=== PATIENT | male | born 1985 | race Hispanic/Latino ===

== ENCOUNTER 2025-01-14 18:54 | Inpatient (IN) | payer SELFPAY ==
[~2025-01-14] VITALS: Ht 182.9 cm; Wt 213.6 kg
[2025-01-14] MEDS: 0.9%NACL 1000ML 1,000 ML IV ONE ×2 (19:33→20:33)
[2025-01-14] MEDS: acetaMINOPHEN 500 MG TABLET PO ONE (19:34)
[2025-01-14 20:04] LABS: BASOPHILS # (AUTO) 0.12 K/uL (0.00-0.20); BASOPHILS % (AUTO) 0.7 % (0.0-5.0); EOSINOPHILS # (AUTO) 0.12 K/uL (0.00-0.70); EOSINOPHILS % (AUTO) 0.7 % (0.0-8.0); HEMATOCRIT 46.7 % (42-54); IMMATURE GRANULOCYTE ABSOLUTE 0.26 K/uL (0-1); LYMPHOCYTES # (AUTO) 1.7 K/uL (1.0-4.8); LYMPHOCYTES % (AUTO) 9.7 % (21.0-51.0); MEAN CORPUSCULAR HEMOGLOBIN 28.1 pg (27.0-33.0); MEAN CORPUSCULAR VOLUME 78.2 fL (79-99); MONOCYTES # (AUTO) 0.8 K/uL (0.1-1.0); MONOCYTES % (AUTO) 4.8 % (3.0-13.0); NEUTROPHILS # (AUTO) 14.3 K/uL (1.8-7.7); NEUTROPHILS % (AUTO) 82.6 % (40.0-77.0); PLATELET COUNT (AUTO) 344 K/uL (130-400); RED BLOOD CELL COUNT(AUTO) 5.97 MIL/uL (4.50-6.20); RED CELL DISTRIBUTION WIDTH 13.9 % (11.0-15.5); WHITE BLOOD COUNT (AUTO) 17.3 K/uL (4.8-10.8)
--- NOTE | 2025-01-14 20:05 | NUR ---
lactic acid 3.2 reported to tita griffin , pending new orders
[2025-01-14 20:16] LABS: CREATININE 1.1 mg/dL (0.5-1.3)
[2025-01-14 20:19] LABS: POTASSIUM 2.6 mmol/L (3.5-5.1)
[2025-01-14] MEDS: 0.9% NACL 500ML IV.SOLN 500 ML IV ONE (20:33)
[2025-01-14] MEDS: ceFEPime HCL 1 GM VIAL IVPB ONE (20:33)
[2025-01-14] MEDS: PoTASSium BIcarbonate/CIT AC 25 MEQ TABLET.EFF PO ONE (20:34)
[2025-01-14] MEDS: VANCOMYCIN 1G/250ML KIT 250 ML IV ONE (20:35)
[2025-01-14 20:36] LABS: B-TYPE NATRIURETIC PEPTIDE 12 pg/mL (0-100)
--- NOTE | 2025-01-14 21:07 | HMCIMG ---
CHEST 1VW HISTORY: Sepsis COMPARISON: 05/10/2011 FINDINGS: A frontal projection of the chest was obtained. No acute pulmonary infiltrates is seen. The heart is borderline enlarged. Degenerative changes are seen. Prominent interstitial markings are seen. No evidence of aortic calcification is seen. IMPRESSION: 1. No acute pulmonary infiltrate is seen.
--- NOTE | 2025-01-14 21:08 | HMCIMG ---
FOOT COMP 3+VWS LT HISTORY: Pain COMPARISON: None TECHNIQUE: 3 images of the left foot were obtained. FINDINGS: There is no acute displaced fracture or dislocation. There is soft tissue swelling. Evaluation for osteomyelitis is limited radiographs. The study is limited due to poor positioning. Degenerative changes are seen. IMPRESSION: 1. Findings as described above.
[2025-01-14 21:09] LABS: ERYTHROCYTE SEDIMENTATION RATE 73 MM/HR (0-15)
--- NOTE | 2025-01-14 21:09 | HMCIMG ---
KNEE 3VWS LT HISTORY: Pain COMPARISON: None TECHNIQUE: 3 images of the left knee were obtained. FINDINGS: There is no acute displaced fracture or dislocation. IMPRESSION: 1. Findings as described above.
--- NOTE | 2025-01-14 21:12 | HMCIMG ---
US VENOUS DOPPLER UNILATERAL HISTORY: Swelling COMPARISON: None TECHNIQUE: Left lower extremity venous Doppler ultrasound study was performed. FINDINGS: The left common femoral, femoral, popliteal, and posterior tibial veins are visualized. Normal flow with augmentation and compressibilities are demonstrated. Left greater saphenous vein is patent. IMPRESSION: 1. No evidence of deep venous thrombosis is seen.
--- NOTE | 2025-01-14 22:15 | ERN ---
ED Note History of Present Illness Stated Complaint: LEFT LEG PAIN Chief Complaint: Lower Extremity Pain/Injury Time Seen by MD: 19:01 Time Seen by Midlevel: 19:01 Dictation: The patient is a 39-year-old male with a history of diabetes on metformin who presents to the emergency department with complaints of left lower extremity swelling and redness. Patient reports that two weeks ago he tripped and fell on his left knee but on Saturday he started with a swelling. Patient reports he has been ambulating, denies any wounds from the fall. Denies any other injuries. Denies any fever. Allergies: Coded Allergies: No Known Drug Allergies (Unverified Allergy, Unknown, 01/14/25) Past Medical History Past Medical History: Diabetes-Type II Surgical History: Cholecystectomy RN Note Reviewed/Agreed w/PFSH: Yes Review of System Dictation Constitutional: Negative for fever,chills, and weight loss Eyes: Negative for injury, pain,redness, and discharge ENT: Negative for injury,pain or swelling Cardiovascular: Negative for chest pain, palpitations, and edema Respiratory: Negative for shortness of breath, cough, and wheezing, Abdomen/GI: Negative for abdominal pain, nausea, vomiting, diarrhea, and constipation Back: Negative for injury and pain : Negative for injury, bleeding and discharge MS/Extremity: Positive for left knee injury Skin: Negative for rash, and discoloration positive for erythema of left lower extremity and left foot Neuro: Negative for headache, weakness, numbness, tingling, and seizure Psych: Negative for suicide ideation, homicidal ideation, and hallucinations Initial Vital Sign VS Vital Signs Date Time Temp Pulse Resp B/P (MAP) Pulse Ox O2 Delivery O2 Flow Rate FiO2 01/14/25 18:57 98.4 101 20 159/93 97 0 01/14/25 19:54 Room Air* 21 Physical Exam Dictation Vital Signs reviewed General Appearance: Alert, oriented x 3, no acute distress, well developed, nourished. Obese Head and Face: non-traumatic. Eyes: PERRL, pink conjunctivas, eyelid no trauma, anterior chamber with arcus senilis. Ears: Pinnas intact and no signs of trauma or erythema ear canals clear and no discharge TM no erythema Nose: No discharge, no bleeding. Oropharynx: Mouth normal, tongue pink. pharynx clear,no erythema, tonsils no exudates, no abscesses noted, mucous membrane moist Neck: Supple, non-tender, no thyromegaly, no masses, no JVD, no bruits Breast:Deferred Chest:No tenderness, no crepitus, no paradoxical movement, no retractions Lungs:Clear, well-ventilated, symmetric, no rales, no wheezing, no rhonchi, no stridor, good breath sounds bilaterally Heart: Regular rate, regular rhythm, no murmur, no gallops Vascular: no peripheral edema, if lower extremity edema 3+ Abdomen: Soft, positive bowel sounds, nondistended, no guarding, nontender, no rebound, no masses no hepatomegaly, no splenomegaly, no Hess's sign, no hernias. Rectal: Deferred Genital: Deferred Neurological: Normal speech, motor function intact, sensory function intact Musculoskeletal: Neck nontender, full range of motion, back nontender, full range of motion, Extremities: nontender, full range of motion Skin: Color pink, dry, no turgor, no rash, no lacerations, no abrasions, no contusions.3cm diabetic ulcer noted to left 1st toe erythemic to left lower leg, left foot Lymphatic: Deferred Results (Laboratory/Radiology) Laboratory/Radiology Laboratory Tests Test 01/14/25 19:39 01/14/25 19:49 Magnesium Level 2.30 mg/dL (1.80-2.40) White Blood Count 17.3 K/uL (4.8-10.8) H Red Blood Count 5.97 MIL/uL (4.50-6.20) Hemoglobin 16.8 g/dL (14.0-18.0) Hematocrit 46.7 % (42-54) Mean Corpuscular Volume 78.2 fL (79-99) L Mean Corpuscular Hemoglobin 28.1 pg (27.0-33.0) Mean Corpuscular Hemoglobin Concent 36.0 g/dL (32.0-36.0) Red Cell Distribution Width 13.9 % (11.0-15.5) Platelet Count 344 K/uL (130-400) Mean Platelet Volume 11.5 fL (7.5-10.5) H Immature Granulocyte % (Auto) 1.5 % (0-1) H Neutrophils (%) (Auto) 82.6 % (40.0-77.0) H Lymphocytes (%) (Auto) 9.7 % (21.0-51.0) L Monocytes (%) (Auto) 4.8 % (3.0-13.0) Eosinophils (%) (Auto) 0.7 % (0.0-8.0) Basophils (%) (Auto) 0.7 % (0.0-5.0) Neutrophils # (Auto) 14.3 K/uL (1.8-7.7) H Lymphocytes # (Auto) 1.7 K/uL (1.0-4.8) Monocytes # (Auto) 0.8 K/uL (0.1-1.0) Eosinophils # (Auto) 0.12 K/uL (0.00-0.70) Basophils # (Auto) 0.12 K/uL (0.00-0.20) Absolute Immature Granulocyte (auto 0.26 K/uL (0-1) Nucleated Red Blood Cells 0.0 % (0.0-0.19) White Cell Morphology Comment See comments Erythrocyte Sedimentation Rate 73 MM/HR (0-15) H Sodium Level 130 mmol/L (136-145) L Potassium Level 2.6 mmol/L (3.5-5.1) *L Chloride Level 91 mmol/L (101-111) L Carbon Dioxide Level 24 mmol/L (21-32) Blood Urea Nitrogen 23 mg/dL (7-18) H Creatinine 1.1 mg/dL (0.5-1.3) Glomerular Filtration Rate Calc 88 mL/min (>90) Random Glucose 329 mg/dL (70-105) H Lactic Acid Level 3.2 mmol/L (0.8-2.5) H Total Calcium 9.2 mg/dL (8.5-10.1) C-Reactive Protein, Quantitative 191.80 mg/L (0.5-3.0) H B-Type Natriuretic Peptide 12 pg/mL (0-100) REASON: pain ORDERING PHYSICIAN: CASSIDY CHATMAN PROCEDURE: FT 3VW LT - FOOT COMP 3+VWS LT FOOT COMP 3+VWS LT HISTORY: Pain COMPARISON: None TECHNIQUE: 3 images of the left foot were obtained. FINDINGS: There is no acute displaced fracture or dislocation. There is soft tissue swelling. Evaluation for osteomyelitis is limited radiographs. The study is limited due to poor positioning. Degenerative changes are seen. IMPRESSION: 1. Findings as described above. REASON: sepsis ORDERING PHYSICIAN: CASSIDY CHATMAN [employer] PROCEDURE: CXR1VW - CHEST 1VW CHEST 1VW HISTORY: Sepsis COMPARISON: 05/10/2011 FINDINGS: A frontal projection of the chest was obtained. No acute pulmonary infiltrates is seen. The heart is borderline enlarged. Degenerative changes are seen. Prominent interstitial markings are seen. No evidence of aortic calcification is seen. IMPRESSION: 1. No acute pulmonary infiltrate is seen. REASON: pain ORDERING PHYSICIAN: CASSIDY CHATMAN [employer] MANAGER PROCEDURE: KNEE 3V LT - KNEE 3VWS LT KNEE 3VWS LT HISTORY: Pain COMPARISON: None TECHNIQUE: 3 images of the left knee were obtained. FINDINGS: There is no acute displaced fracture or dislocation. IMPRESSION: 1. Findings as described above. REASON: swelling redness ORDERING PHYSICIAN: CASSIDY CHATMAN [employer] MANAGER PROCEDURE: VENOUS UNI - US VENOUS DOPPLER UNILATERAL US VENOUS DOPPLER UNILATERAL HISTORY: Swelling COMPARISON: None TECHNIQUE: Left lower extremity venous Doppler ultrasound study was performed. FINDINGS: The left common femoral, femoral, popliteal, and posterior tibial veins are visualized. Normal flow with augmentation and compressibilities are demonstrated. Left greater saphenous vein is patent. IMPRESSION: 1. No evidence of deep venous thrombosis is seen. Labs Reviewed?: Yes ED Course ED Course Orders Procedure Category Date Status Time Cbc With Differential LAB 01/14/25 Complete 19:11 Basic Metabolic Panel LAB 01/14/25 Complete 19:11 Us Venous Doppler US 01/14/25 Resulted Unilateral 19:11 Knee 3vws Lt RAD 01/14/25 Resulted 19:11 Erythrocyte LAB 01/14/25 Complete Sedimentation Rate 19:11 Crp Quantitative LAB 01/14/25 Complete 19:11 Lactic Acid LAB 01/14/25 Complete 19:11 Blood Cult REYMUNDO 01/14/25 In Process 19:11 Foot Comp 3+Vws Lt RAD 01/14/25 Resulted 19:11 Aerobic Culture REYMUNDO 01/14/25 In Process 19:11 Anaerobic Culture REYMUNDO 01/14/25 In Process 19:11 Acetaminophen 500mg PHA 01/14/25 Complete Tab (Tylenol 500mg T 19:30 0.9%Nacl 1000ml (Ns PHA 01/14/25 Complete 1000ml) 19:30 B-Type Natriuretic LAB 01/14/25 Complete Peptide 19:11 Cefepime Hcl 1 Gm PHA 01/14/25 Complete Vial (Maxipime 1 Gm Vi 20:30 Vancomycin 1g/250ml PHA 01/14/25 Complete Kit (Vancomycin 1g/2 20:30 0.9%Nacl 1000ml (Ns PHA 01/14/25 Complete 1000ml) 20:30 0.9% Nacl 500ml PHA 01/14/25 Complete Iv.Soln (Ns 500ml 20:30 Chest 1vw RAD 01/14/25 Resulted 20:08 Potassium Bicarb/Cit PHA 01/14/25 Complete Ac 25meq (K-Lyte Ta 20:30 Magnesium LAB 01/14/25 Complete 20:26 Admit Orders ADM 01/14/25 Transmitted 21:45 Edm Admit Bridge Order ADM 01/14/25 Transmitted 21:45 Vital Signs(Adult CPOE 01/14/25 Transmitted Hospitalist) 22:22 Daily Weights CPOE 01/14/25 Transmitted 22:22 I&O Q Shift CPOE 01/14/25 Transmitted 22:22 Fever: Blood Cx X 2 CPOE 01/14/25 Transmitted 22:22 Acetaminophen 325 Tab PHA 01/14/25 In Process (Tylenol 325mg Tab 22:30 Acetaminophen 325 Tab PHA 01/14/25 In Process (Tylenol 325mg Tab 22:30 Ondansetron 4mg Inj PHA 01/14/25 In Process (Zofran 4mg Inj) 22:30 Nurse To Enter Home CPOE 01/14/25 Transmitted Medication 22:22 Admit Orders ADM 01/14/25 Transmitted 22:22 Condition: CPOE 01/14/25 Transmitted 22:22 Telemetry Monitoring CPOE 01/14/25 Transmitted 22:22 Activity: Bed Rest CPOE 01/14/25 Transmitted 22:22 Heart Healthy Diet DIET 01/15/25 Transmitted Breakfast Famotidine 20mg Tab PHA 01/15/25 In Process (Pepcid 20mg Tab) 09:00 Vancomycin 1g/250ml PHA 01/14/25 Complete Kit (Vancomycin 1g/2 22:30 Morphine 2mg Syg PHA 01/14/25 In Process (Morphine 2mg Syg) 22:30 0.9%Nacl 1000ml (Ns PHA 01/14/25 In Process 1000ml) 22:30 Hydralazine 20mg Inj PHA 01/14/25 In Process (Apresoline 20mg In 22:30 Initiate FITZ 01/14/25 In Process Hyperglycemia Protoco 22:22 Insulin Regular, PHA 01/15/25 In Process Human 3ml (Humulin R 07:30 Initiate Hypoglycemia FITZ 01/14/25 In Process Protocol 22:22 Dextrose 50%-Water PHA 01/14/25 In Process (D50w) 22:30 Glucagon 1mg Kit PHA 01/14/25 In Process (Glucagon 1mg Kit) 22:30 Magnesium 2gm Premix PHA 01/14/25 In Process 50ml (Magnesium 2gm 22:30 Initiate Po FITZ 01/14/25 In Process Hypokalemia Protoc 22:22 Potassium Chloride PHA 01/14/25 In Process 20meq/100ml ([place] 22:30 Potassium Chl 10% PHA 01/14/25 In Process Elixir 20meq (Kcl 10% 22:30 Potassium Chloride PHA 01/14/25 In Process 20meq Er (K-Dur/Klor- 22:30 Notify Physician If CPOE 01/14/25 Transmitted There Is 22:22 Notify Md On The Next CPOE 01/14/25 Transmitted 22:22 Notify Md On The CPOE 01/14/25 Transmitted Next(Cont.) 22:22 Cbc With Differential LAB 01/15/25 In Process 04:00 Erythrocyte LAB 01/15/25 In Process Sedimentation Rate 04:00 Comprehensive LAB 01/15/25 In Process Metabolic Panel 04:00 Magnesium LAB 01/15/25 In Process 04:00 Hemoglobin A1c LAB 01/15/25 In Process 04:00 Lipid Panel LAB 01/15/25 In Process 04:00 Thyroid Stimulating LAB 01/15/25 In Process Hormone 04:00 Procalcitonin LAB 01/15/25 In Process 04:00 Lactic Acid LAB 01/15/25 In Process 04:00 Podiatry Consult CONPHYSVC 01/14/25 Transmitted 22:22 Infectious Disease CONPHYSVC 01/14/25 Transmitted Consult 22:22 Case Management CM 01/14/25 Transmitted Evaluation 22:22 Cefepime Hcl 1 Gm PHA 01/15/25 In Process Vial (Maxipime 1 Gm Vi 06:00 Vancomycin Trough LAB 01/16/25 Verified 11:00 Vancomycin 1.75 PHA 01/15/25 In Process Gm/250 Ml Bag 00:00 Vancomycin Protocol PHA 01/14/25 In Process (Vancomycin Protocol 23:00 Lactic Acid (Removed) LAB 01/14/25 Logged 23:03 Vital Signs Date Time Temp Pulse Resp B/P (MAP) Pulse Ox O2 Delivery O2 Flow Rate FiO2 01/15/25 00:10 97.9 83 22 161/99 98 Room Air 01/14/25 23:15 98.1 84 20 145/94 97 Room Air* 0 01/14/25 22:15 98.1 87 20 144/84 99 Room Air* 0 01/14/25 21:15 98.2 94 20 147/85 99 Room Air* 0 01/14/25 20:45 98.2 99 20 152/87 97 Room Air* 0 01/14/25 19:54 98.4 104 20 154/92 97 Room Air* 0 01/14/25 18:57 98.4 101 20 159/93 97 0 Medical Decision Making MDM MDM: The patient is a 39-year-old male with a history of diabetes on metformin who presents to the emergency department with complaints of left lower extremity swelling and redness. Patient reports that two weeks ago he tripped and fell on his left knee but on Saturday he started with a swelling. Patient reports he has been ambulating, denies any wounds from the fall. Denies any other injuries. Denies any fever. CBC showed leukocytosis, no anemia, chemistry showed hyponatremia, hypokalemia, glucose of 329, elevated C-reactive, elevated lactic acid. Chest x-ray showed no acute pulmonary infiltrates, ultrasound left lower extremity showed no evidence of thrombosis, no fracture seen on x-rays. Patient will be admitted for further evaluation and management. only 2.5L of fluids given to patient due to increase BMI. Differential diagnosis: Cellulitis, DVT, sepsis Comorbidities: Diabetes Tests considered and not ordered secondary to shared decision making include: none Previous outside records reviewed: none Risk of complication and/or morbidity or mortality of patient management: The patient meets criteria for admission. Need for emergency major/minor surgery: No There are no social concerns with this patient. I independently interpreted the tests I ordered (labs, urinalysis, etc.). I discussed the case with the hospitalist for admission. [facility] who accepts admission I discussed the case with the following specialists: none. Historian: pateint. I independently interpreted imaging studies and EKGs that I ordered (US, CT, XR, EKG, etc.). External chart review: none. Medical management and examination interpretation discussions were had by me with other qualified healthcare professionals as indicated for the patient's care. Critical Care Note Critical Time: other (36) Comment(s) Total critical care time was 36 minutes. Excluding time for procedures. Management of critically ill patient with concern for acute decompensation. Management included interpretation of laboratory values and imaging, hemodynamics, time for consultation with consultants and admitting physician. DX & DISP Disposition: Inpatient Decision to Admit Date: January 14, 2025 Decision to Admit Time: 21:45 Departure Impression: Primary Impression: Sepsis Additional Impressions: Left leg cellulitis, Diabetic ulcer of toe, Leukocytosis, Uncontrolled diabetes mellitus with hyperglycemia, Hypokalemia, Hyponatremia, Hypochloremia Critical Time: 30 minutes (Critical Care Procedure NoteAuthorized and Performed by: meTotal critical care time: Approximately 36 minutesDue to a high probability of clinically significant, life threatening deterioration, the patient required my highest level of preparedness to intervene emergently and I personally spent this critical care time directly and personally managing the patient. This critical care time included obtaining a history; examining the patient; pulse oximetry; ordering and review of studies; arranging urgent treatment with development of a management plan; evaluation of patient's response to treatment; frequent reassessment; and, discussions with other providers.This critical care time was performed to assess and manage the high probability of imminent, life-threatening deterioration that could result in multi-organ failure. It was exclusive of separately billable procedures and treating other patients and teaching time.Please see MDM section and the rest of the note for further information on patient assessment and treatment.) Condition: Stable Referrals: SELF,REFERRAL (PCP) I have examined patient, & reviewed all documents, & agreed W/ the Diagnosis, and Plan I performed a substantive portion of the visit. I have reviewed and personally made and approve the management plan that is documented in the notes by myself with SHITAL/resident. I acknowledged full responsibility for the patient's management plan. CASSIDY CHATMAN January 14, 2025 22:15 TIFFANI PINEDO DO January 15, 2025 02:17
--- NOTE | 2025-01-14 22:24 | HP ---
[facility]ORY [facility] PH[facility] Date of Service: January 14, 2025 Time of Service: 22:06 PCP: Arlette HISTORY OF PRESENT ILLNESS: This is a 39 year old male,morbidly obese wwith past medical history of diabetes and hypertension who was brought by EMS to the ED for complaints of left leg painwhich started 2 weeks ago.Patient reports he fell at his driveway 2 weeks ago , landed on his left knee and did not seek medical attention and last Saturday he noticed his left leg has been swollen and has been wearing his shoes for too long he said and that his left big toe has been rubbing on his shoes and he also noticed he has been having difficulty walking because of pain on his left leg and left foot so he decided to come to the Ed for evaluation.Reportedly upon arrival to ER,staff took out his left foot from his shoes and it has a very offensive odor his left foot is red and big toe is necrotic and left leg has an ascending redness and swelling. Seen and examined patient int he ED awake,alert and coherent,appears comfortable.Patient denies fever,chills,nausea,vomiting,chest pain,palpitation and shortness of breath. Latest vital signs temperature 98.2, heart rate 99, blood pressure 152/87 saturation 97% on room air. Labs: WBC 17 with negative left shift of neutrophils 82, hemoglobin 16, hematocrit 46, platelet count 344. Sodium 130, potassium 2.6, chloride 91, BUN 23 creatinine 1.1, GFR 88 random glu cose 329 lactic acid 3.2 magnesium 2.3 CRP 191 BNP 12. Chest x-ray result is unremarkable. Venous Doppler on lower extremity result revealed no evidence of DVT. Left knee x-ray result revealed no acute displaced fracture or dislocation. Left foot x-ray result revealed no acute displaced fracture or dislocation. There is soft tissue swelling. Evaluation of osteomyelitis is hair ited radiographs. The study is limited due to poor positioning. Degenerative changes are seen. While in the ER patient received Tylenol 1000 mg p.o., 2.5 L NS bolus, cefepime 1 g IV, vancomycin IV, and potassium 50 mEq p.o.. We will admit patient for further medical management. REVIEW OF SYSTEMS CONSTITUTIONAL: Denies fevers, chills, or night sweats. No unintentional weight loss reported. NEUROLOGICAL: Denies headache, amaurosis fugax, motor weakness, sensory deficit, vertigo/spinning sensation, gait abnormalities, or tremors. ENT: No hearing loss, otalgia, otorrhea, rhinitis, rhinorrhea, hoarseness, or sore throat. CARDIOVASCULAR: Denies any exertional angina, dyspnea on exertion, orthopnea, paroxysmal nocturnal dyspnea, palpitations, life-threatening arrhythmias, claudication. PULMONARY: Denies any shortness of breath, cough, phlegm/sputum, hemoptysis, pleuritic chest pain. SLEEP: Denies morning headaches, daytime somnolence or napping. Denies difficulty falling asleep, staying asleep, waking from sleep. Denies knowledge of snoring. GASTROINTESTINAL: Denies any type of dysphagia to either liquids or solids. Denies nausea, vomiting, pyrosis, early satiety, abdominal pain, diarrhea, constipation, or changes in stool consistency or caliber. Denies coffee-ground emesis, hematemesis, hematochezia, or melanotic stools. GENITOURINARY: Denies frequency, urgency, nocturia, hematuria or incontinence (Storage/Irritative symptoms.) Low urinary stream, straining to void, urinary intermittency or hesitancy, splitting of the voiding stream, terminal dribbling. ENDOCRINOLOGIC: Denies polyuria, polydipsia, polyphagia or heat/cold intoleranc es. HEMATOLOGIC: Denies thrombophilia/previous clots, or coagulopathy/bleeding disorders. ONCOLOGIC: Denies personal history of malignancy. DERMATOLOGIC: Denies rashes or pruritus. PSYCHIATRIC: Denies any suicidal or homicidal ideation. Denies hallucinations. PAST MEDICAL HISTORY: [ Diabetes obesity, diabetes and hypertension] PAST SURGICAL HISTORY: [Cholecystectomy in 2010 ] PAST SOCIAL HISTORY: [ Patient lives alone. Patient denies alcohol tobacco and recreational drug use ] FAMILY HISTORY: [ Noncontributory ] Coded Allergies: No Known Drug Allergies (Unverified Allergy, Unknown, 01/14/25) PHYSICAL EXAM GENERAL APPEARANCE: The patient is awake, alert, and oriented, in no acute cardiopulmonary distress. NEUROLOGICAL: Cranial nerves II-XII grossly intact. Motor is 5/5 in bilateral upper and lower extremities proximal to distal. No sensory deficits. HEENT: Face is symmetric. Pupils are equal and reactive. Extraocular movements are intact. NECK: Supple. No JVD. No thyromegaly. No submental, submandibular, pre- /postauricular, occipital or supraclavicular lymphadenopathy. CHEST: Normal chest expansion. No Telemetry. LUNGS: Absence of any rales, rhonchi or any wheezing. CARDIOVASCULAR: Regular. S1 and S2 normal. No appreciable rubs, murmurs or gallops. ABDOMEN: Soft, nontender, and nondistended. There is no rebound, voluntary guarding, or rigidity. : Deferred. No Muller. EXTREMITIES: Non-edematous and not cyanotic. No clubbing. Good capillary refill. SKIN: No skin breakdown. Vital Sign (Last 24 Hours) 01/14/25 20:45 Temp 98.2 Pulse 99 Resp 20 B/P (MAP) 152/87 Pulse Ox 97 O2 Delivery Room Air* O2 Flow Rate 0 FiO2 21 LABS: Laboratory: Test 01/14/25 19:49 01/14/25 19:39 Range/Units White Blood Count 17.3 H 4.8-10.8 K/uL Red Blood Count 5.97 4.50-6.20 MIL/uL Hemoglobin 16.8 14.0-18.0 g/dL Hematocrit 46.7 42-54 % Mean Corpuscular Volume 78.2 L 79-99 fL Mean Corpuscular Hemoglobin 28.1 27.0-33.0 pg Mean Corpuscular Hemoglobin Concent 36.0 32.0-36.0 g/dL Red Cell Distribution Width 13.9 11.0-15.5 % Platelet Count 344 130-400 K/uL Mean Platelet Volume 11.5 H 7.5-10.5 fL Immature Granulocyte % (Auto) 1.5 H 0-1 % Neutrophils (%) (Auto) 82.6 H 40.0-77.0 % Lymphocytes (%) (Auto) 9.7 L 21.0-51.0 % Monocytes (%) (Auto) 4.8 3.0-13.0 % Eosinophils (%) (Auto) 0.7 0.0-8.0 % Basophils (%) (Auto) 0.7 0.0-5.0 % Neutrophils # (Auto) 14.3 H 1.8-7.7 K/uL Lymphocytes # (Auto) 1.7 1.0-4.8 K/uL Monocytes # (Auto) 0.8 0.1-1.0 K/uL Eosinophils # (Auto) 0.12 0.00-0.70 K/uL Basophils # (Auto) 0.12 0.00-0.20 K/uL Absolute Immature Granulocyte (auto 0.26 0-1 K/uL Nucleated Red Blood Cells 0.0 0.0-0.19 % White Cell Morphology Comment See comments Erythrocyte Sedimentation Rate 73 H 0-15 MM/HR Sodium Level 130 L 136-145 mmol/L Potassium Level 2.6 *L 3.5-5.1 mmol/L Chloride Level 91 L 101-111 mmol/L Carbon Dioxide Level 24 21-32 mmol/L Blood Urea Nitrogen 23 H 7-18 mg/dL Creatinine 1.1 0.5-1.3 mg/dL Glomerular Filtration Rate Calc 88 >90 mL/min Random Glucose 329 H 70-105 mg/dL Lactic Acid Level 3.2 H 0.8-2.5 mmol/L Total Calcium 9.2 8.5-10.1 mg/dL C-Reactive Protein, Quantitative 191.80 H 0.5-3.0 mg/L B-Type Natriuretic Peptide 12 0-100 pg/mL Magnesium Level 2.30 1.80-2.40 mg/dL DIAGNOSTICS / RADIOLOGY: [ ] ASSESSMENT: Sepsis POA Left leg pain POA Left toe necrotic ulcer POA Left leg cellulitis POA Hypokalemia POA Pseudohyponatremia secondary to hyperglycemia POA Hyperglycemia secondary to Uncontrolled diabetes POA Status post fall injury at home two weeks ago POA Hypertension POA Morbid obesity POA PLAN: We will admit patient in medical telemetry We will start on heart healthy diet We will start NS @ 100 ml / hr and re evaluate We will continue on cefepime and vancomycin IV for broad-spectrum coverage We will start on Famotidine 20 mg p.o. bid for GI prophylaxis We will replace electrolytes as needed per protocol We will start on insulin sliding scale AC & HS with hypoglycemia protocol We will add prn medication for fever,pain,cough, nausea and vomiting We will reconcile home meds once medlist available We will request case management service We will seek podiatry consultation POA We will seek Infectious Disease consultation Follow-up blood culture and wound culture result We will request labs in am Further orders to follow depending on above results Case discussed with attending physician and came up with above treatment and plan of care. ADVANCED CARE PLANNING 1. Which of the following were discussed? Hospice Care - No Therapeutic options - Yes Advance Directives - No Other discussions - 2. Discussed with who? Patient 3. Voluntary nature of this service was explained to the patient? Yes 4. Amount of time spent - ___24____ 5. Reviewed by Physician? (if this service was performed by NPP) Yes Patient seen and examined by me. Agree with note by LEVEL VIAL INSPECTOR AND TESTER SEE ADDITIONAL ORDERS PER CHART DISCUSSED WITH NURSING STAFF GERRI ALMANZAR COMPRESS ENGINEER January 14, 2025 22:24
[2025-01-14] MEDS ORDERED: VANCOMYCIN 1G/250ML KIT 250 ML IV SCH (22:30)
[2025-01-14] MEDS ORDERED: ondanSETRON 4MG INJ IV PRN (22:30)
[2025-01-14] MEDS ORDERED: DEXTROSE 50%-WATER 50 ML DISP.SYRIN IV PRN (22:30)
[2025-01-14] MEDS ORDERED: morPHINE 2 MG SYG IV PRN (22:30)
[2025-01-14] MEDS ORDERED: GLUCAGON 1MG KIT 1 MG ML IM PRN (22:30)
[2025-01-14] MEDS ORDERED: VANCOMYCIN PROTOCOL PER PHARMACY IV SCH (23:00)
[2025-01-14] MEDS: 0.9%NACL 1000ML 1,000 ML IV SCH (23:15)
[2025-01-15] VITALS (7 sets, daily range): BP systolic 117–161; BP diastolic 54–99; PULSE 83–98; RESP 18–22; TEMP 97.3–98.3; O2SAT 96–97
[2025-01-15] MEDS: VANCOMYCIN 1.75 GM/250 ML BAG 250 ML IV SCH (02:04)
[2025-01-15] MEDS: ceFEPime HCL 1 GM VIAL IVPB SCH (05:34)
[2025-01-15 06:01] LABS: BASOPHILS # (AUTO) 0.07 K/uL (0.00-0.20); BASOPHILS % (AUTO) 0.5 % (0.0-5.0); EOSINOPHILS # (AUTO) 0.21 K/uL (0.00-0.70); EOSINOPHILS % (AUTO) 1.5 % (0.0-8.0); HEMATOCRIT 42.2 % (42-54); IMMATURE GRANULOCYTE ABSOLUTE 0.23 K/uL (0-1); LYMPHOCYTES # (AUTO) 1.6 K/uL (1.0-4.8); LYMPHOCYTES % (AUTO) 11.5 % (21.0-51.0); MEAN CORPUSCULAR HEMOGLOBIN 27.9 pg (27.0-33.0); MEAN CORPUSCULAR HGB CONC 35.1 g/dL (32.0-36.0); MEAN CORPUSCULAR VOLUME 79.5 fL (79-99); MONOCYTES # (AUTO) 0.7 K/uL (0.1-1.0); MONOCYTES % (AUTO) 5.1 % (3.0-13.0); NEUTROPHILS # (AUTO) 11.2 K/uL (1.8-7.7); NEUTROPHILS % (AUTO) 79.8 % (40.0-77.0); PLATELET COUNT (AUTO) 279 K/uL (130-400); RED BLOOD CELL COUNT(AUTO) 5.31 MIL/uL (4.50-6.20); RED CELL DISTRIBUTION WIDTH 14.2 % (11.0-15.5)
[2025-01-15 06:35] LABS: HEMOGLOBIN A1C 10.8 % (4.0-6.0)
[2025-01-15 06:38] LABS: ALBUMIN 2.1 g/dL (3.5-5.0); BILIRUBIN,TOTAL 0.6 mg/dL (0.2-1.0); MAGNESIUM 2.1 mg/dL (1.80-2.40); THYROID STIMULATING HORMONE 3.62 uIU/mL (0.36-3.74); TOTAL PROTEIN, SERUM 7.6 g/dL (6.0-8.3)
[2025-01-15 06:43] LABS: POTASSIUM 2.6 mmol/L (3.5-5.1)
[2025-01-15] MEDS: PoTASSium chloRIDE 20MEQ ER 20 MEQ ERTAB PO PRN (07:28)
[2025-01-15] MEDS: PoTASSium chloRIDE 20MEQ/100ML 100 ML IV PRN (07:28)
[2025-01-15] MEDS: INSULIN humuLIN R 100 UNIT/ML 3ML SQ SCH (07:29)
[2025-01-15 07:31] LABS: ERYTHROCYTE SEDIMENTATION RATE 118 MM/HR (0-15)
[2025-01-15] MEDS: FAMOTIDINE 20MG TAB PO SCH (09:05)
--- NOTE | 2025-01-15 10:34 | NUR ---
[facility] Consult: Patient assessed by wound healing team. See wound assessment. Assessment and recommendations provided to primary nurse. Education provided. Addendum: 01/15/25 at 1307 by CHRISTINA MCCLURE RN RN/ Amended: Links added.
--- NOTE | 2025-01-15 11:12 | PN ---
[facility] PROGRESS NOTE Date of Service: January 15, 2025 Time of Service: 11:11 SUBJECTIVE: HPI This is a 39 year old male,morbidly obese with past medical history of diabetes and hypertension who was brought by EMS to the ED for complaints of left leg pain which started 2 weeks ago.Patient reports he fell at his driveway 2 weeks ago , landed on his left knee and did not seek medical attention and last Saturday he noticed his left leg has been swollen and has been wearing his shoes for too long he said and that his left big toe has been rubbing on his shoes and he also noticed he has been having difficulty walking because of pain on his left leg and left foot so he decided to come to the Ed for evaluation.Reportedly upon arrival to ER,staff took out his left foot from his shoes and it has a very offensive odor his left foot is red and big toe is gangrenous and left lower extremity has an ascending redness and swelling. Patient states that he is not very complaint with his medications and has not been on his medications. 01/15/25: Lying in bed with dad at bedside at the time of evaluation. Alert and oriented and in no obvious distress. Denies any chest pain, shortness of breath, palpitations, fever or chills. Vital signs T98.2, P 98, 22, BP 160/97, oxygen saturation 97 on room air. Labs WBC 14down from 17.3 yesterday, HB 14.8 HCT 42.2,Neutrophil 79.8, ESR 118, CRP 191.8, potassium 2.6 replace as per protocol, magnesium 2.1, lactic acid 1.7, hemoglobin A1c 10.8, glucose 250. X- ray of the left foot showed no acute displaced fracture or dislocation. There is soft tissue swelling. Evaluation of osteomyelitis is limited due to poor positioning. Degenerative changes seen. Venous Doppler was negative for DVT, blood cultures were ordered, still pending the results. Patient is currently on vancomycin 1 g and cefepime 1 g. Infectious disease consult has been placed, pending recommendations. Consult for podiatry has also been placed. Patient with gangrenous left great, ordered an arterial Doppler of the left lower extremities to assess circulation. Pending blood culture results. REVIEW OF SYSTEMS CONSTITUTIONAL: Denies fevers, chills, or night sweats. No unintentional weight loss reported. NEUROLOGICAL: Denies headache, amaurosis fugax, motor weakness, sensory deficit, vertigo/spinning sensation, gait abnormalities, or tremors. ENT: No hearing loss, otalgia, otorrhea, rhinitis, rhinorrhea, hoarseness, or sore throat. CARDIOVASCULAR: Denies any exertional angina, dyspnea on exertion, orthopnea, paroxysmal nocturnal dyspnea, palpitations, life-threatening arrhythmias, claudication. PULMONARY: Denies any shortness of breath, cough, phlegm/sputum, hemoptysis, pleuritic chest pain. SLEEP: Denies morning headaches, daytime somnolence or napping. Denies difficulty falling asleep, staying asleep, waking from sleep. Denies knowledge of snoring. GASTROINTESTINAL: Denies any type of dysphagia to either liquids or solids. Denies nausea, vomiting, pyrosis, early satiety, abdominal pain, diarrhea, constipation, or changes in stool consistency or caliber. Denies coffee-ground emesis, hematemesis, hematochezia, or melanotic stools. GENITOURINARY: Denies frequency, urgency, nocturia, hematuria or incontinence (Storage/Irritative symptoms.) Low urinary stream, straining to void, urinary intermittency or hesitancy, splitting of the voiding stream, terminal dribbling. ENDOCRINOLOGIC: Denies polyuria, polydipsia, polyphagia or heat/cold intolerances. HEMATOLOGIC: Denies thrombophilia/previous clots, or coagulopathy/bleeding disorders. ONCOLOGIC: Denies personal history of malignancy. DERMATOLOGIC: Denies rashes or pruritus. PSYCHIATRIC: Denies any suicidal or homicidal ideation. Denies hallucinations. PHYSICAL EXAM GENERAL APPEARANCE: The patient is awake, alert, and oriented, in no acute cardiopulmonary distress. NEUROLOGICAL: Cranial nerves II-XII grossly intact. Motor is 5/5 in bilateral upper and lower extremities proximal to distal. No sensory deficits. HEENT: Face is symmetric. Pupils are equal and reactive. Extraocular movements are intact. NECK: Supple. No JVD. No thyromegaly. No submental, submandibular, pre- /postauricular, occipital or supraclavicular lymphadenopathy. CHEST: Normal chest expansion. No Telemetry. LUNGS: Absence of any rales, rhonchi or any wheezing. CARDIOVASCULAR: Regular. S1 and S2 normal. No appreciable rubs, murmurs or gallops. ABDOMEN: Soft, nontender, and nondistended. There is no rebound, voluntary guarding, or rigidity. : Deferred. No Muller. EXTREMITIES: Non-edematous and not cyanotic. No clubbing. Good capillary refill. SKIN: No skin breakdown. Vital Signs (last 8hr) Date Time Temp Pulse Resp B/P (MAP) Pulse Ox O2 Delivery O2 Flow Rate FiO2 01/15/25 08:00 98.2 98 22 160/97 97 Room Air 01/15/25 03:45 97.9 86 20 158/80 100 Room Air LABS: Laboratory: Test 01/15/25 05:30 01/14/25 19:49 Range/Units White Blood Count 14.0 H 4.8-10.8 K/uL Red Blood Count 5.31 4.50-6.20 MIL/uL Hemoglobin 14.8 14.0-18.0 g/dL Hematocrit 42.2 42-54 % Mean Corpuscular Volume 79.5 79-99 fL Mean Corpuscular Hemoglobin 27.9 27.0-33.0 pg Mean Corpuscular Hemoglobin Concent 35.1 32.0-36.0 g/dL Red Cell Distribution Width 14.2 11.0-15.5 % Platelet Count 279 130-400 K/uL Mean Platelet Volume 10.7 H 7.5-10.5 fL Immature Granulocyte % (Auto) 1.6 H 0-1 % Neutrophils (%) (Auto) 79.8 H 40.0-77.0 % Lymphocytes (%) (Auto) 11.5 L 21.0-51.0 % Monocytes (%) (Auto) 5.1 3.0-13.0 % Eosinophils (%) (Auto) 1.5 0.0-8.0 % Basophils (%) (Auto) 0.5 0.0-5.0 % Neutrophils # (Auto) 11.2 H 1.8-7.7 K/uL Lymphocytes # (Auto) 1.6 1.0-4.8 K/uL Monocytes # (Auto) 0.7 0.1-1.0 K/uL Eosinophils # (Auto) 0.21 0.00-0.70 K/uL Basophils # (Auto) 0.07 0.00-0.20 K/uL Absolute Immature Granulocyte (auto 0.23 0-1 K/uL Nucleated Red Blood Cells 0.0 0.0-0.19 % Erythrocyte Sedimentation Rate 118 H 0-15 MM/HR Sodium Level 133 L 136-145 mmol/L Potassium Level 2.6 *L 3.5-5.1 mmol/L Chloride Level 96 L 101-111 mmol/L Carbon Dioxide Level 26 21-32 mmol/L Blood Urea Nitrogen 17 7-18 mg/dL Creatinine 1.0 0.5-1.3 mg/dL Glomerular Filtration Rate Calc 99 >90 mL/min Random Glucose 250 H 70-105 mg/dL Hemoglobin A1c 10.8 H 4.0-6.0 % Estimated Average Glucose (eAG) 263 H 70-126 mg/dL Lactic Acid Level 1.7 0.8-2.5 mmol/L Total Calcium 8.2 L 8.5-10.1 mg/dL Magnesium Level 2.10 1.80-2.40 mg/dL Total Bilirubin 0.6 0.2-1.0 mg/dL Aspartate Amino Transf (AST/SGOT) 20 10-37 U/L Alanine Aminotransferase (ALT/SGPT) 17 12-78 U/L Alkaline Phosphatase 110 50-136 U/L Total Protein 7.6 6.0-8.3 g/dL Albumin 2.1 L 3.5-5.0 g/dL Triglycerides Level 98 30-200 mg/dL Cholesterol Level 141 <200 mg/dL LDL Cholesterol 95 0-99 mg/dL HDL Cholesterol 29 29-71 mg/dL Procalcitonin 0.43 0.05-0.5 ng/mL Thyroid Stimulating Hormone (TSH) 3.62 0.36-3.74 uIU/mL White Cell Morphology Comment See comments C-Reactive Protein, Quantitative 191.80 H 0.5-3.0 mg/L B-Type Natriuretic Peptide 12 0-100 pg/mL Current Medications Medications (Trade) Dose Ordered Sig/Silverio Route PRN Reason Start Time Stop Time Status Last Admin Dose Admin Acetaminophen (TYLenol 325MG TAB) 650 mg Q4H PRN PO MILD PAIN (1-3) 01/14/25 22:30 02/13/25 22:29 Acetaminophen (TYLenol 325MG TAB) 650 mg Q6H PRN PO TEMPERATURE GREATER THAN 101.5 01/14/25 22:30 02/13/25 22:29 Cefepime HCl (MAXipime 1 GM vial) 1 gm Q8H IVPB 01/15/25 06:00 01/25/25 05:59 01/15/25 05:34 1 GM Dextrose (D50w) 50 ml AD PRN IV HYPOGLYCEMIA PROTOCOL 01/14/25 22:30 02/13/25 22:29 Famotidine (Pepcid 20mg Tab) 20 mg BID PO 01/15/25 09:00 02/14/25 08:59 01/15/25 09:05 20 MG Glucagon (Glucagon 1mg Kit) 1 mg AD PRN IM HYPOGLYCEMIA PROTOCOL 01/14/25 22:30 02/13/25 22:29 Hydralazine HCl (APRESOLine 20MG INJ) 10 mg Q6H PRN IV For:SBP above 160;DBP above 90 01/14/25 22:30 02/13/25 22:29 Insulin Human Regular (humuLIN R 100 UNIT/ML 3ML) INSULIN SLIDING SCAL... ACHS SQ 01/15/25 07:30 02/14/25 07:29 01/15/25 07:29 8 UNIT Magnesium Sulfate 50 ml @ 0 mls/hr PROTOCOL PRN IV OTHER [SEE ORDER COMMENTS] 01/14/25 22:30 02/13/25 22:29 Morphine Sulfate (morPHINE 2MG SYG) 2 mg Q4H PRN IV MODERATE PAIN (4-6) 01/14/25 22:30 01/21/25 22:29 Ondansetron HCl (zoFRAN 4MG INJ) 4 mg Q6H PRN IV NAUSEA/VOMITING 01/14/25 22:30 02/13/25 22:29 Potassium Chloride 100 ml @ 100 mls/hr AD PRN IV POTASSIUM PROTOCOL 01/14/25 22:30 02/13/25 22:29 01/15/25 07:28 100 MLS/HR Potassium Chloride (K-Dur/Klor-Con 20meq) 20 meq AD PRN PO POTASSIUM PROTOCOL 01/14/25 22:30 02/13/25 22:29 01/15/25 07:28 20 MEQ Potassium Chloride (KCl 10% Elixir 20meq/15ml) 20 meq AD PRN PO POTASSIUM PROTOCOL 01/14/25 22:30 02/13/25 22:29 Sodium Chloride 1,000 ml @ 100 mls/hr Q10H IV 01/14/25 22:30 02/13/25 22:29 01/15/25 09:06 100 MLS/HR Vancomycin HCl 250 ml @ 125 mls/hr ONCE IV 01/14/25 22:30 01/14/25 22:52 DC Vancomycin HCl 250 ml @ 125 mls/hr Q12H IV 01/15/25 00:00 01/25/25 00:00 01/15/25 02:04 125 MLS/HR Vancomycin HCl (Vancomycin Protocol) 1 each AD IV 01/14/25 23:00 01/28/25 22:59 DIAGNOSTICS / RADIOLOGY: PATIENT: MANUEL MADRIGAL MR#: [id number] : 1985 SEX: M AGE: 39 LOCATION: [facility] ORDER 15 STATUS: REG [facility] REPORT#: [id number] SERVICE 10 REASON: swelling redness ORDERING PHYSICIAN: CASSIDY CHATMAN PROCEDURE: VENOUS UNI - US VENOUS DOPPLER UNILATERAL US VENOUS DOPPLER UNILATERAL HISTORY: Swelling COMPARISON: None TECHNIQUE: Left lower extremity venous Doppler ultrasound study was performed. FINDINGS: The left common femoral, femoral, popliteal, and posterior tibial veins are visualized. Normal flow with augmentation and compressibilities are demonstrated. Left greater saphenous vein is patent. IMPRESSION: 1. No evidence of deep venous thrombosis is seen. DICTATED BY: DEEPALI KRISHNA MD DATE: 01/14/252108 ELECTRONICALLY SIGNED BY: DEEPALI KRISHNA MD DATE: 01/14/252111 PATIENT: MANUEL MADRIGAL MR#: [id number] : 1985 SEX: M AGE: 39 LOCATION: [facility] ORDER 15 STATUS: REG ER REPORT#: [id number] SERVICE 10 REASON: pain ORDERING PHYSICIAN: CASSIDY CHATMAN PROCEDURE: FT 3VW LT - FOOT COMP 3+VWS LT FOOT COMP 3+VWS LT HISTORY: Pain COMPARISON: None TECHNIQUE: 3 images of the left foot were obtained. FINDINGS: There is no acute displaced fracture or dislocation. There is soft tissue swelling. Evaluation for osteomyelitis is limited radiographs. The study is limited due to poor positioning. Degenerative changes are seen. IMPRESSION: 1. Findings as described above. DICTATED BY: DEEPALI KRISHNA MD DATE: 01/14/252104 ELECTRONICALLY SIGNED BY: DEEPALI KRISHNA MD DATE: 01/14/252107 ASSESSMENT: Sepsis POA Left leg pain POA Left toe necrotic ulcer POA Left leg cellulitis POA Hypokalemia POA Pseudohyponatremia secondary to hyperglycemia POA Hyperglycemia secondary to Uncontrolled diabetes POA Status post fall injury at home two weeks ago POA Hypertension POA Morbid obesity POA PLAN: *Venous Doppler was negative for DVT, *Blood cultures were ordered, still pending the results. *Patient is currently on vancomycin 1 g and cefepime 1 g. *Infectious disease consult has been placed, pending recommendations. *Consult for podiatry has also been placed. *Patient with gangrenous left great toe, ordered an arterial Doppler of the left lower extremities to assess circulation. We will start on heart healthy diet We will start NS @ 100 ml / hr and re evaluate We will start on Famotidine 20 mg p.o. bid for GI prophylaxis We will replace electrolytes as needed per protocol We will start on insulin sliding scale AC & HS with hypoglycemia protocol We will add prn medication for fever,pain,cough, nausea and vomiting We will reconcile home meds once medlist available We will request case management service We will request labs in am Further orders to follow depending on above results Case discussed with attending physician and came up with above treatment and plan of care. ATTESTATION BY PHYSICIAN I have seen and examined the patient. I reviewed the documentation, medical decision making, and treatment plan as noted by the resident provider above. I agree with the findings and plan of care. César Maynard MD OBI,FERN Rucker MD January 15, 2025 11:12
[2025-01-15] MEDS: acetaMINOPHEN 325 MG TAB PO PRN (12:15)
--- NOTE | 2025-01-15 14:17 | NUR ---
DCP: HOME Pt met with pt and father Bart Kuo Sr [phone] at bedside. Pt currently lives alone. Pt did not report insecurities with food, chcf, and/or utilities. Pt does not have DME, home health, or provider services. Pt states that he is able to complete ADLs independently. Pt states that he usually sees Dr. Thapa at [facility] and uses [facility] for any RX needs. At DC pt will go home and family will assist with transportation. Addendum: 01/15/25 at 1420 by RAOUL CALI SS Amended: Links added.
[2025-01-15] MEDS: IODOSORB GEL 40GM TP ONE (14:56)
[2025-01-15] MEDS: acetaMINOPHEN WITH coDEINE 1 TAB TAB PO PRN (17:03)
--- NOTE | 2025-01-15 17:26 | HMCIMG ---
MR FOOT LEFT WO HISTORY: Wound to great toe COMPARISON: None TECHNIQUE: MRI of the left foot was performed utilizing multiple pulse sequences in axial, coronal and sagittal planes. Patient was not given contrast through intravenous route. FINDINGS: Abnormal increased signal intensity is seen involving the first distal phalanx consistent with osteomyelitis. Adjacent cellulitis changes are seen. No signs of fracture or dislocation is seen. IMPRESSION: 1. Findings suggestive of osteomyelitis involving the first distal phalanx with adjacent cellulitis.
--- NOTE | 2025-01-15 17:52 | HMCIMG ---
US ARTERIAL UNILA LOW EXT DUPL HISTORY: Gangrene to left great toe COMPARISON: None TECHNIQUE: Left lower extremity arterial Doppler ultrasound study was performed. FINDINGS: Normal triphasic arterial waveforms are noted in the left common femoral, deep femoral, superficial femoral, popliteal, posterior tibial and dorsalis pedal arteries. On the left, the peak systolic velocity of the common femoral artery is 146 cm/s, the proximal femoral artery is 146 cm/s, the mid femoral artery is 128 cm/s, the distal femoral artery is 150 cm/s, the proximal popliteal artery is 99 cm/s, the distal popliteal artery is 38 cm/s, the anterior tibial artery is 105 cm/s, the posterior tibial artery artery is 73 cm/s,and the dorsalis pedal artery is 142 cm/s. IMPRESSION: 1. Atherosclerotic disease. 2. Otherwise normal triphasic arterial waveforms noted of the left lower extremity artery system. Low velocity with hyperemic flow is seen in the left posterior tibial artery.
[2025-01-16] VITALS: BP 137/76; PULSE 87; RESP 18; TEMP 97.7
[2025-01-16 04:00] VITALS: BP 153/80; PULSE 89; RESP 20; TEMP 97.8
[2025-01-16 08:00] VITALS: BP 147/81; PULSE 84; RESP 16; TEMP 97.8
[2025-01-16 09:10] LABS: BASOPHILS # (AUTO) 0.08 K/uL (0.00-0.20); BASOPHILS % (AUTO) 0.7 % (0.0-5.0); EOSINOPHILS # (AUTO) 0.27 K/uL (0.00-0.70); EOSINOPHILS % (AUTO) 2.4 % (0.0-8.0); HEMATOCRIT 40.3 % (42-54); IMMATURE GRANULOCYTE ABSOLUTE 0.42 K/uL (0-1); LYMPHOCYTES # (AUTO) 1.7 K/uL (1.0-4.8); MEAN CORPUSCULAR HEMOGLOBIN 27.9 pg (27.0-33.0); MEAN CORPUSCULAR VOLUME 79.6 fL (79-99); MONOCYTES # (AUTO) 0.6 K/uL (0.1-1.0); MONOCYTES % (AUTO) 5.2 % (3.0-13.0); NEUTROPHILS # (AUTO) 8.2 K/uL (1.8-7.7); PLATELET COUNT (AUTO) 322 K/uL (130-400); RED BLOOD CELL COUNT(AUTO) 5.06 MIL/uL (4.50-6.20); RED CELL DISTRIBUTION WIDTH 14.4 % (11.0-15.5); WHITE BLOOD COUNT (AUTO) 11.3 K/uL (4.8-10.8)
[2025-01-16 09:24] LABS: CREATININE 0.9 mg/dL (0.5-1.3)
[2025-01-16 09:29] LABS: BILIRUBIN,TOTAL 0.4 mg/dL (0.2-1.0); TOTAL PROTEIN, SERUM 7.2 g/dL (6.0-8.3)
[2025-01-16 09:33] LABS: POTASSIUM 2.3 mmol/L (3.5-5.1)
[2025-01-16 10:02] LABS: EOSINOPHILS % (MANUAL) 2 % (1-6); LYMPHOCYTES % (MANUAL) 20 % (22-44); MONOCYTES % (MANUAL) 1 % (2-9); REACTIVE LYMPHOCYTES 2 % (0-0); SEGMENTED NEUTROPHILS % 75 % (40-70); TOTAL CELLS COUNTED 100
[2025-01-16 10:03] LABS: MAN.DIFF COMMENT-IMPRESSION MANUAL DIFFERENTIAL
[2025-01-16 10:06] LABS: PLATELET MORPHOLOGY COMMENT ADEQUATE
[2025-01-16 10:07] LABS: WBC MORPHOLOGY REACTIVE LYMPHS 1+
[2025-01-16 12:00] VITALS: BP 115/76; PULSE 82; RESP 16; TEMP 97.4
--- NOTE | 2025-01-16 12:07 | CONS ---
CONSULTATION NOTE Date of Service: January 16, 2025 Reason for Consultation: The years old was seen for consult for consultation of infection and ulcer to his left big toe the patient was admitted through the emergency after a fall approximately two weeks and went home. The and has a history of it is morbid obese. He presented to be ER the foul smell to his foot. Requesting Physician: Dr. Macedo HISTORY OF PRESENT ILLNESS: 39 years old morbid obese diabetic live his own father at bedside apparently fail on his approximately his ago low dye he sustained this to the toe on his left foot and the hallux foot. Has an ulcer on under aspect of the hallux known chronicity. At this time x-ray and MRI were suspicious of osteomyelitis of the distal phalanx of the great toe left foot positive cellulitis on the left lower extremity and hematoma formation secondary to injury on his leg and knee secondary to the fall. REVIEW OF SYSTEMS CONSTITUTIONAL: Denies fever, chills, or fatigue. Morbid obesity HEAD/FACE: No signs of trauma. EENT: Denies eye pain, blurred vision, double vision, or light sensitivity. RESPIRATORY: Denies shortness of breath, cough, wheezing CARDIOVASCULAR: Denies chest pain, palpitation, syncope GASTROINTESTINAL/ABDOMINAL: Denies abdominal pain, constipation, diarrhea, nausea or vomiting GENITOURINARY: Denies dysuria or hematuria. MUSCULOSKELETAL: Denies joint pain, tenderness secondary to trauma to the left lower extremity but no fractures or dislocations or x-ray examination. INTEGUMENTARY: Great toe ulcer on the left hallux at the level of subcutaneous tissue MRI consistent with possible changes of osteomyelitis. NEUROLOGICAL/PSYCH: Denies anxiety, depression, heat or cold intolerance. PAST MEDICAL HISTORY: Diabetes hypertension morbid obesity hypercholesterolemia PAST SURGICAL HISTORY: None PAST SOCIAL HISTORY: Denies smoking drinking or illicit drug FAMILY HISTORY: Noncontributory good support from his father. Coded Allergies: No Known Drug Allergies (Unverified Allergy, Unknown, 01/14/25) PHYSICAL EXAM EYES: Anicteric. Pupils equal and reactive. HENT: No oral thrush seen, moist Oral mucosa NECK: Supple, no JVD or thyromegaly. LUNGS: Good air entry. No rales, no rhonchi. CARDIOVASCULAR: S1, S2 regular. No murmur heard. ABDOMEN: Soft, non tender, bowel sounds present, no organomegaly CENTRAL NERVOUS SYSTEM: Awake, alert, oriented x 3. No focal deficits. SKIN: Diabetic foot ulcer on the plantar aspect of the great toe left foot down to subcutaneous tissue level measuring approximately 2 cm x 1.5 cm x 0.1 in depth. Edema and erythema on the toe secondary to this infection MRI consistent with changes possible osteomyelitis. LYMPHATICS: No peripheral lymphadenopathy MUSCULOSKELETAL: No joint swelling, erythema or tenderness. EXTREMITIES: Left lower extremity hematomas secondary to the fall and edema on bilateral lower extremity lipedema BACK: No deformity, no pressure ulcer. GENITOURINARY: No dysuria or hematuria Vital Sign (Last 24 Hours) 01/15/25 01/16/25 20:30 08:00 Temp 97.9 Pulse 84 Resp 16 B/P (MAP) 147/81 Pulse Ox 95 O2 Delivery Room Air O2 Flow Rate 0 FiO2 21 Intake & Output (last 24hrs) 01/15/25 01/15/25 01/16/25 15:00 23:00 07:00 Intake Total 700 ml 300 ml Output Total 800 ml Balance 700 ml 300 ml -800 ml LABS: Laboratory: Test 01/16/25 11:19 01/16/25 10:38 01/16/25 08:55 01/15/25 05:30 Range/Units Whole Blood Glucose 290 H 70-110 MG/DL Vancomycin Level Trough 17.0 10.0-20.0 UG/ML White Blood Count 11.3 H 4.8-10.8 K/uL Red Blood Count 5.06 4.50-6.20 MIL/uL Hemoglobin 14.1 14.0-18.0 g/dL Hematocrit 40.3 L 42-54 % Mean Corpuscular Volume 79.6 79-99 fL Mean Corpuscular Hemoglobin 27.9 27.0-33.0 pg Mean Corpuscular Hemoglobin Concent 35.0 32.0-36.0 g/dL Red Cell Distribution Width 14.4 11.0-15.5 % Platelet Count 322 130-400 K/uL Mean Platelet Volume 10.5 7.5-10.5 fL Immature Granulocyte % (Auto) 3.7 H 0-1 % Neutrophils (%) (Auto) 73.0 40.0-77.0 % Lymphocytes (%) (Auto) 15.0 L 21.0-51.0 % Monocytes (%) (Auto) 5.2 3.0-13.0 % Eosinophils (%) (Auto) 2.4 0.0-8.0 % Basophils (%) (Auto) 0.7 0.0-5.0 % Neutrophils # (Auto) 8.2 H 1.8-7.7 K/uL Lymphocytes # (Auto) 1.7 1.0-4.8 K/uL Monocytes # (Auto) 0.6 0.1-1.0 K/uL Eosinophils # (Auto) 0.27 0.00-0.70 K/uL Basophils # (Auto) 0.08 0.00-0.20 K/uL Absolute Immature Granulocyte (auto 0.42 0-1 K/uL Segmented Neutrophils % 75 H 40-70 % Lymphocytes % (Manual) 20 L 22-44 % Monocytes % (Manual) 1 L 2-9 % Eosinophils % (Manual) 2 1-6 % Nucleated Red Blood Cells 0.0 0.0-0.19 % Differential Comment MANUAL DIFFERENTIAL Reactive Lymphocytes 2 H 0-0 % White Cell Morphology Comment REACTIVE LYMPHS 1+ Platelet Morphology Comment ADEQUATE Red Blood Cell Morphology NORMAL Erythrocyte Sedimentation Rate 93 H 0-15 MM/HR Sodium Level 134 L 136-145 mmol/L Potassium Level 2.3 *L 3.5-5.1 mmol/L Chloride Level 99 L 101-111 mmol/L Carbon Dioxide Level 28 21-32 mmol/L Blood Urea Nitrogen 11 7-18 mg/dL Creatinine 0.9 0.5-1.3 mg/dL Glomerular Filtration Rate Calc 112 >90 mL/min Random Glucose 294 H 70-105 mg/dL Total Calcium 8.1 L 8.5-10.1 mg/dL Total Bilirubin 0.4 0.2-1.0 mg/dL Aspartate Amino Transf (AST/SGOT) 11 10-37 U/L Alanine Aminotransferase (ALT/SGPT) 17 12-78 U/L Alkaline Phosphatase 90 50-136 U/L C-Reactive Protein, Quantitative 85.00 H 0.5-3.0 mg/L Total Protein 7.2 6.0-8.3 g/dL Albumin 2.0 L 3.5-5.0 g/dL Hemoglobin A1c 10.8 H 4.0-6.0 % Estimated Average Glucose (eAG) 263 H 70-126 mg/dL Lactic Acid Level 1.7 0.8-2.5 mmol/L Magnesium Level 2.10 1.80-2.40 mg/dL Triglycerides Level 98 30-200 mg/dL Cholesterol Level 141 <200 mg/dL LDL Cholesterol 95 0-99 mg/dL HDL Cholesterol 29 29-71 mg/dL Procalcitonin 0.43 0.05-0.5 ng/mL Thyroid Stimulating Hormone (TSH) 3.62 0.36-3.74 uIU/mL Test 01/14/25 19:49 Range/Units B-Type Natriuretic Peptide 12 0-100 pg/mL DIAGNOSTICS / RADIOLOGY: MRI positive for osteomyelitis of the distal phalanx of the great toe left foot ASSESSMENT: Diabetic foot ulcer with infection of the great toe left foot. Trauma secondary to fall two weeks ago left lower extremity. Diabetes Morbid obesity. Osteomyelitis great toe left foot PLAN: Continue IV antibiotics local wound care. Iodosorb to the ulcer daily. We will monitor his progress patient may need amputation of the great toe on the left foot we will follow his progress with local and medical care if this fails to heal then amputation will be done. In the meanwhile continue medical management. Local wound care. JUDE MCGRAW DPM January 16, 2025 12:07
--- NOTE | 2025-01-16 13:14 | PN ---
INFECTIOUS DISEASE PROGRESS NOTE Date of Service: January 16, 2025 SUBJECTIVE: This is a 39-year-old male patient with past medical history of diabetes mellitus and hypertension who was admitted with chief complaint of left leg swelling and pain. A venous Doppler done on admission was negative for DVT. In the the ER patient was found with a diabetic ulcer on the left great toe which was cultured and the preliminary wound culture results is growing gram negative rods. The WBC was 17.3 but no fever. An MRI of the left foot showed findings of osteomyelitis involving the 1st distal phalanx. Patient has been started on vancomycin and cefepime. Patient reported that his diabetes and hypertension is not being managed due to lack of insurance. On examination today in room 426 the left great toe is having small amount of purulent discharge. [facility] has been consulted and following patient. The left lower extremity is swollen with some erythema. Patient reported a mechanical fall at home approximately two weeks ago and fell on his knee. A left knee x-ray showed no fracture nor dislocation. We will continue current antibiotics and follow up on the final culture results. Antibiotics to be adjusted when culture is updated or finalized. REVIEW OF SYSTEMS CONSTITUTIONAL: Denies fever, chills, or fatigue. HEAD/FACE: No signs of trauma. EENT: Denies eye pain, blurred vision, double vision, or light sensitivity. RESPIRATORY: Denies shortness of breath, cough, wheezing. CARDIOVASCULAR: Denies chest pain, palpitation, syncope. GASTROINTESTINAL/ABDOMINAL: Denies abdominal pain, constipation, diarrhea, nausea or vomiting. GENITOURINARY: Denies dysuria or hematuria. MUSCULOSKELETAL: Denies joint pain, tenderness, or trauma. Left leg swelling and pain INTEGUMENTARY: Denies rash or itchiness. Left leg redness. NEUROLOGICAL/PSYCH: Denies anxiety, depression, heat or cold intolerance. PHYSICAL EXAM EYES: Anicteric. Pupils equal and reactive. HENT: No oral thrush seen, moist Oral mucosa. NECK: Supple, no JVD or thyromegaly. LUNGS: Good air entry. No rales, no rhonchi. CARDIOVASCULAR: S1, S2 regular. No murmur heard. ABDOMEN: Soft, non tender, bowel sounds present, no organomegaly. CENTRAL NERVOUS SYSTEM: Awake, alert, oriented x 3. SKIN: No rashes, no swelling. Left great toe diabetic ulcer. LYMPHATICS: No peripheral lymphadenopathy. MUSCULOSKELETAL: No joint swelling, erythema or tenderness. EXTREMITIES: No cyanosis or clubbing. Left lower extremity swelling and erythema. BACK: No deformity, no pressure ulcer. GENITOURINARY: No dysuria or hematuria. Vital Sign (Last 12 Hours) 01/16/25 01/16/25 01/16/25 04:00 08:00 12:00 Temp 97.9 97.9 97.3 Pulse 89 84 82 Resp 20 16 16 B/P (MAP) 153/80 147/81 115/76 Pulse Ox 99 95 97 O2 Delivery Room Air Room Air Room Air FiO2 21 21 Intake & Output (last 24hrs) 01/15/25 01/15/25 01/16/25 15:00 23:00 07:00 Intake Total 700 ml 300 ml Output Total 800 ml Balance 700 ml 300 ml -800 ml LABS: Laboratory: Test 01/16/25 11:19 01/16/25 10:38 01/16/25 08:55 01/15/25 05:30 Range/Units Whole Blood Glucose 290 H 70-110 MG/DL Vancomycin Level Trough 17.0 10.0-20.0 UG/ML White Blood Count 11.3 H 4.8-10.8 K/uL Red Blood Count 5.06 4.50-6.20 MIL/uL Hemoglobin 14.1 14.0-18.0 g/dL Hematocrit 40.3 L 42-54 % Mean Corpuscular Volume 79.6 79-99 fL Mean Corpuscular Hemoglobin 27.9 27.0-33.0 pg Mean Corpuscular Hemoglobin Concent 35.0 32.0-36.0 g/dL Red Cell Distribution Width 14.4 11.0-15.5 % Platelet Count 322 130-400 K/uL Mean Platelet Volume 10.5 7.5-10.5 fL Immature Granulocyte % (Auto) 3.7 H 0-1 % Neutrophils (%) (Auto) 73.0 40.0-77.0 % Lymphocytes (%) (Auto) 15.0 L 21.0-51.0 % Monocytes (%) (Auto) 5.2 3.0-13.0 % Eosinophils (%) (Auto) 2.4 0.0-8.0 % Basophils (%) (Auto) 0.7 0.0-5.0 % Neutrophils # (Auto) 8.2 H 1.8-7.7 K/uL Lymphocytes # (Auto) 1.7 1.0-4.8 K/uL Monocytes # (Auto) 0.6 0.1-1.0 K/uL Eosinophils # (Auto) 0.27 0.00-0.70 K/uL Basophils # (Auto) 0.08 0.00-0.20 K/uL Absolute Immature Granulocyte (auto 0.42 0-1 K/uL Segmented Neutrophils % 75 H 40-70 % Lymphocytes % (Manual) 20 L 22-44 % Monocytes % (Manual) 1 L 2-9 % Eosinophils % (Manual) 2 1-6 % Nucleated Red Blood Cells 0.0 0.0-0.19 % Differential Comment MANUAL DIFFERENTIAL Reactive Lymphocytes 2 H 0-0 % White Cell Morphology Comment REACTIVE LYMPHS 1+ Platelet Morphology Comment ADEQUATE Red Blood Cell Morphology NORMAL Erythrocyte Sedimentation Rate 93 H 0-15 MM/HR Sodium Level 134 L 136-145 mmol/L Potassium Level 2.3 *L 3.5-5.1 mmol/L Chloride Level 99 L 101-111 mmol/L Carbon Dioxide Level 28 21-32 mmol/L Blood Urea Nitrogen 11 7-18 mg/dL Creatinine 0.9 0.5-1.3 mg/dL Glomerular Filtration Rate Calc 112 >90 mL/min Random Glucose 294 H 70-105 mg/dL Total Calcium 8.1 L 8.5-10.1 mg/dL Total Bilirubin 0.4 0.2-1.0 mg/dL Aspartate Amino Transf (AST/SGOT) 11 10-37 U/L Alanine Aminotransferase (ALT/SGPT) 17 12-78 U/L Alkaline Phosphatase 90 50-136 U/L C-Reactive Protein, Quantitative 85.00 H 0.5-3.0 mg/L Total Protein 7.2 6.0-8.3 g/dL Albumin 2.0 L 3.5-5.0 g/dL Hemoglobin A1c 10.8 H 4.0-6.0 % Estimated Average Glucose (eAG) 263 H 70-126 mg/dL Lactic Acid Level 1.7 0.8-2.5 mmol/L Magnesium Level 2.10 1.80-2.40 mg/dL Triglycerides Level 98 30-200 mg/dL Cholesterol Level 141 <200 mg/dL LDL Cholesterol 95 0-99 mg/dL HDL Cholesterol 29 29-71 mg/dL Procalcitonin 0.43 0.05-0.5 ng/mL Thyroid Stimulating Hormone (TSH) 3.62 0.36-3.74 uIU/mL Test 01/14/25 19:49 Range/Units B-Type Natriuretic Peptide 12 0-100 pg/mL DIAGNOSTICS / RADIOLOGY: PATIENT: MANUEL MADRIGAL ACCT: [id number] LOC: [facility] U: [id number] AGE/SX: 39/M ROOM: 426 RE01/14/[address]: LYUBOV SALAS MD : 1985 BED: 1 DIS: STATUS: ADM IN TLOC: SPEC: [id number] REZA: 01/14/25 STATUS: RES REQ: [id number] RECD: 01/14/[address]: CASSIDY CHATMANP SOURCE: FOOT ENTR: 01/14/25-[address]: NICK SPDESC: FOOT LEFT SELF,REFERRAL ORDERED: NIKO CULTURE, AEROBIC CULTURE Procedure Result Darcy Date-Time -------- ---- ANAEROBIC CULTURE Preliminary 01/16/25 [facility] DESCRIPTION: REPORT 1: NO ANAEROBES AT 24-35 HOURS; STUDIES TO CONTINUE Test(s) performed by: [facility] [address] [place] [address] AEROBIC CULTURE Preliminary 01/16/25 [facility] DESCRIPTION: REPORT 1: 3+ GRAM NEGATIVE RODS IDENTIFICATION AND SENSITIVITY TO FOLLOW PATIENT: MANUEL MADRIGAL MR#: [id number] : 1985 SEX: M AGE: 39 LOCATION: [facility] ORDER 1349 STATUS: ADM IN REPORT#: [id number] SERVICE 1345 REASON: LEFT FOOT WOUND ORDERING PHYSICIAN: FERN LEONARDO MD PROCEDURE: FT LT WO - MR FOOT LEFT WO MR FOOT LEFT WO HISTORY: Wound to great toe COMPARISON: None TECHNIQUE: MRI of the left foot was performed utilizing multiple pulse sequences in axial, coronal and sagittal planes. Patient was not given contrast through intravenous route. FINDINGS: Abnormal increased signal intensity is seen involving the first distal phalanx consistent with osteomyelitis. Adjacent cellulitis changes are seen. No signs of fracture or dislocation is seen. IMPRESSION: 1. Findings suggestive of osteomyelitis involving the first distal phalanx with adjacent cellulitis. DICTATED BY: DEEPALI KRISHNA MD DATE: 01/15/25 [id number] ASSESSMENT: Infected left great toe diabetic ulcer. Left great toe osteomyelitis. Leukocytosis. Hypokalemia. Recent mechanical fall. Uncontrolled Diabetes mellitus, hemoglobin A1c 10.8. Morbid obesity. PLAN: Continue cefepime. Continue vancomycin per pharmacy protocol. We will follow up on the final culture results. Hypokalemia protocol being followed. Continue antidiabetics. Continue pain management. Antibiotics to be adjusted when culture is updated or finalized. Thank you for allowing ID to participate in the care of this patient. This case was reviewed and discussed with my supervising physician and the above assessment and plan was formulated and agreed upon. ATTESTATION BY PHYSICIAN I have seen and examined the patient. I reviewed the documentation, medical decision making, and treatment plan as noted by the mid-level provider above. I agree with the findings and plan of care. MAY ESCOBEDO MD, MIRTA L [facility] January 16, 2025 13:14
--- NOTE | 2025-01-16 13:16 | PN ---
[facility] PROGRESS NOTE Date of Service: January 16, 2025 Time of Service: 13:11 SUBJECTIVE: HPI This is a 39 year old male,morbidly obese with past medical history of diabetes and hypertension who was brought by EMS to the ED for complaints of left leg pain which started 2 weeks ago.Patient reports he fell at his driveway 2 weeks ago , landed on his left knee and did not seek medical attention and last Saturday he noticed his left leg has been swollen and has been wearing his shoes for too long he said and that his left big toe has been rubbing on his shoes and he also noticed he has been having difficulty walking because of pain on his left leg and left foot so he decided to come to the Ed for evaluation.Reportedly upon arrival to ER,staff took out his left foot from his shoes and it has a very offensive odor his left foot is red and big toe is gangrenous and left lower extremity has an ascending redness and swelling. Patient states that he is not very complaint with his medications and has not been on his medications. 01/15/25: Lying in bed with dad at bedside at the time of evaluation. Alert and oriented and in no obvious distress. Denies any chest pain, shortness of breath, palpitations, fever or chills. Vital signs T98.2, P 98, 22, BP 160/97, oxygen saturation 97 on room air. Labs WBC 14down from 17.3 yesterday, HB 14.8 HCT 42.2,Neutrophil 79.8, ESR 118, CRP 191.8, potassium 2.6 replace as per protocol, magnesium 2.1, lactic acid 1.7, hemoglobin A1c 10.8, glucose 250. X- ray of the left foot showed no acute displaced fracture or dislocation. There is soft tissue swelling. Evaluation of osteomyelitis is limited due to poor positioning. Degenerative changes seen. Venous Doppler was negative for DVT, blood cultures were ordered, still pending the results. Patient is currently on vancomycin 1 g and cefepime 1 g. Infectious disease consult has been placed, pending recommendations. Consult for podiatry has also been placed. Patient with gangrenous left great, ordered an arterial Doppler of the left lower extremities to assess circulation. Pending blood culture results. 01/16/25: Lying in bed at bedside at the time of evaluation. Alert and oriented and in no obvious distress. Denies any chest pain, shortness of breath, palpitations, fever or chills. Vital signs T97.9, P 89 R 20, BP 153/80, oxygen 99. Labs sodium 134,. potassium 2.3 Replace as per protocol, chloride 99, BUN 11, creatinine 0.9, glucose 290. Patient is currently on low-dose insulin sliding scale. Ordered insulin glargine 20 units HS. Blood cultures done yesterday showed no growth, wound cultures positive for Gram-negative rods. Patient is currently on Vancomycin and Cefepime. MRI of the foot showed finding s suggestive of osteomyelitis involving the 1st distal phalanx with adjacent cellulitis. Infectious Disease consult has been placed, pending the recommendations. Podiatry consult has also been placed, pending their recommendations as well. Arterial Doppler showed atherosclerotic disease otherwise normal triphasic arterial waveforms. REVIEW OF SYSTEMS CONSTITUTIONAL: Denies fevers, chills, or night sweats. No unintentional weight loss reported. NEUROLOGICAL: Denies headache, amaurosis fugax, motor weakness, sensory deficit, vertigo/spinning sensation, gait abnormalities, or tremors. ENT: No hearing loss, otalgia, otorrhea, rhinitis, rhinorrhea, hoarseness, or sore throat. CARDIOVASCULAR: Denies any exertional angina, dyspnea on exertion, orthopnea, paroxysmal nocturnal dyspnea, palpitations, life-threatening arrhythmias, claudication. PULMONARY: Denies any shortness of breath, cough, phlegm/sputum, hemoptysis, pleuritic chest pain. SLEEP: Denies morning headaches, daytime somnolence or napping. Denies difficulty falling asleep, staying asleep, waking from sleep. Denies knowledge of snoring. GASTROINTESTINAL: Denies any type of dysphagia to either liquids or solids. Denies nausea, vomiting, pyrosis, early satiety, abdominal pain, diarrhea, constipation, or changes in stool consistency or caliber. Denies coffee-ground emesis, hematemesis, hematochezia, or melanotic stools. GENITOURINARY: Denies frequency, urgency, nocturia, hematuria or incontinence (Storage/Irritative symptoms.) Low urinary stream, straining to void, urinary intermittency or hesitancy, splitting of the voiding stream, terminal dribbling. ENDOCRINOLOGIC: Denies polyuria, polydipsia, polyphagia or heat/cold intolerances. HEMATOLOGIC: Denies thrombophilia/previous clots, or coagulopathy/bleeding disorders. ONCOLOGIC: Denies personal history of malignancy. DERMATOLOGIC: Denies rashes or pruritus. Extremities: Left knee pain, redness and swelling of LLE, left great toe wound PSYCHIATRIC: Denies any suicidal or homicidal ideation. Denies hallucinations. PHYSICAL EXAM GENERAL APPEARANCE: The patient is awake, alert, and oriented, in no acute cardiopulmonary distress. NEUROLOGICAL: Cranial nerves II-XII grossly intact. Motor is 5/5 in bilateral upper and lower extremities proximal to distal. No sensory deficits. HEENT: Face is symmetric. Pupils are equal and reactive. Extraocular movements are intact. NECK: Supple. No JVD. No thyromegaly. No submental, submandibular, pre- /postauricular, occipital or supraclavicular lymphadenopathy. CHEST: Normal chest expansion. No Telemetry. LUNGS: Absence of any rales, rhonchi or any wheezing. CARDIOVASCULAR: Regular. S1 and S2 normal. No appreciable rubs, murmurs or gallops. ABDOMEN: Soft, nontender, and nondistended. There is no rebound, voluntary guarding, or rigidity. : Deferred. No Muller. EXTREMITIES: Left lower extremity erythema and swelling. Discolored Left great toe with wound on the plantar surface SKIN: No skin breakdown. Vital Signs (last 8hr) Date Time Temp Pulse Resp B/P (MAP) Pulse Ox O2 Delivery O2 Flow Rate FiO2 01/16/25 12:00 97.3 82 16 115/76 97 Room Air 21 01/16/25 08:00 97.9 84 16 147/81 95 Room Air 21 LABS: Laboratory: Test 01/16/25 11:19 01/16/25 10:38 01/16/25 08:55 01/15/25 05:30 Range/Units Whole Blood Glucose 290 H 70-110 MG/DL Vancomycin Level Trough 17.0 10.0-20.0 UG/ML White Blood Count 11.3 H 4.8-10.8 K/uL Red Blood Count 5.06 4.50-6.20 MIL/uL Hemoglobin 14.1 14.0-18.0 g/dL Hematocrit 40.3 L 42-54 % Mean Corpuscular Volume 79.6 79-99 fL Mean Corpuscular Hemoglobin 27.9 27.0-33.0 pg Mean Corpuscular Hemoglobin Concent 35.0 32.0-36.0 g/dL Red Cell Distribution Width 14.4 11.0-15.5 % Platelet Count 322 130-400 K/uL Mean Platelet Volume 10.5 7.5-10.5 fL Immature Granulocyte % (Auto) 3.7 H 0-1 % Neutrophils (%) (Auto) 73.0 40.0-77.0 % Lymphocytes (%) (Auto) 15.0 L 21.0-51.0 % Monocytes (%) (Auto) 5.2 3.0-13.0 % Eosinophils (%) (Auto) 2.4 0.0-8.0 % Basophils (%) (Auto) 0.7 0.0-5.0 % Neutrophils # (Auto) 8.2 H 1.8-7.7 K/uL Lymphocytes # (Auto) 1.7 1.0-4.8 K/uL Monocytes # (Auto) 0.6 0.1-1.0 K/uL Eosinophils # (Auto) 0.27 0.00-0.70 K/uL Basophils # (Auto) 0.08 0.00-0.20 K/uL Absolute Immature Granulocyte (auto 0.42 0-1 K/uL Segmented Neutrophils % 75 H 40-70 % Lymphocytes % (Manual) 20 L 22-44 % Monocytes % (Manual) 1 L 2-9 % Eosinophils % (Manual) 2 1-6 % Nucleated Red Blood Cells 0.0 0.0-0.19 % Differential Comment MANUAL DIFFERENTIAL Reactive Lymphocytes 2 H 0-0 % White Cell Morphology Comment REACTIVE LYMPHS 1+ Platelet Morphology Comment ADEQUATE Red Blood Cell Morphology NORMAL Erythrocyte Sedimentation Rate 93 H 0-15 MM/HR Sodium Level 134 L 136-145 mmol/L Potassium Level 2.3 *L 3.5-5.1 mmol/L Chloride Level 99 L 101-111 mmol/L Carbon Dioxide Level 28 21-32 mmol/L Blood Urea Nitrogen 11 7-18 mg/dL Creatinine 0.9 0.5-1.3 mg/dL Glomerular Filtration Rate Calc 112 >90 mL/min Random Glucose 294 H 70-105 mg/dL Total Calcium 8.1 L 8.5-10.1 mg/dL Total Bilirubin 0.4 0.2-1.0 mg/dL Aspartate Amino Transf (AST/SGOT) 11 10-37 U/L Alanine Aminotransferase (ALT/SGPT) 17 12-78 U/L Alkaline Phosphatase 90 50-136 U/L C-Reactive Protein, Quantitative 85.00 H 0.5-3.0 mg/L Total Protein 7.2 6.0-8.3 g/dL Albumin 2.0 L 3.5-5.0 g/dL Hemoglobin A1c 10.8 H 4.0-6.0 % Estimated Average Glucose (eAG) 263 H 70-126 mg/dL Lactic Acid Level 1.7 0.8-2.5 mmol/L Magnesium Level 2.10 1.80-2.40 mg/dL Triglycerides Level 98 30-200 mg/dL Cholesterol Level 141 <200 mg/dL LDL Cholesterol 95 0-99 mg/dL HDL Cholesterol 29 29-71 mg/dL Procalcitonin 0.43 0.05-0.5 ng/mL Thyroid Stimulating Hormone (TSH) 3.62 0.36-3.74 uIU/mL Test 01/14/25 19:49 Range/Units B-Type Natriuretic Peptide 12 0-100 pg/mL Current Medications Medications (Trade) Dose Ordered Sig/Silverio Route PRN Reason Start Time Stop Time Status Last Admin Dose Admin Acetaminophen (TYLenol 325MG TAB) 650 mg Q4H PRN PO MILD PAIN (1-3) 01/14/25 22:30 02/13/25 22:29 01/15/25 12:15 650 MG Acetaminophen (TYLenol 325MG TAB) 650 mg Q6H PRN PO TEMPERATURE GREATER THAN 101.5 01/14/25 22:30 02/13/25 22:29 Acetaminophen/ Codeine Phosphate (TYLenol-coDEINE TAB) 2 tab Q4H PRN PO MODERATE PAIN (4-6) 01/15/25 14:00 02/14/25 13:59 01/16/25 10:13 2 TAB Cefepime HCl (MAXipime 1 GM vial) 1 gm Q8H IVPB 01/15/25 06:00 01/25/25 05:59 01/16/25 05:34 1 GM Dextrose (D50w) 50 ml AD PRN IV HYPOGLYCEMIA PROTOCOL 01/14/25 22:30 02/13/25 22:29 Famotidine (Pepcid 20mg Tab) 20 mg BID PO 01/15/25 09:00 02/14/25 08:59 01/16/25 09:50 20 MG Glucagon (Glucagon 1mg Kit) 1 mg AD PRN IM HYPOGLYCEMIA PROTOCOL 01/14/25 22:30 02/13/25 22:29 Hydralazine HCl (APRESOLine 20MG INJ) 10 mg Q6H PRN IV For:SBP above 160;DBP above 90 01/14/25 22:30 02/13/25 22:29 Insulin Human Regular (humuLIN R 100 UNIT/ML 3ML) INSULIN SLIDING SCAL... ACHS SQ 01/15/25 07:30 02/14/25 07:29 01/16/25 12:19 12 UNIT Magnesium Sulfate 50 ml @ 0 mls/hr PROTOCOL PRN IV OTHER [SEE ORDER COMMENTS] 01/14/25 22:30 02/13/25 22:29 Morphine Sulfate (morPHINE 2MG SYG) 2 mg Q4H PRN IV SEVERE PAIN (7-10) 01/14/25 22:30 01/21/25 22:29 Ondansetron HCl (zoFRAN 4MG INJ) 4 mg Q6H PRN IV NAUSEA/VOMITING 01/14/25 22:30 02/13/25 22:29 Potassium Chloride 100 ml @ 100 mls/hr AD PRN IV POTASSIUM PROTOCOL 01/14/25 22:30 02/13/25 22:29 01/16/25 09:51 100 MLS/HR Potassium Chloride (K-Dur/Klor-Con 20meq) 20 meq AD PRN PO POTASSIUM PROTOCOL 01/14/25 22:30 02/13/25 22:29 01/16/25 12:24 20 MEQ Potassium Chloride (KCl 10% Elixir 20meq/15ml) 20 meq AD PRN PO POTASSIUM PROTOCOL 01/14/25 22:30 02/13/25 22:29 Sodium Chloride 1,000 ml @ 100 mls/hr Q10H IV 01/14/25 22:30 02/13/25 22:29 01/16/25 05:34 100 MLS/HR Vancomycin HCl 250 ml @ 125 mls/hr ONCE IV 01/14/25 22:30 01/14/25 22:52 DC Vancomycin HCl 250 ml @ 125 mls/hr Q12H IV 01/15/25 00:00 01/25/25 00:00 01/16/25 12:20 125 MLS/HR Vancomycin HCl (Vancomycin Protocol) 1 each AD IV 01/14/25 23:00 01/28/25 22:59 DIAGNOSTICS / RADIOLOGY: PATIENT: MANUEL MADRIGAL MR#: [id number] : 1985 SEX: M AGE: 39 LOCATION: 4DH ORDER [id number] STATUS: ADM IN REPORT#: [id number] SERVICE 1344 REASON: LEFT FOOT WOUND ORDERING PHYSICIAN: FERN LEONARDO MD PROCEDURE: FT LT WO - MR FOOT LEFT WO MR FOOT LEFT WO HISTORY: Wound to great toe COMPARISON: None TECHNIQUE: MRI of the left foot was performed utilizing multiple pulse sequences in axial, coronal and sagittal planes. Patient was not given contrast through intravenous route. FINDINGS: Abnormal increased signal intensity is seen involving the first distal phalanx consistent with osteomyelitis. Adjacent cellulitis changes are seen. No signs of fracture or dislocation is seen. IMPRESSION: 1. Findings suggestive of osteomyelitis involving the first distal phalanx with adjacent cellulitis. DICTATED BY: DEEPALI KRISHNA MD DATE: 01/15/251716 ELECTRONICALLY SIGNED BY: DEEPALI KRISHNA MD DATE: 01/15/251725 ASSESSMENT: Osteomyelitis involving the 1st distal phalanx as per MRI on 01/15/25 Left leg cellulitis POA Left toe necrotic ulcer POA Hypokalemia POA Pseudohyponatremia secondary to hyperglycemia POA Hyperglycemia secondary to Uncontrolled diabetes POA Status post fall injury at home two weeks ago POA Hypertension POA Morbid obesity POA PLAN: Osteomyelitis involving the 1st distal phalanx Left leg cellulitis POA * MRI of the left foot showed findings suggestive of osteomyelitis involving the 1st distal phalanx and adjacent cellulitis. *Continue on Vancomycin 1 g and Cefepime 1 g as ordered. *WBC is trending down 11.8 -14 yesterday. *Infectious disease consult has been placed, pending recommendations. Left Toe Necrotic ulcer *Wound care team is on the case *Podiatry consult has been placed. *Continue with Iodosorb to ulcer daily *As per Podiatry, will monitor the progress. May need amputation of the left great toe. Hypokalemia POA Pseudohyponatremia secondary to hyperglycemia POA *Replace electrolytes as needed per protocol Hyperglycemia secondary to Uncontrolled diabetes POA *Blood glucose 290. Currently on low-dose sliding scale AC &HS. Ordered Insulin Glargine 20 units subQ HS *Carb consistent diet ordered. Hypertension *Continue with Amlodipine 5mg PO daily as ordered. *Hydralazine 10mg IV for sys BP greater 160, vega BP greater 110 Morbid Obesity *Educated patient about the need to lose weight *Physical therapy ordered. Continue on Famotidine 20 mg p.o. bid for GI prophylaxis PRN medications for fever,pain,cough, nausea and vomiting We will request case management service Further orders to follow depending on above results Case discussed with attending physician and came up with above treatment and plan of care. ATTESTATION BY PHYSICIAN I have seen and examined the patient. I reviewed the documentation, medical decision making, and treatment plan as noted by the resident provider above. I agree with the findings and plan of care. César Maynard MD OBI,FERN Rucker MD January 16, 2025 13:16
[2025-01-16 16:00] VITALS: BP 157/81; PULSE 87; RESP 16; TEMP 97.1
[2025-01-16 20:00] VITALS: BP 131/75; PULSE 88; RESP 20; TEMP 97.9
[2025-01-16] MEDS: INSULIN GLARgine 100 UNITS/ML 10 ML VIAL SQ SCH (21:20)
[2025-01-17] VITALS (7 sets, daily range): BP systolic 112–150; BP diastolic 69–83; PULSE 80–91; RESP 16–20; TEMP 97.5–98; O2SAT 99
[2025-01-17] MEDS: PoTASSium chl 10% ELIXIR 20MEQ 20 MEQ/15 ML UDCUP PO PRN (00:24)
[2025-01-17 05:41] LABS: BASOPHILS # (AUTO) 0.13 K/uL (0.00-0.20); BASOPHILS % (AUTO) 1.2 % (0.0-5.0); EOSINOPHILS # (AUTO) 0.26 K/uL (0.00-0.70); EOSINOPHILS % (AUTO) 2.4 % (0.0-8.0); HEMATOCRIT 42.2 % (42-54); IMMATURE GRANULOCYTE ABSOLUTE 0.52 K/uL (0-1); LYMPHOCYTES # (AUTO) 1.9 K/uL (1.0-4.8); MEAN CORPUSCULAR HEMOGLOBIN 27.5 pg (27.0-33.0); MEAN CORPUSCULAR HGB CONC 34.8 g/dL (32.0-36.0); MONOCYTES # (AUTO) 0.7 K/uL (0.1-1.0); MONOCYTES % (AUTO) 6.4 % (3.0-13.0); NEUTROPHILS # (AUTO) 7.3 K/uL (1.8-7.7); NEUTROPHILS % (AUTO) 67.2 % (40.0-77.0); PLATELET COUNT (AUTO) 345 K/uL (130-400); RED BLOOD CELL COUNT(AUTO) 5.34 MIL/uL (4.50-6.20); RED CELL DISTRIBUTION WIDTH 14.6 % (11.0-15.5); WHITE BLOOD COUNT (AUTO) 10.8 K/uL (4.8-10.8)
[2025-01-17 05:58] LABS: ALBUMIN 2.1 g/dL (3.5-5.0); BILIRUBIN,TOTAL 0.4 mg/dL (0.2-1.0); TOTAL PROTEIN, SERUM 7.8 g/dL (6.0-8.3)
[2025-01-17 06:16] LABS: POTASSIUM 2.9 mmol/L (3.5-5.1)
[2025-01-17] MEDS: amLODIPine 5 MG TAB PO SCH (09:20)
[2025-01-17] MEDS: acetaMINOPHEN 325 MG TAB PO PRN (09:41)
--- NOTE | 2025-01-17 12:47 | PN ---
INFECTIOUS DISEASE PROGRESS NOTE Date of Service: Jan 17, 2025 SUBJECTIVE: This is a 39-year-old male patient was seen and examined at bedside in room 426. The left great toe final wound culture results came back positive for polymicrobial infection, Citrobacter freundii, Enterobacter cloacae, Entero coccus aureus and Streptococcus group G. No fever, temperature is 97.5 and the WBC has trended down to 10.8. Patient was updated with these findings. We will continue on vancomycin and cefepime. Slight improvement on the swelling and erythema to the left lower extremity. We will continue to follow patient's care. PHYSICAL EXAM EYES: Anicteric. Pupils equal and reactive. HENT: No oral thrush seen, moist Oral mucosa NECK: Supple, no JVD or thyromegaly. LUNGS: Good air entry. No rales, no rhonchi. CARDIOVASCULAR: S1, S2 regular. No murmur heard. ABDOMEN: Soft, non tender, bowel sounds present, no organomegaly CENTRAL NERVOUS SYSTEM: Awake, alert, oriented x 3. No focal deficits. SKIN: No rashes, no swelling. LYMPHATICS: No peripheral lymphadenopathy MUSCULOSKELETAL: No joint swelling, erythema or tenderness. EXTREMITIES: No cyanosis or clubbing BACK: No deformity, no pressure ulcer. GENITOURINARY: No dysuria or hematuria Vital Sign (Last 12 Hours) 01/17/25 01/17/25 04:00 08:00 Temp 97.5 97.5 Pulse 85 88 Resp 18 16 B/P (MAP) 150/77 132/78 Pulse Ox 100 99 O2 Delivery Room Air Room Air FiO2 21 Intake & Output (last 24hrs) 01/16/25 01/16/25 01/17/25 15:00 23:00 07:00 Intake Total 2250.0 ml Output Total 350 ml 265 ml Balance 1900.0 ml -265 ml LABS: Laboratory: Test 01/17/25 11:20 01/17/25 05:00 01/16/25 10:38 01/16/25 08:55 Range/Units Whole Blood Glucose 251 H 70-110 MG/DL White Blood Count 10.8 4.8-10.8 K/uL Red Blood Count 5.34 4.50-6.20 MIL/uL Hemoglobin 14.7 14.0-18.0 g/dL Hematocrit 42.2 42-54 % Mean Corpuscular Volume 79.0 79-99 fL Mean Corpuscular Hemoglobin 27.5 27.0-33.0 pg Mean Corpuscular Hemoglobin Concent 34.8 32.0-36.0 g/dL Red Cell Distribution Width 14.6 11.0-15.5 % Platelet Count 345 130-400 K/uL Mean Platelet Volume 11.2 H 7.5-10.5 fL Immature Granulocyte % (Auto) 4.8 H 0-1 % Neutrophils (%) (Auto) 67.2 40.0-77.0 % Lymphocytes (%) (Auto) 18.0 L 21.0-51.0 % Monocytes (%) (Auto) 6.4 3.0-13.0 % Eosinophils (%) (Auto) 2.4 0.0-8.0 % Basophils (%) (Auto) 1.2 0.0-5.0 % Neutrophils # (Auto) 7.3 1.8-7.7 K/uL Lymphocytes # (Auto) 1.9 1.0-4.8 K/uL Monocytes # (Auto) 0.7 0.1-1.0 K/uL Eosinophils # (Auto) 0.26 0.00-0.70 K/uL Basophils # (Auto) 0.13 0.00-0.20 K/uL Absolute Immature Granulocyte (auto 0.52 0-1 K/uL Nucleated Red Blood Cells 0.0 0.0-0.19 % Sodium Level 133 L 136-145 mmol/L Potassium Level 2.9 *L 3.5-5.1 mmol/L Chloride Level 100 L 101-111 mmol/L Carbon Dioxide Level 24 21-32 mmol/L Blood Urea Nitrogen 10 7-18 mg/dL Creatinine 1.0 0.5-1.3 mg/dL Glomerular Filtration Rate Calc 99 >90 mL/min Random Glucose 247 H 70-105 mg/dL Total Calcium 8.4 L 8.5-10.1 mg/dL Total Bilirubin 0.4 0.2-1.0 mg/dL Aspartate Amino Transf (AST/SGOT) 12 10-37 U/L Alanine Aminotransferase (ALT/SGPT) 18 12-78 U/L Alkaline Phosphatase 92 50-136 U/L Total Protein 7.8 6.0-8.3 g/dL Albumin 2.1 L 3.5-5.0 g/dL Vancomycin Level Trough 17.0 10.0-20.0 UG/ML Segmented Neutrophils % 75 H 40-70 % Lymphocytes % (Manual) 20 L 22-44 % Monocytes % (Manual) 1 L 2-9 % Eosinophils % (Manual) 2 1-6 % Differential Comment MANUAL DIFFERENTIAL Reactive Lymphocytes 2 H 0-0 % White Cell Morphology Comment REACTIVE LYMPHS 1+ Platelet Morphology Comment ADEQUATE Red Blood Cell Morphology NORMAL Erythrocyte Sedimentation Rate 93 H 0-15 MM/HR C-Reactive Protein, Quantitative 85.00 H 0.5-3.0 mg/L DIAGNOSTICS / RADIOLOGY: PATIENT: MANUEL MADRIGAL ACCT: [id number] LOC: [facility] U: [id number] AGE/SX: 39/M ROOM: 426 RE01/14/[address]: LYUBOV SALAS MD : 1985 BED: 1 DIS: STATUS: ADM IN TLOC: SPEC: [id number] REZA: 01/14/25 STATUS: RES REQ: [id number] RECD: 01/14/[address]: CASSIDY CHATMANP SOURCE: FOOT ENTR: 01/14/25-1915 OT : NONE SPDESC: FOOT LEFT SELF,REFERRAL ORDERED: NIKO CULTURE, AEROBIC CULTURE Procedure Result Darcy Date-Time ANAEROBIC CULTURE Preliminary 01/17/25-1006 MRL COLONY DESCRIPTION: REPORT 1: NO ANAEROBES AT 24-35 HOURS; STUDIES TO CONTINUE REPORT 2: NO ANAEROBES AT 48-59 HOURS; STUDIES TO CONTINUE Test(s) performed by: [facility] [address] [place] [address] AEROBIC CULTURE Preliminary 01/17/25 MRL COLONY DESCRIPTION: REPORT 1: 3+ GRAM NEGATIVE RODS IDENTIFICATION AND SENSITIVITY TO FOLLOW REPORT 2: 2+ GRAM POSITIVE COCCI IN CLUSTERS STAPHYLOCOCCUS AUREUS SENSITIVITY TO FOLLOW 2+ GRAM POSITIVE COCCI IN CHAINS IDENTIFICATION TO FOLLOW BETA HEMOLYTIC STREPTOCOCCUS GROUP G CITROBACTER FREUNDII ENTEROBACTER CLOACAE STAPHYLOCOCCUS AUREUS STREPTOCOCCUS GROUP G CONTINUED ON NEXT PAGE RUN DATE: 01/17/25 [facility] PAGE 2 RUN TIME: [id number] [address] Department of Laboratories [facility] # [id number] Completion Engineer: Tristan Dykes DO Specimen Report SPEC: [id number] PATIENT: MANUEL MADRIGAL [id number] (Continued) Procedure Result Darcy Date-Time AEROBIC CULTURE Preliminary (continued) 01/17/25-1007 C. FREUNDI ENT CLOAC M.I.C. RX M.I.C. RX --------- ---- --------- ---- AZTREONAM <=4 S <=4 S CEFTAZIDIME <=1 S <=1 S CEFTAZIDIME/AVIBACTAM <=8 S <=8 S CEFTRIAXONE <=1 S CIPROFLOXACIN <=0.25 S ERYTHROMYCIN GENTAMICIN <=2 S <=2 S LEVOFLOXACIN <=0.5 S <=0.5 S VANCOMYCIN OXACILLIN REYMUNDO RIFAMPIN MEROPENEM <=1 S <=1 S PENICILLIN PIPERACILLIN/TAZOBACTAM <=8 S <=8 S TRIMETHOPRIM/SUFLAMETHOXAZOLE <=2/38 S <=2/38 S S. AUREUS M.I.C. RX --------- ---- AZTREONAM CEFTAZIDIME CEFTAZIDIME/AVIBACTAM CEFTRIAXONE CIPROFLOXACIN ERYTHROMYCIN <=0.5 S GENTAMICIN <=4 S LEVOFLOXACIN <=1 S VANCOMYCIN 1 S OXACILLIN REYMUNDO <=0.25 S RIFAMPIN <=1 S MEROPENEM PENICILLIN <=0.03 S PIPERACILLIN/TAZOBACTAM TRIMETHOPRIM/SUFLAMETHOXAZOLE <=0.5/9.5 S ASSESSMENT: Left great toe diabetic ulcer with polymicrobial infection. Infection with Methicillin-susceptible Staphylococcus aureus. Left great toe osteomyelitis. Leukocytosis. Hypokalemia. Recent mechanical fall. Uncontrolled Diabetes mellitus, hemoglobin A1c 10.8. Morbid obesity. PLAN: Continue cefepime. Continue vancomycin per pharmacy protocol. Continue Hypokalemia protocol. Continue antidiabetics. Continue pain management. Continue wound care. This case was reviewed and discussed with my supervising physician and the above assessment and plan was formulated and agreed upon. ATTESTATION BY PHYSICIAN I have seen and examined the patient. I reviewed the documentation, medical decision making, and treatment plan as noted by the mid-level provider above. I agree with the findings and plan of care. MAY ESCOBEDO MD, MIRTA L [facility] Jan 17, 2025 12:47
[2025-01-17] MEDS: HEParin 5,000 UNIT VIAL SQ SCH (13:07)
--- NOTE | 2025-01-17 13:12 | PN ---
[facility] PROGRESS NOTE Date of Service: Jan 17, 2025 Time of Service: 13:11 SUBJECTIVE: HPI This is a 39 year old male,morbidly obese with past medical history of diabetes and hypertension who was brought by EMS to the ED for complaints of left leg pain which started 2 weeks ago.Patient reports he fell at his driveway 2 weeks ago , landed on his left knee and did not seek medical attention and last Saturday he noticed his left leg has been swollen and has been wearing his shoes for too long he said and that his left big toe has been rubbing on his shoes and he also noticed he has been having difficulty walking because of pain on his left leg and left foot so he decided to come to the Ed for evaluation.Reportedly upon arrival to ER,staff took out his left foot from his shoes and it has a very offensive odor his left foot is red and big toe is gangrenous and left lower extremity has an ascending redness and swelling. Patient states that he is not very complaint with his medications and has not been on his medications. 01/15/25: Lying in bed with dad at bedside at the time of evaluation. Alert and oriented and in no obvious distress. Denies any chest pain, shortness of breath, palpitations, fever or chills. Vital signs T98.2, P 98, 22, BP 160/97, oxygen saturation 97 on room air. Labs WBC 14down from 17.3 yesterday, HB 14.8 HCT 42.2,Neutrophil 79.8, ESR 118, CRP 191.8, potassium 2.6 replace as per protocol, magnesium 2.1, lactic acid 1.7, hemoglobin A1c 10.8, glucose 250. X- ray of the left foot showed no acute displaced fracture or dislocation. There is soft tissue swelling. Evaluation of osteomyelitis is limited due to poor positioning. Degenerative changes seen. Venous Doppler was negative for DVT, blood cultures were ordered, still pending the results. Patient is currently on vancomycin 1 g and cefepime 1 g. Infectious disease consult has been placed, pending recommendations. Consult for podiatry has also been placed. Patient with gangrenous left great, ordered an arterial Doppler of the left lower extremities to assess circulation. Pending blood culture results. 01/16/25: Lying in bed at bedside at the time of evaluation. Alert and oriented and in no obvious distress. Denies any chest pain, shortness of breath, palpitations, fever or chills. Vital signs T97.9, P 89 R 20, BP 153/80, oxygen 99. Labs sodium 134,. potassium 2.3 Replace as per protocol, chloride 99, BUN 11, creatinine 0.9, glucose 290. Patient is currently on low-dose insulin sliding scale. Ordered insulin glargine 20 units HS. Blood cultures done yesterday showed no growth, wound cultures positive for Gram-negative rods. Patient is currently on Vancomycin and Cefepime. MRI of the foot showed findings suggestive of osteomyelitis involving the 1st distal phalanx with adjacent cellulitis. Infectious Disease consult has been placed, pending the recommendations. Podiatry consult has also been placed, pending their recommendations as well. Arterial Doppler showed atherosclerotic disease otherwise normal triphasic arterial waveforms. 01/17/25 patient was seen and examined. Case discussed with the RN. He denies fever or chills. He has been treated for osteomyelitis of the 1st distal phalanx. Appreciate Infectious Disease recommendations. Podiatry help us well REVIEW OF SYSTEMS CONSTITUTIONAL: Denies fevers, chills, or night sweats. No unintentional weight loss reported. NEUROLOGICAL: Denies headache, amaurosis fugax, motor weakness, sensory deficit, vertigo/spinning sensation, gait abnormalities, or tremors. ENT: No hearing loss, otalgia, otorrhea, rhinitis, rhinorrhea, hoarseness, or sore throat. CARDIOVASCULAR: Denies any exertional angina, dyspnea on exertion, orthopnea, paroxysmal nocturnal dyspnea, palpitations, life-threatening arrhythmias, claudication. PULMONARY: Denies any shortness of breath, cough, phlegm/sputum, hemoptysis, pleuritic chest pain. SLEEP: Denies morning headaches, daytime somnolence or napping. Denies difficulty falling asleep, staying asleep, waking from sleep. Denies knowledge of snoring. GASTROINTESTINAL: Denies any type of dysphagia to either liquids or solids. Denies nausea, vomiting, pyrosis, early satiety, abdominal pain, diarrhea, constipation, or changes in stool consistency or caliber. Denies coffee-ground emesis, hematemesis, hematochezia, or melanotic stools. GENITOURINARY: Denies frequency, urgency, nocturia, hematuria or incontinence (Storage/Irritative symptoms.) Low urinary stream, straining to void, urinary intermittency or hesitancy, splitting of the voiding stream, terminal dribbling. ENDOCRINOLOGIC: Denies polyuria, polydipsia, polyphagia or heat/cold intolerances. HEMATOLOGIC: Denies thrombophilia/previous clots, or coagulopathy/bleeding disorders. ONCOLOGIC: Denies personal history of malignancy. DERMATOLOGIC: Denies rashes or pruritus. Extremities: Left knee pain, redness and swelling of LLE, left great toe wound PSYCHIATRIC: Denies any suicidal or homicidal ideation. Denies hallucinations. PHYSICAL EXAM GENERAL APPEARANCE: The patient is awake, alert, and oriented, in no acute cardiopulmonary distress. NEUROLOGICAL: Cranial nerves II-XII grossly intact. Motor is 5/5 in bilateral upper and lower extremities proximal to distal. No sensory deficits. HEENT: Face is symmetric. Pupils are equal and reactive. Extraocular movements are intact. NECK: Supple. No JVD. No thyromegaly. No submental, submandibular, pre- /postauricular, occipital or supraclavicular lymphadenopathy. CHEST: Normal chest expansion. No Telemetry. LUNGS: Absence of any rales, rhonchi or any wheezing. CARDIOVASCULAR: Regular. S1 and S2 normal. No appreciable rubs, murmurs or gallops. ABDOMEN: Soft, nontender, and nondistended. There is no rebound, voluntary guarding, or rigidity. : Deferred. No Muller. EXTREMITIES: Left lower extremity erythema and swelling. Discolored Left great toe with wound on the plantar surface SKIN: No skin breakdown. Vital Signs (last 8hr) Date Time Temp Pulse Resp B/P (MAP) Pulse Ox O2 Delivery O2 Flow Rate FiO2 01/17/25 08:00 97.5 88 16 132/78 99 Room Air 21 LABS: Laboratory: Test 01/17/25 11:20 01/17/25 05:00 01/16/25 10:38 01/16/25 08:55 Range/Units Whole Blood Glucose 251 H 70-110 MG/DL White Blood Count 10.8 4.8-10.8 K/uL Red Blood Count 5.34 4.50-6.20 MIL/uL Hemoglobin 14.7 14.0-18.0 g/dL Hematocrit 42.2 42-54 % Mean Corpuscular Volume 79.0 79-99 fL Mean Corpuscular Hemoglobin 27.5 27.0-33.0 pg Mean Corpuscular Hemoglobin Concent 34.8 32.0-36.0 g/dL Red Cell Distribution Width 14.6 11.0-15.5 % Platelet Count 345 130-400 K/uL Mean Platelet Volume 11.2 H 7.5-10.5 fL Immature Granulocyte % (Auto) 4.8 H 0-1 % Neutrophils (%) (Auto) 67.2 40.0-77.0 % Lymphocytes (%) (Auto) 18.0 L 21.0-51.0 % Monocytes (%) (Auto) 6.4 3.0-13.0 % Eosinophils (%) (Auto) 2.4 0.0-8.0 % Basophils (%) (Auto) 1.2 0.0-5.0 % Neutrophils # (Auto) 7.3 1.8-7.7 K/uL Lymphocytes # (Auto) 1.9 1.0-4.8 K/uL Monocytes # (Auto) 0.7 0.1-1.0 K/uL Eosinophils # (Auto) 0.26 0.00-0.70 K/uL Basophils # (Auto) 0.13 0.00-0.20 K/uL Absolute Immature Granulocyte (auto 0.52 0-1 K/uL Nucleated Red Blood Cells 0.0 0.0-0.19 % Sodium Level 133 L 136-145 mmol/L Potassium Level 2.9 *L 3.5-5.1 mmol/L Chloride Level 100 L 101-111 mmol/L Carbon Dioxide Level 24 21-32 mmol/L Blood Urea Nitrogen 10 7-18 mg/dL Creatinine 1.0 0.5-1.3 mg/dL Glomerular Filtration Rate Calc 99 >90 mL/min Random Glucose 247 H 70-105 mg/dL Total Calcium 8.4 L 8.5-10.1 mg/dL Total Bilirubin 0.4 0.2-1.0 mg/dL Aspartate Amino Transf (AST/SGOT) 12 10-37 U/L Alanine Aminotransferase (ALT/SGPT) 18 12-78 U/L Alkaline Phosphatase 92 50-136 U/L Total Protein 7.8 6.0-8.3 g/dL Albumin 2.1 L 3.5-5.0 g/dL Vancomycin Level Trough 17.0 10.0-20.0 UG/ML Segmented Neutrophils % 75 H 40-70 % Lymphocytes % (Manual) 20 L 22-44 % Monocytes % (Manual) 1 L 2-9 % Eosinophils % (Manual) 2 1-6 % Differential Comment MANUAL DIFFERENTIAL Reactive Lymphocytes 2 H 0-0 % White Cell Morphology Comment REACTIVE LYMPHS 1+ Platelet Morphology Comment ADEQUATE Red Blood Cell Morphology NORMAL Erythrocyte Sedimentation Rate 93 H 0-15 MM/HR C-Reactive Protein, Quantitative 85.00 H 0.5-3.0 mg/L Current Medications Medications (Trade) Dose Ordered Sig/Silverio Route PRN Reason Start Time Stop Time Status Last Admin Dose Admin Acetaminophen (TYLenol 325MG TAB) 650 mg Q4H PRN PO MILD PAIN (1-3) 01/14/25 22:30 02/13/25 22:01/15/25 12:15 650 MG Acetaminophen (TYLenol 325MG TAB) 650 mg Q6H PRN PO TEMPERATURE GREATER THAN 101.5 01/14/25 22:30 02/13/25 22:29 01/17/25 09:41 650 MG Acetaminophen/ Codeine Phosphate (TYLenol-coDEINE TAB) 2 tab Q4H PRN PO MODERATE PAIN (4-6) 01/15/25 14:00 02/14/25 13:59 01/17/25 02:19 2 TAB Amlodipine Besylate (NorvASC 5MG TAB) 5 mg DAILY PO 01/17/25 09:00 02/16/25 08:59 01/17/25 09:20 5 MG Cefepime HCl (MAXipime 1 GM vial) 1 gm Q8H IVPB 01/15/25 06:00 01/25/25 05:59 01/17/25 06:10 1 GM Dextrose (D50w) 50 ml AD PRN IV HYPOGLYCEMIA PROTOCOL 01/14/25 22:30 02/13/25 22:29 Famotidine (Pepcid 20mg Tab) 20 mg BID PO 01/15/25 09:00 02/14/25 08:59 01/17/25 09:20 20 MG Glucagon (Glucagon 1mg Kit) 1 mg AD PRN IM HYPOGLYCEMIA PROTOCOL 01/14/25 22:30 02/13/25 22:29 Heparin Sodium (Porcine) (HEParin 5,000 UNIT VIAL) 5,000 unit Q8H SQ 01/17/25 12:00 02/16/25 11:59 Hydralazine HCl (APRESOLine 20MG INJ) 10 mg Q6H PRN IV For:SBP above 160;DBP above 90 01/14/25 22:30 02/13/25 22:29 Insulin Glargine (LANtus 100 UNITS/ML 10 ML VIAL) 20 units HS SQ 01/16/25 21:00 02/15/25 20:59 01/16/25 21:20 20 UNITS Insulin Human Regular (humuLIN R 100 UNIT/ML 3ML) INSULIN SLIDING SCAL... ACHS SQ 01/15/25 07:30 02/14/25 07:29 01/16/25 21:24 12 UNIT Magnesium Sulfate 50 ml @ 0 mls/hr PROTOCOL PRN IV OTHER [SEE ORDER COMMENTS] 01/14/25 22:30 02/13/25 22:29 Morphine Sulfate (morPHINE 2MG SYG) 2 mg Q4H PRN IV SEVERE PAIN (7-10) 01/14/25 22:30 01/21/25 22:29 Ondansetron HCl (zoFRAN 4MG INJ) 4 mg Q6H PRN IV NAUSEA/VOMITING 01/14/25 22:30 02/13/25 22:29 Potassium Chloride 100 ml @ 100 mls/hr AD PRN IV POTASSIUM PROTOCOL 01/14/25 22:30 02/13/25 22:29 01/16/25 09:51 100 MLS/HR Potassium Chloride (K-Dur/Klor-Con 20meq) 20 meq AD PRN PO POTASSIUM PROTOCOL 01/14/25 22:30 02/13/25 22:29 01/17/25 09:25 20 MEQ Potassium Chloride (KCl 10% Elixir 20meq/15ml) 20 meq AD PRN PO POTASSIUM PROTOCOL 01/14/25 22:30 02/13/25 22:29 01/17/25 00:24 20 MEQ Sodium Chloride 1,000 ml @ 100 mls/hr Q10H IV 01/14/25 22:30 02/13/25 22:29 01/16/25 05:34 100 MLS/HR Vancomycin HCl 250 ml @ 125 mls/hr ONCE IV 01/14/25 22:30 01/14/25 22:52 DC Vancomycin HCl 250 ml @ 125 mls/hr Q12H IV 01/15/25 00:00 01/25/25 00:00 01/17/25 00:24 125 MLS/HR Vancomycin HCl (Vancomycin Protocol) 1 each AD IV 01/14/25 23:00 01/28/25 22:59 DIAGNOSTICS / RADIOLOGY: [ ] ASSESSMENT: Osteomyelitis involving the 1st distal phalanx as per MRI on 01/15/25 Left leg cellulitis POA Left toe necrotic ulcer POA Hypokalemia POA Pseudohyponatremia secondary to hyperglycemia POA Hyperglycemia secondary to Uncontrolled diabetes POA Status post fall injury at home two weeks ago POA Hypertension POA Morbid obesity POA PLAN: Osteomyelitis involving the 1st distal phalanx Left leg cellulitis POA * MRI of the left foot showed findings suggestive of osteomyelitis involving the 1st distal phalanx and adjacent cellulitis. *Continue on Vancomycin 1 g and Cefepime 1 g as ordered. *WBC is trending down 11.8 -14 yesterday. *Infectious disease consult has been placed, pending recommendations. Left Toe Necrotic ulcer *Wound care team is on the case *Podiatry consult has been placed. *Continue with Iodosorb to ulcer daily *As per Podiatry, will monitor the progress. May need amputation of the left great toe. Hypokalemia POA Pseudohyponatremia secondary to hyperglycemia POA *Replace electrolytes as needed per protocol Hyperglycemia secondary to Uncontrolled diabetes POA *Blood glucose 290. Currently on low-dose sliding scale AC &HS. Ordered Insulin Glargine 20 units subQ HS *Carb consistent diet ordered. Hypertension *Continue with Amlodipine 5mg PO daily as ordered. *Hydralazine 10mg IV for sys BP greater 160, vega BP greater 110 Morbid Obesity *Educated patient about the need to lose weight *Physical therapy ordered. Continue on Famotidine 20 mg p.o. bid for GI prophylaxis PRN medications for fever,pain,cough, nausea and vomiting We will request case management service Further orders to follow depending on above results Case discussed with attending physician and came up with above treatment and plan of care. LYUBOV SALAS MD Jan 17, 2025 13:12
[2025-01-17] MEDS: PoTASSium chloRIDE 20MEQ ER 20 MEQ ERTAB PO ONE (15:00)
[2025-01-18] VITALS (8 sets, daily range): BP systolic 126–143; BP diastolic 70–89; PULSE 74–85; RESP 16–24; TEMP 97.6–98.7; O2SAT 93–97
[2025-01-18 09:11] LABS: BILIRUBIN,TOTAL 0.4 mg/dL (0.2-1.0); CREATININE 0.9 mg/dL (0.5-1.3); TOTAL PROTEIN, SERUM 7.6 g/dL (6.0-8.3)
[2025-01-18 09:19] LABS: POTASSIUM 2.8 mmol/L (3.5-5.1)
--- NOTE | 2025-01-18 11:03 | PN ---
[facility] PROGRESS NOTE Date of Service: Jan 18, 2025 Time of Service: 10:52 SUBJECTIVE: HPI This is a 39 year old male,morbidly obese with past medical history of diabetes and hypertension who was brought by EMS to the ED for complaints of left leg pain which started 2 weeks ago.Patient reports he fell at his driveway 2 weeks ago , landed on his left knee and did not seek medical attention and last Saturday he noticed his left leg has been swollen and has been wearing his shoes for too long he said and that his left big toe has been rubbing on his shoes and he also noticed he has been having difficulty walking because of pain on his left leg and left foot so he decided to come to the Ed for evaluation.Reportedly upon arrival to ER,staff took out his left foot from his shoes and it has a very offensive odor his left foot is red and big toe is gangrenous and left lower extremity has an ascending redness and swelling. Patient states that he is not very complaint with his medications and has not been on his medications. 01/15/25: Lying in bed with dad at bedside at the time of evaluation. Alert and oriented and in no obvious distress. Denies any chest pain, shortness of breath, palpitations, fever or chills. Vital signs T98.2, P 98, 22, BP 160/97, oxygen saturation 97 on room air. Labs WBC 14down from 17.3 yesterday, HB 14.8 HCT 42.2,Neutrophil 79.8, ESR 118, CRP 191.8, potassium 2.6 replace as per protocol, magnesium 2.1, lactic acid 1.7, hemoglobin A1c 10.8, glucose 250. X- ray of the left foot showed no acute displaced fracture or dislocation. There is soft tissue swelling. Evaluation of osteomyelitis is limited due to poor positioning. Degenerative changes seen. Venous Doppler was negative for DVT, blood cultures were ordered, still pending the results. Patient is currently on vancomycin 1 g and cefepime 1 g. Infectious disease consult has been placed, pending recommendations. Consult for podiatry has also been placed. Patient with gangrenous left great, ordered an arterial Doppler of the left lower extremities to assess circulation. Pending blood culture results. 01/16/25: Lying in bed at bedside at the time of evaluation. Alert and oriented and in no obvious distress. Denies any chest pain, shortness of breath, palpitations, fever or chills. Vital signs T97.9, P 89 R 20, BP 153/80, oxygen 99. Labs sodium 134,. potassium 2.3 Replace as per protocol, chloride 99, BUN 11, creatinine 0.9, glucose 290. Patient is currently on low-dose insulin sliding scale. Ordered insulin glargine 20 units HS. Blood cultures done yesterday showed no growth, wound cultures positive for Gram-negative rods. Patient is currently on Vancomycin and Cefepime. MRI of the foot showed findings suggestive of osteomyelitis involving the 1st distal phalanx with adjacent cellulitis. Infectious Disease consult has been placed, pending the recommendations. Podiatry consult has also been placed, pending their recommendations as well. Arterial Doppler showed atherosclerotic disease otherwise normal triphasic arterial waveforms. 01/17/25 patient was seen and examined. Case discussed with the RN. He denies fever or chills. He has been treated for osteomyelitis of the 1st distal phalanx. Appreciate Infectious Disease recommendations. Podiatry help us well 01/18/2025: Lying in bed at bedside at the time of evaluation. Alert and oriented and in no obvious distress. Denies any chest pain, shortness of breath, palpitations, fever or chills. Vital signs T97.7, P 82 R 22, BP 138/70, oxygen 97. Labs sodium 137,. potassium 2.8 Replace as per protocol, chloride 99, BUN 8, creatinine 0.9, glucose 211. Wound cultures of the left great toe was positive for microbial infection: Citrobacter freundii, Enterobacter cloacae, Enterococcus fecalis, Staph aureus, Streptococcus Gp G. Continue with Vancomycin and Cefepime as ordered. Infectious disease is on the case. Physical therapy ordered for evaluation and management. Continue with wound care as ordered. REVIEW OF SYSTEMS CONSTITUTIONAL: Denies fevers, chills, or night sweats. No unintentional weight loss reported. NEUROLOGICAL: Denies headache, amaurosis fugax, motor weakness, sensory deficit, vertigo/spinning sensation, gait abnormalities, or tremors. ENT: No hearing loss, otalgia, otorrhea, rhinitis, rhinorrhea, hoarseness, or sore throat. CARDIOVASCULAR: Denies any exertional angina, dyspnea on exertion, orthopnea, paroxysmal nocturnal dyspnea, palpitations, life-threatening arrhythmias, claudication. PULMONARY: Denies any shortness of breath, cough, phlegm/sputum, hemoptysis, pleuritic chest pain. SLEEP: Denies morning headaches, daytime somnolence or napping. Denies difficulty falling asleep, staying asleep, waking from sleep. Denies knowledge of snoring. GASTROINTESTINAL: Denies any type of dysphagia to either liquids or solids. Denies nausea, vomiting, pyrosis, early satiety, abdominal pain, diarrhea, c onstipation, or changes in stool consistency or caliber. Denies coffee-ground emesis, hematemesis, hematochezia, or melanotic stools. GENITOURINARY: Denies frequency, urgency, nocturia, hematuria or incontinence (Storage/Irritative symptoms.) Low urinary stream, straining to void, urinary intermittency or hesitancy, splitting of the voiding stream, terminal dribbling. ENDOCRINOLOGIC: Denies polyuria, polydipsia, polyphagia or heat/cold intolerances. HEMATOLOGIC: Denies thrombophilia/previous clots, or coagulopathy/bleeding disorders. ONCOLOGIC: Denies personal history of malignancy. DERMATOLOGIC: Denies rashes or pruritus. Extremities: Left knee pain, redness and swelling of LLE, left great toe wound PSYCHIATRIC: Denies any suicidal or homicidal ideation. Denies hallucinations. PHYSICAL EXAM GENERAL APPEARANCE: The patient is awake, alert, and oriented, in no acute cardiopulmonary distress. NEUROLOGICAL: Cranial nerves II-XII grossly intact. Motor is 5/5 in bilateral upper and lower extremities proximal to distal. No sensory deficits. HEENT: Face is symmetric. Pupils are equal and reactive. Extraocular movements are intact. NECK: Supple. No JVD. No thyromegaly. No submental, submandibular, pre- /postauricular, occipital or supraclavicular lymphadenopathy. CHEST: Normal chest expansion. No Telemetry. LUNGS: Absence of any rales, rhonchi or any wheezing. CARDIOVASCULAR: Regular. S1 and S2 normal. No appreciable rubs, murmurs or gallops. ABDOMEN: Soft, nontender, and nondistended. There is no rebound, voluntary guarding, or rigidity. : Deferred. No Muller. EXTREMITIES: Left lower extremity erythema and swelling. Discolored Left great toe with wound on the plantar surface SKIN: No skin breakdown. Vital Signs (last 8hr) Date Time Temp Pulse Resp B/P (MAP) Pulse Ox O2 Delivery O2 Flow Rate FiO2 01/18/25 08:04 97.7 82 22 138/70 97 01/18/25 04:00 98.1 84 20 143/73 100 Room Air LABS: Laboratory: Test 01/18/25 08:43 01/18/25 05:18 01/17/25 05:00 Range/Units Sodium Level 137 136-145 mmol/L Potassium Level 2.8 *L 3.5-5.1 mmol/L Chloride Level 104 101-111 mmol/L Carbon Dioxide Level 26 21-32 mmol/L Blood Urea Nitrogen 8 7-18 mg/dL Creatinine 0.9 0.5-1.3 mg/dL Glomerular Filtration Rate Calc 112 >90 mL/min Random Glucose 211 H 70-105 mg/dL Total Calcium 8.5 8.5-10.1 mg/dL Total Bilirubin 0.4 0.2-1.0 mg/dL Aspartate Amino Transf (AST/SGOT) 13 10-37 U/L Alanine Aminotransferase (ALT/SGPT) 17 12-78 U/L Alkaline Phosphatase 83 50-136 U/L Total Protein 7.6 6.0-8.3 g/dL Albumin 2.0 L 3.5-5.0 g/dL Whole Blood Glucose 194 H 70-110 MG/DL White Blood Count 10.8 4.8-10.8 K/uL Red Blood Count 5.34 4.50-6.20 MIL/uL Hemoglobin 14.7 14.0-18.0 g/dL Hematocrit 42.2 42-54 % Mean Corpuscular Volume 79.0 79-99 fL Mean Corpuscular Hemoglobin 27.5 27.0-33.0 pg Mean Corpuscular Hemoglobin Concent 34.8 32.0-36.0 g/dL Red Cell Distribution Width 14.6 11.0-15.5 % Platelet Count 345 130-400 K/uL Mean Platelet Volume 11.2 H 7.5-10.5 fL Immature Granulocyte % (Auto) 4.8 H 0-1 % Neutrophils (%) (Auto) 67.2 40.0-77.0 % Lymphocytes (%) (Auto) 18.0 L 21.0-51.0 % Monocytes (%) (Auto) 6.4 3.0-13.0 % Eosinophils (%) (Auto) 2.4 0.0-8.0 % Basophils (%) (Auto) 1.2 0.0-5.0 % Neutrophils # (Auto) 7.3 1.8-7.7 K/uL Lymphocytes # (Auto) 1.9 1.0-4.8 K/uL Monocytes # (Auto) 0.7 0.1-1.0 K/uL Eosinophils # (Auto) 0.26 0.00-0.70 K/uL Basophils # (Auto) 0.13 0.00-0.20 K/uL Absolute Immature Granulocyte (auto 0.52 0-1 K/uL Nucleated Red Blood Cells 0.0 0.0-0.19 % Current Medications Medications (Trade) Dose Ordered Sig/Silverio Route PRN Reason Start Time Stop Time Status Last Admin Dose Admin Acetaminophen (TYLenol 325MG TAB) 650 mg Q4H PRN PO MILD PAIN (1-3) 01/14/25 22:30 02/13/25 22:29 01/15/25 12:15 650 MG Acetaminophen (TYLenol 325MG TAB) 650 mg Q6H PRN PO TEMPERATURE GREATER THAN 101.5 01/14/25 22:30 02/13/25 22:29 01/17/25 09:41 650 MG Acetaminophen/ Codeine Phosphate (TYLenol-coDEINE TAB) 2 tab Q4H PRN PO MODERATE PAIN (4-6) 01/15/25 14:00 02/14/25 13:59 01/18/25 01:16 2 TAB Amlodipine Besylate (NorvASC 5MG TAB) 5 mg DAILY PO 01/17/25 09:00 02/16/25 08:59 01/18/25 08:07 5 MG Cefepime HCl (MAXipime 1 GM vial) 1 gm Q8H IVPB 01/15/25 06:00 01/25/25 05:59 01/18/25 04:45 1 GM Dextrose (D50w) 50 ml AD PRN IV HYPOGLYCEMIA PROTOCOL 01/14/25 22:30 02/13/25 22:29 Famotidine (Pepcid 20mg Tab) 20 mg BID PO 01/15/25 09:00 02/14/25 08:59 01/18/25 08:07 20 MG Glucagon (Glucagon 1mg Kit) 1 mg AD PRN IM HYPOGLYCEMIA PROTOCOL 01/14/25 22:30 02/13/25 22:29 Heparin Sodium (Porcine) (HEParin 5,000 UNIT VIAL) 5,000 unit Q8H SQ 01/17/25 12:00 02/16/25 11:59 01/18/25 04:43 5,000 UNIT Hydralazine HCl (APRESOLine 20MG INJ) 10 mg Q6H PRN IV For:SBP above 160;DBP above 90 01/14/25 22:30 02/13/25 22:29 Insulin Glargine (LANtus 100 UNITS/ML 10 ML VIAL) 20 units HS SQ 01/16/25 21:00 02/15/25 20:59 01/17/25 20:48 20 UNITS Insulin Human Regular (humuLIN R 100 UNIT/ML 3ML) INSULIN SLIDING SCAL... ACHS SQ 01/15/25 07:30 02/14/25 07:29 01/18/25 06:20 4 UNIT Magnesium Sulfate 50 ml @ 0 mls/hr PROTOCOL PRN IV OTHER [SEE ORDER COMMENTS] 01/14/25 22:30 02/13/25 22:29 Morphine Sulfate (morPHINE 2MG SYG) 2 mg Q4H PRN IV SEVERE PAIN (7-10) 01/14/25 22:30 01/21/25 22:29 Ondansetron HCl (zoFRAN 4MG INJ) 4 mg Q6H PRN IV NAUSEA/VOMITING 01/14/25 22:30 02/13/25 22:29 Potassium Chloride 100 ml @ 100 mls/hr AD PRN IV POTASSIUM PROTOCOL 01/14/25 22:30 02/13/25 22:29 01/18/25 09:28 100 MLS/HR Potassium Chloride (K-Dur/Klor-Con 20meq) 20 meq AD PRN PO POTASSIUM PROTOCOL 01/14/25 22:30 02/13/25 22:29 01/17/25 19:42 20 MEQ Potassium Chloride (KCl 10% Elixir 20meq/15ml) 20 meq AD PRN PO POTASSIUM PROTOCOL 01/14/25 22:30 02/13/25 22:29 01/17/25 00:24 20 MEQ Sodium Chloride 1,000 ml @ 100 mls/hr Q10H IV 01/14/25 22:30 02/13/25 22:29 01/17/25 17:13 100 MLS/HR Vancomycin HCl 250 ml @ 125 mls/hr ONCE IV 01/14/25 22:30 01/14/25 22:52 DC Vancomycin HCl 250 ml @ 125 mls/hr Q12H IV 01/15/25 00:00 01/25/25 00:00 01/18/25 01:15 125 MLS/HR Vancomycin HCl (Vancomycin Protocol) 1 each AD IV 01/14/25 23:00 01/28/25 22:59 DIAGNOSTICS / RADIOLOGY: [ ] ASSESSMENT: Osteomyelitis involving the 1st distal phalanx as per MRI on 01/15/25 Left leg cellulitis POA Left toe necrotic ulcer POA Hypokalemia POA Pseudohyponatremia secondary to hyperglycemia POA Hyperglycemia secondary to Uncontrolled diabetes POA Status post fall injury at home two weeks ago POA Hypertension POA Morbid obesity POA PLAN: Osteomyelitis involving the 1st distal phalanx Left leg cellulitis POA * MRI of the left foot showed findings suggestive of osteomyelitis involving the 1st distal phalanx and adjacent cellulitis. *Continue on Vancomycin 1 g and Cefepime 1 g as ordered. *WBC is trending down 11.8 -14 yesterday. *Infectious disease consult has been placed, pending recommendations. Left Toe Necrotic ulcer *Wound care team is on the case *Podiatry consult has been placed. *Continue with Iodosorb to ulcer daily *As per Podiatry, will monitor the progress. May need amputation of the left great toe. Hypokalemia POA Pseudohyponatremia secondary to hyperglycemia POA *Replace electrolytes as needed per protocol Hyperglycemia secondary to Uncontrolled diabetes POA *Blood glucose 290. Currently on low-dose sliding scale AC &HS. Ordered Ins ulin Glargine 20 units subQ HS *Carb consistent diet ordered. Hypertension *Continue with Amlodipine 5mg PO daily as ordered. *Hydralazine 10mg IV for sys BP greater 160, vega BP greater 110 Morbid Obesity *Educated patient about the need to lose weight *Physical therapy ordered. Continue on Famotidine 20 mg p.o. bid for GI prophylaxis PRN medications for fever,pain,cough, nausea and vomiting We will request case management service Further orders to follow depending on above results Case discussed with attending physician and came up with above treatment and plan of care. ATTESTATION BY PHYSICIAN I have seen and examined the patient. I reviewed the documentation, medical de cision making, and treatment plan as noted by the resident provider above. I agree with the findings and plan of care. César Maynard MD OBI,FERN Rucker MD Jan 18, 2025 11:03
--- NOTE | 2025-01-18 12:26 | PN ---
PROGRESS NOTE Date of Service: Jan 18, 2025 Time of Service: 12:23 SUBJECTIVE: This 39 years old male was seen for follow up evaluation on oste omyelitis and diabetic foot infection ulcer to his left great toe. The patient is on IV antibiotics has been improving with local wound care and IV antibiotics patient was explained about the need for possible amputation of the great toe he at this moment does not want amputation of the great toe he wants to continue with local wound care and IV antibiotics he was explained about the risk and benefits of this decision he still does not want amputation at this moment. REVIEW OF SYSTEMS CONSTITUTIONAL: Denies fever, chills, or fatigue. Morbid obesity HEAD/FACE: No signs of trauma. EENT: Denies eye pain, blurred vision, double vision, or light sensitivity. RESPIRATORY: Denies shortness of breath, cough, wheezing CARDIOVASCULAR: Denies chest pain, palpitation, syncope GASTROINTESTINAL/ABDOMINAL: Denies abdominal pain, constipation, diarrhea, nausea or vomiting GENITOURINARY: Denies dysuria or hematuria. MUSCULOSKELETAL: Denies joint pain, tenderness secondary to trauma to the left lower extremity but no fractures or dislocations or x-ray examination. INTEGUMENTARY: Great toe ulcer on the left hallux at the level of subcutaneous tissue MRI consistent with possible changes of osteomyelitis. NEUROLOGICAL/PSYCH: Denies anxiety, depression, heat or cold intolerance. PHYSICAL EXAM EYES: Anicteric. Pupils equal and reactive. HENT: No oral thrush seen, moist Oral mucosa NECK: Supple, no JVD or thyromegaly. LUNGS: Good air entry. No rales, no rhonchi. CARDIOVASCULAR: S1, S2 regular. No murmur heard. ABDOMEN: Soft, non tender, bowel sounds present, no organomegaly CENTRAL NERVOUS SYSTEM: Awake, alert, oriented x 3. No focal deficits. SKIN: Diabetic foot ulcer on the plantar aspect of the great toe left foot down to subcutaneous tissue level measuring approximately 2 cm x 1.5 cm x 0.1 in depth. Edema and erythema on the toe secondary to this infection MRI consistent with changes possible osteomyelitis. LYMPHATICS: No peripheral lymphadenopathy MUSCULOSKELETAL: No joint swelling, erythema or tenderness. EXTREMITIES: Left lower extremity hematomas secondary to the fall and edema on bilateral lower extremity lipedema BACK: No deformity, no pressure ulcer. GENITOURINARY: No dysuria or hematuria Vital Signs (last 8hr) Date Time Temp Pulse Resp B/P (MAP) Pulse Ox O2 Delivery O2 Flow Rate FiO2 01/18/25 11:59 98.8 85 16 128/70 100 01/18/25 08:04 97.7 82 22 138/70 97 LABS: Laboratory: Test 01/18/25 11:42 01/18/25 11:19 01/18/25 08:43 01/17/25 05:00 Range/Units Whole Blood Glucose 188 H 70-110 MG/DL Vancomycin Level Trough 18.7 10.0-20.0 UG/ML Sodium Level 137 136-145 mmol/L Potassium Level 2.8 *L 3.5-5.1 mmol/L Chloride Level 104 101-111 mmol/L Carbon Dioxide Level 26 21-32 mmol/L Blood Urea Nitrogen 8 7-18 mg/dL Creatinine 0.9 0.5-1.3 mg/dL Glomerular Filtration Rate Calc 112 >90 mL/min Random Glucose 211 H 70-105 mg/dL Total Calcium 8.5 8.5-10.1 mg/dL Total Bilirubin 0.4 0.2-1.0 mg/dL Aspartate Amino Transf (AST/SGOT) 13 10-37 U/L Alanine Aminotransferase (ALT/SGPT) 17 12-78 U/L Alkaline Phosphatase 83 50-136 U/L Total Protein 7.6 6.0-8.3 g/dL Albumin 2.0 L 3.5-5.0 g/dL White Blood Count 10.8 4.8-10.8 K/uL Red Blood Count 5.34 4.50-6.20 MIL/uL Hemoglobin 14.7 14.0-18.0 g/dL Hematocrit 42.2 42-54 % Mean Corpuscular Volume 79.0 79-99 fL Mean Corpuscular Hemoglobin 27.5 27.0-33.0 pg Mean Corpuscular Hemoglobin Concent 34.8 32.0-36.0 g/dL Red Cell Distribution Width 14.6 11.0-15.5 % Platelet Count 345 130-400 K/uL Mean Platelet Volume 11.2 H 7.5-10.5 fL Immature Granulocyte % (Auto) 4.8 H 0-1 % Neutrophils (%) (Auto) 67.2 40.0-77.0 % Lymphocytes (%) (Auto) 18.0 L 21.0-51.0 % Monocytes (%) (Auto) 6.4 3.0-13.0 % Eosinophils (%) (Auto) 2.4 0.0-8.0 % Basophils (%) (Auto) 1.2 0.0-5.0 % Neutrophils # (Auto) 7.3 1.8-7.7 K/uL Lymphocytes # (Auto) 1.9 1.0-4.8 K/uL Monocytes # (Auto) 0.7 0.1-1.0 K/uL Eosinophils # (Auto) 0.26 0.00-0.70 K/uL Basophils # (Auto) 0.13 0.00-0.20 K/uL Absolute Immature Granulocyte (auto 0.52 0-1 K/uL Nucleated Red Blood Cells 0.0 0.0-0.19 % DIAGNOSTICS / RADIOLOGY: MRI positive for osteomyelitis of the distal phalanx of the great toe left foot ASSESSMENT: Diabetic foot ulcer with infection of the great toe left foot. Trauma secondary to fall two weeks ago left lower extremity. Diabetes Morbid obesity. Osteomyelitis great toe left foot PLAN: Continue IV antibiotics local wound care. Iodosorb to the ulcer daily. Patient does not want amputation at this moment. We will follow up as an outpatient once the patient discharge recommendation to follow up at the [facility] [place] JUDE MCGRAW DPM Jan 18, 2025 12:25
[2025-01-18] MEDS: ceFEPime HCL 1 GM VIAL IVPB SCH (17:08)
--- NOTE | 2025-01-18 19:22 | PN ---
INFECTIOUS DISEASE PROGRESS NOTE Date of Service: Jan 18, 2025 SUBJECTIVE: This is a 39-year-old male patient was seen and examined at bedside in room 426. Patient is awake, alert and oriented x3. Patient was updated with multiple organism growing in the left great toe diabetic ulcer. Patient remains afebrile, temperature is 97.7. We will continue on vancomycin and cefepime. We will continue to follow patient's care. PHYSICAL EXAM EYES: Anicteric. Pupils equal and reactive. HENT: No oral thrush seen, moist Oral mucosa. NECK: Supple, no JVD or thyromegaly. LUNGS: Good air entry. No rales, no rhonchi. CARDIOVASCULAR: S1, S2 regular. No murmur heard. ABDOMEN: Soft, non tender, bowel sounds present, no organomegaly. CENTRAL NERVOUS SYSTEM: Awake, alert, oriented x 3. SKIN: No rashes, no swelling. Left great toe diabetic ulcer. LYMPHATICS: No peripheral lymphadenopathy. MUSCULOSKELETAL: No joint swelling, erythema or tenderness. EXTREMITIES: No cyanosis or clubbing. Left lower extremity swelling and erythema. BACK: No deformity, no pressure ulcer. GENITOURINARY: No dysuria or hematuria. Vital Sign (Last 12 Hours) 01/18/25 01/18/25 01/18/25 08:00 08:04 11:59 Temp 97.7 98.8 Pulse 82 85 Resp 22 16 B/P (MAP) 138/70 128/70 Pulse Ox 97 97 100 O2 Delivery Room Air* O2 Flow Rate 0 FiO2 21 Intake & Output (last 24hrs) 01/17/25 01/17/25 01/18/25 15:00 23:00 07:00 Intake Total 1000 ml Output Total 700 ml Balance 1000 ml -700 ml LABS: Laboratory: Test 01/18/25 17:28 01/18/25 16:59 01/18/25 11:19 01/18/25 08:43 Range/Units Potassium Level 2.6 *L 3.5-5.1 mmol/L Whole Blood Glucose 301 #H 70-110 MG/DL Vancomycin Level Trough 18.7 10.0-20.0 UG/ML Sodium Level 137 136-145 mmol/L Chloride Level 104 101-111 mmol/L Carbon Dioxide Level 26 21-32 mmol/L Blood Urea Nitrogen 8 7-18 mg/dL Creatinine 0.9 0.5-1.3 mg/dL Glomerular Filtration Rate Calc 112 >90 mL/min Random Glucose 211 H 70-105 mg/dL Total Calcium 8.5 8.5-10.1 mg/dL Total Bilirubin 0.4 0.2-1.0 mg/dL Aspartate Amino Transf (AST/SGOT) 13 10-37 U/L Alanine Aminotransferase (ALT/SGPT) 17 12-78 U/L Alkaline Phosphatase 83 50-136 U/L Total Protein 7.6 6.0-8.3 g/dL Albumin 2.0 L 3.5-5.0 g/dL Test 01/17/25 05:00 Range/Units White Blood Count 10.8 4.8-10.8 K/uL Red Blood Count 5.34 4.50-6.20 MIL/uL Hemoglobin 14.7 14.0-18.0 g/dL Hematocrit 42.2 42-54 % Mean Corpuscular Volume 79.0 79-99 fL Mean Corpuscular Hemoglobin 27.5 27.0-33.0 pg Mean Corpuscular Hemoglobin Concent 34.8 32.0-36.0 g/dL Red Cell Distribution Width 14.6 11.0-15.5 % Platelet Count 345 130-400 K/uL Mean Platelet Volume 11.2 H 7.5-10.5 fL Immature Granulocyte % (Auto) 4.8 H 0-1 % Neutrophils (%) (Auto) 67.2 40.0-77.0 % Lymphocytes (%) (Auto) 18.0 L 21.0-51.0 % Monocytes (%) (Auto) 6.4 3.0-13.0 % Eosinophils (%) (Auto) 2.4 0.0-8.0 % Basophils (%) (Auto) 1.2 0.0-5.0 % Neutrophils # (Auto) 7.3 1.8-7.7 K/uL Lymphocytes # (Auto) 1.9 1.0-4.8 K/uL Monocytes # (Auto) 0.7 0.1-1.0 K/uL Eosinophils # (Auto) 0.26 0.00-0.70 K/uL Basophils # (Auto) 0.13 0.00-0.20 K/uL Absolute Immature Granulocyte (auto 0.52 0-1 K/uL Nucleated Red Blood Cells 0.0 0.0-0.19 % DIAGNOSTIC/ RADIOLOGY: PATIENT: MANUEL MADRIGAL ACCT: [id number] LOC: [facility] U: [id number] AGE/SX: 39/M ROOM: 426 RE01/14/[address]: LYUBOV SALAS MD : [id number] BED: 1 DIS: STATUS: ADM IN TLOC: SPEC: [id number] REZA: 01/14/25 STATUS: COMP REQ: [id number] RECD: 01/14/[address]: CASSIDY CHATMAN [facility] SOURCE: FOOT ENTR: 01/14/25-[address]: NICK SPDESC: FOOT LEFT SELF,REFERRAL ORDERED: NIKO CULTURE, AEROBIC CULTURE Procedure Result Darcy Date-Time ANAEROBIC CULTURE Final 01/18/25-07 MRL COLONY DESCRIPTION: REPORT 1: NO ANAEROBES AT 24-35 HOURS; STUDIES TO CONTINUE REPORT 2: NO ANAEROBES AT 48-59 HOURS; STUDIES TO CONTINUE REPORT 3: NO ANAEROBES AT 72-96 HOURS Test(s) performed by: [facility] [address] [place] [address] AEROBIC CULTURE Final 01/18/25-0747 MRL COLONY DESCRIPTION: REPORT 1: 3+ GRAM NEGATIVE RODS IDENTIFICATION AND SENSITIVITY TO FOLLOW REPORT 2: 2+ GRAM POSITIVE COCCI IN CLUSTERS STAPHYLOCOCCUS AUREUS SENSITIVITY TO FOLLOW 2+ GRAM POSITIVE COCCI IN CHAINS IDENTIFICATION TO FOLLOW BETA HEMOLYTIC STREPTOCOCCUS GROUP G REPORT 3: 1+ GRAM POSITIVE COCCI IN CHAINS POSSIBLE ENTEROCOCCUS SPECIES IDENTIFICATION AND SENSITIVITY TO FOLLOW . NO FURTHER WORK-UP DONE CITROBACTER FREUNDII ENTEROBACTER CLOACAE ENTEROCOCCUS FAECALIS STAPHYLOCOCCUS AUREUS STREPTOCOCCUS GROUP G CONTINUED ON NEXT PAGE RUN DATE: 01/18/25 [facility] PAGE 2 RUN TIME: [id number] [address], [place] [address] [employer] [place] # [id number] Chemistry Lecturer: Tristan Dykes DO Specimen Report SPEC: [id number] PATIENT: MANUEL MADRIGAL [id number] (Continued) Procedure Result Darcy Date-Time AEROBIC CULTURE Final (continued) 01/18/25-746 C. FREUNDI ENT CLOAC M.I.C. RX M.I.C. RX --------- ---- --------- ---- AMPICILLIN AZTREONAM <=4 S <=4 S CEFTAZIDIME <=1 S <=1 S CEFTAZIDIME/AVIBACTAM <=8 S <=8 S CEFTRIAXONE <=1 S CIPROFLOXACIN <=0.25 S ERYTHROMYCIN GENTAMICIN <=2 S <=2 S LEVOFLOXACIN <=0.5 S <=0.5 S VANCOMYCIN OXACILLIN REYMUNDO RIFAMPIN GENTAMICIN Synergy Screen MEROPENEM <=1 S <=1 S PENICILLIN PIPERACILLIN/TAZOBACTAM <=8 S <=8 S TRIMETHOPRIM/SUFLAMETHOXAZOLE <=2/38 S <=2/38 S E FAECALIS S. AUREUS M.I.C. RX M.I.C. RX --------- ---- --------- ---- AMPICILLIN <=2 S AZTREONAM CEFTAZIDIME CEFTAZIDIME/AVIBACTAM CEFTRIAXONE CIPROFLOXACIN ERYTHROMYCIN <=0.5 S GENTAMICIN <=4 S LEVOFLOXACIN <=1 S VANCOMYCIN 2 S 1 S OXACILLIN REYMUNDO <=0.25 S RIFAMPIN <=1 S GENTAMICIN Synergy Screen <=500 S MEROPENEM PENICILLIN 2 S <=0.03 S PIPERACILLIN/TAZOBACTAM TRIMETHOPRIM/SUFLAMETHOXAZOLE <=0.5/9.5 S ASSESSMENT: Left great toe diabetic ulcer with polymicrobial infection. Infection with Methicillin-susceptible Staphylococcus aureus. Left great toe osteomyelitis. Leukocytosis, improving. Hypokalemia. Recent mechanical fall. Uncontrolled Diabetes mellitus, hemoglobin A1c 10.8. Morbid obesity. PLAN: Continue cefepime. Continue vancomycin per pharmacy protocol. Continue Hypokalemia protocol. Continue antidiabetics. Continue pain management. Continue wound care. This case was reviewed and discussed with my supervising physician and the above assessment and plan was formulated and agreed upon. ATTESTATION BY PHYSICIAN I have seen and examined the patient. I reviewed the documentation, medical decision making, and treatment plan as noted by the mid-level provider above. I agree with the findings and plan of care. MAY ESCOBEDO MD, [facility] Jan 18, 2025 19:22
[2025-01-18] MEDS: SIMETHICONE 80 MG TAB.CHEW PO SCH (21:51)
[2025-01-19] VITALS (7 sets, daily range): BP systolic 117–162; BP diastolic 64–89; PULSE 78–90; RESP 16–24; TEMP 97.8–98.7; O2SAT 98
[2025-01-19 06:17] LABS: BASOPHILS # (AUTO) 0.06 K/uL (0.00-0.20); BASOPHILS % (AUTO) 0.5 % (0.0-5.0); EOSINOPHILS # (AUTO) 0.22 K/uL (0.00-0.70); HEMATOCRIT 39.8 % (42-54); IMMATURE GRANULOCYTE ABSOLUTE 0.33 K/uL (0-1); LYMPHOCYTES # (AUTO) 1.7 K/uL (1.0-4.8); LYMPHOCYTES % (AUTO) 14.9 % (21.0-51.0); MEAN CORPUSCULAR HEMOGLOBIN 27.7 pg (27.0-33.0); MEAN CORPUSCULAR HGB CONC 34.4 g/dL (32.0-36.0); MEAN CORPUSCULAR VOLUME 80.6 fL (79-99); MONOCYTES # (AUTO) 0.6 K/uL (0.1-1.0); MONOCYTES % (AUTO) 5.7 % (3.0-13.0); NEUTROPHILS # (AUTO) 8.2 K/uL (1.8-7.7); NEUTROPHILS % (AUTO) 73.9 % (40.0-77.0); PLATELET COUNT (AUTO) 316 K/uL (130-400); RED BLOOD CELL COUNT(AUTO) 4.94 MIL/uL (4.50-6.20); RED CELL DISTRIBUTION WIDTH 14.7 % (11.0-15.5); WHITE BLOOD COUNT (AUTO) 11.1 K/uL (4.8-10.8)
[2025-01-19 06:36] LABS: ALBUMIN 1.9 g/dL (3.5-5.0); BILIRUBIN,TOTAL 0.5 mg/dL (0.2-1.0); CREATININE 0.8 mg/dL (0.5-1.3); TOTAL PROTEIN, SERUM 7.2 g/dL (6.0-8.3)
[2025-01-19 06:37] LABS: POTASSIUM 2.8 mmol/L (3.5-5.1)
--- NOTE | 2025-01-19 10:34 | NUR ---
TOE AMPUTATION DECISION PATIENT REPORTS CHANGE IN DECISION ON LEFT GRT TOE AMPUTATION. REPORTED CHANGE OF STATUS TO DR. MCGRAW AND HE SAID HE WILL VISIT PATIENT TOMORROW. 01/20
--- NOTE | 2025-01-19 10:53 | PN ---
[facility] PROGRESS NOTE Date of Service: Jan 19, 2025 Time of Service: 10:52 SUBJECTIVE: HPI This is a 39 year old male,morbidly obese with past medical history of diabetes and hypertension who was brought by EMS to the ED for complaints of left leg pain which started 2 weeks ago.Patient reports he fell at his driveway 2 weeks ago , landed on his left knee and did not seek medical attention and last Saturday he noticed his left leg has been swollen and has been wearing his shoes for too long he said and that his left big toe has been rubbing on his shoes and he also noticed he has been having difficulty walking because of pain on his left leg and left foot so he decided to come to the Ed for evaluation.Reportedly upon arrival to ER,staff took out his left foot from his shoes and it has a very offensive odor his left foot is red and big toe is gangrenous and left lower extremity has an ascending redness and swelling. Patient states that he is not very complaint with his medications and has not been on his medications. 01/15/25: Lying in bed with dad at bedside at the time of evaluation. Alert and oriented and in no obvious distress. Denies any chest pain, shortness of breath, palpitations, fever or chills. Vital signs T98.2, P 98, 22, BP 160/97, oxygen saturation 97 on room air. Labs WBC 14down from 17.3 yesterday, HB 14.8 HCT 42.2,Neutrophil 79.8, ESR 118, CRP 191.8, potassium 2.6 replace as per protocol, magnesium 2.1, lactic acid 1.7, hemoglobin A1c 10.8, glucose 250. X- ray of the left foot showed no acute displaced fracture or dislocation. There is soft tissue swelling. Evaluation of osteomyelitis is limited due to poor positioning. Degenerative changes seen. Venous Doppler was negative for DVT, blood cultures were ordered, still pending the results. Patient is currently on vancomycin 1 g and cefepime 1 g. Infectious disease consult has been placed, pending recommendations. Consult for podiatry has also been placed. Patient with gangrenous left great, ordered an arterial Doppler of the left lower extremities to assess circulation. Pending blood culture results. 01/16/25: Lying in bed at bedside at the time of evaluation. Alert and oriented and in no obvious distress. Denies any chest pain, shortness of breath, palpitations, fever or chills. Vital signs T97.9, P 89 R 20, BP 153/80, oxygen 99. Labs sodium 134,. potassium 2.3 Replace as per protocol, chloride 99, BUN 11, creatinine 0.9, glucose 290. Patient is currently on low-dose insulin sliding scale. Ordered insulin glargine 20 units HS. Blood cultures done yesterday showed no growth, wound cultures positive for Gram-negative rods. Patient is currently on Vancomycin and Cefepime. MRI of the foot showed findings suggestive of osteomyelitis involving the 1st distal phalanx with adjacent cellulitis. Infectious Disease consult has been placed, pending the recommendations. Podiatry consult has also been placed, pending their recommendations as well. Arterial Doppler showed atherosclerotic disease otherwise normal triphasic arterial waveforms. 01/17/25 patient was seen and examined. Case discussed with the RN. He denies fever or chills. He has been treated for osteomyelitis of the 1st distal phalanx. Appreciate Infectious Disease recommendations. Podiatry help us well 01/18/2025: Lying in bed at bedside at the time of evaluation. Alert and oriented and in no obvious distress. Denies any chest pain, shortness of breath, palpitations, fever or chills. Vital signs T97.7, P 82 R 22, BP 138/70, oxygen 97. Labs sodium 137,. potassium 2.8 Replace as per protocol, chloride 99, BUN 8, creatinine 0.9, glucose 211. Wound cultures of the left great toe was positive for microbial infection: Citrobacter freundii, Enterobacter cloacae, Enterococcus fecalis, Staph aureus, Streptococcus Gp G. Continue with Vancomycin and Cefepime as ordered. Infectious disease is on the case. Physical therapy ordered for evaluation and management. Continue with wound care as ordered. 01/19/2025:Lying in bed at bedside at the time of evaluation. Alert and orien ruchi and in no obvious distress. Denies any chest pain, shortness of breath, palpitations, fever or chills. Vital signs T98.8, P 79 R 18, BP 126/64, oxygen 94. Labs were unremarkable except for potassium at 2.8. Patient has been hypokalemic but has refused IV potassium. Explained to him the reasons why IV is preferred when potassium is very low. Verbalized understanding. Patient was seen by the endoscope technician yesterday who recommended amputation of the left great toe. The risks and benefits were explained but patient refused to have the procedure done at this time. REVIEW OF SYSTEMS CONSTITUTIONAL: Denies fevers, chills, or night sweats. No unintentional weight loss reported. NEUROLOGICAL: Denies headache, amaurosis fugax, motor weakness, sensory deficit, vertigo/spinning sensation, gait abnormalities, or tremors. ENT: No hearing loss, otalgia, otorrhea, rhinitis, rhinorrhea, hoarseness, or sore throat. CARDIOVASCULAR: Denies any exertional angina, dyspnea on exertion, orthopnea, paroxysmal nocturnal dyspnea, palpitations, life-threatening arrhythmias, claudication. PULMONARY: Denies any shortness of breath, cough, phlegm/sputum, hemoptysis, pleuritic chest pain. SLEEP: Denies morning headaches, daytime somnolence or napping. Denies difficulty falling asleep, staying asleep, waking from sleep. Denies knowledge of snoring. GASTROINTESTINAL: Denies any type of dysphagia to either liquids or solids. Denies nausea, vomiting, pyrosis, early satiety, abdominal pain, diarrhea, constipation, or changes in stool consistency or caliber. Denies coffee-ground emesis, hematemesis, hematochezia, or melanotic stools. GENITOURINARY: Denies frequency, urgency, nocturia, hematuria or incontinence (Storage/Irritative symptoms.) Low urinary stream, straining to void, urinary intermittency or hesitancy, splitting of the voiding stream, terminal dribbling. ENDOCRINOLOGIC: Denies polyuria, polydipsia, polyphagia or heat/cold intolerances. HEMATOLOGIC: Denies thrombophilia/previous clots, or coagulopathy/bleeding disorders. ONCOLOGIC: Denies personal history of malignancy. DERMATOLOGIC: Denies rashes or pruritus. Extremities: Left knee pain, redness and swelling of LLE, left great toe wound PSYCHIATRIC: Denies any suicidal or homicidal ideation. Denies hallucinations. PHYSICAL EXAM GENERAL APPEARANCE: The patient is awake, alert, and oriented, in no acute cardiopulmonary distress. NEUROLOGICAL: Cranial nerves II-XII grossly intact. Motor is 5/5 in bilateral upper and lower extremities proximal to distal. No sensory deficits. HEENT: Face is symmetric. Pupils are equal and reactive. Extraocular movements are intact. NECK: Supple. No JVD. No thyromegaly. No submental, submandibular, pre- /postauricular, occipital or supraclavicular lymphadenopathy. CHEST: Normal chest expansion. No Telemetry. LUNGS: Absence of any rales, rhonchi or any wheezing. CARDIOVASCULAR: Regular. S1 and S2 normal. No appreciable rubs, murmurs or gallops. ABDOMEN: Soft, nontender, and nondistended. There is no rebound, voluntary guarding, or rigidity. : Deferred. No Muller. EXTREMITIES: Left lower extremity erythema and swelling. Discolored Left great toe with wound on the plantar surface SKIN: No skin breakdown. Vital Signs (last 8hr) Date Time Temp Pulse Resp B/P (MAP) Pulse Ox O2 Delivery O2 Flow Rate FiO2 01/19/25 08:37 98.8 79 18 126/64 94 01/19/25 08:00 Room Air* 0 21 01/19/25 03:45 98.1 81 22 144/75 97 Room Air LABS: Laboratory: Test 01/19/25 05:41 01/19/25 05:07 01/18/25 11:19 Range/Units White Blood Count 11.1 H 4.8-10.8 K/uL Red Blood Count 4.94 4.50-6.20 MIL/uL Hemoglobin 13.7 L 14.0-18.0 g/dL Hematocrit 39.8 L 42-54 % Mean Corpuscular Volume 80.6 79-99 fL Mean Corpuscular Hemoglobin 27.7 27.0-33.0 pg Mean Corpuscular Hemoglobin Concent 34.4 32.0-36.0 g/dL Red Cell Distribution Width 14.7 11.0-15.5 % Platelet Count 316 130-400 K/uL Mean Platelet Volume 11.3 H 7.5-10.5 fL Immature Granulocyte % (Auto) 3.0 H 0-1 % Neutrophils (%) (Auto) 73.9 40.0-77.0 % Lymphocytes (%) (Auto) 14.9 L 21.0-51.0 % Monocytes (%) (Auto) 5.7 3.0-13.0 % Eosinophils (%) (Auto) 2.0 0.0-8.0 % Basophils (%) (Auto) 0.5 0.0-5.0 % Neutrophils # (Auto) 8.2 H 1.8-7.7 K/uL Lymphocytes # (Auto) 1.7 1.0-4.8 K/uL Monocytes # (Auto) 0.6 0.1-1.0 K/uL Eosinophils # (Auto) 0.22 0.00-0.70 K/uL Basophils # (Auto) 0.06 0.00-0.20 K/uL Absolute Immature Granulocyte (auto 0.33 0-1 K/uL Nucleated Red Blood Cells 0.0 0.0-0.19 % Sodium Level 140 136-145 mmol/L Potassium Level 2.8 *L 3.5-5.1 mmol/L Chloride Level 107 101-111 mmol/L Carbon Dioxide Level 25 21-32 mmol/L Blood Urea Nitrogen 7 7-18 mg/dL Creatinine 0.8 0.5-1.3 mg/dL Glomerular Filtration Rate Calc 116 >90 mL/min Random Glucose 152 H 70-105 mg/dL Total Calcium 8.1 L 8.5-10.1 mg/dL Total Bilirubin 0.5 # 0.2-1.0 mg/dL Aspartate Amino Transf (AST/SGOT) 18 10-37 U/L Alanine Aminotransferase (ALT/SGPT) 15 12-78 U/L Alkaline Phosphatase 74 50-136 U/L Total Protein 7.2 6.0-8.3 g/dL Albumin 1.9 L 3.5-5.0 g/dL Whole Blood Glucose 149 H 70-110 MG/DL Vancomycin Level Trough 18.7 10.0-20.0 UG/ML Current Medications Medications (Trade) Dose Ordered Sig/Silverio Route PRN Reason Start Time Stop Time Status Last Admin Dose Admin Acetaminophen (TYLenol 325MG TAB) 650 mg Q4H PRN PO MILD PAIN (1-3) 01/14/25 22:30 02/13/25 22:29 01/15/25 12:15 650 MG Acetaminophen (TYLenol 325MG TAB) 650 mg Q6H PRN PO TEMPERATURE GREATER THAN 101.5 01/14/25 22:30 02/13/25 22:29 01/17/25 09:41 650 MG Acetaminophen/ Codeine Phosphate (TYLenol-coDEINE TAB) 2 tab Q4H PRN PO MODERATE PAIN (4-6) 01/15/25 14:00 02/14/25 13:59 01/18/25 01:16 2 TAB Amlodipine Besylate (NorvASC 5MG TAB) 5 mg DAILY PO 01/17/25 09:00 02/16/25 08:59 01/19/25 08:46 5 MG Cefepime HCl (MAXipime 1 GM vial) 1 gm Q8H IVPB 01/15/25 06:00 01/18/25 13:31 DC 01/18/25 13:00 1 GM Cefepime HCl (MAXipime 1 GM vial) 1 gm Q8H IVPB 01/18/25 16:00 01/25/25 15:59 01/19/25 08:46 1 GM Dextrose (D50w) 50 ml AD PRN IV HYPOGLYCEMIA PROTOCOL 01/14/25 22:30 02/13/25 22:29 Famotidine (Pepcid 20mg Tab) 20 mg BID PO 01/15/25 09:00 02/14/25 08:59 01/19/25 08:46 20 MG Glucagon (Glucagon 1mg Kit) 1 mg AD PRN IM HYPOGLYCEMIA PROTOCOL 01/14/25 22:30 02/13/25 22:29 Heparin Sodium (Porcine) (HEParin 5,000 UNIT VIAL) 5,000 unit Q8H SQ 01/17/25 12:00 02/16/25 11:59 01/19/25 04:55 5,000 UNIT Hydralazine HCl (APRESOLine 20MG INJ) 10 mg Q6H PRN IV For:SBP above 160;DBP above 90 01/14/25 22:30 02/13/25 22:29 Insulin Glargine (LANtus 100 UNITS/ML 10 ML VIAL) 20 units HS SQ 01/16/25 21:00 02/15/25 20:59 01/18/25 22:09 20 UNITS Insulin Human Regular (humuLIN R 100 UNIT/ML 3ML) INSULIN SLIDING SCAL... ACHS SQ 01/15/25 07:30 02/14/25 07:29 01/18/25 22:08 12 UNIT Magnesium Sulfate 50 ml @ 0 mls/hr PROTOCOL PRN IV OTHER [SEE ORDER COMMENTS] 01/14/25 22:30 02/13/25 22:29 Morphine Sulfate (morPHINE 2MG SYG) 2 mg Q4H PRN IV SEVERE PAIN (7-10) 01/14/25 22:30 01/21/25 22:29 Ondansetron HCl (zoFRAN 4MG INJ) 4 mg Q6H PRN IV NAUSEA/VOMITING 01/14/25 22:30 02/13/25 22:29 Potassium Chloride 100 ml @ 100 mls/hr AD PRN IV POTASSIUM PROTOCOL 01/14/25 22:30 02/13/25 22:29 01/18/25 18:09 100 MLS/HR Potassium Chloride (K-Dur/Klor-Con 20meq) 20 meq AD PRN PO POTASSIUM PROTOCOL 01/14/25 22:30 02/13/25 22:29 01/19/25 08:46 20 MEQ Potassium Chloride (KCl 10% Elixir 20meq/15ml) 20 meq AD PRN PO POTASSIUM PROTOCOL 01/14/25 22:30 02/13/25 22:29 01/17/25 00:24 20 MEQ Simethicone (Mylicon) 80 mg PCHS PO 01/18/25 21:00 02/17/25 20:59 01/19/25 08:46 80 MG Sodium Chloride 1,000 ml @ 100 mls/hr Q10H IV 01/14/25 22:30 02/13/25 22:29 01/18/25 17:08 100 MLS/HR Vancomycin HCl 250 ml @ 125 mls/hr ONCE IV 01/14/25 22:30 01/14/25 22:52 DC Vancomycin HCl 250 ml @ 125 mls/hr Q12H IV 01/15/25 00:00 01/25/25 00:00 01/18/25 23:11 125 MLS/HR Vancomycin HCl (Vancomycin Protocol) 1 each AD IV 01/14/25 23:00 01/28/25 22:59 DIAGNOSTICS / RADIOLOGY: [ ] ASSESSMENT: Osteomyelitis involving the 1st distal phalanx as per MRI on 01/15/25 Left leg cellulitis POA Left toe necrotic ulcer POA Hypokalemia POA Pseudohyponatremia secondary to hyperglycemia POA Hyperglycemia secondary to Uncontrolled diabetes POA Status post fall injury at home two weeks ago POA Hypertension POA Morbid obesity POA PLAN: Osteomyelitis involving the 1st distal phalanx Left leg cellulitis POA * MRI of the left foot showed findings suggestive of osteomyelitis involving the 1st distal phalanx and adjacent cellulitis. *Continue on Vancomycin 1 g and Cefepime 1 g as ordered. *WBC is trending down 11.8 -14 yesterday. *Infectious disease consult has been placed, pending recommendations. Left Toe Necrotic ulcer *Patient was seen by the endoscope technician yesterday who recommended amputation of the left great toe. The risks were explained but patient refused to have the p rocedure done at this time. *Wound care team is on the case *Continue with Iodosorb to ulcer daily Hypokalemia POA Pseudohyponatremia secondary to hyperglycemia POA *Potassium at 2.8. Patient has refused IV potassium. Explained to him the reasons why IV is preferred when potassium is very low. *Replace electrolytes as needed per protocol Hyperglycemia secondary to Uncontrolled diabetes POA *Blood glucose 290. Currently on low-dose sliding scale AC &HS. Ordered Insulin Glargine 20 units subQ HS *Carb consistent diet ordered. Hypertension *Continue with Amlodipine 5mg PO daily as ordered. *Hydralazine 10mg IV for sys BP greater 160, vega BP greater 110 Morbid Obesity *Educated patient about the need to lose weight *Physical therapy ordered. Continue on Famotidine 20 mg p.o. bid for GI prophylaxis PRN medications for fever,pain,cough, nausea and vomiting We will request case management service Further orders to follow depending on above results Case discussed with attending physician and came up with above treatment and pl an of care. FERN LEONARDO MD Jan 19, 2025 10:53
--- NOTE | 2025-01-19 13:40 | PN ---
INFECTIOUS DISEASE PROGRESS NOTE Date of Service: Jan 19, 2025 SUBJECTIVE: This is a 39-year-old male patient was seen and examined at bedside in room 426. Patient is awake, alert and oriented x3. Per report patient has agreed to a left great toe amputation and pending a finance manager re-evaluation. Patient is afebrile, temperature is 98.8 and the WBC has trended down to 11.1. Potassium level continues low at 2.8 and being replaced. We will continue on vancomycin and cefepime. PHYSICAL EXAM EYES: Anicteric. Pupils equal and reactive. HENT: No oral thrush seen, moist Oral mucosa. NECK: Supple, no JVD or thyromegaly. LUNGS: Good air entry. No rales, no rhonchi. CARDIOVASCULAR: S1, S2 regular. No murmur heard. ABDOMEN: Soft, non tender, bowel sounds present, no organomegaly. CENTRAL NERVOUS SYSTEM: Awake, alert, oriented x 3. SKIN: No rashes, no swelling. Left great toe diabetic ulcer. LYMPHATICS: No peripheral lymphadenopathy. MUSCULOSKELETAL: No joint swelling, erythema or tenderness. EXTREMITIES: No cyanosis or clubbing. Left lower extremity swelling and erythema. BACK: No deformity, no pressure ulcer. GENITOURINARY: No dysuria or hematuria. Vital Sign (Last 12 Hours) 01/19/25 01/19/25 01/19/25 01/19/25 03:45 08:00 08:37 11:50 Temp 98.1 98.8 98.8 Pulse 81 79 81 Resp 22 18 20 B/P (MAP) 144/75 126/64 117/70 Pulse Ox 97 94 96 O2 Delivery Room Air Room Air* O2 Flow Rate 0 FiO2 21 LABS: Laboratory: Test 01/19/25 11:29 01/19/25 05:41 01/18/25 11:19 Range/Units Whole Blood Glucose 210 H 70-110 MG/DL White Blood Count 11.1 H 4.8-10.8 K/uL Red Blood Count 4.94 4.50-6.20 MIL/uL Hemoglobin 13.7 L 14.0-18.0 g/dL Hematocrit 39.8 L 42-54 % Mean Corpuscular Volume 80.6 79-99 fL Mean Corpuscular Hemoglobin 27.7 27.0-33.0 pg Mean Corpuscular Hemoglobin Concent 34.4 32.0-36.0 g/dL Red Cell Distribution Width 14.7 11.0-15.5 % Platelet Count 316 130-400 K/uL Mean Platelet Volume 11.3 H 7.5-10.5 fL Immature Granulocyte % (Auto) 3.0 H 0-1 % Neutrophils (%) (Auto) 73.9 40.0-77.0 % Lymphocytes (%) (Auto) 14.9 L 21.0-51.0 % Monocytes (%) (Auto) 5.7 3.0-13.0 % Eosinophils (%) (Auto) 2.0 0.0-8.0 % Basophils (%) (Auto) 0.5 0.0-5.0 % Neutrophils # (Auto) 8.2 H 1.8-7.7 K/uL Lymphocytes # (Auto) 1.7 1.0-4.8 K/uL Monocytes # (Auto) 0.6 0.1-1.0 K/uL Eosinophils # (Auto) 0.22 0.00-0.70 K/uL Basophils # (Auto) 0.06 0.00-0.20 K/uL Absolute Immature Granulocyte (auto 0.33 0-1 K/uL Nucleated Red Blood Cells 0.0 0.0-0.19 % Sodium Level 140 136-145 mmol/L Potassium Level 2.8 *L 3.5-5.1 mmol/L Chloride Level 107 101-111 mmol/L Carbon Dioxide Level 25 21-32 mmol/L Blood Urea Nitrogen 7 7-18 mg/dL Creatinine 0.8 0.5-1.3 mg/dL Glomerular Filtration Rate Calc 116 >90 mL/min Random Glucose 152 H 70-105 mg/dL Total Calcium 8.1 L 8.5-10.1 mg/dL Total Bilirubin 0.5 # 0.2-1.0 mg/dL Aspartate Amino Transf (AST/SGOT) 18 10-37 U/L Alanine Aminotransferase (ALT/SGPT) 15 12-78 U/L Alkaline Phosphatase 74 50-136 U/L Total Protein 7.2 6.0-8.3 g/dL Albumin 1.9 L 3.5-5.0 g/dL Vancomycin Level Trough 18.7 10.0-20.0 UG/ML DIAGNOSTIC/ RADIOLOGY: PATIENT: MANUEL MADRIGAL ACCT: [id number] LOC: 4D U: [id number] AGE/SX: 39/M ROOM: 426 RE01/14/[address]: LYUBOV SALAS MD : [id number] BED: 1 DIS: STATUS: ADM IN TLOC: SPEC: [id number] REZA: 01/14/25 STATUS: COMP REQ: [id number] RECD: 01/14/25-[address]: CASSIDY CHATMAN [facility] SOURCE: FOOT ENTR: 01/14/25-1915 OTHR ROB: NONE SPDESC: FOOT LEFT SELF,REFERRAL ORDERED: NIKO CULTURE, AEROBIC CULTURE Procedure Result Darcy Date-Time ANAEROBIC CULTURE Final 01/18/25-07 MRL COLONY DESCRIPTION: REPORT 1: NO ANAEROBES AT 24-35 HOURS; STUDIES TO CONTINUE REPORT 2: NO ANAEROBES AT 48-59 HOURS; STUDIES TO CONTINUE REPORT 3: NO ANAEROBES AT 72-96 HOURS Test(s) performed by: [facility] [address] [place] [address] AEROBIC CULTURE Final 01/18/25-0747 MRL COLONY DESCRIPTION: REPORT 1: 3+ GRAM NEGATIVE RODS IDENTIFICATION AND SENSITIVITY TO FOLLOW REPORT 2: 2+ GRAM POSITIVE COCCI IN CLUSTERS STAPHYLOCOCCUS AUREUS SENSITIVITY TO FOLLOW 2+ GRAM POSITIVE COCCI IN CHAINS IDENTIFICATION TO FOLLOW BETA HEMOLYTIC STREPTOCOCCUS GROUP G REPORT 3: 1+ GRAM POSITIVE COCCI IN CHAINS POSSIBLE ENTEROCOCCUS SPECIES IDENTIFICATION AND SENSITIVITY TO FOLLOW . NO FURTHER WORK-UP DONE CITRO[employer]ER FREUNDII ENTEROBACTER CLOACAE ENTEROCOCCUS FAECALIS STAPHYLOCOCCUS AUREUS STREPTOCOCCUS GROUP G CONTINUED ON NEXT PAGE RUN DATE: 01/18/25 [facility] PAGE 2 RUN TIME: [id number] [address], [place] [address] [employer] [place] # [id number] Manager Non Profit: Tristan Dykes DO Specimen Report - SPEC: [id number] PATIENT: MANUEL MADRIGAL [id number] (Continued) Procedure Result Darcy Date-Time AEROBIC CULTURE Final (continued) 01/18/25-746 C. FREUNDI ENT CLOAC M.I.C. RX M.I.C. RX --------- ---- --------- ---- AMPICILLIN AZTREONAM <=4 S <=4 S CEFTAZIDIME <=1 S <=1 S CEFTAZIDIME/AVIBACTAM <=8 S <=8 S CEFTRIAXONE <=1 S CIPROFLOXACIN <=0.25 S ERYTHROMYCIN GENTAMICIN <=2 S <=2 S LEVOFLOXACIN <=0.5 S <=0.5 S VANCOMYCIN OXACILLIN REYMUNDO RIFAMPIN GENTAMICIN Synergy Screen MEROPENEM <=1 S <=1 S PENICILLIN PIPERACILLIN/TAZOBACTAM <=8 S <=8 S TRIMETHOPRIM/SUFLAMETHOXAZOLE <=2/38 S <=2/38 S E FAECALIS S. AUREUS M.I.C. RX M.I.C. RX --------- ---- --------- ---- AMPICILLIN <=2 S AZTREONAM CEFTAZIDIME CEFTAZIDIME/AVIBACTAM CEFTRIAXONE CIPROFLOXACIN ERYTHROMYCIN <=0.5 S GENTAMICIN <=4 S LEVOFLOXACIN <=1 S VANCOMYCIN 2 S 1 S OXACILLIN REYMUNDO <=0.25 S RIFAMPIN <=1 S GENTAMICIN Synergy Screen <=500 S MEROPENEM PENICILLIN 2 S <=0.03 S PIPERACILLIN/TAZOBACTAM TRIMETHOPRIM/SUFLAMETHOXAZOLE <=0.5/9.5 S ASSESSMENT: Left great toe diabetic ulcer with polymicrobial infection. Infection with Methicillin-susceptible Staphylococcus aureus. Left great toe osteomyelitis. Leukocytosis, improving. Hypokalemia. Recent mechanical fall. Uncontrolled Diabetes mellitus, hemoglobin A1c 10.8. Morbid obesity. PLAN: Continue cefepime. Continue vancomycin per pharmacy protocol. Continue Hypokalemia protocol. Continue antidiabetics. Continue pain management. Continue wound care. Patient agreeing to left great toe amputation and pending finance manager re- evaluation. This case was reviewed and discussed with my supervising physician and the above assessment and plan was formulated and agreed upon. ATTESTATION BY PHYSICIAN I have seen and examined the patient. I reviewed the documentation, medical decision making, and treatment plan as noted by the mid-level provider above. I agree with the findings and plan of care. MAY ESCOBEDO MD, [facility] Jan 19, 2025 13:40
[2025-01-19] MEDS: hydrALAZine 20MG/ML VIAL IV PRN (22:59)
[2025-01-20] VITALS (7 sets, daily range): BP systolic 129–160; BP diastolic 64–93; PULSE 80–95; RESP 19–22; TEMP 97.5–99.4; O2SAT 98–99
--- NOTE | 2025-01-20 08:35 | PN ---
PROGRESS NOTE Date of Service: Jan 20, 2025 Time of Service: 08:33 SUBJECTIVE: This 39 years old male was seen for follow up evaluation on oste omyelitis and diabetic foot infection ulcer to his left great toe. The patient is on IV antibiotics has been improving with local wound care and IV antibiotics patient was explained about the need for possible amputation of the great toe he at this moment he was explained about the risk and benefits of this decision he wants amputation at this moment. REVIEW OF SYSTEMS CONSTITUTIONAL: Denies fever, chills, or fatigue. Morbid obesity HEAD/FACE: No signs of trauma. EENT: Denies eye pain, blurred vision, double vision, or light sensitivity. RESPIRATORY: Denies shortness of breath, cough, wheezing CARDIOVASCULAR: Denies chest pain, palpitation, syncope GASTROINTESTINAL/ABDOMINAL: Denies abdominal pain, constipation, diarrhea, nausea or vomiting GENITOURINARY: Denies dysuria or hematuria. MUSCULOSKELETAL: Denies joint pain, tenderness secondary to trauma to the left lower extremity but no fractures or dislocations or x-ray examination. INTEGUMENTARY: Great toe ulcer on the left hallux at the level of subcutaneous tissue MRI consistent with possible changes of osteomyelitis. NEUROLOGICAL/PSYCH: Denies anxiety, depression, heat or cold intolerance. PHYSICAL EXAM EYES: Anicteric. Pupils equal and reactive. HENT: No oral thrush seen, moist Oral mucosa NECK: Supple, no JVD or thyromegaly. LUNGS: Good air entry. No rales, no rhonchi. CARDIOVASCULAR: S1, S2 regular. No murmur heard. ABDOMEN: Soft, non tender, bowel sounds present, no organomegaly CENTRAL NERVOUS SYSTEM: Awake, alert, oriented x 3. No focal deficits. SKIN: Diabetic foot ulcer on the plantar aspect of the great toe left foot down to subcutaneous tissue level measuring approximately 2 cm x 1.5 cm x 0.1 in depth. Edema and erythema on the toe secondary to this infection MRI consistent with changes possible osteomyelitis. LYMPHATICS: No peripheral lymphadenopathy MUSCULOSKELETAL: No joint swelling, erythema or tenderness. EXTREMITIES: Left lower extremity hematomas secondary to the fall and edema on bilateral lower extremity lipedema BACK: No deformity, no pressure ulcer. GENITOURINARY: No dysuria or hematuria Vital Signs (last 8hr) Date Time Temp Pulse Resp B/P (MAP) Pulse Ox O2 Delivery O2 Flow Rate FiO2 01/20/25 07:57 99.0 82 19 160/93 99 Room Air 01/20/25 03:53 97.5 80 22 129/64 99 Room Air 01/20/25 01:04 83 133/66 Room Air LABS: Laboratory: Test 01/20/25 04:51 01/19/25 05:41 01/18/25 11:19 Range/Units Whole Blood Glucose 146 H 70-110 MG/DL White Blood Count 11.1 H 4.8-10.8 K/uL Red Blood Count 4.94 4.50-6.20 MIL/uL Hemoglobin 13.7 L 14.0-18.0 g/dL Hematocrit 39.8 L 42-54 % Mean Corpuscular Volume 80.6 79-99 fL Mean Corpuscular Hemoglobin 27.7 27.0-33.0 pg Mean Corpuscular Hemoglobin Concent 34.4 32.0-36.0 g/dL Red Cell Distribution Width 14.7 11.0-15.5 % Platelet Count 316 130-400 K/uL Mean Platelet Volume 11.3 H 7.5-10.5 fL Immature Granulocyte % (Auto) 3.0 H 0-1 % Neutrophils (%) (Auto) 73.9 40.0-77.0 % Lymphocytes (%) (Auto) 14.9 L 21.0-51.0 % Monocytes (%) (Auto) 5.7 3.0-13.0 % Eosinophils (%) (Auto) 2.0 0.0-8.0 % Basophils (%) (Auto) 0.5 0.0-5.0 % Neutrophils # (Auto) 8.2 H 1.8-7.7 K/uL Lymphocytes # (Auto) 1.7 1.0-4.8 K/uL Monocytes # (Auto) 0.6 0.1-1.0 K/uL Eosinophils # (Auto) 0.22 0.00-0.70 K/uL Basophils # (Auto) 0.06 0.00-0.20 K/uL Absolute Immature Granulocyte (auto 0.33 0-1 K/uL Nucleated Red Blood Cells 0.0 0.0-0.19 % Sodium Level 140 136-145 mmol/L Potassium Level 2.8 *L 3.5-5.1 mmol/L Chloride Level 107 101-111 mmol/L Carbon Dioxide Level 25 21-32 mmol/L Blood Urea Nitrogen 7 7-18 mg/dL Creatinine 0.8 0.5-1.3 mg/dL Glomerular Filtration Rate Calc 116 >90 mL/min Random Glucose 152 H 70-105 mg/dL Total Calcium 8.1 L 8.5-10.1 mg/dL Total Bilirubin 0.5 # 0.2-1.0 mg/dL Aspartate Amino Transf (AST/SGOT) 18 10-37 U/L Alanine Aminotransferase (ALT/SGPT) 15 12-78 U/L Alkaline Phosphatase 74 50-136 U/L Total Protein 7.2 6.0-8.3 g/dL Albumin 1.9 L 3.5-5.0 g/dL Vancomycin Level Trough 18.7 10.0-20.0 UG/ML DIAGNOSTICS / RADIOLOGY: MRI positive for osteomyelitis of the distal phalanx of the great toe left foot ASSESSMENT: Diabetic foot ulcer with infection of the great toe left foot. Trauma secondary to fall two weeks ago left lower extremity. Diabetes Morbid obesity. Osteomyelitis great toe left foot PLAN: Continue IV antibiotics local wound care. Iodosorb to the ulcer daily. Patient agree at this moment to have his toe amputated. We will schedule the case for tomorrow NPO post midnight. New labs ordered at this time. JUDE MCGRAW DPM Jan 20, 2025 08:35
[2025-01-20 08:45] LABS: HEMATOCRIT 40.3 % (42-54); MEAN CORPUSCULAR HEMOGLOBIN 27.6 pg (27.0-33.0); MEAN CORPUSCULAR VOLUME 81.3 fL (79-99); RED BLOOD CELL COUNT(AUTO) 4.96 MIL/uL (4.50-6.20); RED CELL DISTRIBUTION WIDTH 14.8 % (11.0-15.5); WHITE BLOOD COUNT (AUTO) 10.9 K/uL (4.8-10.8)
[2025-01-20 08:54] LABS: CREATININE 0.8 mg/dL (0.5-1.3)
[2025-01-20 08:59] LABS: BILIRUBIN,TOTAL 0.5 mg/dL (0.2-1.0); TOTAL PROTEIN, SERUM 7.4 g/dL (6.0-8.3)
[2025-01-20 09:00] LABS: POTASSIUM 2.7 mmol/L (3.5-5.1)
--- NOTE | 2025-01-20 09:49 | PN ---
[facility] PROGRESS NOTE Date of Service: Jan 20, 2025 Time of Service: 09:47 SUBJECTIVE: HPI This is a 39 year old male,morbidly obese with past medical history of diabetes and hypertension who was brought by EMS to the ED for complaints of left leg pain which started 2 weeks ago.Patient reports he fell at his driveway 2 weeks ago , landed on his left knee and did not seek medical attention and last Saturday he noticed his left leg has been swollen and has been wearing his shoes for too long he said and that his left big toe has been rubbing on his shoes and he also noticed he has been having difficulty walking because of pain on his left leg and left foot so he decided to come to the Ed for evaluation.Reportedly upon arrival to ER,staff took out his left foot from his shoes and it has a very offensive odor his left foot is red and big toe is gangrenous and left lower extremity has an ascending redness and swelling. Patient states that he is not very complaint with his medications and has not been on his medications. 01/15/25: Lying in bed with dad at bedside at the time of evaluation. Alert and oriented and in no obvious distress. Denies any chest pain, shortness of breath, palpitations, fever or chills. Vital signs T98.2, P 98, 22, BP 160/97, oxygen saturation 97 on room air. Labs WBC 14down from 17.3 yesterday, HB 14.8 HCT 42.2,Neutrophil 79.8, ESR 118, CRP 191.8, potassium 2.6 replace as per protocol, magnesium 2.1, lactic acid 1.7, hemoglobin A1c 10.8, glucose 250. X- ray of the left foot showed no acute displaced fracture or dislocation. There is soft tissue swelling. Evaluation of osteomyelitis is limited due to poor positioning. Degenerative changes seen. Venous Doppler was negative for DVT, blood cultures were ordered, still pending the results. Patient is currently on vancomycin 1 g and cefepime 1 g. Infectious disease consult has been placed, pending recommendations. Consult for podiatry has also been placed. Patient with gangrenous left great, ordered an arterial Doppler of the left lower extremities to assess circulation. Pending blood culture results. 01/16/25: Lying in bed at bedside at the time of evaluation. Alert and oriented and in no obvious distress. Denies any chest pain, shortness of breath, palpitations, fever or chills. Vital signs T97.9, P 89 R 20, BP 153/80, oxygen 99. Labs sodium 134,. potassium 2.3 Replace as per protocol, chloride 99, BUN 11, creatinine 0.9, glucose 290. Patient is currently on low-dose insulin sliding scale. Ordered insulin glargine 20 units HS. Blood cultures done yesterday showed no growth, wound cultures positive for Gram-negative rods. Patient is currently on Vancomycin and Cefepime. MRI of the foot showed findings suggestive of osteomyelitis involving the 1st distal phalanx with adjacent cellulitis. Infectious Disease consult has been placed, pending the recommendations. Podiatry consult has also been placed, pending their recommendations as well. Arterial Doppler showed atherosclerotic disease otherwise normal triphasic arterial waveforms. 01/17/25 patient was seen and examined. Case discussed with the RN. He denies fever or chills. He has been treated for osteomyelitis of the 1st distal phalanx. Appreciate Infectious Disease recommendations. Podiatry help us well 01/18/2025: Lying in bed at bedside at the time of evaluation. Alert and oriented and in no obvious distress. Denies any chest pain, shortness of breath, palpitations, fever or chills. Vital signs T97.7, P 82 R 22, BP 138/70, oxygen 97. Labs sodium 137,. potassium 2.8 Replace as per protocol, chloride 99, BUN 8, creatinine 0.9, glucose 211. Wound cultures of the left great toe was positive for microbial infection: Citrobacter freundii, Enterobacter cloacae, Enterococcus fecalis, Staph aureus, Streptococcus Gp G. Continue with Vancomycin and Cefepime as ordered. Infectious disease is on the case. Physical therapy ordered for evaluation and management. Continue with wound care as ordered. 01/19/2025:Lying in bed at bedside at the time of evaluation. Alert and orien ruchi and in no obvious distress. Denies any chest pain, shortness of breath, palpitations, fever or chills. Vital signs T98.8, P 79 R 18, BP 126/64, oxygen 94. Labs were unremarkable except for potassium at 2.8. Patient has been hypokalemic but has refused IV potassium. Explained to him the reasons why IV is preferred when potassium is very low. Verbalized understanding. Patient was seen by the contact worker yesterday who recommended amputation of the left great toe. The risks and benefits were explained but patient refused to have the procedure done at this time. 01/20/25: Lying in bed at bedside at the time of evaluation. Alert and oriented and in no obvious distress. Denies any chest pain, shortness of breath, palpitations, fever or chills. Vital signs T98.8, P 79 R 18, BP 126/64, oxygen 94. Vital signs T 99, P 82, R 19, BP 160/93, O2 sat 99%. Patient's BP continues to be elevated as well as potassium which remains low 2.7 despite adequate replacement. Plan is to work up other causes of hypokalemia . Ordered an Aldosterone-Renin ratio. If Aldosterone is elevated and renin is low, this would be suggestive of an Adrenal issue. Will then order a CT of the Adrenal gland to rule out either an adenoma or a hyperplasia and manage ac cordingly. Patient had a change of mind about amputation of the left great toe after explaining the risks involved. Patient is now scheduled for amputation of the left great toe tomorrow 01/21/[address] Banerjee. REVIEW OF SYSTEMS CONSTITUTIONAL: Denies fevers, chills, or night sweats. No unintentional weight loss reported. NEUROLOGICAL: Denies headache, amaurosis fugax, motor weakness, sensory deficit, vertigo/spinning sensation, gait abnormalities, or tremors. ENT: No hearing loss, otalgia, otorrhea, rhinitis, rhinorrhea, hoarseness, or s ore throat. CARDIOVASCULAR: Denies any exertional angina, dyspnea on exertion, orthopnea, paroxysmal nocturnal dyspnea, palpitations, life-threatening arrhythmias, claudication. PULMONARY: Denies any shortness of breath, cough, phlegm/sputum, hemoptysis, pleuritic chest pain. SLEEP: Denies morning headaches, daytime somnolence or napping. Denies difficulty falling asleep, staying asleep, waking from sleep. Denies knowledge of snoring. GASTROINTESTINAL: Denies any type of dysphagia to either liquids or solids. Denies nausea, vomiting, pyrosis, early satiety, abdominal pain, diarrhea, constipation, or changes in stool consistency or caliber. Denies coffee-ground emesis, hematemesis, hematochezia, or melanotic stools. GENITOURINARY: Denies frequency, urgency, nocturia, hematuria or incontinence (Storage/Irritative symptoms.) Low urinary stream, straining to void, urinary intermittency or hesitancy, splitting of the voiding stream, terminal dribbling. ENDOCRINOLOGIC: Denies polyuria, polydipsia, polyphagia or heat/cold intolerances. HEMATOLOGIC: Denies thrombophilia/previous clots, or coagulopathy/bleeding disorders. ONCOLOGIC: Denies personal history of malignancy. DERMATOLOGIC: Denies rashes or pruritus. Extremities: Left knee pain, redness and swelling of LLE, left great toe wound PSYCHIATRIC: Denies any suicidal or homicidal ideation. Denies hallucinations. PHYSICAL EXAM GENERAL APPEARANCE: The patient is awake, alert, and oriented, in no acute cardiopulmonary distress. NEUROLOGICAL: Cranial nerves II-XII grossly intact. Motor is 5/5 in bilateral upper and lower extremities proximal to distal. No sensory deficits. HEENT: Face is symmetric. Pupils are equal and reactive. Extraocular movements are intact. NECK: Supple. No JVD. No thyromegaly. No submental, submandibular, pre- /postauricular, occipital or supraclavicular lymphadenopathy. CHEST: Normal chest expansion. No Telemetry. LUNGS: Absence of any rales, rhonchi or any wheezing. CARDIOVASCULAR: Regular. S1 and S2 normal. No appreciable rubs, murmurs or gallops. ABDOMEN: Soft, nontender, and nondistended. There is no rebound, voluntary guarding, or rigidity. : Deferred. No Muller. EXTREMITIES: Left lower extremity erythema and swelling. Discolored Left great toe with wound on the plantar surface SKIN: No skin breakdown. Vital Signs (last 8hr) Date Time Temp Pulse Resp B/P (MAP) Pulse Ox O2 Delivery O2 Flow Rate FiO2 01/20/25 07:57 99.0 82 19 160/93 99 Room Air 01/20/25 03:53 97.5 80 22 129/64 99 Room Air LABS: Laboratory: Test 01/20/25 08:38 01/20/25 04:51 01/19/25 05:41 01/18/25 11:19 Range/Units White Blood Count 10.9 H 4.8-10.8 K/uL Red Blood Count 4.96 4.50-6.20 MIL/uL Hemoglobin 13.7 L 14.0-18.0 g/dL Hematocrit 40.3 L 42-54 % Mean Corpuscular Volume 81.3 79-99 fL Mean Corpuscular Hemoglobin 27.6 27.0-33.0 pg Mean Corpuscular Hemoglobin Concent 34.0 32.0-36.0 g/dL Red Cell Distribution Width 14.8 11.0-15.5 % Platelet Count 373 130-400 K/uL Mean Platelet Volume 9.5 7.5-10.5 fL Nucleated Red Blood Cells 0.0 0.0-0.19 % Sodium Level 141 136-145 mmol/L Potassium Level 2.7 *L 3.5-5.1 mmol/L Chloride Level 107 101-111 mmol/L Carbon Dioxide Level 28 21-32 mmol/L Blood Urea Nitrogen 5 L 7-18 mg/dL Creatinine 0.8 0.5-1.3 mg/dL Glomerular Filtration Rate Calc 115 >90 mL/min Random Glucose 131 H 70-105 mg/dL Total Calcium 8.2 L 8.5-10.1 mg/dL Total Bilirubin 0.5 0.2-1.0 mg/dL Aspartate Amino Transf (AST/SGOT) 17 10-37 U/L Alanine Aminotransferase (ALT/SGPT) 15 12-78 U/L Alkaline Phosphatase 71 50-136 U/L Total Protein 7.4 6.0-8.3 g/dL Albumin 2.0 L 3.5-5.0 g/dL Whole Blood Glucose 146 H 70-110 MG/DL Immature Granulocyte % (Auto) 3.0 H 0-1 % Neutrophils (%) (Auto) 73.9 40.0-77.0 % Lymphocytes (%) (Auto) 14.9 L 21.0-51.0 % Monocytes (%) (Auto) 5.7 3.0-13.0 % Eosinophils (%) (Auto) 2.0 0.0-8.0 % Basophils (%) (Auto) 0.5 0.0-5.0 % Neutrophils # (Auto) 8.2 H 1.8-7.7 K/uL Lymphocytes # (Auto) 1.7 1.0-4.8 K/uL Monocytes # (Auto) 0.6 0.1-1.0 K/uL Eosinophils # (Auto) 0.22 0.00-0.70 K/uL Basophils # (Auto) 0.06 0.00-0.20 K/uL Absolute Immature Granulocyte (auto 0.33 0-1 K/uL Vancomycin Level Trough 18.7 10.0-20.0 UG/ML Current Medications Medications (Trade) Dose Ordered Sig/Silverio Route PRN Reason Start Time Stop Time Status Last Admin Dose Admin Acetaminophen (TYLenol 325MG TAB) 650 mg Q4H PRN PO MILD PAIN (1-3) 01/14/25 22:30 02/13/25 22:01/15/25 12:15 650 MG Acetaminophen (TYLenol 325MG TAB) 650 mg Q6H PRN PO TEMPERATURE GREATER THAN 101.5 01/14/25 22:02/13/25 22:01/17/25 09:41 650 MG Acetaminophen/ Codeine Phosphate (TYLenol-coDEINE TAB) 2 tab Q4H PRN PO MODERATE PAIN (4-6) 01/15/25 14:00 02/14/25 13:59 01/18/25 01:16 2 TAB Amlodipine Besylate (NorvASC 5MG TAB) 5 mg DAILY PO 01/17/25 09:00 02/16/25 08:59 01/19/25 08:46 5 MG Cefepime HCl (MAXipime 1 GM vial) 1 gm Q8H IVPB 01/15/25 06:00 01/18/25 13:31 DC 01/18/25 13:00 1 GM Cefepime HCl (MAXipime 1 GM vial) 1 gm Q8H IVPB 01/18/25 16:00 01/25/25 15:59 01/19/25 22:59 1 GM Dextrose (D50w) 50 ml AD PRN IV HYPOGLYCEMIA PROTOCOL 01/14/25 22:30 02/13/25 22:29 Famotidine (Pepcid 20mg Tab) 20 mg BID PO 01/15/25 09:00 02/14/25 08:59 01/19/25 21:22 20 MG Glucagon (Glucagon 1mg Kit) 1 mg AD PRN IM HYPOGLYCEMIA PROTOCOL 01/14/25 22:30 02/13/25 22:29 Heparin Sodium (Porcine) (HEParin 5,000 UNIT VIAL) 5,000 unit Q8H SQ 01/17/25 12:00 02/16/25 11:59 01/20/25 05:06 5,000 UNIT Hydralazine HCl (APRESOLine 20MG INJ) 10 mg Q6H PRN IV For:SBP above 160;DBP above 90 01/14/25 22:30 02/13/25 22:29 01/19/25 22:59 10 MG Insulin Glargine (LANtus 100 UNITS/ML 10 ML VIAL) 20 units HS SQ 01/16/25 21:00 02/15/25 20:59 01/19/25 21:27 20 UNITS Insulin Human Regular (humuLIN R 100 UNIT/ML 3ML) INSULIN SLIDING SCAL... ACHS SQ 01/15/25 07:30 02/14/25 07:29 01/19/25 21:27 10 UNIT Magnesium Sulfate 50 ml @ 0 mls/hr PROTOCOL PRN IV OTHER [SEE ORDER COMMENTS] 01/14/25 22:30 02/13/25 22:29 Morphine Sulfate (morPHINE 2MG SYG) 2 mg Q4H PRN IV SEVERE PAIN (7-10) 01/14/25 22:30 01/20/25 01:29 DC Ondansetron HCl (zoFRAN 4MG INJ) 4 mg Q6H PRN IV NAUSEA/VOMITING 01/14/25 22:30 02/13/25 22:29 Potassium Chloride 100 ml @ 100 mls/hr AD PRN IV POTASSIUM PROTOCOL 01/14/25 22:30 02/13/25 22:29 01/19/25 11:53 100 MLS/HR Potassium Chloride (K-Dur/Klor-Con 20meq) 20 meq AD PRN PO POTASSIUM PROTOCOL 01/14/25 22:30 02/13/25 22:29 01/19/25 08:46 20 MEQ Potassium Chloride (KCl 10% Elixir 20meq/15ml) 20 meq AD PRN PO POTASSIUM PROTOCOL 01/14/25 22:30 02/13/25 22:29 01/17/25 00:24 20 MEQ Simethicone (Mylicon) 80 mg PCHS PO 01/18/25 21:00 02/17/25 20:59 01/19/25 21:22 80 MG Sodium Chloride 1,000 ml @ 100 mls/hr Q10H IV 01/14/25 22:30 02/13/25 22:29 01/19/25 11:53 100 MLS/HR Vancomycin HCl 250 ml @ 125 mls/hr ONCE IV 01/14/25 22:30 01/14/25 22:52 DC Vancomycin HCl 250 ml @ 125 mls/hr Q12H IV 01/15/25 00:00 01/25/25 00:00 01/19/25 22:59 125 MLS/HR Vancomycin HCl (Vancomycin Protocol) 1 each AD IV 01/14/25 23:00 01/28/25 22:59 DIAGNOSTICS / RADIOLOGY: [ ] ASSESSMENT: Osteomyelitis involving the 1st distal phalanx as per MRI on 01/15/25 Left leg cellulitis POA Left toe necrotic ulcer POA Hypokalemia POA Pseudohyponatremia secondary to hyperglycemia POA Hyperglycemia secondary to Uncontrolled diabetes POA Status post fall injury at home two weeks ago POA Hypertension POA Morbid obesity POA PLAN: Osteomyelitis involving the 1st distal phalanx Left leg cellulitis POA * MRI of the left foot showed findings suggestive of osteomyelitis involving the 1st distal phalanx and adjacent cellulitis. *Continue on Vancomycin 1 g and Cefepime 1 g as ordered. *WBC is trending down 11.8 -14 yesterday. *Infectious disease consult has been placed, pending recommendations. Left Toe Necrotic ulcer *Patient had a change of mind about amputation of the left great toe after expla ining the risks involved. Patient is now scheduled for the procedure tomorrow 01/21/[address] Banerjee. *Wound care team is on the case *Continue with Iodosorb to ulcer daily Hypokalemia POA Pseudohyponatremia secondary to hyperglycemia POA *Potassium level remains low 2.7 despite adequate replacement. Plan is to work up other causes of hypokalemia . *Ordered an Aldosterone-Renin ratio. If Aldosterone is elevated and renin is low, this would be suggestive of an Adrenal issue. Will then order a CT of the Adrenal gland to rule out either an adenoma or a hyperplasia and manage accordingly. *Replace electrolytes as needed per protocol Hyperglycemia secondary to Uncontrolled diabetes POA *Blood glucose 290. Currently on low-dose sliding scale AC &HS. Ordered Insulin Glargine 20 units subQ HS *Carb consistent diet ordered. Hypertension *Continue with Amlodipine 5mg PO daily as ordered. *Hydralazine 10mg IV for sys BP greater 160, vega BP greater 110 Morbid Obesity *Educated patient about the need to lose weight *Physical therapy ordered. Continue on Famotidine 20 mg p.o. bid for GI prophylaxis PRN medications for fever,pain,cough, nausea and vomiting We will request case management service Further orders to follow depending on above results Case discussed with attending physician and came up with above treatment and plan of care. ATTESTATION BY PHYSICIAN I have seen and examined the patient. I reviewed the documentation, medical decision making, and treatment plan as noted by the resident provider above. I agree with the findings and plan of care. César Maynard MD OBI,FERN Rucker MD Jan 20, 2025 09:49
--- NOTE | 2025-01-20 13:12 | NUR ---
[facility] Follow-up: Patient re-assessed by wound healing team. See wound assessment. Assessment and recommendations provided to primary nurse. Education provided. Wound care done. Addendum: 01/22/25 at 1008 by CHRISTINA MCCLURE RN RN/ Amended: Links added.
--- NOTE | 2025-01-20 18:25 | PN ---
INFECTIOUS DISEASE PROGRESS NOTE Date of Service: Jan 20, 2025 SUBJECTIVE: This is a 39-year-old male patient was seen and examined at bedside in room 426. Patient is awake, alert and oriented x3. Patient with a low-grade fever of 99.3, the WBC however has trended down to 10.9. Patient will be undergoing a left great toe amputation tomorrow. We will continue on vancomycin and cefepime. PHYSICAL EXAM EYES: Anicteric. Pupils equal and reactive. HENT: No oral thrush seen, moist Oral mucosa. NECK: Supple, no JVD or thyromegaly. LUNGS: Good air entry. No rales, no rhonchi. CARDIOVASCULAR: S1, S2 regular. No murmur heard. ABDOMEN: Soft, non tender, bowel sounds present, no organomegaly. CENTRAL NERVOUS SYSTEM: Awake, alert, oriented x 3. SKIN: No rashes, no swelling. Left great toe diabetic ulcer. LYMPHATICS: No peripheral lymphadenopathy. MUSCULOSKELETAL: No joint swelling, erythema or tenderness. EXTREMITIES: No cyanosis or clubbing. Left lower extremity swelling and erythema. BACK: No deformity, no pressure ulcer. GENITOURINARY: No dysuria or hematuria. Vital Sign (Last 12 Hours) 01/20/25 01/20/25 01/20/25 07:57 12:16 16:06 Temp 99.0 99.3 98.4 Pulse 82 95 80 Resp 19 19 19 B/P (MAP) 160/93 155/90 133/73 Pulse Ox 99 98 98 O2 Delivery Room Air Room Air Room Air Intake & Output (last 24hrs) 01/19/25 01/19/25 01/20/25 15:00 23:00 07:00 Output Total 400 ml 600 ml Balance -400 ml -600 ml LABS: Laboratory: Test 01/20/25 16:13 01/20/25 12:13 01/20/25 08:38 01/19/25 05:41 Range/Units Whole Blood Glucose 198 #H 70-110 MG/DL Vancomycin Level Trough 16.3 10.0-20.0 UG/ML White Blood Count 10.9 H 4.8-10.8 K/uL Red Blood Count 4.96 4.50-6.20 MIL/uL Hemoglobin 13.7 L 14.0-18.0 g/dL Hematocrit 40.3 L 42-54 % Mean Corpuscular Volume 81.3 79-99 fL Mean Corpuscular Hemoglobin 27.6 27.0-33.0 pg Mean Corpuscular Hemoglobin Concent 34.0 32.0-36.0 g/dL Red Cell Distribution Width 14.8 11.0-15.5 % Platelet Count 373 130-400 K/uL Mean Platelet Volume 9.5 7.5-10.5 fL Nucleated Red Blood Cells 0.0 0.0-0.19 % Sodium Level 141 136-145 mmol/L Potassium Level 2.7 *L 3.5-5.1 mmol/L Chloride Level 107 101-111 mmol/L Carbon Dioxide Level 28 21-32 mmol/L Blood Urea Nitrogen 5 L 7-18 mg/dL Creatinine 0.8 0.5-1.3 mg/dL Glomerular Filtration Rate Calc 115 >90 mL/min Random Glucose 131 H 70-105 mg/dL Total Calcium 8.2 L 8.5-10.1 mg/dL Total Bilirubin 0.5 0.2-1.0 mg/dL Aspartate Amino Transf (AST/SGOT) 17 10-37 U/L Alanine Aminotransferase (ALT/SGPT) 15 12-78 U/L Alkaline Phosphatase 71 50-136 U/L Total Protein 7.4 6.0-8.3 g/dL Albumin 2.0 L 3.5-5.0 g/dL Immature Granulocyte % (Auto) 3.0 H 0-1 % Neutrophils (%) (Auto) 73.9 40.0-77.0 % Lymphocytes (%) (Auto) 14.9 L 21.0-51.0 % Monocytes (%) (Auto) 5.7 3.0-13.0 % Eosinophils (%) (Auto) 2.0 0.0-8.0 % Basophils (%) (Auto) 0.5 0.0-5.0 % Neutrophils # (Auto) 8.2 H 1.8-7.7 K/uL Lymphocytes # (Auto) 1.7 1.0-4.8 K/uL Monocytes # (Auto) 0.6 0.1-1.0 K/uL Eosinophils # (Auto) 0.22 0.00-0.70 K/uL Basophils # (Auto) 0.06 0.00-0.20 K/uL Absolute Immature Granulocyte (auto 0.33 0-1 K/uL ASSESSMENT: Left great toe diabetic ulcer with osteomyelitis. Polymicrobial infection. Infection with Methicillin-susceptible Staphylococcus aureus. Leukocytosis, improving. Hypokalemia. Recent mechanical fall. Uncontrolled Diabetes mellitus, hemoglobin A1c 10.8. Morbid obesity. PLAN: Continue cefepime. Continue vancomycin per pharmacy protocol. Continue Hypokalemia protocol. Continue antidiabetics. Continue pain management. Continue wound care. Patient is scheduled for a left great toe amputation for tomorrow This case was reviewed and discussed with my supervising physician and the above assessment and plan was formulated and agreed upon. ATTESTATION BY PHYSICIAN I have seen and examined the patient. I reviewed the documentation, medical de cision making, and treatment plan as noted by the mid-level provider above. I agree with the findings and plan of care. MAY ESCOBEDO MD, [facility] Jan 20, 2025 18:25
[2025-01-21] VITALS (8 sets, daily range): BP systolic 124–155; BP diastolic 46–90; PULSE 78–85; RESP 18–22; TEMP 97.3–98.6; O2SAT 97–100
[2025-01-21 05:26] LABS: BASOPHILS # (AUTO) 0.04 K/uL (0.00-0.20); BASOPHILS % (AUTO) 0.4 % (0.0-5.0); EOSINOPHILS # (AUTO) 0.23 K/uL (0.00-0.70); EOSINOPHILS % (AUTO) 2.3 % (0.0-8.0); IMMATURE GRANULOCYTE ABSOLUTE 0.12 K/uL (0-1); LYMPHOCYTES # (AUTO) 1.7 K/uL (1.0-4.8); LYMPHOCYTES % (AUTO) 17.2 % (21.0-51.0); MEAN CORPUSCULAR HEMOGLOBIN 27.6 pg (27.0-33.0); MEAN CORPUSCULAR HGB CONC 34.5 g/dL (32.0-36.0); MONOCYTES # (AUTO) 0.6 K/uL (0.1-1.0); MONOCYTES % (AUTO) 5.9 % (3.0-13.0); NEUTROPHILS # (AUTO) 7.4 K/uL (1.8-7.7); PLATELET COUNT (AUTO) 371 K/uL (130-400); RED BLOOD CELL COUNT(AUTO) 4.75 MIL/uL (4.50-6.20); RED CELL DISTRIBUTION WIDTH 14.6 % (11.0-15.5); WHITE BLOOD COUNT (AUTO) 10.1 K/uL (4.8-10.8)
[2025-01-21 05:44] LABS: ALBUMIN 1.9 g/dL (3.5-5.0); BILIRUBIN,TOTAL 0.5 mg/dL (0.2-1.0); CREATININE 0.8 mg/dL (0.5-1.3); TOTAL PROTEIN, SERUM 7.1 g/dL (6.0-8.3)
[2025-01-21 05:47] LABS: POTASSIUM 2.9 mmol/L (3.5-5.1)
[2025-01-21] MEDS ORDERED: PoTASSium chloRIDE 20MEQ/100ML 100 ML IV PRN (07:30)
[2025-01-21 07:55] LABS: INR 1.05 (0.85-1.15); PROTHROMBIN TIME 11.1 SEC (9.6-11.6)
[2025-01-21 07:56] LABS: PARTIAL THROMBOPLASTIN TIME 29.3 SEC (26.3-35.5)
--- NOTE | 2025-01-21 10:09 | HMCIMG ---
Exam Type: CHEST 1VW Clinical Information: PICC LINE PLACEMENT Comparison: None Findings: Right PICC line is noted with tip within the mid superior vena cava and there are no other interval changes. IMPRESSION: Right PICC line as noted.
--- NOTE | 2025-01-21 12:44 | PN ---
INFECTIOUS DISEASE PROGRESS NOTE Date of Service: Jan 21, 2025 SUBJECTIVE: This is a 39-year-old male patient was seen and examined at bedside in room 426. Patient is awake, alert and oriented x3. No fever this morning, temperature is 97.9. The left great toe amputation was rescheduled for tomorrow. We will continue on vancomycin and cefepime. Continues with low potassium level of 2.9 and being replaced. PHYSICAL EXAM EYES: Anicteric. Pupils equal and reactive. HENT: No oral thrush seen, moist Oral mucosa. NECK: Supple, no JVD or thyromegaly. LUNGS: Good air entry. No rales, no rhonchi. CARDIOVASCULAR: S1, S2 regular. No murmur heard. ABDOMEN: Soft, non tender, bowel sounds present, no organomegaly. CENTRAL NERVOUS SYSTEM: Awake, alert, oriented x 3. SKIN: No rashes, no swelling. Left great toe diabetic ulcer. LYMPHATICS: No peripheral lymphadenopathy. MUSCULOSKELETAL: No joint swelling, erythema or tenderness. EXTREMITIES: No cyanosis or clubbing. Left lower extremity swelling and erythema. BACK: No deformity, no pressure ulcer. GENITOURINARY: No dysuria or hematuria. Vital Sign (Last 12 Hours) 01/21/25 01/21/25 01/21/25 01/21/25 04:00 06:16 08:10 12:08 Temp 98.6 97.3 97.3 97.9 Pulse 82 85 78 81 Resp 20 20 18 18 B/P (MAP) 151/83 137/77 130/71 136/46 Pulse Ox 99 99 100 96 O2 Delivery Room Air Room Air Room Air Room Air l Intake & Output (last 24hrs) 01/20/25 01/20/25 01/21/25 15:00 23:00 07:00 Intake Total 350.0 ml Balance 350.0 ml LABS: Laboratory: Test 01/21/25 10:29 01/21/25 07:15 01/21/25 05:13 01/20/25 12:13 Range/Units Whole Blood Glucose 158 H 70-110 MG/DL Prothrombin Time 11.1 9.6-11.6 SEC Prothromb Time International Ratio 1.05 0.85-1.15 Activated Partial Thromboplast Time 29.3 26.3-35.5 SEC White Blood Count 10.1 4.8-10.8 K/uL Red Blood Count 4.75 4.50-6.20 MIL/uL Hemoglobin 13.1 L 14.0-18.0 g/dL Hematocrit 38.0 L 42-54 % Mean Corpuscular Volume 80.0 79-99 fL Mean Corpuscular Hemoglobin 27.6 27.0-33.0 pg Mean Corpuscular Hemoglobin Concent 34.5 32.0-36.0 g/dL Red Cell Distribution Width 14.6 11.0-15.5 % Platelet Count 371 130-400 K/uL Mean Platelet Volume 9.5 7.5-10.5 fL Immature Granulocyte % (Auto) 1.2 H 0-1 % Neutrophils (%) (Auto) 73.0 40.0-77.0 % Lymphocytes (%) (Auto) 17.2 L 21.0-51.0 % Monocytes (%) (Auto) 5.9 3.0-13.0 % Eosinophils (%) (Auto) 2.3 0.0-8.0 % Basophils (%) (Auto) 0.4 0.0-5.0 % Neutrophils # (Auto) 7.4 1.8-7.7 K/uL Lymphocytes # (Auto) 1.7 1.0-4.8 K/uL Monocytes # (Auto) 0.6 0.1-1.0 K/uL Eosinophils # (Auto) 0.23 0.00-0.70 K/uL Basophils # (Auto) 0.04 0.00-0.20 K/uL Absolute Immature Granulocyte (auto 0.12 0-1 K/uL Nucleated Red Blood Cells 0.0 0.0-0.19 % Sodium Level 143 136-145 mmol/L Potassium Level 2.9 *L 3.5-5.1 mmol/L Chloride Level 107 101-111 mmol/L Carbon Dioxide Level 30 21-32 mmol/L Blood Urea Nitrogen 5 L 7-18 mg/dL Creatinine 0.8 0.5-1.3 mg/dL Glomerular Filtration Rate Calc 115 >90 mL/min Random Glucose 135 H 70-105 mg/dL Total Calcium 8.3 L 8.5-10.1 mg/dL Total Bilirubin 0.5 0.2-1.0 mg/dL Aspartate Amino Transf (AST/SGOT) 20 10-37 U/L Alanine Aminotransferase (ALT/SGPT) 18 12-78 U/L Alkaline Phosphatase 63 50-136 U/L Total Protein 7.1 6.0-8.3 g/dL Albumin 1.9 L 3.5-5.0 g/dL Vancomycin Level Trough 16.3 10.0-20.0 UG/ML ASSESSMENT: Left great toe diabetic ulcer with osteomyelitis. Polymicrobial infection. Infection with Methicillin-susceptible Staphylococcus aureus. Leukocytosis, improving. Hypokalemia. Recent mechanical fall. Uncontrolled Diabetes mellitus, hemoglobin A1c 10.8. Morbid obesity. PLAN: Continue cefepime. Continue vancomycin per pharmacy protocol. Continue Hypokalemia protocol. Continue antidiabetics. Continue pain management. Continue wound care. The left great toe amputation was rescheduled for tomorrow This case was reviewed and discussed with my supervising physician and the above assessment and plan was formulated and agreed upon. ATTESTATION BY PHYSICIAN I have seen and examined the patient. I reviewed the documentation, medical decision making, and treatment plan as noted by the mid-level provider above. I agree with the findings and plan of care. MAY ESCOBEDO MD, [facility] Jan 21, 2025 12:44
--- NOTE | 2025-01-21 13:40 | PN ---
[facility] PROGRESS NOTE Date of Service: Jan 21, 2025 Time of Service: 13:37 SUBJECTIVE: HPI This is a 39 year old male,morbidly obese with past medical history of diabetes and hypertension who was brought by EMS to the ED for complaints of left leg pain which started 2 weeks ago.Patient reports he fell at his driveway 2 weeks ago , landed on his left knee and did not seek medical attention and last Saturday he noticed his left leg has been swollen and has been wearing his shoes for too long he said and that his left big toe has been rubbing on his shoes and he also noticed he has been having difficulty walking because of pain on his left leg and left foot so he decided to come to the Ed for evaluation.Reportedly upon arrival to ER,staff took out his left foot from his shoes and it has a very offensive odor his left foot is red and big toe is gangrenous and left lower extremity has an ascending redness and swelling. Patient states that he is not very complaint with his medications and has not been on his medications. 01/15/25: Lying in bed with dad at bedside at the time of evaluation. Alert and oriented and in no obvious distress. Denies any chest pain, shortness of breath, palpitations, fever or chills. Vital signs T98.2, P 98, 22, BP 160/97, oxygen saturation 97 on room air. Labs WBC 14down from 17.3 yesterday, HB 14.8 HCT 42.2,Neutrophil 79.8, ESR 118, CRP 191.8, potassium 2.6 replace as per protocol, magnesium 2.1, lactic acid 1.7, hemoglobin A1c 10.8, glucose 250. X- ray of the left foot showed no acute displaced fracture or dislocation. There is soft tissue swelling. Evaluation of osteomyelitis is limited due to poor positioning. Degenerative changes seen. Venous Doppler was negative for DVT, blood cultures were ordered, still pending the results. Patient is currently on vancomycin 1 g and cefepime 1 g. Infectious disease consult has been placed, pending recommendations. Consult for podiatry has also been placed. Patient with gangrenous left great, ordered an arterial Doppler of the left lower extremities to assess circulation. Pending blood culture results. 01/16/25: Lying in bed at bedside at the time of evaluation. Alert and oriented and in no obvious distress. Denies any chest pain, shortness of breath, palpitations, fever or chills. Vital signs T97.9, P 89 R 20, BP 153/80, oxygen 99. Labs sodium 134,. potassium 2.3 Replace as per protocol, chloride 99, BUN 11, creatinine 0.9, glucose 290. Patient is currently on low-dose insulin sliding scale. Ordered insulin glargine 20 units HS. Blood cultures done yesterday showed no growth, wound cultures positive for Gram-negative rods. Patient is currently on Vancomycin and Cefepime. MRI of the foot showed findings suggestive of osteomyelitis involving the 1st distal phalanx with adjacent cellulitis. Infectious Disease consult has been placed, pending the recommendations. Podiatry consult has also been placed, pending their recommendations as well. Arterial Doppler showed atherosclerotic disease otherwise normal triphasic arterial waveforms. 01/17/25 patient was seen and examined. Case discussed with the RN. He denies fever or chills. He has been treated for osteomyelitis of the 1st distal phalanx. Appreciate Infectious Disease recommendations. Podiatry help us well 01/18/2025: Lying in bed at bedside at the time of evaluation. Alert and oriented and in no obvious distress. Denies any chest pain, shortness of breath, palpitations, fever or chills. Vital signs T97.7, P 82 R 22, BP 138/70, oxygen 97. Labs sodium 137,. potassium 2.8 Replace as per protocol, chloride 99, BUN 8, creatinine 0.9, glucose 211. Wound cultures of the left great toe was positive for microbial infection: Citrobacter freundii, Enterobacter cloacae, Enterococcus fecalis, Staph aureus, Streptococcus Gp G. Continue with Vancomycin and Cefepime as ordered. Infectious disease is on the case. Physical therapy ordered for evaluation and management. Continue with wound care as ordered. 01/19/2025:Lying in bed at bedside at the time of evaluation. Alert and orien ruchi and in no obvious distress. Denies any chest pain, shortness of breath, palpitations, fever or chills. Vital signs T98.8, P 79 R 18, BP 126/64, oxygen 94. Labs were unremarkable except for potassium at 2.8. Patient has been hypokalemic but has refused IV potassium. Explained to him the reasons why IV is preferred when potassium is very low. Verbalized understanding. Patient was seen by the export freight specialist yesterday who recommended amputation of the left great toe. The risks and benefits were explained but patient refused to have the procedure done at this time. 01/20/25: Lying in bed at bedside at the time of evaluation. Alert and oriented and in no obvious distress. Denies any chest pain, shortness of breath, palpitations, fever or chills. Vital signs T98.8, P 79 R 18, BP 126/64, oxygen 94. Vital signs T 99, P 82, R 19, BP 160/93, O2 sat 99%. Patient's BP continues to be elevated as well as potassium which remains low 2.7 despite adequate replacement. Plan is to work up other causes of hypokalemia . Ordered an Aldosterone-Renin ratio. If Aldosterone is elevated and renin is low, this would be suggestive of an Adrenal issue. Will then order a CT of the Adrenal gland to rule out either an adenoma or a hyperplasia and manage ac cordingly. Patient had a change of mind about amputation of the left great toe after explaining the risks involved. Patient is now scheduled for amputation of the left great toe tomorrow 01/21/[address] Banerjee. 01/21/25: Lying in bed at bedside at the time of evaluation. Alert and oriented and in no obvious distress. Denies any chest pain, shortness of breath, palpitations, fever or chills. Vital signs T97.3, P 78 R 18, BP 130/71, oxygen 100. Patients potassium remains at 2.9 today despite adequate replacement as per protocol. Had ordered Aldosterone and renin ration , pending the results. Nephrology consult also placed. Pending their recommendations. Patient was scheduled for an amputation of the left great toe, by Dr Banerjee today however the procedure was cancelled because patient had received a dose of Heparin at 4am this morning. Procedure rescheduled for tomorrow 01/22/25. REVIEW OF SYSTEMS CONSTITUTIONAL: Denies fevers, chills, or night sweats. No unintentional weight loss reported. NEUROLOGICAL: Denies headache, amaurosis fugax, motor weakness, sensory deficit, vertigo/spinning sensation, gait abnormalities, or tremors. ENT: No hearing loss, otalgia, otorrhea, rhinitis, rhinorrhea, hoarseness, or sore throat. CARDIOVASCULAR: Denies any exertional angina, dyspnea on exertion, orthopnea, paroxysmal nocturnal dyspnea, palpitations, life-threatening arrhythmias, claudication. PULMONARY: Denies any shortness of breath, cough, phlegm/sputum, hemoptysis, pleuritic chest pain. SLEEP: Denies morning headaches, daytime somnolence or napping. Denies difficulty falling asleep, staying asleep, waking from sleep. Denies knowledge of snoring. GASTROINTESTINAL: Denies any type of dysphagia to either liquids or solids. Denies nausea, vomiting, pyrosis, early satiety, abdominal pain, diarrhea, constipation, or changes in stool consistency or caliber. Denies coffee-ground emesis, hematemesis, hematochezia, or melanotic stools. GENITOURINARY: Denies frequency, urgency, nocturia, hematuria or incontinence (Storage/Irritative symptoms.) Low urinary stream, straining to void, urinary intermittency or hesitancy, splitting of the voiding stream, terminal dribbling. ENDOCRINOLOGIC: Denies polyuria, polydipsia, polyphagia or heat/cold intolerances. HEMATOLOGIC: Denies thrombophilia/previous clots, or coagulopathy/bleeding disorders. ONCOLOGIC: Denies personal history of malignancy. DERMATOLOGIC: Denies rashes or pruritus. Extremities: Left knee pain, redness and swelling of LLE, left great toe wound PSYCHIATRIC: Denies any suicidal or homicidal ideation. Denies hallucinations. PHYSICAL EXAM GENERAL APPEARANCE: The patient is awake, alert, and oriented, in no acute cardiopulmonary distress. NEUROLOGICAL: Cranial nerves II-XII grossly intact. Motor is 5/5 in bilateral upper and lower extremities proximal to distal. No sensory deficits. HEENT: Face is symmetric. Pupils are equal and reactive. Extraocular movements are intact. NECK: Supple. No JVD. No thyromegaly. No submental, submandibular, pre- /postauricular, occipital or supraclavicular lymphadenopathy. CHEST: Normal chest expansion. No Telemetry. LUNGS: Absence of any rales, rhonchi or any wheezing. CARDIOVASCULAR: Regular. S1 and S2 normal. No appreciable rubs, murmurs or gallops. ABDOMEN: Soft, nontender, and nondistended. There is no rebound, voluntary guarding, or rigidity. : Deferred. No Muller. EXTREMITIES: Left lower extremity erythema and swelling. Discolored Left great toe with wound on the plantar surface SKIN: No skin breakdown. Vital Signs (last 8hr) Date Time Temp Pulse Resp B/P (MAP) Pulse Ox O2 Delivery O2 Flow Rate FiO2 01/21/25 12:08 97.9 81 18 136/46 96 Room Air 01/21/25 08:10 97.3 78 18 130/71 100 Room Air 01/21/25 06:16 97.3 85 20 137/77 99 Room Air LABS: Laboratory: Test 01/21/25 10:29 01/21/25 07:15 01/21/25 05:13 01/20/25 12:13 Range/Units Whole Blood Glucose 158 H 70-110 MG/DL Prothrombin Time 11.1 9.6-11.6 SEC Prothromb Time International Ratio 1.05 0.85-1.15 Activated Partial Thromboplast Time 29.3 26.3-35.5 SEC White Blood Count 10.1 4.8-10.8 K/uL Red Blood Count 4.75 4.50-6.20 MIL/uL Hemoglobin 13.1 L 14.0-18.0 g/dL Hematocrit 38.0 L 42-54 % Mean Corpuscular Volume 80.0 79-99 fL Mean Corpuscular Hemoglobin 27.6 27.0-33.0 pg Mean Corpuscular Hemoglobin Concent 34.5 32.0-36.0 g/dL Red Cell Distribution Width 14.6 11.0-15.5 % Platelet Count 371 130-400 K/uL Mean Platelet Volume 9.5 7.5-10.5 fL Immature Granulocyte % (Auto) 1.2 H 0-1 % Neutrophils (%) (Auto) 73.0 40.0-77.0 % Lymphocytes (%) (Auto) 17.2 L 21.0-51.0 % Monocytes (%) (Auto) 5.9 3.0-13.0 % Eosinophils (%) (Auto) 2.3 0.0-8.0 % Basophils (%) (Auto) 0.4 0.0-5.0 % Neutrophils # (Auto) 7.4 1.8-7.7 K/uL Lymphocytes # (Auto) 1.7 1.0-4.8 K/uL Monocytes # (Auto) 0.6 0.1-1.0 K/uL Eosinophils # (Auto) 0.23 0.00-0.70 K/uL Basophils # (Auto) 0.04 0.00-0.20 K/uL Absolute Immature Granulocyte (auto 0.12 0-1 K/uL Nucleated Red Blood Cells 0.0 0.0-0.19 % Sodium Level 143 136-145 mmol/L Potassium Level 2.9 *L 3.5-5.1 mmol/L Chloride Level 107 101-111 mmol/L Carbon Dioxide Level 30 21-32 mmol/L Blood Urea Nitrogen 5 L 7-18 mg/dL Creatinine 0.8 0.5-1.3 mg/dL Glomerular Filtration Rate Calc 115 >90 mL/min Random Glucose 135 H 70-105 mg/dL Total Calcium 8.3 L 8.5-10.1 mg/dL Total Bilirubin 0.5 0.2-1.0 mg/dL Aspartate Amino Transf (AST/SGOT) 20 10-37 U/L Alanine Aminotransferase (ALT/SGPT) 18 12-78 U/L Alkaline Phosphatase 63 50-136 U/L Total Protein 7.1 6.0-8.3 g/dL Albumin 1.9 L 3.5-5.0 g/dL Vancomycin Level Trough 16.3 10.0-20.0 UG/ML Current Medications Medications (Trade) Dose Ordered Sig/Silverio Route PRN Reason Start Time Stop Time Status Last Admin Dose Admin Acetaminophen (TYLenol 325MG TAB) 650 mg Q4H PRN PO MILD PAIN (1-3) 01/14/25 22:30 02/13/25 22:29 01/15/25 12:15 650 MG Acetaminophen (TYLenol 325MG TAB) 650 mg Q6H PRN PO TEMPERATURE GREATER THAN 101.5 01/14/25 22:30 02/13/25 22:29 01/17/25 09:41 650 MG Acetaminophen/ Codeine Phosphate (TYLenol-coDEINE TAB) 2 tab Q4H PRN PO MODERATE PAIN (4-6) 01/15/25 14:00 02/14/25 13:59 01/18/25 01:16 2 TAB Amlodipine Besylate (NorvASC 5MG TAB) 5 mg DAILY PO 01/17/25 09:00 02/16/25 08:59 01/21/25 10:06 5 MG Cefepime HCl (MAXipime 1 GM vial) 1 gm Q8H IVPB 01/15/25 06:00 01/18/25 13:31 DC 01/18/25 13:00 1 GM Cefepime HCl (MAXipime 1 GM vial) 1 gm Q8H IVPB 01/18/25 16:00 01/25/25 15:59 01/21/25 10:06 1 GM Dextrose (D50w) 50 ml AD PRN IV HYPOGLYCEMIA PROTOCOL 01/14/25 22:30 02/13/25 22:29 Famotidine (Pepcid 20mg Tab) 20 mg BID PO 01/15/25 09:00 02/14/25 08:59 01/21/25 10:06 20 MG Glucagon (Glucagon 1mg Kit) 1 mg AD PRN IM HYPOGLYCEMIA PROTOCOL 01/14/25 22:30 02/13/25 22:29 Heparin Sodium (Porcine) (HEParin 5,000 UNIT VIAL) 5,000 unit Q8H SQ 01/17/25 12:00 02/16/25 11:59 01/21/25 04:09 5,000 UNIT Hydralazine HCl (APRESOLine 20MG INJ) 10 mg Q6H PRN IV For:SBP above 160;DBP above 90 01/14/25 22:30 02/13/25 22:29 01/19/25 22:59 10 MG Insulin Glargine (LANtus 100 UNITS/ML 10 ML VIAL) 20 units HS SQ 01/16/25 21:00 02/15/25 20:59 01/20/25 20:29 20 UNITS Insulin Human Regular (humuLIN R 100 UNIT/ML 3ML) INSULIN SLIDING SCAL... ACHS SQ 01/15/25 07:30 02/14/25 07:29 01/20/25 20:28 8 UNIT Magnesium Sulfate 50 ml @ 0 mls/hr PROTOCOL PRN IV OTHER [SEE ORDER COMMENTS] 01/14/25 22:30 02/13/25 22:29 Morphine Sulfate (morPHINE 2MG SYG) 2 mg Q4H PRN IV SEVERE PAIN (7-10) 01/14/25 22:30 01/20/25 01:29 DC Ondansetron HCl (zoFRAN 4MG INJ) 4 mg Q6H PRN IV NAUSEA/VOMITING 01/14/25 22:30 02/13/25 22:29 Potassium Chloride 100 ml @ 50 mls/hr AD PRN IV POTASSIUM PROTOCOL 01/21/25 07:30 01/21/25 07:07 DC Potassium Chloride 100 ml @ 100 mls/hr AD PRN IV POTASSIUM PROTOCOL 01/14/25 22:30 02/13/25 22:29 01/21/25 06:03 100 MLS/HR Potassium Chloride (K-Dur/Klor-Con 20meq) 20 meq AD PRN PO POTASSIUM PROTOCOL 01/14/25 22:30 02/13/25 22:29 01/21/25 13:04 20 MEQ Potassium Chloride (KCl 10% Elixir 20meq/15ml) 20 meq AD PRN PO POTASSIUM PROTOCOL 01/14/25 22:30 02/13/25 22:29 01/17/25 00:24 20 MEQ Simethicone (Mylicon) 80 mg PCHS PO 01/18/25 21:00 02/17/25 20:59 01/21/25 13:04 80 MG Sodium Chloride 1,000 ml @ 100 mls/hr Q10H IV 01/14/25 22:30 02/13/25 22:29 01/20/25 08:30 100 MLS/HR Vancomycin HCl 250 ml @ 125 mls/hr ONCE IV 01/14/25 22:30 01/14/25 22:52 DC Vancomycin HCl 250 ml @ 125 mls/hr Q12H IV 01/15/25 00:00 01/25/25 00:00 01/21/25 13:04 125 MLS/HR Vancomycin HCl (Vancomycin Protocol) 1 each AD IV 01/14/25 23:00 01/28/25 22:59 DIAGNOSTICS / RADIOLOGY: [ ] ASSESSMENT: Osteomyelitis involving the 1st distal phalanx as per MRI on 01/15/25 Left leg cellulitis POA Left toe necrotic ulcer POA Hypokalemia POA Pseudohyponatremia secondary to hyperglycemia POA Hyperglycemia secondary to Uncontrolled diabetes POA Status post fall injury at home two weeks ago POA Hypertension POA Morbid obesity POA PLAN: Osteomyelitis involving the 1st distal phalanx Left leg cellulitis POA * MRI of the left foot showed findings suggestive of osteomyelitis involving the 1st distal phalanx and adjacent cellulitis. *Continue on Vancomycin 1 g and Cefepime 1 g as ordered. *WBC is trending down 11.8 -14 yesterday. *Infectious disease consult has been placed, pending recommendations. Left Toe Necrotic ulcer *Patient was scheduled for an amputation of the left great toe, by Dr Banerjee today however the procedure was cancelled because patient had received a dose of Heparin at 4am this morning. *Procedure rescheduled for tomorrow 01/22/25. *Wound care team is on the case *Continue with Iodosorb to ulcer daily Hypokalemia POA Pseudohyponatremia secondary to hyperglycemia POA *Potassium level remains low 2.9 despite adequate replacement. *Nephrology consult placed. Pending their recommendations. *Ordered an Aldosterone-Renin ratio. If Aldosterone is elevated and renin is low, this would be suggestive of an Adrenal issue. Will then order a CT of the Adrenal gland to rule out either an adenoma or a hyperplasia and manage accordingly. *Pending results of Aldosterone-renin ratio *Replace electrolytes as needed per protocol Hyperglycemia secondary to Uncontrolled diabetes POA *Blood glucose 290. Currently on low-dose sliding scale AC &HS. Ordered Insulin Glargine 20 units subQ HS *Carb consistent diet ordered. Hypertension *Continue with Amlodipine 5mg PO daily as ordered. *Hydralazine 10mg IV for sys BP greater 160, vega BP greater 110 Morbid Obesity *Educated patient about the need to lose weight *Physical therapy ordered. Continue on Famotidine 20 mg p.o. bid for GI prophylaxis PRN medications for fever,pain,cough, nausea and vomiting We will request case management service Further orders to follow depending on above results Case discussed with attending physician and came up with above treatment and plan of care. ATTESTATION BY PHYSICIAN I have seen and examined the patient. I reviewed the documentation, medical decision making, and treatment plan as noted by the resident provider above. I agree with the findings and plan of care. César Maynard MD OBI,FERN Rucker MD Jan 21, 2025 13:40
--- NOTE | 2025-01-21 14:39 | CONS ---
NEPHROLOGY CONSULTATION NOTE Date/Time Patient Seen: Jan 21, 2025 1410 Reason for Consultation: Hypokalemia, osteomyelitis of 1st digit phalanx HISTORY OF PRESENT ILLNESS: This is a 39 year old male,morbidly obese with past medical history of diabetes and hypertension who was brought by EMS to the ED for complaints of left leg pain He has been in the hospital for several days Pending left great toe amputation, rescheduled due to hypokalemia. We have been consulted for hypokalemia Renal function is stable He continues on antibiotics He was seen in the medical floor, in no acute distress REVIEW OF SYSTEMS: GENERAL: Negative for any nausea, vomiting, fevers, chills, or weight loss. NEUROLOGIC: Negative for any blurry vision, blind spots, double vision, facial asymmetry, dysphagia, dysarthria, hemiparesis, hemisensory deficits, vertigo, ataxia. HEENT: Negative for any head trauma, neck trauma, neck stiffness, photophobia, phonophobia, sinusitis, rhinitis. CARDIAC: Negative for any chest pain, dyspnea on exertion, paroxysmal nocturnal dyspnea, peripheral edema. PULMONARY: Negative for any shortness of breath, wheezing, COPD, or TB exposure. GASTROINTESTINAL: Negative for any abdominal pain, nausea, vomiting, bright red blood per rectum, melena. GENITOURINARY: Negative for any dysuria, hematuria, incontinence. INTEGUMENTARY: Negative for any rashes, cuts, insect bites. RHEUMATOLOGIC: Negative for any joint pains, photosensitive rashes, history of vasculitis or kidney problems. HEMATOLOGIC: Negative for any abnormal bruising, frequent infections or bleeding. PAST MEDICAL HISTORY: Diabetes Hypertension Obesity PAST SURGICAL HISTORY: Cholecystectomy PAST SOCIAL HISTORY: Denies the use of alcohol, tobacco or illicit drugs FAMILY HISTORY: Noncontributory PHYSICAL EXAM: GENERAL: Alert and oriented x 3. No acute distress. Well-nourished. EYES: EOMI. Anicteric. HENT: Moist mucous membranes. No scleral icterus. No cervical lymphadenopathy. LUNGS: Clear to auscultation bilaterally. No accessory muscle use. CARDIOVASCULAR: Regular rate and rhythm. No murmur. No JVD. ABDOMEN: Soft, non-tender and non-distended. No palpable masses. EXTREMITIES: No edema. Non-tender. SKIN: No rashes or lesions. Warm. NEUROLOGIC: No focal neurological deficits. CN II-XII grossly intact, but not individually tested. PSYCHIATRIC: Cooperative. Appropriate mood and affect. MEDICATIONS: [ ] Current Medications Medications (Trade) Dose Ordered Sig/Silverio Route PRN Reason Start Time Stop Time Status Last Admin Dose Admin Acetaminophen (TYLenol 325MG TAB) 650 mg Q4H PRN PO MILD PAIN (1-3) 01/14/25 22:30 02/13/25 22:01/15/25 12:15 650 MG Acetaminophen (TYLenol 325MG TAB) 650 mg Q6H PRN PO TEMPERATURE GREATER THAN 101.5 01/14/25 22:30 02/13/25 22:01/17/25 09:41 650 MG Acetaminophen/ Codeine Phosphate (TYLenol-coDEINE TAB) 2 tab Q4H PRN PO MODERATE PAIN (4-6) 01/15/25 14:00 02/14/25 13:59 01/18/25 01:16 2 TAB Amlodipine Besylate (NorvASC 5MG TAB) 5 mg DAILY PO 01/17/25 09:00 02/16/25 08:59 01/21/25 10:06 5 MG Cefepime HCl (MAXipime 1 GM vial) 1 gm Q8H IVPB 01/15/25 06:00 01/18/25 13:31 DC 01/18/25 13:00 1 GM Cefepime HCl (MAXipime 1 GM vial) 1 gm Q8H IVPB 01/18/25 16:00 01/25/25 15:59 01/21/25 10:06 1 GM Dextrose (D50w) 50 ml AD PRN IV HYPOGLYCEMIA PROTOCOL 01/14/25 22:30 02/13/25 22:29 Famotidine (Pepcid 20mg Tab) 20 mg BID PO 01/15/25 09:00 02/14/25 08:59 01/21/25 10:06 20 MG Glucagon (Glucagon 1mg Kit) 1 mg AD PRN IM HYPOGLYCEMIA PROTOCOL 01/14/25 22:30 02/13/25 22:29 Heparin Sodium (Porcine) (HEParin 5,000 UNIT VIAL) 5,000 unit Q8H SQ 01/17/25 12:00 02/16/25 11:59 01/21/25 04:09 5,000 UNIT Hydralazine HCl (APRESOLine 20MG INJ) 10 mg Q6H PRN IV For:SBP above 160;DBP above 90 01/14/25 22:30 02/13/25 22:29 01/19/25 22:59 10 MG Insulin Glargine (LANtus 100 UNITS/ML 10 ML VIAL) 20 units HS SQ 01/16/25 21:00 02/15/25 20:59 01/20/25 20:29 20 UNITS Insulin Human Regular (humuLIN R 100 UNIT/ML 3ML) INSULIN SLIDING SCAL... ACHS SQ 01/15/25 07:30 02/14/25 07:29 01/20/25 20:28 8 UNIT Magnesium Sulfate 50 ml @ 0 mls/hr PROTOCOL PRN IV OTHER [SEE ORDER COMMENTS] 01/14/25 22:30 02/13/25 22:29 Morphine Sulfate (morPHINE 2MG SYG) 2 mg Q4H PRN IV SEVERE PAIN (7-10) 01/14/25 22:30 01/20/25 01:29 DC Ondansetron HCl (zoFRAN 4MG INJ) 4 mg Q6H PRN IV NAUSEA/VOMITING 01/14/25 22:30 02/13/25 22:29 Potassium Chloride 100 ml @ 50 mls/hr AD PRN IV POTASSIUM PROTOCOL 01/21/25 07:30 01/21/25 07:07 DC Potassium Chloride 100 ml @ 100 mls/hr AD PRN IV POTASSIUM PROTOCOL 01/14/25 22:30 02/13/25 22:29 01/21/25 06:03 100 MLS/HR Potassium Chloride (K-Dur/Klor-Con 20meq) 20 meq AD PRN PO POTASSIUM PROTOCOL 01/14/25 22:30 02/13/25 22:29 01/21/25 13:04 20 MEQ Potassium Chloride (K-Dur/Klor-Con 20meq) 20 meq BID PO 01/21/25 21:00 02/20/25 20:59 Potassium Chloride (KCl 10% Elixir 20meq/15ml) 20 meq AD PRN PO POTASSIUM PROTOCOL 01/14/25 22:30 02/13/25 22:29 01/17/25 00:24 20 MEQ Simethicone (Mylicon) 80 mg PCHS PO 01/18/25 21:00 02/17/25 20:59 01/21/25 13:04 80 MG Sodium Chloride 1,000 ml @ 100 mls/hr Q10H IV 01/14/25 22:30 02/13/25 22:29 01/20/25 08:30 100 MLS/HR Vancomycin HCl 250 ml @ 125 mls/hr ONCE IV 01/14/25 22:30 01/14/25 22:52 DC Vancomycin HCl 250 ml @ 125 mls/hr Q12H IV 01/15/25 00:00 01/25/25 00:00 01/21/25 13:04 125 MLS/HR Vancomycin HCl (Vancomycin Protocol) 1 each AD IV 01/14/25 23:00 01/28/25 22:59 Vital Signs (last 8hr) Date Time Temp Pulse Resp B/P (MAP) Pulse Ox O2 Delivery O2 Flow Rate FiO2 01/21/25 12:08 97.9 81 18 136/46 96 Room Air 01/21/25 08:10 97.3 78 18 130/71 100 Room Air DIAGNOSTICS / RADIOLOGY: REASON: PICC LINE PLACEMENT ORDERING PHYSICIAN: FERN LEONARDO MD PROCEDURE: CXR1VW - CHEST 1VW Exam Type: CHEST 1VW Clinical Information: PICC LINE PLACEMENT Comparison: None Findings: Right PICC line is noted with tip within the mid superior vena cava and there are no other interval changes. IMPRESSION: Right PICC line as noted. DICTATED BY: VIKTORIYA GONZALEZ MD DATE: 01/21/25 1007 REASON: LEFT FOOT WOUND ORDERING PHYSICIAN: FERN LEONARDO MD PROCEDURE: FT LT WO - MR FOOT LEFT WO MR FOOT LEFT WO HISTORY: Wound to great toe COMPARISON: None TECHNIQUE: MRI of the left foot was performed utilizing multiple pulse sequences in axial, coronal and sagittal planes. Patient was not given contrast through intravenous route. FINDINGS: Abnormal increased signal intensity is seen involving the first distal phalanx consistent with osteomyelitis. Adjacent cellulitis changes are seen. No signs of fracture or dislocation is seen. IMPRESSION: 1. Findings suggestive of osteomyelitis involving the first distal phalanx with adjacent cellulitis. DICTATED BY: DEEPALI KRISHNA MD DATE: 01/15/25 1717 REASON: gangrenous left great toe ORDERING PHYSICIAN: FERN LEONARDO MD PROCEDURE: ART U LE - US ARTERIAL UNILA LOW EXT DUPL US ARTERIAL UNILA LOW EXT DUPL HISTORY: Gangrene to left great toe COMPARISON: None TECHNIQUE: Left lower extremity arterial Doppler ultrasound study was performed. FINDINGS: Normal triphasic arterial waveforms are noted in the left common femoral, deep femoral, superficial femoral, popliteal, posterior tibial and dorsalis pedal arteries. On the left, the peak systolic velocity of the common femoral artery is 146 cm/s, the proximal femoral artery is 146 cm/s, the mid femoral artery is 128 cm/s, the distal femoral artery is 150 cm/s, the proximal popliteal artery is 99 cm/s, the distal popliteal artery is 38 cm/s, the anterior tibial artery is 105 cm/s, the posterior tibial artery artery is 73 cm/s,and the dorsalis pedal artery is 142 cm/s. IMPRESSION: 1. Atherosclerotic disease. 2. Otherwise normal triphasic arterial waveforms noted of the left lower extremity artery system. Low velocity with hyperemic flow is seen in the left posterior tibial artery. DICTATED BY: DEEPALI KRISHNA MD DATE: 01/15/25 174 REASON: sepsis ORDERING PHYSICIAN: CASSIDY CHATMAN [facility] PROCEDURE: CXR1VW - CHEST 1VW CHEST 1VW HISTORY: Sepsis COMPARISON: 05/10/2011 FINDINGS: A frontal projection of the chest was obtained. No acute pulmonary infiltrates is seen. The heart is borderline enlarged. Degenerative changes are seen. Prominent interstitial markings are seen. No evidence of aortic calcification is seen. IMPRESSION: 1. No acute pulmonary infiltrate is seen. DICTATED BY: DEEPALI KRISHNA MD DATE: 01/14/252102 REASON: swelling redness ORDERING PHYSICIAN: CASSIDY CHATMAN TENTERER PROCEDURE: VENOUS UNI - US VENOUS DOPPLER UNILATERAL US VENOUS DOPPLER UNILATERAL HISTORY: Swelling COMPARISON: None TECHNIQUE: Left lower extremity venous Doppler ultrasound study was performed. FINDINGS: The left common femoral, femoral, popliteal, and posterior tibial veins are visualized. Normal flow with augmentation and compressibilities are demonstrated. Left greater saphenous vein is patent. IMPRESSION: 1. No evidence of deep venous thrombosis is seen. DICTATED BY: DEEPALI KRISHNA MD DATE: 01/14/252108 REASON: pain ORDERING PHYSICIAN: CASSIDY CHATMAN [facility] PROCEDURE: KNEE 3V LT - KNEE 3VWS LT KNEE 3VWS LT HISTORY: Pain COMPARISON: None TECHNIQUE: 3 images of the left knee were obtained. FINDINGS: There is no acute displaced fracture or dislocation. IMPRESSION: 1. Findings as described above. DICTATED BY: DEEPALI KRISHNA MD DATE: 01/14/252105 REASON: pain ORDERING PHYSICIAN: CASSIDY CHATMAN TENTERER PROCEDURE: FT 3VW LT - FOOT COMP 3+VWS LT FOOT COMP 3+VWS LT HISTORY: Pain COMPARISON: None TECHNIQUE: 3 images of the left foot were obtained. FINDINGS: There is no acute displaced fracture or dislocation. There is soft tissue swelling. Evaluation for osteomyelitis is limited radiographs. The study is limited due to poor positioning. Degenerative changes are seen. IMPRESSION: 1. Findings as described above. DICTATED BY: DEEPALI KRISHNA MD DATE: 01/14/252104 LABORATORY: [ ] Hematology Labs: Test 01/21/25 05:13 Range/Units White Blood Count 10.1 4.8-10.8 K/uL Red Blood Count 4.75 4.50-6.20 MIL/uL Hemoglobin 13.1 L 14.0-18.0 g/dL Hematocrit 38.0 L 42-54 % Mean Corpuscular Volume 80.0 79-99 fL Mean Corpuscular Hemoglobin 27.6 27.0-33.0 pg Mean Corpuscular Hemoglobin Concent 34.5 32.0-36.0 g/dL Red Cell Distribution Width 14.6 11.0-15.5 % Platelet Count 371 130-400 K/uL Mean Platelet Volume 9.5 7.5-10.5 fL Immature Granulocyte % (Auto) 1.2 H 0-1 % Neutrophils (%) (Auto) 73.0 40.0-77.0 % Lymphocytes (%) (Auto) 17.2 L 21.0-51.0 % Monocytes (%) (Auto) 5.9 3.0-13.0 % Eosinophils (%) (Auto) 2.3 0.0-8.0 % Basophils (%) (Auto) 0.4 0.0-5.0 % Neutrophils # (Auto) 7.4 1.8-7.7 K/uL Lymphocytes # (Auto) 1.7 1.0-4.8 K/uL Monocytes # (Auto) 0.6 0.1-1.0 K/uL Eosinophils # (Auto) 0.23 0.00-0.70 K/uL Basophils # (Auto) 0.04 0.00-0.20 K/uL Absolute Immature Granulocyte (auto 0.12 0-1 K/uL Nucleated Red Blood Cells 0.0 0.0-0.19 % Chemistry Labs: Test 01/21/25 10:29 01/21/25 05:13 Range/Units Whole Blood Glucose 158 H 70-110 MG/DL Sodium Level 143 136-145 mmol/L Potassium Level 2.9 *L 3.5-5.1 mmol/L Chloride Level 107 101-111 mmol/L Carbon Dioxide Level 30 21-32 mmol/L Blood Urea Nitrogen 5 L 7-18 mg/dL Creatinine 0.8 0.5-1.3 mg/dL Glomerular Filtration Rate Calc 115 >90 mL/min Random Glucose 135 H 70-105 mg/dL Total Calcium 8.3 L 8.5-10.1 mg/dL Total Bilirubin 0.5 0.2-1.0 mg/dL Aspartate Amino Transf (AST/SGOT) 20 10-37 U/L Alanine Aminotransferase (ALT/SGPT) 18 12-78 U/L Alkaline Phosphatase 63 50-136 U/L Total Protein 7.1 6.0-8.3 g/dL Albumin 1.9 L 3.5-5.0 g/dL Coagulation Labs: Test 01/21/25 07:15 Range/Units Prothrombin Time 11.1 9.6-11.6 SEC Prothromb Time International Ratio 1.05 0.85-1.15 Activated Partial Thromboplast Time 29.3 26.3-35.5 SEC ASSESSMENT: Hypokalemia Osteomyelitis involving the 1st distal phalanx Left leg cellulitis Left toe necrotic ulcer Pseudo hyponatremia Diabetes mellitus type 2 Hypertension Obesity PLAN: Labs, diagnostic, radiologic exams reviewed and interpreted by myself and supervising physician. We have reviewed external records in detail Start potassium chloride 20 mEq p.o. b.i.d. Continue with the potassium protocol Order stat magnesium, magnesium replacement has been ordered Obtain UA, urine electrolytes, urine creatinine, urine osmolality and complete renal ultrasound Require close monitoring of renal function and electrolytes Order CBC, CMP, uric acid, TSH, plasma renin activity, aldosterone and electrolytes in am Continue with antibiotics BiPAP as necessary, for respiratory distress Monitor blood pressure adjust medication doses as needed Avoid hypotensive episodes May use Dilaudid 0.5 mg IV every 6 hours as needed for severe pain Monitor blood sugars Strict intake, output, and daily weight should be monitored Please renally adjust medications Avoid nephrotoxic and nonsteroidal drugs Avoid contrast if possible Will continue to monitor renal function, anemia, electrolytes Treatment plan discussed with patient Questions were answered We have discussed with the other team physicians in detail about the care plan We will continue to monitor the patient closely Thank you for allowing us to participate in the care of this patient ATTESTATION BY PHYSICIAN I have seen and examined the patient. I reviewed the documentation, medical decision making, and treatment plan as noted by the mid-level provider above. I agree with the findings and plan of care. ROSEMARY CASAS MD, ELIZABETH FNP Jan 21, 2025 14:39 ROSEMARY CASAS MD Jan 21, 2025 22:32
--- NOTE | 2025-01-21 15:20 | HMCIMG ---
Exam Type: US RENAL SONOGRAM Clinical Information: NEPHRO CALCINOSIS Comparison: None Findings: Examination shows normal renal size and echogenicity bilaterally. Preserved cortical thickness and corticomedullary junction region is seen. No hydronephrosis or calculi are seen. No renal masses are seen. There is no evidence of perinephric fluid on either side. No evidence of significant ureteral dilatation is seen. The urinary bladder is normal. No bladder masses, stones, or wall thickening is seen. IMPRESSION: Normal renal anatomy bilaterally.
[2025-01-21 17:18] LABS: APPEARANCE,URINE CLEAR (CLEAR); BILIRUBIN,URINE NEGATIVE (NEGATIVE); COLOR,URINE LIGHT-YELLOW (YELLOW); GLUCOSE, URINE (UA) 500 mg/dL (NEGATIVE); KETONES,URINE NEGATIVE (NEGATIVE); LEUKOCYTE ESTERASE ,URINE NEGATIVE Leu/uL (NEGATIVE); NITRATE,URINE NEGATIVE (NEGATIVE); OCCULT BLOOD,URINE NEGATIVE (NEGATIVE); PROTEIN,URINE NEGATIVE (NEGATIVE); UROBILINOGEN,URINE 0.2 mg/dL (0.2-1.0)
[2025-01-21 17:20] LABS: ADD UA MICROSCOPIC YES
[2025-01-21 17:21] LABS: CHLORIDE,URINE RANDOM 77 mmol/L (110-250); CREATININE,URINE RANDOM 44.58 mg/dL (30-135); POTASSIUM,URINE RANDOM 9 mmol/L (25-125); SODIUM,URINE RANDOM 36 mmol/l (40-220)
[2025-01-21 17:22] LABS: BACTERIA,URINE RARE /HPF (None Seen); RBC,URINE 0-1 /HPF (0-1)
[2025-01-21] MEDS: PoTASSium chloRIDE 20MEQ ER 20 MEQ ERTAB PO SCH (19:55)
[2025-01-22] VITALS (26 sets, daily range): BP systolic 99–150; BP diastolic 27–85; PULSE 70–90; RESP 15–22; TEMP 97.3–98.3; O2SAT 97
[2025-01-22 03:45] LABS: HEMATOCRIT 37.4 % (42-54); MEAN CORPUSCULAR HEMOGLOBIN 27.5 pg (27.0-33.0); MEAN CORPUSCULAR HGB CONC 34.2 g/dL (32.0-36.0); MEAN CORPUSCULAR VOLUME 80.4 fL (79-99); RED BLOOD CELL COUNT(AUTO) 4.65 MIL/uL (4.50-6.20); RED CELL DISTRIBUTION WIDTH 14.7 % (11.0-15.5); WHITE BLOOD COUNT (AUTO) 9.3 K/uL (4.8-10.8)
[2025-01-22 03:59] LABS: INR 1.04 (0.85-1.15)
[2025-01-22 04:00] LABS: PARTIAL THROMBOPLASTIN TIME 29.3 SEC (26.3-35.5)
[2025-01-22 04:17] LABS: ALBUMIN 1.9 g/dL (3.5-5.0); BILIRUBIN,TOTAL 0.5 mg/dL (0.2-1.0); CREATININE 0.6 mg/dL (0.5-1.3); MAGNESIUM 1.8 mg/dL (1.80-2.40); PHOSPHORUS 2.8 mg/dL (2.5-4.9); POTASSIUM 3.1 mmol/L (3.5-5.1); THYROID STIMULATING HORMONE 7.05 uIU/mL (0.36-3.74); TOTAL PROTEIN, SERUM 6.9 g/dL (6.0-8.3); URIC ACID 4.2 mg/dL (2.6-7.2)
[2025-01-22] MEDS ORDERED: LIDOCAINE PF 100MG/5ML (2%) SYRINGE 5ML ONE (06:43)
[2025-01-22] MEDS ORDERED: MIDAZOLAM HCL 1 MG/ML 2ML VIAL ONE (06:43)
[2025-01-22] MEDS ORDERED: FENTanyl CITRate PF 50 MCG/1 ML 2ML VIAL ONE (06:44)
[2025-01-22] MEDS ORDERED: ondanSETRON 4MG INJ ONE (06:44)
[2025-01-22] MEDS ORDERED: phenylEPHRINE HCL 10 MG/ML 1ML VIAL IV ONE (06:44)
[2025-01-22] MEDS ORDERED: proPOFol 10 MG/ML 20ML VIAL IV ONE (06:44)
[2025-01-22] MEDS ORDERED: ketaMINE 50MG/ML SYRINGE 50 MG/ML DISP.SYRIN ONE (06:48)
[2025-01-22] MEDS ORDERED: LIDOCAINE HCL 1% 20 ML VIAL ONE (07:00)
[2025-01-22] MEDS ORDERED: BUPIvacaine/PF 0.25% 30ML VIAL IJ ONE (07:01)
[2025-01-22] MEDS: BUPIvacaine/PF 0.25% 30ML VIAL IJ ONE (07:19)
--- NOTE | 2025-01-22 08:00 | OP ---
Operative Note: DATE OF PROCEDURE: 01/22/25 SURGEON: JUDE MCGRAW DPM ARTISTIC ASSOCIATE: Or tech ANESTHESIA: 1% xylocaine 0.25% bupivacaine plain a total of 20 cc via local infiltration to the foot plain. Under IV sedation ANESTHESIOLOGIST/FINAL ASSEMBLY WORKER: SwetaSamson KAYLAN PREOPERATIVE DIAGNOSIS: Osteomyelitis hallux left POSTOPERATIVE DIAGNOSIS: Osteomyelitis hallux left SYNOPSIS: This 40 years old male admitted to the hospital with diabetic foot infection left foot secondary to undergoing osteomyelitis of the left hallux this time decision was made for amputation of the hallux continued IV antibiotics and attempt to salvage the foot and the lower extremity. No guarantees were offered at this time. PROCEDURE: Amputation of the hallux left metatarsophalangeal joint level. ESTIMATED BLOOD LOSS: 5 cc INDICATIONS: Osteomyelitis DESCRIPTION OF PROCEDURE: Patient was brought into the operating room table placed in the supine position on the IV sedation local anesthesia was achieved via local infiltration of 1% xylocaine 0.25% bupivacaine plain total of 20 cc on a 50 50 mixture foot was prepped and draped in the usual sterile fashion. Attention was directed to the dorsal aspect of the metatarsophalangeal joint to the left foot 1st toe the incision was carried down through subcutaneous tissue a linear and two semielliptical incisions were performed along the 1st metatarsophalangeal joint the incision was carried down through subcutaneous tissue down to capsular level lateral medial dorsal and plantar capsular ligaments were performed tendons were resected at this time dorsal and plantarly on the metatarsophalangeal joint was exposed by this mean disarticulation of the toe at the metatarsophalangeal joint was done metatarsal head was noted to be in good viable conditions wound was flushed utilizing copious amounts of saline solution cultures and sensitivity were taken from the wound and the wound was reapproximated utilizing 3-0 nylon in the simple and horizontal mattress fashion a quarter-inch Markham drain was applied to allow for drainage if needed. Dressing was applied using Adaptic 4x4s and Kerlix patient tolerated procedure and anesthesia well sent to recovery room then to the floor for continued medical management we will follow up during the in the patient's stay. JUDE MCGRAW DPM Jan 22, 2025 08:00
[2025-01-22] MEDS: acetaMINOPHEN 100 ML ONE (08:03)
[2025-01-22] MEDS: MAGNESIUM 2GM PREMIX 50ML 50 ML IV PRN (10:01)
--- NOTE | 2025-01-22 11:06 | PN ---
[facility] PROGRESS NOTE Date of Service: Jan 22, 2025 Time of Service: 11:06 SUBJECTIVE: HPI This is a 39 year old male,morbidly obese with past medical history of diabetes and hypertension who was brought by EMS to the ED for complaints of left leg pain which started 2 weeks ago.Patient reports he fell at his driveway 2 weeks ago , landed on his left knee and did not seek medical attention and last Saturday he noticed his left leg has been swollen and has been wearing his shoes for too long he said and that his left big toe has been rubbing on his shoes and he also noticed he has been having difficulty walking because of pain on his left leg and left foot so he decided to come to the Ed for evaluation.Reportedly upon arrival to ER,staff took out his left foot from his shoes and it has a very offensive odor his left foot is red and big toe is gangrenous and left lower extremity has an ascending redness and swelling. Patient states that he is not very complaint with his medications and has not been on his medications. 01/15/25: Lying in bed with dad at bedside at the time of evaluation. Alert and oriented and in no obvious distress. Denies any chest pain, shortness of breath, palpitations, fever or chills. Vital signs T98.2, P 98, 22, BP 160/97, oxygen saturation 97 on room air. Labs WBC 14down from 17.3 yesterday, HB 14.8 HCT 42.2,Neutrophil 79.8, ESR 118, CRP 191.8, potassium 2.6 replace as per protocol, magnesium 2.1, lactic acid 1.7, hemoglobin A1c 10.8, glucose 250. X- ray of the left foot showed no acute displaced fracture or dislocation. There is soft tissue swelling. Evaluation of osteomyelitis is limited due to poor positioning. Degenerative changes seen. Venous Doppler was negative for DVT, blood cultures were ordered, still pending the results. Patient is currently on vancomycin 1 g and cefepime 1 g. Infectious disease consult has been placed, pending recommendations. Consult for podiatry has also been placed. Patient with gangrenous left great, ordered an arterial Doppler of the left lower extremities to assess circulation. Pending blood culture results. 01/16/25: Lying in bed at bedside at the time of evaluation. Alert and oriented and in no obvious distress. Denies any chest pain, shortness of breath, palpitations, fever or chills. Vital signs T97.9, P 89 R 20, BP 153/80, oxygen 99. Labs sodium 134,. potassium 2.3 Replace as per protocol, chloride 99, BUN 11, creatinine 0.9, glucose 290. Patient is currently on low-dose insulin sliding scale. Ordered insulin glargine 20 units HS. Blood cultures done yesterday showed no growth, wound cultures positive for Gram-negative rods. Patient is currently on Vancomycin and Cefepime. MRI of the foot showed findings suggestive of osteomyelitis involving the 1st distal phalanx with adjacent cellulitis. Infectious Disease consult has been placed, pending the recommendations. Podiatry consult has also been placed, pending their recommendations as well. Arterial Doppler showed atherosclerotic disease otherwise normal triphasic arterial waveforms. 01/17/25 patient was seen and examined. Case discussed with the RN. He denies fever or chills. He has been treated for osteomyelitis of the 1st distal phalanx. Appreciate Infectious Disease recommendations. Podiatry help us well 01/18/2025: Lying in bed at bedside at the time of evaluation. Alert and oriented and in no obvious distress. Denies any chest pain, shortness of breath, palpitations, fever or chills. Vital signs T97.7, P 82 R 22, BP 138/70, oxygen 97. Labs sodium 137,. potassium 2.8 Replace as per protocol, chloride 99, BUN 8, creatinine 0.9, glucose 211. Wound cultures of the left great toe was positive for microbial infection: Citrobacter freundii, Enterobacter cloacae, Enterococcus fecalis, Staph aureus, Streptococcus Gp G. Continue with Vancomycin and Cefepime as ordered. Infectious disease is on the case. Physical therapy ordered for evaluation and management. Continue with wound care as ordered. 01/19/2025:Lying in bed at bedside at the time of evaluation. Alert and orien ruchi and in no obvious distress. Denies any chest pain, shortness of breath, palpitations, fever or chills. Vital signs T98.8, P 79 R 18, BP 126/64, oxygen 94. Labs were unremarkable except for potassium at 2.8. Patient has been hypokalemic but has refused IV potassium. Explained to him the reasons why IV is preferred when potassium is very low. Verbalized understanding. Patient was seen by the system designer yesterday who recommended amputation of the left great toe. The risks and benefits were explained but patient refused to have the procedure done at this time. 01/20/25: Lying in bed at bedside at the time of evaluation. Alert and oriented and in no obvious distress. Denies any chest pain, shortness of breath, palpitations, fever or chills. Vital signs T98.8, P 79 R 18, BP 126/64, oxygen 94. Vital signs T 99, P 82, R 19, BP 160/93, O2 sat 99%. Patient's BP continues to be elevated as well as potassium which remains low 2.7 despite adequate replacement. Plan is to work up other causes of hypokalemia . Ordered an Aldosterone-Renin ratio. If Aldosterone is elevated and renin is low, this would be suggestive of an Adrenal issue. Will then order a CT of the Adrenal gland to rule out either an adenoma or a hyperplasia and manage ac cordingly. Patient had a change of mind about amputation of the left great toe after explaining the risks involved. Patient is now scheduled for amputation of the left great toe tomorrow 01/21/[address] Banerjee. 01/21/25: Lying in bed at bedside at the time of evaluation. Alert and oriented and in no obvious distress. Denies any chest pain, shortness of breath, palpitations, fever or chills. Vital signs T97.3, P 78 R 18, BP 130/71, oxygen 100. Patients potassium remains at 2.9 today despite adequate replacement as per protocol. Had ordered Aldosterone and renin ration , pending the results. Nephrology consult also placed. Pending their recommendations. Patient was scheduled for an amputation of the left great toe, by Dr Banerjee today however the procedure was cancelled because patient had received a dose of Heparin at 4am this morning. Procedure rescheduled for tomorrow 01/22/25. 01/22/2025 Patient is seen and examined at the bedside. No acute events last night. He underwent amputation of the hallux left metatarsophalangeal joint level today. He mentions that the pain at the surgical site is mild and tolerable. He denies fever, chills, chest pain, shortness of breath, nausea, vomiting, palpitations. Vitals temperature 97.3, respiratory rate 16, pulse rate 78, blood pressure 133/71. Labs WBC 9.3, hemoglobin decreased from 13.1- 12.8, sodium 140, potassium decreased from 3.3-3.1, TSH high at 7.05. Urine random chloride 77, urine random sodium 36, urine random potassium 9, PT INR normal. Renal ultrasound revealed normal findings. REVIEW OF SYSTEMS CONSTITUTIONAL: Denies fevers, chills, or night sweats. No unintentional weight loss reported. NEUROLOGICAL: Denies headache, amaurosis fugax, motor weakness, sensory deficit, vertigo/spinning sensation, gait abnormalities, or tremors. ENT: No hearing loss, otalgia, otorrhea, rhinitis, rhinorrhea, hoarseness, or sore throat. CARDIOVASCULAR: Denies any exertional angina, dyspnea on exertion, orthopnea, paroxysmal nocturnal dyspnea, palpitations, life-threatening arrhythmias, claudication. PULMONARY: Denies any shortness of breath, cough, phlegm/sputum, hemoptysis, pleuritic chest pain. SLEEP: Denies morning headaches, daytime somnolence or napping. Denies difficulty falling asleep, staying asleep, waking from sleep. Denies knowledge of snoring. GASTROINTESTINAL: Denies any type of dysphagia to either liquids or solids. Denies nausea, vomiting, pyrosis, early satiety, abdominal pain, diarrhea, constipation, or changes in stool consistency or caliber. Denies coffee-ground emesis, hematemesis, hematochezia, or melanotic stools. GENITOURINARY: Denies frequency, urgency, nocturia, hematuria or incontinence (Storage/Irritative symptoms.) Low urinary stream, straining to void, urinary intermittency or hesitancy, splitting of the voiding stream, terminal dribbling. ENDOCRINOLOGIC: Denies polyuria, polydipsia, polyphagia or heat/cold intolerances. HEMATOLOGIC: Denies thrombophilia/previous clots, or coagulopathy/bleeding disorders. ONCOLOGIC: Denies personal history of malignancy. DERMATOLOGIC: Denies rashes or pruritus. Extremities: Left knee pain, redness and swelling of LLE, left great toe wound PSYCHIATRIC: Denies any suicidal or homicidal ideation. Denies hallucinations. PHYSICAL EXAM GENERAL APPEARANCE: The patient is awake, alert, and oriented, in no acute cardiopulmonary distress. NEUROLOGICAL: Cranial nerves II-XII grossly intact. Motor is 5/5 in bilateral upper and lower extremities proximal to distal. No sensory deficits. HEENT: Face is symmetric. Pupils are equal and reactive. Extraocular movements are intact. NECK: Supple. No JVD. No thyromegaly. No submental, submandibular, pre- /postauricular, occipital or supraclavicular lymphadenopathy. CHEST: Normal chest expansion. No Telemetry. LUNGS: Absence of any rales, rhonchi or any wheezing. CARDIOVASCULAR: Regular. S1 and S2 normal. No appreciable rubs, murmurs or gallops. ABDOMEN: Soft, nontender, and nondistended. There is no rebound, voluntary guarding, or rigidity. : Deferred. No Muller. EXTREMITIES: Improving Left lower extremity erythema and swelling. Wrapped left foot post amputation of the hallux left metatarsophalangeal joint level SKIN: No skin breakdown. Vital Signs (last 8hr) Date Time Temp Pulse Resp B/P (MAP) Pulse Ox O2 Delivery O2 Flow Rate FiO2 01/22/25 08:20 97.3 78 16 133/71 98 Room Air 01/22/25 08:15 97.3 74 15 136/69 98 Room Air 01/22/25 08:10 97.3 75 15 139/74 98 Room Air 01/22/25 08:05 97.3 75 15 136/70 98 Room Air 01/22/25 08:00 97.3 76 15 134/78 98 Room Air 01/22/25 07:55 97.3 74 15 131/69 98 Room Air 01/22/25 07:50 97.3 86 15 126/75 98 Nasal Cannula 1.0 01/22/25 07:45 97.3 83 15 122/71 98 Nasal Cannula 1.0 01/22/25 07:40 97.3 82 15 138/82 98 Nasal Cannula 3.0 28 01/22/25 04:00 98.1 78 20 150/75 99 Room Air LABS: Laboratory: Test 01/22/25 10:54 01/22/25 03:22 01/21/25 10:50 01/21/25 05:13 Range/Units Whole Blood Glucose 168 H 70-110 MG/DL White Blood Count 9.3 4.8-10.8 K/uL Red Blood Count 4.65 4.50-6.20 MIL/uL Hemoglobin 12.8 L 14.0-18.0 g/dL Hematocrit 37.4 L 42-54 % Mean Corpuscular Volume 80.4 79-99 fL Mean Corpuscular Hemoglobin 27.5 27.0-33.0 pg Mean Corpuscular Hemoglobin Concent 34.2 32.0-36.0 g/dL Red Cell Distribution Width 14.7 11.0-15.5 % Platelet Count 307 130-400 K/uL Mean Platelet Volume 9.5 7.5-10.5 fL Nucleated Red Blood Cells 0.0 0.0-0.19 % Prothrombin Time 11.0 9.6-11.6 SEC Prothromb Time International Ratio 1.04 0.85-1.15 Activated Partial Thromboplast Time 29.3 26.3-35.5 SEC Sodium Level 140 136-145 mmol/L Potassium Level 3.1 L 3.5-5.1 mmol/L Chloride Level 108 101-111 mmol/L Carbon Dioxide Level 29 21-32 mmol/L Blood Urea Nitrogen 5 L 7-18 mg/dL Creatinine 0.6 0.5-1.3 mg/dL Glomerular Filtration Rate Calc 126 >90 mL/min Random Glucose 163 H 70-105 mg/dL Uric Acid 4.2 2.6-7.2 mg/dL Total Calcium 8.0 L 8.5-10.1 mg/dL Phosphorus Level 2.8 2.5-4.9 mg/dL Magnesium Level 1.80 1.80-2.40 mg/dL Total Bilirubin 0.5 0.2-1.0 mg/dL Aspartate Amino Transf (AST/SGOT) 17 10-37 U/L Alanine Aminotransferase (ALT/SGPT) 16 12-78 U/L Alkaline Phosphatase 61 50-136 U/L Total Protein 6.9 6.0-8.3 g/dL Albumin 1.9 L 3.5-5.0 g/dL Thyroid Stimulating Hormone (TSH) 7.05 #H 0.36-3.74 uIU/mL Urine Color LIGHT-YELLOW YELLOW Urine Appearance CLEAR CLEAR Urine pH 6.0 5.0-8.0 Urine Specific [place] 1.007 1.001-1.031 Urine Protein NEGATIVE NEGATIVE mg/dL Urine Glucose (UA) 500 H NEGATIVE mg/dL Urine Ketones NEGATIVE NEGATIVE mg/dL Urine Occult Blood NEGATIVE NEGATIVE Urine Nitrate NEGATIVE NEGATIVE Urine Bilirubin NEGATIVE NEGATIVE mg/dL Urine Urobilinogen 0.2 0.2-1.0 mg/dL Urine Leukocyte Esterase NEGATIVE NEGATIVE Lulu/uL Urine RBC 0-1 0-1 /HPF Urine WBC 2-5 H 0-1 /HPF Urine Bacteria RARE None Seen /HPF Urine Random Creatinine 44.58 30-135 mg/dL Urine Random Sodium 36 L 40-220 mmol/l Urine Random Potassium 9 L 25-125 mmol/L Urine Random Chloride 77 L 110-250 mmol/L Immature Granulocyte % (Auto) 1.2 H 0-1 % Neutrophils (%) (Auto) 73.0 40.0-77.0 % Lymphocytes (%) (Auto) 17.2 L 21.0-51.0 % Monocytes (%) (Auto) 5.9 3.0-13.0 % Eosinophils (%) (Auto) 2.3 0.0-8.0 % Basophils (%) (Auto) 0.4 0.0-5.0 % Neutrophils # (Auto) 7.4 1.8-7.7 K/uL Lymphocytes # (Auto) 1.7 1.0-4.8 K/uL Monocytes # (Auto) 0.6 0.1-1.0 K/uL Eosinophils # (Auto) 0.23 0.00-0.70 K/uL Basophils # (Auto) 0.04 0.00-0.20 K/uL Absolute Immature Granulocyte (auto 0.12 0-1 K/uL Test 01/20/25 12:13 Range/Units Vancomycin Level Trough 16.3 10.0-20.0 UG/ML Current Medications Medications (Trade) Dose Ordered Sig/Silverio Route PRN Reason Start Time Stop Time Status Last Admin Dose Admin Acetaminophen (TYLenol 325MG TAB) 650 mg Q4H PRN PO MILD PAIN (1-3) 01/14/25 22:30 02/13/25 22:29 01/15/25 12:15 650 MG Acetaminophen (TYLenol 325MG TAB) 650 mg Q6H PRN PO TEMPERATURE GREATER THAN 101.5 01/14/25 22:30 02/13/25 22:01/17/25 09:41 650 MG Acetaminophen/ Codeine Phosphate (TYLenol-coDEINE TAB) 2 tab Q4H PRN PO MODERATE PAIN (4-6) 01/15/25 14:00 02/14/25 13:59 01/18/25 01:16 2 TAB Amlodipine Besylate (NorvASC 5MG TAB) 5 mg DAILY PO 01/17/25 09:00 02/16/25 08:59 01/22/25 09:22 5 MG Cefepime HCl (MAXipime 1 GM vial) 1 gm Q8H IVPB 01/15/25 06:00 01/18/25 13:31 DC 01/18/25 13:00 1 GM Cefepime HCl (MAXipime 1 GM vial) 1 gm Q8H IVPB 01/18/25 16:00 01/25/25 15:59 01/22/25 09:22 1 GM Dextrose (D50w) 50 ml AD PRN IV HYPOGLYCEMIA PROTOCOL 01/14/25 22:30 02/13/25 22:29 Famotidine (Pepcid 20mg Tab) 20 mg BID PO 01/15/25 09:00 02/14/25 08:59 01/22/25 09:22 20 MG Glucagon (Glucagon 1mg Kit) 1 mg AD PRN IM HYPOGLYCEMIA PROTOCOL 01/14/25 22:30 02/13/25 22:29 Heparin Sodium (Porcine) (HEParin 5,000 UNIT VIAL) 5,000 unit Q8H SQ 01/17/25 12:00 02/16/25 11:59 01/21/25 04:09 5,000 UNIT Hydralazine HCl (APRESOLine 20MG INJ) 10 mg Q6H PRN IV For:SBP above 160;DBP above 90 01/14/25 22:30 02/13/25 22:29 01/19/25 22:59 10 MG Insulin Glargine (LANtus 100 UNITS/ML 10 ML VIAL) 20 units HS SQ 01/16/25 21:00 02/15/25 20:59 01/21/25 20:13 20 UNITS Insulin Human Regular (humuLIN R 100 UNIT/ML 3ML) INSULIN SLIDING SCAL... ACHS SQ 01/15/25 07:30 02/14/25 07:29 01/21/25 20:14 10 UNIT Magnesium Sulfate 50 ml @ 0 mls/hr PROTOCOL PRN IV OTHER [SEE ORDER COMMENTS] 01/14/25 22:30 02/13/25 22:01/22/25 10:01 20 MLS/HR Morphine Sulfate (morPHINE 2MG SYG) 2 mg Q4H PRN IV SEVERE PAIN (7-10) 01/14/25 22:30 01/20/25 01:29 DC Ondansetron HCl (zoFRAN 4MG INJ) 4 mg Q6H PRN IV NAUSEA/VOMITING 01/14/25 22:30 02/13/25 22:29 Potassium Chloride 100 ml @ 50 mls/hr AD PRN IV POTASSIUM PROTOCOL 01/21/25 07:30 01/21/25 07:07 DC Potassium Chloride 100 ml @ 100 mls/hr AD PRN IV POTASSIUM PROTOCOL 01/14/25 22:30 02/13/25 22:29 01/22/25 05:47 100 MLS/HR Potassium Chloride (K-Dur/Klor-Con 20meq) 20 meq AD PRN PO POTASSIUM PROTOCOL 01/14/25 22:30 02/13/25 22:29 01/21/25 16:33 20 MEQ Potassium Chloride (K-Dur/Klor-Con 20meq) 20 meq BID PO 01/21/25 21:00 02/20/25 20:59 01/22/25 09:22 20 MEQ Potassium Chloride (KCl 10% Elixir 20meq/15ml) 20 meq AD PRN PO POTASSIUM PROTOCOL 01/14/25 22:30 02/13/25 22:29 01/17/25 00:24 20 MEQ Simethicone (Mylicon) 80 mg PCHS PO 01/18/25 21:00 02/17/25 20:59 01/22/25 09:22 80 MG Sodium Chloride 1,000 ml @ 100 mls/hr Q10H IV 01/14/25 22:30 02/13/25 22:29 01/22/25 09:23 100 MLS/HR Vancomycin HCl 250 ml @ 125 mls/hr ONCE IV 01/14/25 22:30 01/14/25 22:52 DC Vancomycin HCl 250 ml @ 125 mls/hr Q12H IV 01/15/25 00:00 01/25/25 00:00 01/21/25 23:57 125 MLS/HR Vancomycin HCl (Vancomycin Protocol) 1 each AD IV 01/14/25 23:00 01/28/25 22:59 DIAGNOSTICS / RADIOLOGY: SERVICE [id number] REASON: NEPHRO CALCINOSIS ORDERING PHYSICIAN: ROSEMARY CASAS MD PROCEDURE: RENAL - US RENAL SONOGRAM Exam Type: US RENAL SONOGRAM Clinical Information: NEPHRO CALCINOSIS Comparison: None Findings: Examination shows normal renal size and echogenicity bilaterally. Preserved cortical thickness and corticomedullary junction region is seen. No hydronephrosis or calculi are seen. No renal masses are seen. There is no evidence of perinephric fluid on either side. No evidence of significant ureteral dilatation is seen. The urinary bladder is normal. No bladder masses, stones, or wall thickening is seen. IMPRESSION: Normal renal anatomy bilaterally. ASSESSMENT: Osteomyelitis involving the left hallux, s/p amputation of the hallux left metatarsophalangeal joint level on 01/22/2025 Left leg cellulitis POA Left toe necrotic ulcer POA Hypokalemia POA Pseudohyponatremia secondary to hyperglycemia POA Hyperglycemia secondary to Uncontrolled diabetes POA Status post fall injury at home two weeks ago POA Hypertension POA Morbid obesity POA PLAN: Osteomyelitis involving the left hallux Left leg cellulitis POA * MRI of the left foot showed findings suggestive of osteomyelitis involving the 1st distal phalanx and adjacent cellulitis. *Continue on Vancomycin 1 g and Cefepime 1 g as ordered. *WBC trended down, currently 9.3 *Infectious disease consult is appreciated and we will follow their recommendations *Underwent amputation of the hallux left metatarsophalangeal joint level on 01/22/2025 Left Toe Necrotic ulcer *Underwent amputation of the hallux left metatarsophalangeal joint level on 01/22/2025 *Wound care team is on the case Hypokalemia POA *Potassium level 3.1 today * urine random sodium 36, random chloride 77, urine random potassium 9, HC03 29, likely renal potassium loss in setting of metabolic alkalosis * no signs of volume depletion * pending Aldosterone-Renin ratio results. If Aldosterone is elevated and renin is low, this would be suggestive of an Adrenal issue. Will then order a CT of the Adrenal gland to rule out either an adenoma or a hyperplasia and manage accordingly. * Replace electrolytes as needed per protocol * continue potassium 20 mEq p.o. b.i.d. as per nephrology consult recommendation Hyperglycemia secondary to Uncontrolled diabetes POA *Blood glucose 130. Currently on low-dose sliding scale AC &HS. *Continue Insulin Glargine 20 units subQ HS Hypertension *Continue with Amlodipine 5mg PO daily Morbid Obesity *Educated patient about the need to lose weight *Physical therapy ordered. Continue on Famotidine 20 mg p.o. bid for GI prophylaxis continue heparin SQ 5000 q.8h DVT prophylaxis Continue PRN medications for fever,pain,cough, nausea and vomiting Repeat labs in a.m. ATTESTATION BY PHYSICIAN I have seen and examined the patient. I reviewed the documentation, medical decision making, and treatment plan as noted by the resident above. I agree with the findings and plan of care. César Maynard MD, PRIYANKA MD Jan 22, 2025 11:06
--- NOTE | 2025-01-22 15:31 | PN ---
INFECTIOUS DISEASE PROGRESS NOTE Date of Service: Jan 22, 2025 SUBJECTIVE: This is a 39-year-old male patient was seen and examined at bedside in room 426. Patient is status post left great toe amputation today. Reported that his pain is controlled. No reports of nausea or vomiting. No fever, temperature is 97.9. Continues on vancomycin and cefepime. No other issues reported by nursing. PHYSICAL EXAM EYES: Anicteric. Pupils equal and reactive. HENT: No oral thrush seen, moist Oral mucosa. NECK: Supple, no JVD or thyromegaly. LUNGS: Good air entry. No rales, no rhonchi. CARDIOVASCULAR: S1, S2 regular. No murmur heard. ABDOMEN: Soft, non tender, bowel sounds present, no organomegaly. CENTRAL NERVOUS SYSTEM: Awake, alert, oriented x 3. SKIN: No rashes, no swelling. Left great toe diabetic ulcer. LYMPHATICS: No peripheral lymphadenopathy. MUSCULOSKELETAL: No joint swelling, erythema or tenderness. EXTREMITIES: No cyanosis or clubbing. Left lower extremity swelling and erythema. BACK: No deformity, no pressure ulcer. GENITOURINARY: No dysuria or hematuria. Vital Sign (Last 12 Hours) 01/22/25 01/22/25 01/22/25 01/22/25 04:00 07:40 07:45 07:50 Temp 98.1 97.3 97.3 97.3 Pulse 78 82 83 86 Resp 20 15 15 B/P (MAP) 150/75 138/82 122/71 126/75 Pulse Ox 99 98 98 98 O2 Delivery Room Air Nasal Cannula Nasal Cannula Nasal Cannula O2 Flow Rate 3.0 1.0 1.0 FiO2 28 22 22 01/22/25 01/22/25 01/22/25 01/22/25 07:55 08:00 08:05 08:10 Temp 97.3 97.3 97.3 97.3 Pulse 74 76 75 75 Resp 15 15 15 15 B/P (MAP) 131/69 134/78 136/70 139/74 Pulse Ox 98 98 98 98 O2 Delivery Room Air Room Air Room Air Room Air FiO2 21 21 21 21 01/22/25 01/22/25 01/22/25 01/22/25 08:15 08:17 08:20 08:32 Temp 97.3 98.1 97.3 Pulse 74 71 78 76 Resp 15 17 16 18 B/P (MAP) 136/69 119/69 133/71 126/68 Pulse Ox 98 98 98 96 O2 Delivery Room Air Room Air Room Air Room Air FiO2 21 21 01/22/25 01/22/25 01/22/25 01/22/25 08:47 09:00 09:02 09:17 Pulse 73 70 77 Resp 18 17 17 B/P (MAP) 134/80 128/63 131/56 Pulse Ox 97 97 97 99 O2 Delivery Room Air Room Air* Room Air Room Air O2 Flow Rate 0 FiO2 21 01/22/25 01/22/25 01/22/25 01/22/25 09:47 10:17 11:17 12:01 Temp 97.9 Pulse 84 90 78 80 Resp 17 18 17 19 B/P (MAP) 133/61 118/79 130/70 130/67 Pulse Ox 96 97 91 97 O2 Delivery Room Air Room Air Room Air Room Air 01/22/25 12:17 Pulse 87 Resp 18 B/P (MAP) 99/27 Pulse Ox 95 O2 Delivery Room Air Intake & Output (last 24hrs) 01/21/25 01/21/25 01/22/25 15:00 23:00 07:00 Intake Total 1450.0 ml Balance 1450.0 ml LABS: Laboratory: Test 01/22/25 15:14 01/22/25 03:22 01/21/25 10:50 01/21/25 05:13 Range/Units Whole Blood Glucose 208 H 70-110 MG/DL White Blood Count 9.3 4.8-10.8 K/uL Red Blood Count 4.65 4.50-6.20 MIL/uL Hemoglobin 12.8 L 14.0-18.0 g/dL Hematocrit 37.4 L 42-54 % Mean Corpuscular Volume 80.4 79-99 fL Mean Corpuscular Hemoglobin 27.5 27.0-33.0 pg Mean Corpuscular Hemoglobin Concent 34.2 32.0-36.0 g/dL Red Cell Distribution Width 14.7 11.0-15.5 % Platelet Count 307 130-400 K/uL Mean Platelet Volume 9.5 7.5-10.5 fL Nucleated Red Blood Cells 0.0 0.0-0.19 % Prothrombin Time 11.0 9.6-11.6 SEC Prothromb Time International Ratio 1.04 0.85-1.15 Activated Partial Thromboplast Time 29.3 26.3-35.5 SEC Sodium Level 140 136-145 mmol/L Potassium Level 3.1 L 3.5-5.1 mmol/L Chloride Level 108 101-111 mmol/L Carbon Dioxide Level 29 21-32 mmol/L Blood Urea Nitrogen 5 L 7-18 mg/dL Creatinine 0.6 0.5-1.3 mg/dL Glomerular Filtration Rate Calc 126 >90 mL/min Random Glucose 163 H 70-105 mg/dL Uric Acid 4.2 2.6-7.2 mg/dL Total Calcium 8.0 L 8.5-10.1 mg/dL Phosphorus Level 2.8 2.5-4.9 mg/dL Magnesium Level 1.80 1.80-2.40 mg/dL Total Bilirubin 0.5 0.2-1.0 mg/dL Aspartate Amino Transf (AST/SGOT) 17 10-37 U/L Alanine Aminotransferase (ALT/SGPT) 16 12-78 U/L Alkaline Phosphatase 61 50-136 U/L Total Protein 6.9 6.0-8.3 g/dL Albumin 1.9 L 3.5-5.0 g/dL Thyroid Stimulating Hormone (TSH) 7.05 #H 0.36-3.74 uIU/mL Urine Color LIGHT-YELLOW YELLOW Urine Appearance CLEAR CLEAR Urine pH 6.0 5.0-8.0 Urine Specific [place] 1.007 1.001-1.031 Urine Protein NEGATIVE NEGATIVE mg/dL Urine Glucose (UA) 500 H NEGATIVE mg/dL Urine Ketones NEGATIVE NEGATIVE mg/dL Urine Occult Blood NEGATIVE NEGATIVE Urine Nitrate NEGATIVE NEGATIVE Urine Bilirubin NEGATIVE NEGATIVE mg/dL Urine Urobilinogen 0.2 0.2-1.0 mg/dL Urine Leukocyte Esterase NEGATIVE NEGATIVE [place]/uL Urine RBC 0-1 0-1 /HPF Urine WBC 2-5 H 0-1 /HPF Urine Bacteria RARE None Seen /HPF Urine Osmolality 265 50-1200 mOsm/kg Urine Random Creatinine 44.58 30-135 mg/dL Urine Random Sodium 36 L 40-220 mmol/l Urine Random Potassium 9 L 25-125 mmol/L Urine Random Chloride 77 L 110-250 mmol/L Immature Granulocyte % (Auto) 1.2 H 0-1 % Neutrophils (%) (Auto) 73.0 40.0-77.0 % Lymphocytes (%) (Auto) 17.2 L 21.0-51.0 % Monocytes (%) (Auto) 5.9 3.0-13.0 % Eosinophils (%) (Auto) 2.3 0.0-8.0 % Basophils (%) (Auto) 0.4 0.0-5.0 % Neutrophils # (Auto) 7.4 1.8-7.7 K/uL Lymphocytes # (Auto) 1.7 1.0-4.8 K/uL Monocytes # (Auto) 0.6 0.1-1.0 K/uL Eosinophils # (Auto) 0.23 0.00-0.70 K/uL Basophils # (Auto) 0.04 0.00-0.20 K/uL Absolute Immature Granulocyte (auto 0.12 0-1 K/uL ASSESSMENT: 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 Polymicrobial infection. Infection with Methicillin-susceptible Staphylococcus aureus. Leukocytosis, improving. Hypokalemia. Recent mechanical fall. Uncontrolled Diabetes mellitus, hemoglobin A1c 10.8. Morbid obesity. PLAN: Continue cefepime. Continue vancomycin per pharmacy protocol. Continue Hypokalemia protocol. Continue antidiabetics. Continue pain management. Continue wound care. This case was reviewed and discussed with my supervising physician and the above assessment and plan was formulated and agreed upon. ATTESTATION BY PHYSICIAN I have seen and examined the patient. I reviewed the documentation, medical decision making, and treatment plan as noted by the mid-level provider above. I agree with the findings and plan of care. MAY ESCOBEDO MD, [facility] Jan 22, 2025 15:31
--- NOTE | 2025-01-22 22:00 | PN ---
SUBJECTIVE: Multiple problems. The patient has other comorbidities. No other associated findings. No other aggravating or relieving factors. The patient has lower extremity cellulitis, necrotic ulcer in the foot, obesity and other comorbidities. The patient has undergone partial foot amputation. All the other systemic review is unchanged. No other associated findings. No other aggravating or relieving factors. REVIEW OF SYSTEMS: CONSTITUTIONAL: No fevers, chills or rigors. HEENT: No headache, oral ulcers, sore throat or difficulty swallowing. RESPIRATORY: No cough, expectoration, hemoptysis or pleuritic pain. CARDIOVASCULAR: No orthopnea or PND. Regular rhythm. No rub, no S3, no S4. No parasternal heave. ABDOMEN: No guarding or tenderness. Bowel sounds are present. No free fluid. EXTREMITIES: With no edema and no cyanosis or clubbing. BACK: No tenderness or back deformities. NEUROLOGIC: No seizure or syncope. PHYSICAL EXAMINATION: GENERAL: Obese, lying in bed. VITAL SIGNS: Blood pressure is 130/67, pulse 80, respiratory rate is 19. HEENT: Head is atraumatic, normocephalic. Pupils are equal, round and reactive. NECK: Supple. No masses or bruits. Thyroid is palpable. CHEST: Equal thoracic percussion, note being resonant in all areas. CARDIAC: Regular rhythm. No rub, no S3 or S4. No parasternal heave. NEUROLOGIC: Awake, alert, nonfocal. NEUROLOGICAL: Unchanged, nonfocal. No cranial nerve palsies. BACK: No tenderness. No back deformities. LYMPHATIC: No lymph node swelling in neck or axillary area. LABORATORY DATA: Labs have been reviewed. Old records revealed. The patient's hemoglobin is 12.8. Chemistries have shown low potassium of 3.1 and urinary potassium is 9. TSH is borderline high. PROBLEMS: Severe hypokalemia in a patient who has osteomyelitis, underlying multiple other comorbidities, diabetes. PLAN: * The patient will have a followup on potassium level. * Magnesium replacement as needed. * Urine electrolytes have been done. * Serum aldosterone ordered. * Plasma inactivity pending. * Depending on that further decision. * May need potassium-sparing diuretics. Potassium remains low. Meanwhile, potassium replacement to be continued. Follow up on electrolyte, renal function, overall status and nonsteroidal drugs to be avoided. Doses of medicine will be adjusted. Condition is critical, guarded. The patient was seen several times today. I thank you for this challenging consultation and for letting me to participate in the care of this patient. Condition guarded. Total time spent more than 45-50 minutes. TID: [id number] RECEIPT: [id number]
[2025-01-23 03:17] VITALS: BP 134/76; PULSE 78; RESP 22; TEMP 98.1
[2025-01-23 06:23] LABS: HEMATOCRIT 38.7 % (42-54); MEAN CORPUSCULAR HEMOGLOBIN 28.1 pg (27.0-33.0); MEAN CORPUSCULAR HGB CONC 34.1 g/dL (32.0-36.0); MEAN CORPUSCULAR VOLUME 82.3 fL (79-99); RED BLOOD CELL COUNT(AUTO) 4.7 MIL/uL (4.50-6.20); RED CELL DISTRIBUTION WIDTH 14.9 % (11.0-15.5); WHITE BLOOD COUNT (AUTO) 10.7 K/uL (4.8-10.8)
[2025-01-23 06:52] LABS: CREATININE 0.7 mg/dL (0.5-1.3); MAGNESIUM 1.9 mg/dL (1.80-2.40); POTASSIUM 3.4 mmol/L (3.5-5.1)
[2025-01-23 08:00] VITALS: O2SAT 98
[2025-01-23 09:27] VITALS: BP 132/69; PULSE 79; RESP 20; TEMP 98.3
--- NOTE | 2025-01-23 11:32 | PN ---
PROGRESS NOTE Date of Service: Jan 23, 2025 Time of Service: 11:29 SUBJECTIVE: This 39 years old male was seen for follow status post amputation of the hallux [place] drain in place dressing dry and intact. REVIEW OF SYSTEMS CONSTITUTIONAL: Denies fever, chills, or fatigue. Morbid obesity HEAD/FACE: No signs of trauma. EENT: Denies eye pain, blurred vision, double vision, or light sensitivity. RESPIRATORY: Denies shortness of breath, cough, wheezing CARDIOVASCULAR: Denies chest pain, palpitation, syncope GASTROINTESTINAL/ABDOMINAL: Denies abdominal pain, constipation, diarrhea, nausea or vomiting GENITOURINARY: Denies dysuria or hematuria. MUSCULOSKELETAL: Denies joint pain, tenderness secondary to trauma to the left lower extremity but no fractures or dislocations or x-ray examination. INTEGUMENTARY: Left foot wound status post amputation of hallux left. [place]ay[place] drain in place. Sutures in place. NEUROLOGICAL/PSYCH: Denies anxiety, depression, heat or cold intolerance. PHYSICAL EXAM EYES: Anicteric. Pupils equal and reactive. HENT: No oral thrush seen, moist Oral mucosa NECK: Supple, no JVD or thyromegaly. LUNGS: Good air entry. No rales, no rhonchi. CARDIOVASCULAR: S1, S2 regular. No murmur heard. ABDOMEN: Soft, non tender, bowel sounds present, no organomegaly CENTRAL NERVOUS SYSTEM: Awake, alert, oriented x 3. No focal deficits. SKIN: Wound left foot status post hallux amputation [place] drain in place sutures in place LYMPHATICS: No peripheral lymphadenopathy MUSCULOSKELETAL: No joint swelling, erythema or tenderness. EXTREMITIES: Left lower extremity hematomas secondary to the fall and edema on bilateral lower extremity lipedema BACK: No deformity, no pressure ulcer. GENITOURINARY: No dysuria or hematuria Vital Signs (last 8hr) Date Time Temp Pulse Resp B/P (MAP) Pulse Ox O2 Delivery O2 Flow Rate FiO2 01/23/25 09:27 98.2 79 20 132/69 100 LABS: Laboratory: Test 01/23/25 06:18 01/22/25 19:51 01/22/25 03:22 Range/Units White Blood Count 10.7 4.8-10.8 K/uL Red Blood Count 4.70 4.50-6.20 MIL/uL Hemoglobin 13.2 L 14.0-18.0 g/dL Hematocrit 38.7 L 42-54 % Mean Corpuscular Volume 82.3 79-99 fL Mean Corpuscular Hemoglobin 28.1 27.0-33.0 pg Mean Corpuscular Hemoglobin Concent 34.1 32.0-36.0 g/dL Red Cell Distribution Width 14.9 11.0-15.5 % Platelet Count 283 130-400 K/uL Mean Platelet Volume 9.4 7.5-10.5 fL Nucleated Red Blood Cells 0.0 0.0-0.19 % Sodium Level 140 136-145 mmol/L Potassium Level 3.4 L 3.5-5.1 mmol/L Chloride Level 106 101-111 mmol/L Carbon Dioxide Level 29 21-32 mmol/L Blood Urea Nitrogen 5 L 7-18 mg/dL Creatinine 0.7 0.5-1.3 mg/dL Glomerular Filtration Rate Calc 120 >90 mL/min Random Glucose 119 H 70-105 mg/dL Total Calcium 8.2 L 8.5-10.1 mg/dL Magnesium Level 1.90 1.80-2.40 mg/dL Free Thyroxine (T4) Direct 1.05 0.76-1.46 ng/dL Free Triiodothyronine (T3) pg/mL 2.25 2.18-3.98 pg/mL Whole Blood Glucose 199 H 70-110 MG/DL Prothrombin Time 11.0 9.6-11.6 SEC Prothromb Time International Ratio 1.04 0.85-1.15 Activated Partial Thromboplast Time 29.3 26.3-35.5 SEC Uric Acid 4.2 2.6-7.2 mg/dL Phosphorus Level 2.8 2.5-4.9 mg/dL Total Bilirubin 0.5 0.2-1.0 mg/dL Aspartate Amino Transf (AST/SGOT) 17 10-37 U/L Alanine Aminotransferase (ALT/SGPT) 16 12-78 U/L Alkaline Phosphatase 61 50-136 U/L Total Protein 6.9 6.0-8.3 g/dL Albumin 1.9 L 3.5-5.0 g/dL Thyroid Stimulating Hormone (TSH) 7.05 #H 0.36-3.74 uIU/mL DIAGNOSTICS / RADIOLOGY: MRI positive for osteomyelitis of the distal phalanx of the great toe left foot ASSESSMENT: Diabetic foot ulcer with infection of the great toe left foot. Trauma secondary to fall two weeks ago left lower extremity. Diabetes Morbid obesity. Osteomyelitis great toe left foot PLAN: Continue local wound care continue IV antibiotics. Dressing change daily. JUDE MCGRAW DPM Jan 23, 2025 11:32
[2025-01-23 12:50] VITALS: BP 128/76; PULSE 81; RESP 16; TEMP 98
--- NOTE | 2025-01-23 13:23 | PN ---
[facility] PROGRESS NOTE Date of Service: Jan 23, 2025 Time of Service: 13:22 SUBJECTIVE: HPI This is a 39 year old male,morbidly obese with past medical history of diabetes and hypertension who was brought by EMS to the ED for complaints of left leg pain which started 2 weeks ago.Patient reports he fell at his driveway 2 weeks ago , landed on his left knee and did not seek medical attention and last Saturday he noticed his left leg has been swollen and has been wearing his shoes for too long he said and that his left big toe has been rubbing on his shoes and he also noticed he has been having difficulty walking because of pain on his left leg and left foot so he decided to come to the Ed for evaluation.Reportedly upon arrival to ER,staff took out his left foot from his shoes and it has a very offensive odor his left foot is red and big toe is gangrenous and left lower extremity has an ascending redness and swelling. Patient states that he is not very complaint with his medications and has not been on his medications. 01/15/25: Lying in bed with dad at bedside at the time of evaluation. Alert and oriented and in no obvious distress. Denies any chest pain, shortness of breath, palpitations, fever or chills. Vital signs T98.2, P 98, 22, BP 160/97, oxygen saturation 97 on room air. Labs WBC 14down from 17.3 yesterday, HB 14.8 HCT 42.2,Neutrophil 79.8, ESR 118, CRP 191.8, potassium 2.6 replace as per protocol, magnesium 2.1, lactic acid 1.7, hemoglobin A1c 10.8, glucose 250. X- ray of the left foot showed no acute displaced fracture or dislocation. There is soft tissue swelling. Evaluation of osteomyelitis is limited due to poor positioning. Degenerative changes seen. Venous Doppler was negative for DVT, blood cultures were ordered, still pending the results. Patient is currently on vancomycin 1 g and cefepime 1 g. Infectious disease consult has been placed, pending recommendations. Consult for podiatry has also been placed. Patient with gangrenous left great, ordered an arterial Doppler of the left lower extremities to assess circulation. Pending blood culture results. 01/16/25: Lying in bed at bedside at the time of evaluation. Alert and oriented and in no obvious distress. Denies any chest pain, shortness of breath, palpitations, fever or chills. Vital signs T97.9, P 89 R 20, BP 153/80, oxygen 99. Labs sodium 134,. potassium 2.3 Replace as per protocol, chloride 99, BUN 11, creatinine 0.9, glucose 290. Patient is currently on low-dose insulin sliding scale. Ordered insulin glargine 20 units HS. Blood cultures done yesterday showed no growth, wound cultures positive for Gram-negative rods. Patient is currently on Vancomycin and Cefepime. MRI of the foot showed findings suggestive of osteomyelitis involving the 1st distal phalanx with adjacent cellulitis. Infectious Disease consult has been placed, pending the recommendations. Podiatry consult has also been placed, pending their recommendations as well. Arterial Doppler showed atherosclerotic disease otherwise normal triphasic arterial waveforms. 01/17/25 patient was seen and examined. Case discussed with the RN. He denies fever or chills. He has been treated for osteomyelitis of the 1st distal phalanx. Appreciate Infectious Disease recommendations. Podiatry help us well 01/18/2025: Lying in bed at bedside at the time of evaluation. Alert and oriented and in no obvious distress. Denies any chest pain, shortness of breath, palpitations, fever or chills. Vital signs T97.7, P 82 R 22, BP 138/70, oxygen 97. Labs sodium 137,. potassium 2.8 Replace as per protocol, chloride 99, BUN 8, creatinine 0.9, glucose 211. Wound cultures of the left great toe was positive for microbial infection: Citrobacter freundii, Enterobacter cloacae, Enterococcus fecalis, Staph aureus, Streptococcus Gp G. Continue with Vancomycin and Cefepime as ordered. Infectious disease is on the case. Physical therapy ordered for evaluation and management. Continue with wound care as ordered. 01/19/2025:Lying in bed at bedside at the time of evaluation. Alert and orien ruchi and in no obvious distress. Denies any chest pain, shortness of breath, palpitations, fever or chills. Vital signs T98.8, P 79 R 18, BP 126/64, oxygen 94. Labs were unremarkable except for potassium at 2.8. Patient has been hypokalemic but has refused IV potassium. Explained to him the reasons why IV is preferred when potassium is very low. Verbalized understanding. Patient was seen by the glove cuffer yesterday who recommended amputation of the left great toe. The risks and benefits were explained but patient refused to have the procedure done at this time. 01/20/25: Lying in bed at bedside at the time of evaluation. Alert and oriented and in no obvious distress. Denies any chest pain, shortness of breath, palpitations, fever or chills. Vital signs T98.8, P 79 R 18, BP 126/64, oxygen 94. Vital signs T 99, P 82, R 19, BP 160/93, O2 sat 99%. Patient's BP continues to be elevated as well as potassium which remains low 2.7 despite adequate replacement. Plan is to work up other causes of hypokalemia . Ordered an Aldosterone-Renin ratio. If Aldosterone is elevated and renin is low, this would be suggestive of an Adrenal issue. Will then order a CT of the Adrenal gland to rule out either an adenoma or a hyperplasia and manage ac cordingly. Patient had a change of mind about amputation of the left great toe after explaining the risks involved. Patient is now scheduled for amputation of the left great toe tomorrow 01/21/[address] Banerjee. 01/21/25: Lying in bed at bedside at the time of evaluation. Alert and oriented and in no obvious distress. Denies any chest pain, shortness of breath, palpitations, fever or chills. Vital signs T97.3, P 78 R 18, BP 130/71, oxygen 100. Patients potassium remains at 2.9 today despite adequate replacement as per protocol. Had ordered Aldosterone and renin ration , pending the results. Nephrology consult also placed. Pending their recommendations. Patient was scheduled for an amputation of the left great toe, by Dr Banerjee today however the procedure was cancelled because patient had received a dose of Heparin at 4am this morning. Procedure rescheduled for tomorrow 01/22/25. 01/22/2025 Patient is seen and examined at the bedside. No acute events last night. He underwent amputation of the hallux left metatarsophalangeal joint level today. He mentions that the pain at the surgical site is mild and tolerable. He denies fever, chills, chest pain, shortness of breath, nausea, vomiting, palpitations. Vitals temperature 97.3, respiratory rate 16, pulse rate 78, blood pressure 133/71. Labs WBC 9.3, hemoglobin decreased from 13.1- 12.8, sodium 140, potassium decreased from 3.3-3.1, TSH high at 7.05. Urine random chloride 77, urine random sodium 36, urine random potassium 9, PT INR normal. Renal ultrasound revealed normal findings. 01/23/25 patient was seen and examined at the bedside. No acute events overnight reported per nursing. He was status post amputation of the hallux left meta tarsal phalangeal joint. He is doing well pain is tolerable. His labs and vitals are stable REVIEW OF SYSTEMS CONSTITUTIONAL: Denies fevers, chills, or night sweats. No unintentional weight loss reported. NEUROLOGICAL: Denies headache, amaurosis fugax, motor weakness, sensory deficit, vertigo/spinning sensation, gait abnormalities, or tremors. ENT: No hearing loss, otalgia, otorrhea, rhinitis, rhinorrhea, hoarseness, or sore throat. CARDIOVASCULAR: Denies any exertional angina, dyspnea on exertion, orthopnea, paroxysmal nocturnal dyspnea, palpitations, life-threatening arrhythmias, claudication. PULMONARY: Denies any shortness of breath, cough, phlegm/sputum, hemoptysis, pleuritic chest pain. SLEEP: Denies morning headaches, daytime somnolence or napping. Denies difficulty falling asleep, staying asleep, waking from sleep. Denies knowledge of snoring. GASTROINTESTINAL: Denies any type of dysphagia to either liquids or solids. Denies nausea, vomiting, pyrosis, early satiety, abdominal pain, diarrhea, constipation, or changes in stool consistency or caliber. Denies coffee-ground emesis, hematemesis, hematochezia, or melanotic stools. GENITOURINARY: Denies frequency, urgency, nocturia, hematuria or incontinence (Storage/Irritative symptoms.) Low urinary stream, straining to void, urinary intermittency or hesitancy, splitting of the voiding stream, terminal dribbling. ENDOCRINOLOGIC: Denies polyuria, polydipsia, polyphagia or heat/cold intolerances. HEMATOLOGIC: Denies thrombophilia/previous clots, or coagulopathy/bleeding disorders. ONCOLOGIC: Denies personal history of malignancy. DERMATOLOGIC: Denies rashes or pruritus. Extremities: Left knee pain, redness and swelling of LLE, left great toe wound PSYCHIATRIC: Denies any suicidal or homicidal ideation. Denies hallucinations. PHYSICAL EXAM GENERAL APPEARANCE: The patient is awake, alert, and oriented, in no acute cardiopulmonary distress. NEUROLOGICAL: Cranial nerves II-XII grossly intact. Motor is 5/5 in bilateral upper and lower extremities proximal to distal. No sensory deficits. HEENT: Face is symmetric. Pupils are equal and reactive. Extraocular movements are intact. NECK: Supple. No JVD. No thyromegaly. No submental, submandibular, pre- /postauricular, occipital or supraclavicular lymphadenopathy. CHEST: Normal chest expansion. No Telemetry. LUNGS: Absence of any rales, rhonchi or any wheezing. CARDIOVASCULAR: Regular. S1 and S2 normal. No appreciable rubs, murmurs or gallops. ABDOMEN: Soft, nontender, and nondistended. There is no rebound, voluntary guarding, or rigidity. : Deferred. No Muller. EXTREMITIES: Improving Left lower extremity erythema and swelling. Wrapped left foot post amputation of the hallux left metatarsophalangeal joint level SKIN: No skin breakdown. Vital Signs (last 8hr) Date Time Temp Pulse Resp B/P (MAP) Pulse Ox O2 Delivery O2 Flow Rate FiO2 01/23/25 12:50 98.1 81 16 128/76 99 01/23/25 09:27 98.2 79 20 132/69 100 LABS: Laboratory: Test 01/23/25 11:30 01/23/25 06:18 01/22/25 03:22 Range/Units Whole Blood Glucose 119 H 70-110 MG/DL White Blood Count 10.7 4.8-10.8 K/uL Red Blood Count 4.70 4.50-6.20 MIL/uL Hemoglobin 13.2 L 14.0-18.0 g/dL Hematocrit 38.7 L 42-54 % Mean Corpuscular Volume 82.3 79-99 fL Mean Corpuscular Hemoglobin 28.1 27.0-33.0 pg Mean Corpuscular Hemoglobin Concent 34.1 32.0-36.0 g/dL Red Cell Distribution Width 14.9 11.0-15.5 % Platelet Count 283 130-400 K/uL Mean Platelet Volume 9.4 7.5-10.5 fL Nucleated Red Blood Cells 0.0 0.0-0.19 % Sodium Level 140 136-145 mmol/L Potassium Level 3.4 L 3.5-5.1 mmol/L Chloride Level 106 101-111 mmol/L Carbon Dioxide Level 29 21-32 mmol/L Blood Urea Nitrogen 5 L 7-18 mg/dL Creatinine 0.7 0.5-1.3 mg/dL Glomerular Filtration Rate Calc 120 >90 mL/min Random Glucose 119 H 70-105 mg/dL Total Calcium 8.2 L 8.5-10.1 mg/dL Magnesium Level 1.90 1.80-2.40 mg/dL Free Thyroxine (T4) Direct 1.05 0.76-1.46 ng/dL Free Triiodothyronine (T3) pg/mL 2.25 2.18-3.98 pg/mL Prothrombin Time 11.0 9.6-11.6 SEC Prothromb Time International Ratio 1.04 0.85-1.15 Activated Partial Thromboplast Time 29.3 26.3-35.5 SEC Uric Acid 4.2 2.6-7.2 mg/dL Phosphorus Level 2.8 2.5-4.9 mg/dL Total Bilirubin 0.5 0.2-1.0 mg/dL Aspartate Amino Transf (AST/SGOT) 17 10-37 U/L Alanine Aminotransferase (ALT/SGPT) 16 12-78 U/L Alkaline Phosphatase 61 50-136 U/L Total Protein 6.9 6.0-8.3 g/dL Albumin 1.9 L 3.5-5.0 g/dL Thyroid Stimulating Hormone (TSH) 7.05 #H 0.36-3.74 uIU/mL Current Medications Medications (Trade) Dose Ordered Sig/Silverio Route PRN Reason Start Time Stop Time Status Last Admin Dose Admin Acetaminophen (TYLenol 325MG TAB) 650 mg Q4H PRN PO MILD PAIN (1-3) 01/14/25 22:30 02/13/25 22:29 01/15/25 12:15 650 MG Acetaminophen (TYLenol 325MG TAB) 650 mg Q6H PRN PO TEMPERATURE GREATER THAN 101.5 01/14/25 22:30 02/13/25 22:29 01/17/25 09:41 650 MG Acetaminophen/ Codeine Phosphate (TYLenol-coDEINE TAB) 2 tab Q4H PRN PO MODERATE PAIN (4-6) 01/15/25 14:00 02/14/25 13:59 01/18/25 01:16 2 TAB Amlodipine Besylate (NorvASC 5MG TAB) 5 mg DAILY PO 01/17/25 09:00 02/16/25 08:59 01/23/25 09:31 5 MG Cefepime HCl (MAXipime 1 GM vial) 1 gm Q8H IVPB 01/15/25 06:00 01/18/25 13:31 DC 01/18/25 13:00 1 GM Cefepime HCl (MAXipime 1 GM vial) 1 gm Q8H IVPB 01/18/25 16:00 01/25/25 15:59 01/23/25 09:30 1 GM Dextrose (D50w) 50 ml AD PRN IV HYPOGLYCEMIA PROTOCOL 01/14/25 22:30 02/13/25 22:29 Famotidine (Pepcid 20mg Tab) 20 mg BID PO 01/15/25 09:00 02/14/25 08:59 01/23/25 09:31 20 MG Glucagon (Glucagon 1mg Kit) 1 mg AD PRN IM HYPOGLYCEMIA PROTOCOL 01/14/25 22:30 02/13/25 22:29 Heparin Sodium (Porcine) (HEParin 5,000 UNIT VIAL) 5,000 unit Q8H SQ 01/17/25 12:00 02/16/25 11:59 01/23/25 05:55 5,000 UNIT Hydralazine HCl (APRESOLine 20MG INJ) 10 mg Q6H PRN IV For:SBP above 160;DBP above 90 01/14/25 22:30 02/13/25 22:29 01/19/25 22:59 10 MG Insulin Glargine (LANtus 100 UNITS/ML 10 ML VIAL) 20 units HS SQ 01/16/25 21:00 02/15/25 20:59 01/22/25 21:46 20 UNITS Insulin Human Regular (humuLIN R 100 UNIT/ML 3ML) INSULIN SLIDING SCAL... ACHS SQ 01/15/25 07:30 02/14/25 07:29 01/22/25 21:45 4 UNIT Magnesium Sulfate 50 ml @ 0 mls/hr PROTOCOL PRN IV OTHER [SEE ORDER COMMENTS] 01/14/25 22:30 02/13/25 22:01/22/25 10:01 20 MLS/HR Morphine Sulfate (morPHINE 2MG SYG) 2 mg Q4H PRN IV SEVERE PAIN (7-10) 01/14/25 22:30 01/20/25 01:29 DC Ondansetron HCl (zoFRAN 4MG INJ) 4 mg Q6H PRN IV NAUSEA/VOMITING 01/14/25 22:30 02/13/25 22:29 Potassium Chloride 100 ml @ 50 mls/hr AD PRN IV POTASSIUM PROTOCOL 01/21/25 07:30 01/21/25 07:07 DC Potassium Chloride 100 ml @ 100 mls/hr AD PRN IV POTASSIUM PROTOCOL 01/14/25 22:30 02/13/25 22:29 01/22/25 05:47 100 MLS/HR Potassium Chloride (K-Dur/Klor-Con 20meq) 20 meq AD PRN PO POTASSIUM PROTOCOL 01/14/25 22:30 02/13/25 22:29 01/22/25 15:54 20 MEQ Potassium Chloride (K-Dur/Klor-Con 20meq) 20 meq BID PO 01/21/25 21:00 02/20/25 20:59 01/23/25 09:31 20 MEQ Potassium Chloride (KCl 10% Elixir 20meq/15ml) 20 meq AD PRN PO POTASSIUM PROTOCOL 01/14/25 22:30 02/13/25 22:29 01/17/25 00:24 20 MEQ Simethicone (Mylicon) 80 mg PCHS PO 01/18/25 21:00 02/17/25 20:59 01/23/25 09:31 80 MG Sodium Chloride 1,000 ml @ 100 mls/hr Q10H IV 01/14/25 22:30 02/13/25 22:29 01/22/25 09:23 100 MLS/HR Vancomycin HCl 250 ml @ 125 mls/hr ONCE IV 01/14/25 22:30 01/14/25 22:52 DC Vancomycin HCl 250 ml @ 125 mls/hr Q12H IV 01/15/25 00:00 01/25/25 00:00 01/23/25 00:57 125 MLS/HR Vancomycin HCl (Vancomycin Protocol) 1 each AD IV 01/14/25 23:00 01/28/25 22:59 DIAGNOSTICS / RADIOLOGY: [ ] ASSESSMENT: Osteomyelitis involving the left hallux, s/p amputation of the hallux left metat arsophalangeal joint level on 01/22/2025 Left leg cellulitis POA Left toe necrotic ulcer POA Hypokalemia POA Pseudohyponatremia secondary to hyperglycemia POA Hyperglycemia secondary to Uncontrolled diabetes POA Status post fall injury at home two weeks ago POA Hypertension POA Morbid obesity POA PLAN: Osteomyelitis involving the left hallux Left leg cellulitis POA * MRI of the left foot showed findings suggestive of osteomyelitis involving the 1st distal phalanx and adjacent cellulitis. *Continue on Vancomycin 1 g and Cefepime 1 g as ordered. *WBC trended down, currently 9.3 *Infectious disease consult is appreciated and we will follow their recommendations *Underwent amputation of the hallux left metatarsophalangeal joint level on 01/22/2025 Left Toe Necrotic ulcer *Underwent amputation of the hallux left metatarsophalangeal joint level on 01/22/2025 *Wound care team is on the case Hypokalemia POA *Potassium level 3.1 today * urine random sodium 36, random chloride 77, urine random potassium 9, HC03 29, likely renal potassium loss in setting of metabolic alkalosis * no signs of volume depletion * pending Aldosterone-Renin ratio results. If Aldosterone is elevated and renin is low, this would be suggestive of an Adrenal issue. Will then order a CT of the Adrenal gland to rule out either an adenoma or a hyperplasia and manage accordingly. * Replace electrolytes as needed per protocol * continue potassium 20 mEq p.o. b.i.d. as per nephrology consult recommendation Hyperglycemia secondary to Uncontrolled diabetes POA *Blood glucose 130. Currently on low-dose sliding scale AC &HS. *Continue Insulin Glargine 20 units subQ HS Hypertension *Continue with Amlodipine 5mg PO daily Morbid Obesity *Educated patient about the need to lose weight *Physical therapy ordered. Continue on Famotidine 20 mg p.o. bid for GI prophylaxis continue heparin SQ 5000 q.8h DVT prophylaxis Continue PRN medications for fever,pain,cough, nausea and vomiting Repeat labs in a.m. LYUBOV SALAS MD Jan 23, 2025 13:23
--- NOTE | 2025-01-23 16:00 | PN ---
INFECTIOUS DISEASE PROGRESS NOTE Date of Service: Jan 23, 2025 SUBJECTIVE: This 39 year old male patient is being seen today at bedside. Awake, alert and oriented x3. Has no fever or chills. No nausea or vomiting. Patient denies chest pain, shortness of breath. Patient remains on antibiotics tolerating well. Continues with wound care to left lower extremities. No acute event reports over night. PHYSICAL EXAM EYES: Anicteric. Pupils equal and reactive. HENT: No oral thrush seen, moist Oral mucosa. NECK: Supple, no JVD or thyromegaly. LUNGS: Good air entry. No rales, no rhonchi. CARDIOVASCULAR: S1, S2 regular. No murmur heard. ABDOMEN: Soft, non tender, bowel sounds present, no organomegaly. CENTRAL NERVOUS SYSTEM: Awake, alert, oriented x 3. SKIN: No rashes, no swelling. Left great toe diabetic ulcer, statu post amputation LYMPHATICS: No peripheral lymphadenopathy. MUSCULOSKELETAL: No joint swelling, erythema or tenderness. EXTREMITIES: No cyanosis or clubbing. Left lower extremity swelling and erythema. BACK: No deformity, no pressure ulcer. GENITOURINARY: No dysuria or hematuria. Vital Sign (Last 12 Hours) 01/23/25 01/23/25 09:27 12:50 Temp 98.2 98.1 Pulse 79 81 Resp 20 16 B/P (MAP) 132/69 128/76 Pulse Ox 100 99 Intake & Output (last 24hrs) 01/22/25 01/22/25 01/23/25 15:00 23:00 07:00 Intake Total 125.0 ml 700 ml Output Total 2600 ml 500 ml Balance 125.0 ml -1900 ml -500 ml LABS: Laboratory: Test 01/23/25 15:51 01/23/25 06:18 01/22/25 03:22 Range/Units Whole Blood Glucose 161 H 70-110 MG/DL White Blood Count 10.7 4.8-10.8 K/uL Red Blood Count 4.70 4.50-6.20 MIL/uL Hemoglobin 13.2 L 14.0-18.0 g/dL Hematocrit 38.7 L 42-54 % Mean Corpuscular Volume 82.3 79-99 fL Mean Corpuscular Hemoglobin 28.1 27.0-33.0 pg Mean Corpuscular Hemoglobin Concent 34.1 32.0-36.0 g/dL Red Cell Distribution Width 14.9 11.0-15.5 % Platelet Count 283 130-400 K/uL Mean Platelet Volume 9.4 7.5-10.5 fL Nucleated Red Blood Cells 0.0 0.0-0.19 % Sodium Level 140 136-145 mmol/L Potassium Level 3.4 L 3.5-5.1 mmol/L Chloride Level 106 101-111 mmol/L Carbon Dioxide Level 29 21-32 mmol/L Blood Urea Nitrogen 5 L 7-18 mg/dL Creatinine 0.7 0.5-1.3 mg/dL Glomerular Filtration Rate Calc 120 >90 mL/min Random Glucose 119 H 70-105 mg/dL Total Calcium 8.2 L 8.5-10.1 mg/dL Magnesium Level 1.90 1.80-2.40 mg/dL Free Thyroxine (T4) Direct 1.05 0.76-1.46 ng/dL Free Triiodothyronine (T3) pg/mL 2.25 2.18-3.98 pg/mL Prothrombin Time 11.0 9.6-11.6 SEC Prothromb Time International Ratio 1.04 0.85-1.15 Activated Partial Thromboplast Time 29.3 26.3-35.5 SEC Uric Acid 4.2 2.6-7.2 mg/dL Phosphorus Level 2.8 2.5-4.9 mg/dL Total Bilirubin 0.5 0.2-1.0 mg/dL Aspartate Amino Transf (AST/SGOT) 17 10-37 U/L Alanine Aminotransferase (ALT/SGPT) 16 12-78 U/L Alkaline Phosphatase 61 50-136 U/L Total Protein 6.9 6.0-8.3 g/dL Albumin 1.9 L 3.5-5.0 g/dL Thyroid Stimulating Hormone (TSH) 7.05 #H 0.36-3.74 uIU/mL ASSESSMENT: 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 Polymicrobial infection. Infection with Methicillin-susceptible Staphylococcus aureus. Leukocytosis, improving. Hypokalemia. Recent mechanical fall. Uncontrolled Diabetes mellitus, hemoglobin A1c 10.8. Morbid obesity. PLAN: Continue cefepime. Continue vancomycin per pharmacy protocol. Continue Hypokalemia protocol. Continue antidiabetics. Continue pain management. Continue wound care. This case was reviewed and discussed with my supervising physician and the above assessment and plan was formulated and agreed upon. LETY AMOS [employer]BI[employer] EQUIPMENT OPERATOR Jan 23, 2025 16:00
[2025-01-23 16:41] VITALS: BP 37/70; PULSE 70; RESP 16; TEMP 98.7
--- NOTE | 2025-01-23 18:16 | PN ---
FOLLOWUP PROGRESS NOTE SUBJECTIVE: A 40-year-old male with a history of diabetes mellitus and hypertension. He presented to the hospital with nonhealing wound to the foot. The patient's workup is ongoing per Podiatry. He has had acute on chronic renal failure in the hospital as well as significant electrolyte abnormalities including hypokalemia, and the patient is being seen as a followup visit for all of the above. REVIEW OF SYSTEMS: CONSTITUTIONAL: He is complaining of pain. HEENT: No change in vision. No change in hearing. CARDIOVASCULAR: There is no current chest pain or palpitations. PULMONARY: There is no shortness of breath. GASTROINTESTINAL: He is tolerating a diet. MUSCULOSKELETAL: As described above. PHYSICAL EXAMINATION: VITAL SIGNS: Blood pressure 134/76, pulse in the 70s, afebrile. GENERAL: Chronically ill male, young, lying in bed on the medical floor. HEENT: Head is atraumatic. Pupils are equal, roving to light. Oropharynx is without exudate. Nares clear. NECK: There is no JVP. There is no thyromegaly. No mass. CARDIOVASCULAR: Regular. There is no S3 or S4 gallop. LUNGS: Coarse with equal thoracic movement. ABDOMEN: Soft, nondistended and nontender. EXTREMITIES: Reveal no clubbing or cyanosis. NEUROLOGICAL: He is awake. He is alert. LABORATORY DATA: Hemoglobin 13, hematocrit 38. Sodium 140, potassium 3.4, BUN 5, creatinine 0.7. IMPRESSION: * Acute on chronic renal failure. * Electrolyte abnormalities. * Nonhealing wounds. * Diabetes mellitus. PLAN: The patient's creatinine has remained fairly stable. The patient's potassium is much improved. The patient remains on the antibiotics as well as the local wound care. Workup is ongoing per Podiatry. All labs can be repeated in the morning. TID: [id number] RECEIPT: [id number]
[2025-01-23 20:00] VITALS: BP 126/76; PULSE 85; RESP 18; TEMP 99.2
[2025-01-24] VITALS (7 sets, daily range): BP systolic 117–128; BP diastolic 56–79; PULSE 57–84; RESP 16–19; TEMP 97.7–98.9; O2SAT 96
[2025-01-24] MEDS: DiphenhydrAMINE HCL 50 MG/ML VIAL IV PRN (13:20)
[2025-01-24] MEDS: VANCOMYCIN 1.5 GM/250 ML BAG 250 ML IV SCH (14:08)
--- NOTE | 2025-01-24 19:21 | PN ---
[facility] PROGRESS NOTE Date of Service: Jan 24, 2025 Time of Service: 19:18 SUBJECTIVE: HPI This is a 39 year old male,morbidly obese with past medical history of diabetes and hypertension who was brought by EMS to the ED for complaints of left leg pain which started 2 weeks ago.Patient reports he fell at his driveway 2 weeks ago , landed on his left knee and did not seek medical attention and last Saturday he noticed his left leg has been swollen and has been wearing his shoes for too long he said and that his left big toe has been rubbing on his shoes and he also noticed he has been having difficulty walking because of pain on his left leg and left foot so he decided to come to the Ed for evaluation.Reportedly upon arrival to ER,staff took out his left foot from his shoes and it has a very offensive odor his left foot is red and big toe is gangrenous and left lower extremity has an ascending redness and swelling. Patient states that he is not very complaint with his medications and has not been on his medications. 01/15/25: Lying in bed with dad at bedside at the time of evaluation. Alert and oriented and in no obvious distress. Denies any chest pain, shortness of breath, palpitations, fever or chills. Vital signs T98.2, P 98, 22, BP 160/97, oxygen saturation 97 on room air. Labs WBC 14down from 17.3 yesterday, HB 14.8 HCT 42.2,Neutrophil 79.8, ESR 118, CRP 191.8, potassium 2.6 replace as per protocol, magnesium 2.1, lactic acid 1.7, hemoglobin A1c 10.8, glucose 250. X- ray of the left foot showed no acute displaced fracture or dislocation. There is soft tissue swelling. Evaluation of osteomyelitis is limited due to poor positioning. Degenerative changes seen. Venous Doppler was negative for DVT, blood cultures were ordered, still pending the results. Patient is currently on vancomycin 1 g and cefepime 1 g. Infectious disease consult has been placed, pending recommendations. Consult for podiatry has also been placed. Patient with gangrenous left great, ordered an arterial Doppler of the left lower extremities to assess circulation. Pending blood culture results. 01/16/25: Lying in bed at bedside at the time of evaluation. Alert and oriented and in no obvious distress. Denies any chest pain, shortness of breath, palpitations, fever or chills. Vital signs T97.9, P 89 R 20, BP 153/80, oxygen 99. Labs sodium 134,. potassium 2.3 Replace as per protocol, chloride 99, BUN 11, creatinine 0.9, glucose 290. Patient is currently on low-dose insulin sliding scale. Ordered insulin glargine 20 units HS. Blood cultures done yesterday showed no growth, wound cultures positive for Gram-negative rods. Patient is currently on Vancomycin and Cefepime. MRI of the foot showed findings suggestive of osteomyelitis involving the 1st distal phalanx with adjacent cellulitis. Infectious Disease consult has been placed, pending the recommendations. Podiatry consult has also been placed, pending their recommendations as well. Arterial Doppler showed atherosclerotic disease otherwise normal triphasic arterial waveforms. 01/17/25 patient was seen and examined. Case discussed with the RN. He denies fever or chills. He has been treated for osteomyelitis of the 1st distal phalanx. Appreciate Infectious Disease recommendations. Podiatry help us well 01/18/2025: Lying in bed at bedside at the time of evaluation. Alert and oriented and in no obvious distress. Denies any chest pain, shortness of breath, palpitations, fever or chills. Vital signs T97.7, P 82 R 22, BP 138/70, oxygen 97. Labs sodium 137,. potassium 2.8 Replace as per protocol, chloride 99, BUN 8, creatinine 0.9, glucose 211. Wound cultures of the left great toe was positive for microbial infection: Citrobacter freundii, Enterobacter cloacae, Enterococcus fecalis, Staph aureus, Streptococcus Gp G. Continue with Vancomycin and Cefepime as ordered. Infectious disease is on the case. Physical therapy ordered for evaluation and management. Continue with wound care as ordered. 01/19/2025:Lying in bed at bedside at the time of evaluation. Alert and orien ruchi and in no obvious distress. Denies any chest pain, shortness of breath, palpitations, fever or chills. Vital signs T98.8, P 79 R 18, BP 126/64, oxygen 94. Labs were unremarkable except for potassium at 2.8. Patient has been hypokalemic but has refused IV potassium. Explained to him the reasons why IV is preferred when potassium is very low. Verbalized understanding. Patient was seen by the certified pest control technician yesterday who recommended amputation of the left great toe. The risks and benefits were explained but patient refused to have the procedure done at this time. 01/20/25: Lying in bed at bedside at the time of evaluation. Alert and oriented and in no obvious distress. Denies any chest pain, shortness of breath, palpitations, fever or chills. Vital signs T98.8, P 79 R 18, BP 126/64, oxygen 94. Vital signs T 99, P 82, R 19, BP 160/93, O2 sat 99%. Patient's BP continues to be elevated as well as potassium which remains low 2.7 despite adequate replacement. Plan is to work up other causes of hypokalemia . Ordered an Aldosterone-Renin ratio. If Aldosterone is elevated and renin is low, this would be suggestive of an Adrenal issue. Will then order a CT of the Adrenal gland to rule out either an adenoma or a hyperplasia and manage ac cordingly. Patient had a change of mind about amputation of the left great toe after explaining the risks involved. Patient is now scheduled for amputation of the left great toe tomorrow 01/21/[address] Banerjee. 01/21/25: Lying in bed at bedside at the time of evaluation. Alert and oriented and in no obvious distress. Denies any chest pain, shortness of breath, palpitations, fever or chills. Vital signs T97.3, P 78 R 18, BP 130/71, oxygen 100. Patients potassium remains at 2.9 today despite adequate replacement as per protocol. Had ordered Aldosterone and renin ration , pending the results. Nephrology consult also placed. Pending their recommendations. Patient was scheduled for an amputation of the left great toe, by Dr Banerjee today however the procedure was cancelled because patient had received a dose of Heparin at 4am this morning. Procedure rescheduled for tomorrow 01/22/25. 01/22/2025 Patient is seen and examined at the bedside. No acute events last night. He underwent amputation of the hallux left metatarsophalangeal joint level today. He mentions that the pain at the surgical site is mild and tolerable. He denies fever, chills, chest pain, shortness of breath, nausea, vomiting, palpitations. Vitals temperature 97.3, respiratory rate 16, pulse rate 78, blood pressure 133/71. Labs WBC 9.3, hemoglobin decreased from 13.1- 12.8, sodium 140, potassium decreased from 3.3-3.1, TSH high at 7.05. Urine random chloride 77, urine random sodium 36, urine random potassium 9, PT INR normal. Renal ultrasound revealed normal findings. 01/23/25 patient was seen and examined at the bedside. No acute events overnight reported per nursing. He is status post amputation of the hallux left meta tarsal phalangeal joint. He is doing well pain is tolerable. His labs and vitals are stable 01/24/25 patient was seen and examined at the bedside. No acute events overnight reported per nursing. He is status post amputation of the hallux left meta tarsal phalangeal joint/reports rash/erythematous maculopapular rash especially on leg/back/monitor /benadryl for itching/Consider allergic rash? REVIEW OF SYSTEMS CONSTITUTIONAL: Denies fevers, chills, or night sweats. No unintentional weight loss reported. NEUROLOGICAL: Denies headache, amaurosis fugax, motor weakness, sensory deficit, vertigo/spinning sensation, gait abnormalities, or tremors. ENT: No hearing loss, otalgia, otorrhea, rhinitis, rhinorrhea, hoarseness, or sore throat. CARDIOVASCULAR: Denies any exertional angina, dyspnea on exertion, orthopnea, paroxysmal nocturnal dyspnea, palpitations, life-threatening arrhythmias, claudication. PULMONARY: Denies any shortness of breath, cough, phlegm/sputum, hemoptysis, pleuritic chest pain. SLEEP: Denies morning headaches, daytime somnolence or napping. Denies difficulty falling asleep, staying asleep, waking from sleep. Denies knowledge of snoring. GASTROINTESTINAL: Denies any type of dysphagia to either liquids or solids. Denies nausea, vomiting, pyrosis, early satiety, abdominal pain, diarrhea, constipation, or changes in stool consistency or caliber. Denies coffee-ground emesis, hematemesis, hematochezia, or melanotic stools. GENITOURINARY: Denies frequency, urgency, nocturia, hematuria or incontinence (Storage/Irritative symptoms.) Low urinary stream, straining to void, urinary intermittency or hesitancy, splitting of the voiding stream, terminal dribbling. ENDOCRINOLOGIC: Denies polyuria, polydipsia, polyphagia or heat/cold intolerances. HEMATOLOGIC: Denies thrombophilia/previous clots, or coagulopathy/bleeding disorders. ONCOLOGIC: Denies personal history of malignancy. DERMATOLOGIC: Denies rashes or pruritus. Extremities: Left knee pain, redness and swelling of LLE, left great toe wound PSYCHIATRIC: Denies any suicidal or homicidal ideation. Denies hallucinations. PHYSICAL EXAM GENERAL APPEARANCE: The patient is awake, alert, and oriented, in no acute cardiopulmonary distress. NEUROLOGICAL: Cranial nerves II-XII grossly intact. Motor is 5/5 in bilateral upper and lower extremities proximal to distal. No sensory deficits. HEENT: Face is symmetric. Pupils are equal and reactive. Extraocular movements are intact. NECK: Supple. No JVD. No thyromegaly. No submental, submandibular, pre-/postau ricular, occipital or supraclavicular lymphadenopathy. CHEST: Normal chest expansion. No Telemetry. LUNGS: Absence of any rales, rhonchi or any wheezing. CARDIOVASCULAR: Regular. S1 and S2 normal. No appreciable rubs, murmurs or gallops. ABDOMEN: Soft, nontender, and nondistended. There is no rebound, voluntary guarding, or rigidity. : Deferred. No Muller. EXTREMITIES: Improving Left lower extremity erythema and swelling. Wrapped left foot post amputation of the hallux left metatarsophalangeal joint level SKIN: No skin breakdown. Vital Signs (last 8hr) Date Time Temp Pulse Resp B/P (MAP) Pulse Ox O2 Delivery O2 Flow Rate FiO2 01/24/25 16:08 99.0 80 18 125/73 96 01/24/25 12:38 98.1 82 16 117/76 99 LABS: Laboratory: Test 01/24/25 15:24 01/24/25 12:11 01/23/25 06:18 Range/Units Whole Blood Glucose 157 H 70-110 MG/DL Vancomycin Level Trough 19.6 # 10.0-20.0 UG/ML White Blood Count 10.7 4.8-10.8 K/uL Red Blood Count 4.70 4.50-6.20 MIL/uL Hemoglobin 13.2 L 14.0-18.0 g/dL Hematocrit 38.7 L 42-54 % Mean Corpuscular Volume 82.3 79-99 fL Mean Corpuscular Hemoglobin 28.1 27.0-33.0 pg Mean Corpuscular Hemoglobin Concent 34.1 32.0-36.0 g/dL Red Cell Distribution Width 14.9 11.0-15.5 % Platelet Count 283 130-400 K/uL Mean Platelet Volume 9.4 7.5-10.5 fL Nucleated Red Blood Cells 0.0 0.0-0.19 % Sodium Level 140 136-145 mmol/L Potassium Level 3.4 L 3.5-5.1 mmol/L Chloride Level 106 101-111 mmol/L Carbon Dioxide Level 29 21-32 mmol/L Blood Urea Nitrogen 5 L 7-18 mg/dL Creatinine 0.7 0.5-1.3 mg/dL Glomerular Filtration Rate Calc 120 >90 mL/min Random Glucose 119 H 70-105 mg/dL Total Calcium 8.2 L 8.5-10.1 mg/dL Magnesium Level 1.90 1.80-2.40 mg/dL Free Thyroxine (T4) Direct 1.05 0.76-1.46 ng/dL Free Triiodothyronine (T3) pg/mL 2.25 2.18-3.98 pg/mL Current Medications Medications (Trade) Dose Ordered Sig/Silverio Route PRN Reason Start Time Stop Time Status Last Admin Dose Admin Acetaminophen (TYLenol 325MG TAB) 650 mg Q4H PRN PO MILD PAIN (1-3) 01/14/25 22:30 02/13/25 22:29 01/15/25 12:15 650 MG Acetaminophen (TYLenol 325MG TAB) 650 mg Q6H PRN PO TEMPERATURE GREATER THAN 101.5 01/14/25 22:30 02/13/25 22:29 01/17/25 09:41 650 MG Acetaminophen/ Codeine Phosphate (TYLenol-coDEINE TAB) 2 tab Q4H PRN PO MODERATE PAIN (4-6) 01/15/25 14:00 02/14/25 13:59 01/18/25 01:16 2 TAB Amlodipine Besylate (NorvASC 5MG TAB) 5 mg DAILY PO 01/17/25 09:00 02/16/25 08:59 01/24/25 08:37 5 MG Cefepime HCl (MAXipime 1 GM vial) 1 gm Q8H IVPB 01/15/25 06:00 01/18/25 13:31 DC 01/18/25 13:00 1 GM Cefepime HCl (MAXipime 1 GM vial) 1 gm Q8H IVPB 01/18/25 16:00 01/25/25 15:59 01/24/25 16:40 1 GM Dextrose (D50w) 50 ml AD PRN IV HYPOGLYCEMIA PROTOCOL 01/14/25 22:30 02/13/25 22:29 Diphenhydramine HCl (BENAdryl INJ) 12.5 mg Q6H PRN IV ITCHING 01/24/25 11:30 02/23/25 11:29 01/24/25 13:20 12.5 MG Famotidine (Pepcid 20mg Tab) 20 mg BID PO 01/15/25 09:00 02/14/25 08:59 01/24/25 08:37 20 MG Glucagon (Glucagon 1mg Kit) 1 mg AD PRN IM HYPOGLYCEMIA PROTOCOL 01/14/25 22:30 02/13/25 22:29 Heparin Sodium (Porcine) (HEParin 5,000 UNIT VIAL) 5,000 unit Q8H SQ 01/17/25 12:00 02/16/25 11:59 01/24/25 13:31 5,000 UNIT Hydralazine HCl (APRESOLine 20MG INJ) 10 mg Q6H PRN IV For:SBP above 160;DBP above 90 01/14/25 22:30 02/13/25 22:29 01/19/25 22:59 10 MG Insulin Glargine (LANtus 100 UNITS/ML 10 ML VIAL) 20 units HS SQ 01/16/25 21:00 02/15/25 20:59 01/23/25 21:06 20 UNITS Insulin Human Regular (humuLIN R 100 UNIT/ML 3ML) INSULIN SLIDING SCAL... ACHS SQ 01/15/25 07:30 02/14/25 07:29 01/23/25 21:07 6 UNIT Magnesium Sulfate 50 ml @ 0 mls/hr PROTOCOL PRN IV OTHER [SEE ORDER COMMENTS] 01/14/25 22:30 02/13/25 22:01/22/25 10:01 20 MLS/HR Morphine Sulfate (morPHINE 2MG SYG) 2 mg Q4H PRN IV SEVERE PAIN (7-10) 01/14/25 22:30 01/20/25 01:29 DC Ondansetron HCl (zoFRAN 4MG INJ) 4 mg Q6H PRN IV NAUSEA/VOMITING 01/14/25 22:30 02/13/25 22:29 Potassium Chloride 100 ml @ 50 mls/hr AD PRN IV POTASSIUM PROTOCOL 01/21/25 07:30 01/21/25 07:07 DC Potassium Chloride 100 ml @ 100 mls/hr AD PRN IV POTASSIUM PROTOCOL 01/14/25 22:30 02/13/25 22:29 01/22/25 05:47 100 MLS/HR Potassium Chloride (K-Dur/Klor-Con 20meq) 20 meq AD PRN PO POTASSIUM PROTOCOL 01/14/25 22:30 02/13/25 22:29 01/22/25 15:54 20 MEQ Potassium Chloride (K-Dur/Klor-Con 20meq) 20 meq BID PO 01/21/25 21:00 02/20/25 20:59 01/24/25 08:44 20 MEQ Potassium Chloride (KCl 10% Elixir 20meq/15ml) 20 meq AD PRN PO POTASSIUM PROTOCOL 01/14/25 22:30 02/13/25 22:29 01/17/25 00:24 20 MEQ Simethicone (Mylicon) 80 mg PCHS PO 01/18/25 21:00 02/17/25 20:59 01/24/25 17:42 80 MG Sodium Chloride 1,000 ml @ 100 mls/hr Q10H IV 01/14/25 22:30 02/13/25 22:29 01/24/25 13:16 100 MLS/HR Vancomycin HCl 250 ml @ 125 mls/hr ONCE IV 01/14/25 22:30 01/14/25 22:52 DC Vancomycin HCl 250 ml @ 125 mls/hr Q12H IV 01/15/25 00:00 01/24/25 02:59 DC 01/24/25 01:01 125 MLS/HR Vancomycin HCl 250 ml @ 125 mls/hr Q12H IV 01/24/25 14:00 02/14/25 13:59 01/24/25 14:08 125 MLS/HR Vancomycin HCl (Vancomycin Protocol) 1 each AD IV 01/14/25 23:00 01/28/25 22:59 DIAGNOSTICS / RADIOLOGY: [ ] ASSESSMENT: Osteomyelitis involving the left hallux, s/p amputation of the hallux left metatarsophalangeal joint level on 01/22/2025 Left leg cellulitis POA Left toe necrotic ulcer POA Hypokalemia POA Pseudohyponatremia secondary to hyperglycemia POA Hyperglycemia secondary to Uncontrolled diabetes POA Status post fall injury at home two weeks ago POA Hypertension POA Morbid obesity POA PLAN: Osteomyelitis involving the left hallux Left leg cellulitis POA * MRI of the left foot showed findings suggestive of osteomyelitis involving the 1st distal phalanx and adjacent cellulitis. *Continue on Vancomycin 1 g and Cefepime 1 g as ordered. *WBC trended down, currently 9.3 *Infectious disease consult is appreciated and we will follow their recommendations *Underwent amputation of the hallux left metatarsophalangeal joint level on 01/22/2025 Left Toe Necrotic ulcer *Underwent amputation of the hallux left metatarsophalangeal joint level on 01/22/2025 *Wound care team is on the case Hypokalemia POA *Potassium level 3.1 today * urine random sodium 36, random chloride 77, urine random potassium 9, HC03 29, likely renal potassium loss in setting of metabolic alkalosis * no signs of volume depletion * pending Aldosterone-Renin ratio results. If Aldosterone is elevated and renin is low, this would be suggestive of an Adrenal issue. Will then order a CT of the Adrenal gland to rule out either an adenoma or a hyperplasia and manage accordingly. * Replace electrolytes as needed per protocol * continue potassium 20 mEq p.o. b.i.d. as per nephrology consult recommendation Hyperglycemia secondary to Uncontrolled diabetes POA *Blood glucose 130. Currently on low-dose sliding scale AC &HS. *Continue Insulin Glargine 20 units subQ HS Hypertension *Continue with Amlodipine 5mg PO daily Morbid Obesity *Educated patient about the need to lose weight *Physical therapy ordered. Continue on Famotidine 20 mg p.o. bid for GI prophylaxis continue heparin SQ 5000 q.8h DVT prophylaxis Continue PRN medications for fever,pain,cough, nausea and vomiting Repeat labs in a.m. LYUBOV SALAS MD Jan 24, 2025 19:21
--- NOTE | 2025-01-24 20:20 | PN ---
FOLLOWUP PROGRESS NOTE SUBJECTIVE: A 40-year-old male with a history of diabetes mellitus and hypertension, who presented to the hospital with a nonhealing wound to the foot. He has had acute on chronic renal failure in the hospital as well as significant hypokalemia. The patient's renal function has remained fairly stable. The patient's potassium has improved and he is being seen as a followup visit for all of the above. REVIEW OF SYSTEMS: CONSTITUTIONAL: Complains of pain. HEENT: No change in vision. No change in hearing. CARDIOVASCULAR: There is no current chest pain or palpitations. PULMONARY: There is no shortness of breath. GASTROINTESTINAL: The patient tolerating a diet. MUSCULOSKELETAL: Complains of weakness. OBJECTIVE: VITAL SIGNS: Blood pressure 121/56, pulse in the 50s, he is afebrile. GENERAL: He is a chronically ill male, young, lying in bed on the medical floor. HEENT: Head is atraumatic. Pupils are equal, roving to light. Oropharynx is without exudate. Nares clear. NECK: There is no JVP. There is no thyromegaly. No masses. CARDIOVASCULAR: Regular. There is no S3, S4 or gallop. LUNGS: Coarse with equal thoracic movement. ABDOMEN: Soft, nondistended, nontender. EXTREMITIES: No clubbing, no cyanosis. NEUROLOGICAL: He is awake, he is alert. LABORATORY DATA: Sodium 140, potassium 3.4, BUN 5, creatinine is 0.7. IMPRESSION: * Acute on chronic renal failure. * Electrolyte abnormalities. * Nonhealing wounds. * Diabetes mellitus. * Hypertension. PLAN: The patient's renal function is much improved. The patient's hypokalemia is also improved. The patient remains on the antibiotics as well as the local wound care. The patient is encouraged with this therapy. We will continue to follow the patient closely. TID: [id number] RECEIPT: [id number]
[2025-01-24] MEDS: LACTATED RINGERS 1000ML 1,000 ML IV SCH (21:06)
[2025-01-25] VITALS (7 sets, daily range): BP systolic 121–153; BP diastolic 63–77; PULSE 77–86; RESP 17–19; TEMP 97.8–98.3; O2SAT 98
[2025-01-25] MEDS: ALTEplase 2MG VIAL 2 MG/VIAL VIAL IVCATH ONE (02:18)
[2025-01-25 06:07] LABS: CREATININE 0.7 mg/dL (0.5-1.3); MAGNESIUM 1.7 mg/dL (1.80-2.40); POTASSIUM 3.5 mmol/L (3.5-5.1)
[2025-01-25 06:09] LABS: HEMATOCRIT 35.6 % (42-54); MEAN CORPUSCULAR HGB CONC 34.6 g/dL (32.0-36.0); MEAN CORPUSCULAR VOLUME 81.1 fL (79-99); RED BLOOD CELL COUNT(AUTO) 4.39 MIL/uL (4.50-6.20); WHITE BLOOD COUNT (AUTO) 9.1 K/uL (4.8-10.8)
--- NOTE | 2025-01-25 14:53 | PN ---
NEPHROLOGY PROGRESS NOTE Date/Time Patient Seen: Jan 25, 2025 SUBJECTIVE: This is a 39 year old male,morbidly obese with past medical history of diabetes and hypertension who was brought by EMS to the ED for complaints of left leg pain He has been in the hospital for several days Pending left great toe amputation, rescheduled due to hypokalemia. We have been consulted for hypokalemia Renal function is stable Electrolytes are stable Continues on potassium supplements He continues on antibiotics S/P Amputation of the hallux left metatarsophalangeal joint level. He was seen in the medical floor, in no acute distress REVIEW OF SYSTEMS: GENERAL: Negative for any nausea, vomiting, fevers, chills, or weight loss. NEUROLOGIC: Negative for any blurry vision, blind spots, double vision, facial asymmetry, dysphagia, dysarthria, hemiparesis, hemisensory deficits, vertigo, ataxia. HEENT: Negative for any head trauma, neck trauma, neck stiffness, photophobia, phonophobia, sinusitis, rhinitis. CARDIAC: Negative for any chest pain, dyspnea on exertion, paroxysmal nocturnal dyspnea, peripheral edema. PULMONARY: Negative for any shortness of breath, wheezing, COPD, or TB exposure. GASTROINTESTINAL: Negative for any abdominal pain, nausea, vomiting, bright red blood per rectum, melena. GENITOURINARY: Negative for any dysuria, hematuria, incontinence. INTEGUMENTARY: Negative for any rashes, cuts, insect bites. RHEUMATOLOGIC: Negative for any joint pains, photosensitive rashes, history of vasculitis or kidney problems. HEMATOLOGIC: Negative for any abnormal bruising, frequent infections or bleeding. Vital Signs (last 8hr) Date Time Temp Pulse Resp B/P (MAP) Pulse Ox O2 Delivery O2 Flow Rate FiO2 01/25/25 12:00 98.1 82 19 126/76 98 01/25/25 08:00 97.9 86 19 124/77 96 Room Air PHYSICAL EXAM: GENERAL: Alert and oriented x 3. No acute distress. Well-nourished. EYES: EOMI. Anicteric. HENT: Moist mucous membranes. No scleral icterus. No cervical lymphadenopathy. LUNGS: Clear to auscultation bilaterally. No accessory muscle use. CARDIOVASCULAR: Regular rate and rhythm. No murmur. No JVD. ABDOMEN: Soft, non-tender and non-distended. No palpable masses. EXTREMITIES: No edema. Non-tender. SKIN: No rashes or lesions. Warm. NEUROLOGIC: No focal neurological deficits. CN II-XII grossly intact, but not individually tested. PSYCHIATRIC: Cooperative. Appropriate mood and affect. Current Medications Medications (Trade) Dose Ordered Sig/Silverio Route Start Time Stop Time Status Last Admin Dose Admin Amlodipine Besylate (NorvASC 5MG TAB) 5 mg DAILY PO 01/17/25 09:00 02/16/25 08:59 01/25/25 11:30 5 MG Cefepime HCl (MAXipime 1 GM vial) 1 gm Q8H IVPB 01/15/25 06:00 01/18/25 13:31 DC 01/18/25 13:00 1 GM Cefepime HCl (MAXipime 1 GM vial) 1 gm Q8H IVPB 01/18/25 16:00 01/25/25 14:43 DC 01/25/25 11:31 1 GM Famotidine (Pepcid 20mg Tab) 20 mg BID PO 01/15/25 09:00 02/14/25 08:59 01/25/25 11:31 20 MG Heparin Sodium (Porcine) (HEParin 5,000 UNIT VIAL) 5,000 unit Q8H SQ 01/17/25 12:00 02/16/25 11:59 01/25/25 12:53 5,000 UNIT Insulin Glargine (LANtus 100 UNITS/ML 10 ML VIAL) 20 units HS SQ 01/16/25 21:00 02/15/25 20:59 01/24/25 21:12 20 UNITS Insulin Human Regular (humuLIN R 100 UNIT/ML 3ML) INSULIN SLIDING SCAL... ACHS SQ 01/15/25 07:30 02/14/25 07:29 01/24/25 21:13 6 UNIT Lactated Ringer's 1,000 ml @ 100 mls/hr Q10H IV 01/24/25 20:00 02/23/25 19:59 01/25/25 11:31 100 MLS/HR Potassium Chloride (K-Dur/Klor-Con 20meq) 20 meq BID PO 01/21/25 21:00 02/20/25 20:59 01/25/25 11:31 20 MEQ Simethicone (Mylicon) 80 mg PCHS PO 01/18/25 21:00 02/17/25 20:59 01/25/25 12:49 80 MG Sodium Chloride 1,000 ml @ 100 mls/hr Q10H IV 01/14/25 22:30 01/24/25 19:51 DC 01/24/25 13:16 100 MLS/HR Vancomycin HCl 250 ml @ 125 mls/hr ONCE IV 01/14/25 22:30 01/14/25 22:52 DC Vancomycin HCl 250 ml @ 125 mls/hr Q12H IV 01/15/25 00:00 01/24/25 02:59 DC 01/24/25 01:01 125 MLS/HR Vancomycin HCl 250 ml @ 125 mls/hr Q12H IV 01/24/25 14:00 02/14/25 13:59 01/25/25 14:05 125 MLS/HR Vancomycin HCl (Vancomycin Protocol) 1 each AD IV 01/14/25 23:00 01/28/25 22:59 LABORATORY: [ ] Hematology Labs: Test 01/25/25 05:45 Range/Units White Blood Count 9.1 4.8-10.8 K/uL Red Blood Count 4.39 L 4.50-6.20 MIL/uL Hemoglobin 12.3 L 14.0-18.0 g/dL Hematocrit 35.6 L 42-54 % Mean Corpuscular Volume 81.1 79-99 fL Mean Corpuscular Hemoglobin 28.0 27.0-33.0 pg Mean Corpuscular Hemoglobin Concent 34.6 32.0-36.0 g/dL Red Cell Distribution Width 15.0 11.0-15.5 % Platelet Count 242 130-400 K/uL Mean Platelet Volume 9.5 7.5-10.5 fL Nucleated Red Blood Cells 0.0 0.0-0.19 % Chemistry Labs: Test 01/25/25 11:37 01/25/25 05:45 Range/Units Whole Blood Glucose 98 70-110 MG/DL Sodium Level 141 136-145 mmol/L Potassium Level 3.5 3.5-5.1 mmol/L Chloride Level 108 101-111 mmol/L Carbon Dioxide Level 29 21-32 mmol/L Blood Urea Nitrogen 8 7-18 mg/dL Creatinine 0.7 0.5-1.3 mg/dL Glomerular Filtration Rate Calc 120 >90 mL/min Random Glucose 144 H 70-105 mg/dL Total Calcium 8.0 L 8.5-10.1 mg/dL Magnesium Level 1.70 L 1.80-2.40 mg/dL DIAGNOSTICS / RADIOLOGY: REASON: PICC LINE PLACEMENT ORDERING PHYSICIAN: FERN LEONARDO MD PROCEDURE: CXR1VW - CHEST 1VW Exam Type: CHEST 1VW Clinical Information: PICC LINE PLACEMENT Comparison: None Findings: Right PICC line is noted with tip within the mid superior vena cava and there are no other interval changes. IMPRESSION: Right PICC line as noted. DICTATED BY: VIKTORIYA GONZALEZ MD DATE: 01/21/25 1007 REASON: LEFT FOOT WOUND ORDERING PHYSICIAN: FERN LEONARDO MD PROCEDURE: FT LT WO - MR FOOT LEFT WO MR FOOT LEFT WO HISTORY: Wound to great toe COMPARISON: None TECHNIQUE: MRI of the left foot was performed utilizing multiple pulse sequences in axial, coronal and sagittal planes. Patient was not given contrast through intravenous route. FINDINGS: Abnormal increased signal intensity is seen involving the first distal phalanx consistent with osteomyelitis. Adjacent cellulitis changes are seen. No signs of fracture or dislocation is seen. IMPRESSION: 1. Findings suggestive of osteomyelitis involving the first distal phalanx with adjacent cellulitis. DICTATED BY: DEEPALI KRISHNA MD DATE: 01/15/25 1717 REASON: gangrenous left great toe ORDERING PHYSICIAN: FERN LEONARDO MD PROCEDURE: ART U LE - US ARTERIAL UNILA LOW EXT DUPL US ARTERIAL UNILA LOW EXT DUPL HISTORY: Gangrene to left great toe COMPARISON: None TECHNIQUE: Left lower extremity arterial Doppler ultrasound study was performed. FINDINGS: Normal triphasic arterial waveforms are noted in the left common femoral, deep femoral, superficial femoral, popliteal, posterior tibial and dorsalis pedal arteries. On the left, the peak systolic velocity of the common femoral artery is 146 cm/s, the proximal femoral artery is 146 cm/s, the mid femoral artery is 128 cm/s, the distal femoral artery is 150 cm/s, the proximal popliteal artery is 99 cm/s, the distal popliteal artery is 38 cm/s, the anterior tibial artery is 105 cm/s, the posterior tibial artery artery is 73 cm/s,and the dorsalis pedal artery is 142 cm/s. IMPRESSION: 1. Atherosclerotic disease. 2. Otherwise normal triphasic arterial waveforms noted of the left lower extremity artery system. Low velocity with hyperemic flow is seen in the left posterior tibial artery. DICTATED BY: DEEPALI KRISHNA MD DATE: 01/15/25 174 REASON: sepsis ORDERING PHYSICIAN: CASSIDY CHATMAN PROCEDURE: CXR1VW - CHEST 1VW CHEST 1VW HISTORY: Sepsis COMPARISON: 05/10/2011 FINDINGS: A frontal projection of the chest was obtained. No acute pulmonary infiltrates is seen. The heart is borderline enlarged. Degenerative changes are seen. Prominent interstitial markings are seen. No evidence of aortic calcification is seen. IMPRESSION: 1. No acute pulmonary infiltrate is seen. DICTATED BY: DEEPALI KRISHNA MD DATE: 01/14/252102 REASON: swelling redness ORDERING PHYSICIAN: CASSIDY CHATMAN PROCEDURE: VENOUS UNI - US VENOUS DOPPLER UNILATERAL US VENOUS DOPPLER UNILATERAL HISTORY: Swelling COMPARISON: None TECHNIQUE: Left lower extremity venous Doppler ultrasound study was performed. FINDINGS: The left common femoral, femoral, popliteal, and posterior tibial veins are visualized. Normal flow with augmentation and compressibilities are demonstrated. Left greater saphenous vein is patent. IMPRESSION: 1. No evidence of deep venous thrombosis is seen. DICTATED BY: DEEPALI KRISHNA MD DATE: 01/14/252108 REASON: pain ORDERING PHYSICIAN: CASSIDY CHATMAN BACK DIGGER OPERATOR PROCEDURE: KNEE 3V LT - KNEE 3VWS LT KNEE 3VWS LT HISTORY: Pain COMPARISON: None TECHNIQUE: 3 images of the left knee were obtained. FINDINGS: There is no acute displaced fracture or dislocation. IMPRESSION: 1. Findings as described above. DICTATED BY: DEEPALI KRISHNA MD DATE: 01/14/252105 REASON: pain ORDERING PHYSICIAN: CASSIDY CHATMAN BACK DIGGER OPERATOR PROCEDURE: FT 3VW LT - FOOT COMP 3+VWS LT FOOT COMP 3+VWS LT HISTORY: Pain COMPARISON: None TECHNIQUE: 3 images of the left foot were obtained. FINDINGS: There is no acute displaced fracture or dislocation. There is soft tissue swelling. Evaluation for osteomyelitis is limited radiographs. The study is limited due to poor positioning. Degenerative changes are seen. IMPRESSION: 1. Findings as described above. DICTATED BY: DEEPALI KRISHNA MD DATE: 01/14/252104 ASSESSMENT: Hypokalemia Osteomyelitis involving the 1st distal phalanx Left leg cellulitis Left toe necrotic ulcer Pseudo hyponatremia Diabetes mellitus type 2 Hypertension Obesity PLAN: Labs, diagnostic, radiologic exams reviewed and interpreted by myself and supervising physician. We have reviewed external records in detail Continue with potassium chloride 20 mEq p.o. b.i.d. Continue with the potassium protocol Pending plasma renin activity and aldosterone Require close monitoring of renal function and electrolytes Order CBC, CMP, and electrolytes in am Continue with antibiotics BiPAP as necessary, for respiratory distress Monitor blood pressure adjust medication doses as needed Avoid hypotensive episodes May use Dilaudid 0.5 mg IV every 6 hours as needed for severe pain Monitor blood sugars Strict intake, output, and daily weight should be monitored Please renally adjust medications Avoid nephrotoxic and nonsteroidal drugs Avoid contrast if possible Will continue to monitor renal function, anemia, electrolytes Treatment plan discussed with patient Questions were answered We have discussed with the other team physicians in detail about the care plan We will continue to monitor the patient closely ATTESTATION BY PHYSICIAN I have seen and examined the patient. I reviewed the documentation, medical decision making, and treatment plan as noted by the mid-level provider above. I agree with the findings and plan of care. ROSEMARY CASAS MD, [facility] Jan 25, 2025 14:53
--- NOTE | 2025-01-25 15:00 | PN ---
[facility] PROGRESS NOTE Date of Service: Jan 25, 2025 Time of Service: 14:48 SUBJECTIVE: HPI This is a 39 year old male,morbidly obese with past medical history of diabetes and hypertension who was brought by EMS to the ED for complaints of left leg pain which started 2 weeks ago.Patient reports he fell at his driveway 2 weeks ago , landed on his left knee and did not seek medical attention and last Saturday he noticed his left leg has been swollen and has been wearing his shoes for too long he said and that his left big toe has been rubbing on his shoes and he also noticed he has been having difficulty walking because of pain on his left leg and left foot so he decided to come to the Ed for evaluation.Reportedly upon arrival to ER,staff took out his left foot from his shoes and it has a very offensive odor his left foot is red and big toe is gangrenous and left lower extremity has an ascending redness and swelling. Patient states that he is not very complaint with his medications and has not been on his medications. 01/15/25: Lying in bed with dad at bedside at the time of evaluation. Alert and oriented and in no obvious distress. Denies any chest pain, shortness of breath, palpitations, fever or chills. Vital signs T98.2, P 98, 22, BP 160/97, oxygen saturation 97 on room air. Labs WBC 14down from 17.3 yesterday, HB 14.8 HCT 42.2,Neutrophil 79.8, ESR 118, CRP 191.8, potassium 2.6 replace as per protocol, magnesium 2.1, lactic acid 1.7, hemoglobin A1c 10.8, glucose 250. X- ray of the left foot showed no acute displaced fracture or dislocation. There is soft tissue swelling. Evaluation of osteomyelitis is limited due to poor positioning. Degenerative changes seen. Venous Doppler was negative for DVT, blood cultures were ordered, still pending the results. Patient is currently on vancomycin 1 g and cefepime 1 g. Infectious disease consult has been placed, pending recommendations. Consult for podiatry has also been placed. Patient with gangrenous left great, ordered an arterial Doppler of the left lower extremities to assess circulation. Pending blood culture results. 01/16/25: Lying in bed at bedside at the time of evaluation. Alert and oriented and in no obvious distress. Denies any chest pain, shortness of breath, palpitations, fever or chills. Vital signs T97.9, P 89 R 20, BP 153/80, oxygen 99. Labs sodium 134,. potassium 2.3 Replace as per protocol, chloride 99, BUN 11, creatinine 0.9, glucose 290. Patient is currently on low-dose insulin sliding scale. Ordered insulin glargine 20 units HS. Blood cultures done yesterday showed no growth, wound cultures positive for Gram-negative rods. Patient is currently on Vancomycin and Cefepime. MRI of the foot showed findings suggestive of osteomyelitis involving the 1st distal phalanx with adjacent cellulitis. Infectious Disease consult has been placed, pending the recommendations. Podiatry consult has also been placed, pending their recommendations as well. Arterial Doppler showed atherosclerotic disease otherwise normal triphasic arterial waveforms. 01/17/25 patient was seen and examined. Case discussed with the RN. He denies fever or chills. He has been treated for osteomyelitis of the 1st distal phalanx. Appreciate Infectious Disease recommendations. Podiatry help us well 01/18/2025: Lying in bed at bedside at the time of evaluation. Alert and oriented and in no obvious distress. Denies any chest pain, shortness of breath, palpitations, fever or chills. Vital signs T97.7, P 82 R 22, BP 138/70, oxygen 97. Labs sodium 137,. potassium 2.8 Replace as per protocol, chloride 99, BUN 8, creatinine 0.9, glucose 211. Wound cultures of the left great toe was positive for microbial infection: Citrobacter freundii, Enterobacter cloacae, Enterococcus fecalis, Staph aureus, Streptococcus Gp G. Continue with Vancomycin and Cefepime as ordered. Infectious disease is on the case. Physical therapy ordered for evaluation and management. Continue with wound care as ordered. 01/19/2025:Lying in bed at bedside at the time of evaluation. Alert and orien ruchi and in no obvious distress. Denies any chest pain, shortness of breath, palpitations, fever or chills. Vital signs T98.8, P 79 R 18, BP 126/64, oxygen 94. Labs were unremarkable except for potassium at 2.8. Patient has been hypokalemic but has refused IV potassium. Explained to him the reasons why IV is preferred when potassium is very low. Verbalized understanding. Patient was seen by the slitter and rewinder machine operator yesterday who recommended amputation of the left great toe. The risks and benefits were explained but patient refused to have the procedure done at this time. 01/20/25: Lying in bed at bedside at the time of evaluation. Alert and oriented and in no obvious distress. Denies any chest pain, shortness of breath, palpitations, fever or chills. Vital signs T98.8, P 79 R 18, BP 126/64, oxygen 94. Vital signs T 99, P 82, R 19, BP 160/93, O2 sat 99%. Patient's BP continues to be elevated as well as potassium which remains low 2.7 despite adequate replacement. Plan is to work up other causes of hypokalemia . Ordered an Aldosterone-Renin ratio. If Aldosterone is elevated and renin is low, this would be suggestive of an Adrenal issue. Will then order a CT of the Adrenal gland to rule out either an adenoma or a hyperplasia and manage ac cordingly. Patient had a change of mind about amputation of the left great toe after explaining the risks involved. Patient is now scheduled for amputation of the left great toe tomorrow 01/21/[address] Banerjee. 01/21/25: Lying in bed at bedside at the time of evaluation. Alert and oriented and in no obvious distress. Denies any chest pain, shortness of breath, palpitations, fever or chills. Vital signs T97.3, P 78 R 18, BP 130/71, oxygen 100. Patients potassium remains at 2.9 today despite adequate replacement as per protocol. Had ordered Aldosterone and renin ration , pending the results. Nephrology consult also placed. Pending their recommendations. Patient was scheduled for an amputation of the left great toe, by Dr Banerjee today however the procedure was cancelled because patient had received a dose of Heparin at 4am this morning. Procedure rescheduled for tomorrow 01/22/25. 01/22/2025 Patient is seen and examined at the bedside. No acute events last night. He underwent amputation of the hallux left metatarsophalangeal joint level today. He mentions that the pain at the surgical site is mild and tolerable. He denies fever, chills, chest pain, shortness of breath, nausea, vomiting, palpitations. Vitals temperature 97.3, respiratory rate 16, pulse rate 78, blood pressure 133/71. Labs WBC 9.3, hemoglobin decreased from 13.1- 12.8, sodium 140, potassium decreased from 3.3-3.1, TSH high at 7.05. Urine random chloride 77, urine random sodium 36, urine random potassium 9, PT INR normal. Renal ultrasound revealed normal findings. 01/23/25 patient was seen and examined at the bedside. No acute events overnight reported per nursing. He is status post amputation of the hallux left meta tarsal phalangeal joint. He is doing well pain is tolerable. His labs and vitals are stable 01/24/25 patient was seen and examined at the bedside. No acute events overnight reported per nursing. He is status post amputation of the hallux left meta tarsal phalangeal joint/reports rash/erythematous maculopapular rash especially on leg/back/monitor /benadryl for itching/Consider allergic rash? 01/25/25 - patient is a 40-year-old male with a past medical history of obesity, type 2 diabetes, hypertension, and acute on chronic renal failure who is currently status post left hallux, postop day. He reports Toprol postsurgical pain and has been able to ambulate to and from to the restroom by weight-bearing on the heel. No new complaints at this time. He denies fever, chills, drainage, or increased pain from surgical site. Patient continues on vancomycin cefepime was discontinued due to rash. Wound is healing appropriately with no signs of infection or dehiscence. We will continue IV vancomycin and monitor trough levels and renal function daily. Continue local wound care with daily dressing changes. REVIEW OF SYSTEMS CONSTITUTIONAL: Denies fevers, chills, or night sweats. No unintentional weight loss reported. NEUROLOGICAL: Denies headache, amaurosis fugax, motor weakness, sensory deficit, vertigo/spinning sensation, gait abnormalities, or tremors. ENT: No hearing loss, otalgia, otorrhea, rhinitis, rhinorrhea, hoarseness, or sore throat. CARDIOVASCULAR: Denies any exertional angina, dyspnea on exertion, orthopnea, paroxysmal nocturnal dyspnea, palpitations, life-threatening arrhythmias, claudication. PULMONARY: Denies any shortness of breath, cough, phlegm/sputum, hemoptysis, pleuritic chest pain. SLEEP: Denies morning headaches, daytime somnolence or napping. Denies difficulty falling asleep, staying asleep, waking from sleep. Denies knowledge of snoring. GASTROINTESTINAL: Denies any type of dysphagia to either liquids or solids. Denies nausea, vomiting, pyrosis, early satiety, abdominal pain, diarrhea, constipation, or changes in stool consistency or caliber. Denies coffee-ground emesis, hematemesis, hematochezia, or melanotic stools. GENITOURINARY: Denies frequency, urgency, nocturia, hematuria or incontinence (Storage/Irritative symptoms.) Low urinary stream, straining to void, urinary intermittency or hesitancy, splitting of the voiding stream, terminal dribbling. ENDOCRINOLOGIC: Denies polyuria, polydipsia, polyphagia or heat/cold intolerances. HEMATOLOGIC: Denies thrombophilia/previous clots, or coagulopathy/bleeding dis orders. ONCOLOGIC: Denies personal history of malignancy. DERMATOLOGIC: Denies rashes or pruritus. Extremities: Left knee pain, redness and swelling of LLE, left great toe wound PSYCHIATRIC: Denies any suicidal or homicidal ideation. Denies hallucinations. PHYSICAL EXAM GENERAL APPEARANCE: The patient is awake, alert, and oriented, in no acute car diopulmonary distress. NEUROLOGICAL: Cranial nerves II-XII grossly intact. Motor is 5/5 in bilateral upper and lower extremities proximal to distal. No sensory deficits. HEENT: Face is symmetric. Pupils are equal and reactive. Extraocular movements are intact. NECK: Supple. No JVD. No thyromegaly. No submental, submandibular, pre- /postauricular, occipital or supraclavicular lymphadenopathy. CHEST: Normal chest expansion. No Telemetry. LUNGS: Absence of any rales, rhonchi or any wheezing. CARDIOVASCULAR: Regular. S1 and S2 normal. No appreciable rubs, murmurs or gallops. ABDOMEN: Soft, nontender, and nondistended. There is no rebound, voluntary guarding, or rigidity. : Deferred. No Muller. EXTREMITIES: Improving Left lower extremity erythema and swelling. Wrapped left foot post amputation of the hallux left metatarsophalangeal joint level SKIN: No skin breakdown. Vital Signs (last 8hr) Date Time Temp Pulse Resp B/P (MAP) Pulse Ox O2 Delivery O2 Flow Rate FiO2 01/25/25 12:00 98.1 82 19 126/76 98 01/25/25 08:00 97.9 86 19 124/77 96 Room Air LABS: Laboratory: Test 01/25/25 11:37 01/25/25 05:45 01/24/25 12:11 Range/Units Whole Blood Glucose 98 70-110 MG/DL White Blood Count 9.1 4.8-10.8 K/uL Red Blood Count 4.39 L 4.50-6.20 MIL/uL Hemoglobin 12.3 L 14.0-18.0 g/dL Hematocrit 35.6 L 42-54 % Mean Corpuscular Volume 81.1 79-99 fL Mean Corpuscular Hemoglobin 28.0 27.0-33.0 pg Mean Corpuscular Hemoglobin Concent 34.6 32.0-36.0 g/dL Red Cell Distribution Width 15.0 11.0-15.5 % Platelet Count 242 130-400 K/uL Mean Platelet Volume 9.5 7.5-10.5 fL Nucleated Red Blood Cells 0.0 0.0-0.19 % Sodium Level 141 136-145 mmol/L Potassium Level 3.5 3.5-5.1 mmol/L Chloride Level 108 101-111 mmol/L Carbon Dioxide Level 29 21-32 mmol/L Blood Urea Nitrogen 8 7-18 mg/dL Creatinine 0.7 0.5-1.3 mg/dL Glomerular Filtration Rate Calc 120 >90 mL/min Random Glucose 144 H 70-105 mg/dL Total Calcium 8.0 L 8.5-10.1 mg/dL Magnesium Level 1.70 L 1.80-2.40 mg/dL Vancomycin Level Trough 19.6 # 10.0-20.0 UG/ML Current Medications Medications (Trade) Dose Ordered Sig/Silverio Route PRN Reason Start Time Stop Time Status Last Admin Dose Admin Acetaminophen (TYLenol 325MG TAB) 650 mg Q4H PRN PO MILD PAIN (1-3) 01/14/25 22:30 02/13/25 22:29 01/15/25 12:15 650 MG Acetaminophen (TYLenol 325MG TAB) 650 mg Q6H PRN PO TEMPERATURE GREATER THAN 101.5 01/14/25 22:30 02/13/25 22:29 01/17/25 09:41 650 MG Acetaminophen/ Codeine Phosphate (TYLenol-coDEINE TAB) 2 tab Q4H PRN PO MODERATE PAIN (4-6) 01/15/25 14:00 02/14/25 13:59 01/18/25 01:16 2 TAB Amlodipine Besylate (NorvASC 5MG TAB) 5 mg DAILY PO 01/17/25 09:00 02/16/25 08:59 01/25/25 11:30 5 MG Cefepime HCl (MAXipime 1 GM vial) 1 gm Q8H IVPB 01/15/25 06:00 01/18/25 13:31 DC 01/18/25 13:00 1 GM Cefepime HCl (MAXipime 1 GM vial) 1 gm Q8H IVPB 01/18/25 16:00 01/25/25 14:43 DC 01/25/25 11:31 1 GM Dextrose (D50w) 50 ml AD PRN IV HYPOGLYCEMIA PROTOCOL 01/14/25 22:30 02/13/25 22:29 Diphenhydramine HCl (BENAdryl INJ) 12.5 mg Q6H PRN IV ITCHING 01/24/25 11:30 02/23/25 11:29 01/24/25 13:20 12.5 MG Famotidine (Pepcid 20mg Tab) 20 mg BID PO 01/15/25 09:00 02/14/25 08:59 01/25/25 11:31 20 MG Glucagon (Glucagon 1mg Kit) 1 mg AD PRN IM HYPOGLYCEMIA PROTOCOL 01/14/25 22:30 02/13/25 22:29 Heparin Sodium (Porcine) (HEParin 5,000 UNIT VIAL) 5,000 unit Q8H SQ 01/17/25 12:00 02/16/25 11:59 01/25/25 12:53 5,000 UNIT Hydralazine HCl (APRESOLine 20MG INJ) 10 mg Q6H PRN IV For:SBP above 160;DBP above 90 01/14/25 22:30 02/13/25 22:29 01/19/25 22:59 10 MG Insulin Glargine (LANtus 100 UNITS/ML 10 ML VIAL) 20 units HS SQ 01/16/25 21:00 02/15/25 20:59 01/24/25 21:12 20 UNITS Insulin Human Regular (humuLIN R 100 UNIT/ML 3ML) INSULIN SLIDING SCAL... ACHS SQ 01/15/25 07:30 02/14/25 07:29 01/24/25 21:13 6 UNIT Lactated Ringer's 1,000 ml @ 100 mls/hr Q10H IV 01/24/25 20:00 02/23/25 19:59 01/25/25 11:31 100 MLS/HR Magnesium Sulfate 50 ml @ 0 mls/hr PROTOCOL PRN IV OTHER [SEE ORDER COMMENTS] 01/14/25 22:30 02/13/25 22:29 01/22/25 10:01 20 MLS/HR Morphine Sulfate (morPHINE 2MG SYG) 2 mg Q4H PRN IV SEVERE PAIN (7-10) 01/14/25 22:30 01/20/25 01:29 DC Ondansetron HCl (zoFRAN 4MG INJ) 4 mg Q6H PRN IV NAUSEA/VOMITING 01/14/25 22:30 02/13/25 22:29 Potassium Chloride 100 ml @ 50 mls/hr AD PRN IV POTASSIUM PROTOCOL 01/21/25 07:30 01/21/25 07:07 DC Potassium Chloride 100 ml @ 100 mls/hr AD PRN IV POTASSIUM PROTOCOL 01/14/25 22:30 02/13/25 22:29 01/22/25 05:47 100 MLS/HR Potassium Chloride (K-Dur/Klor-Con 20meq) 20 meq AD PRN PO POTASSIUM PROTOCOL 01/14/25 22:30 02/13/25 22:29 01/25/25 12:50 20 MEQ Potassium Chloride (K-Dur/Klor-Con 20meq) 20 meq BID PO 01/21/25 21:00 02/20/25 20:59 01/25/25 11:31 20 MEQ Potassium Chloride (KCl 10% Elixir 20meq/15ml) 20 meq AD PRN PO POTASSIUM PROTOCOL 01/14/25 22:30 02/13/25 22:29 01/17/25 00:24 20 MEQ Simethicone (Mylicon) 80 mg PCHS PO 01/18/25 21:00 02/17/25 20:59 01/25/25 12:49 80 MG Sodium Chloride 1,000 ml @ 100 mls/hr Q10H IV 01/14/25 22:30 01/24/25 19:51 DC 01/24/25 13:16 100 MLS/HR Vancomycin HCl 250 ml @ 125 mls/hr ONCE IV 01/14/25 22:30 01/14/25 22:52 DC Vancomycin HCl 250 ml @ 125 mls/hr Q12H IV 01/15/25 00:00 01/24/25 02:59 DC 01/24/25 01:01 125 MLS/HR Vancomycin HCl 250 ml @ 125 mls/hr Q12H IV 01/24/25 14:00 02/14/25 13:59 01/25/25 14:05 125 MLS/HR Vancomycin HCl (Vancomycin Protocol) 1 each AD IV 01/14/25 23:00 01/28/25 22:59 DIAGNOSTICS / RADIOLOGY: [ ] ASSESSMENT: Osteomyelitis involving the left hallux, s/p amputation of the hallux left metatarsophalangeal joint level on 01/22/2025 Left leg cellulitis POA Left toe necrotic ulcer POA Hypokalemia POA Pseudohyponatremia secondary to hyperglycemia POA Hyperglycemia secondary to Uncontrolled diabetes POA Status post fall injury at home two weeks ago POA Hypertension POA Morbid obesity POA PLAN: Osteomyelitis involving the left hallux Left leg cellulitis POA * MRI of the left foot showed findings suggestive of osteomyelitis involving the 1st distal phalanx and adjacent cellulitis. *Continue on Vancomycin 1 g; discontinued Cefepime 1 g secondary rash *Infectious disease consult is appreciated and we will follow their r ecommendations *Underwent amputation of the hallux left metatarsophalangeal joint level on 01/22/2025 Left Toe Necrotic ulcer *Underwent amputation of the hallux left metatarsophalangeal joint level on 01/22/2025 *Wound care team is on the case Hypokalemia POA * no signs of volume depletion * Replace electrolytes as needed per protocol * continue potassium 20 mEq p.o. b.i.d. as per nephrology consult recommendation Hyperglycemia secondary to Uncontrolled diabetes POA *Blood glucose 130. Currently on low-dose sliding scale AC &HS. *Continue Insulin Glargine 20 units subQ HS Hypertension *Continue with Amlodipine 5mg PO daily Morbid Obesity *Educated patient about the need to lose weight *Physical therapy ordered. Continue on Famotidine 20 mg p.o. bid for GI prophylaxis continue heparin SQ 5000 q.8h DVT prophylaxis Continue PRN medications for fever,pain,cough, nausea and vomiting Repeat labs in a.m. ATTESTATION BY PHYSICIAN I have seen and examined the patient. I reviewed the documentation, medical decision making, and treatment plan as noted by the resident provider above. I agree with the findings and plan of care. César Maynard MD, [facility] N Jan 25, 2025 15:00
--- NOTE | 2025-01-25 16:03 | PN ---
INFECTIOUS DISEASE PROGRESS NOTE Date of Service: Jan 25, 2025 SUBJECTIVE: This is a 40 year old male patient was seen and examined at bedside in room 426. Patient is status post amputation of the left great toe on 01/22/2025. No fever, temperature is 97.9 and a WBC of 9.1. Patient developed new body rash mostly to the left lower extremity and entire back. No dyspnea observe and saturating 96-98% on room air. We will discontinue cefepime and continue the vancomycin. No nausea or vomiting reported. PHYSICAL EXAM EYES: Anicteric. Pupils equal and reactive. HENT: No oral thrush seen, moist Oral mucosa. NECK: Supple, no JVD or thyromegaly. LUNGS: Good air entry. No rales, no rhonchi. CARDIOVASCULAR: S1, S2 regular. No murmur heard. ABDOMEN: Soft, non tender, bowel sounds present, no organomegaly. CENTRAL NERVOUS SYSTEM: Awake, alert, oriented x 3. SKIN: No rashes, no swelling. Left great toe diabetic ulcer, statu post amputation. New onset body rash. LYMPHATICS: No peripheral lymphadenopathy. MUSCULOSKELETAL: No joint swelling, erythema or tenderness. EXTREMITIES: No cyanosis or clubbing. Left lower extremity swelling and erythema. BACK: No deformity, no pressure ulcer. GENITOURINARY: No dysuria or hematuria. Vital Sign (Last 12 Hours) 01/25/25 01/25/25 01/25/25 04:00 08:00 12:00 Temp 97.9 97.9 98.1 Pulse 77 86 82 Resp 17 19 19 B/P (MAP) 121/63 124/77 126/76 Pulse Ox 100 96 98 O2 Delivery Room Air Room Air Intake & Output (last 24hrs) 01/24/25 01/24/25 01/25/25 14:59 22:59 06:59 Intake Total 50.0 ml 300.0 ml Output Total 600 ml Balance 50.0 ml -300.0 ml LABS: Laboratory: Test 01/25/25 14:54 01/25/25 05:45 01/24/25 12:11 Range/Units Whole Blood Glucose 169 #H 70-110 MG/DL White Blood Count 9.1 4.8-10.8 K/uL Red Blood Count 4.39 L 4.50-6.20 MIL/uL Hemoglobin 12.3 L 14.0-18.0 g/dL Hematocrit 35.6 L 42-54 % Mean Corpuscular Volume 81.1 79-99 fL Mean Corpuscular Hemoglobin 28.0 27.0-33.0 pg Mean Corpuscular Hemoglobin Concent 34.6 32.0-36.0 g/dL Red Cell Distribution Width 15.0 11.0-15.5 % Platelet Count 242 130-400 K/uL Mean Platelet Volume 9.5 7.5-10.5 fL Nucleated Red Blood Cells 0.0 0.0-0.19 % Sodium Level 141 136-145 mmol/L Potassium Level 3.5 3.5-5.1 mmol/L Chloride Level 108 101-111 mmol/L Carbon Dioxide Level 29 21-32 mmol/L Blood Urea Nitrogen 8 7-18 mg/dL Creatinine 0.7 0.5-1.3 mg/dL Glomerular Filtration Rate Calc 120 >90 mL/min Random Glucose 144 H 70-105 mg/dL Total Calcium 8.0 L 8.5-10.1 mg/dL Magnesium Level 1.70 L 1.80-2.40 mg/dL Vancomycin Level Trough 19.6 # 10.0-20.0 UG/ML ASSESSMENT: Left great toe diabetic ulcer with osteomyelitis, s/p amputation on 01/22/2025. New onset body rash possible allergic reaction to cefepime. Polymicrobial infection. Infection with Methicillin-susceptible Staphylococcus aureus. Leukocytosis, resolved. Hypokalemia, resolving. Recent mechanical fall. Uncontrolled Diabetes mellitus, hemoglobin A1c 10.8. Morbid obesity. PLAN: Discontinue cefepime. Continue vancomycin per pharmacy protocol. Continue Hypokalemia protocol. Continue antidiabetics. Continue pain management. Continue wound care. This case was reviewed and discussed with my supervising physician and the above assessment and plan was formulated and agreed upon. ATTESTATION BY PHYSICIAN I have seen and examined the patient. I reviewed the documentation, medical decision making, and treatment plan as noted by the mid-level provider above. I agree with the findings and plan of care. MAY ESCOBEDO MD, [facility] Jan 25, 2025 16:03
--- NOTE | 2025-01-25 17:41 | PN ---
PROGRESS NOTE Date of Service: Jan 25, 2025 Time of Service: 17:37 SUBJECTIVE: This 39 years old male was seen for follow status post amputation of the hallux [place] drain in place dressing dry and intact. Postoperative day 3. [place] removed today chief complaint of rash on lower extremity and back. REVIEW OF SYSTEMS CONSTITUTIONAL: Denies fever, chills, or fatigue. Morbid obesity HEAD/FACE: No signs of trauma. EENT: Denies eye pain, blurred vision, double vision, or light sensitivity. RESPIRATORY: Denies shortness of breath, cough, wheezing CARDIOVASCULAR: Denies chest pain, palpitation, syncope GASTROINTESTINAL/ABDOMINAL: Denies abdominal pain, constipation, diarrhea, nausea or vomiting GENITOURINARY: Denies dysuria or hematuria. MUSCULOSKELETAL: Denies joint pain, tenderness secondary to trauma to the left lower extremity but no fractures or dislocations or x-ray examination. INTEGUMENTARY: Left foot wound status post amputation of hallux left. Elayne drain in place. Sutures in place. Lower extremity rash and back rash. NEUROLOGICAL/PSYCH: Denies anxiety, depression, heat or cold intolerance. PHYSICAL EXAM EYES: Anicteric. Pupils equal and reactive. HENT: No oral thrush seen, moist Oral mucosa NECK: Supple, no JVD or thyromegaly. LUNGS: Good air entry. No rales, no rhonchi. CARDIOVASCULAR: S1, S2 regular. No murmur heard. ABDOMEN: Soft, non tender, bowel sounds present, no organomegaly CENTRAL NERVOUS SYSTEM: Awake, alert, oriented x 3. No focal deficits. SKIN: Wound left foot status post hallux amputation [place] drain in place sutures in place lower extremity rash and back rash on the left lower extremity. Sutures in place [place] removed. LYMPHATICS: No peripheral lymphadenopathy MUSCULOSKELETAL: No joint swelling, erythema or tenderness. EXTREMITIES: Left lower extremity hematomas secondary to the fall and edema on bilateral lower extremity lipedema BACK: No deformity, no pressure ulcer. GENITOURINARY: No dysuria or hematuria Vital Signs (last 8hr) Date Time Temp Pulse Resp B/P (MAP) Pulse Ox O2 Delivery O2 Flow Rate FiO2 01/25/25 16:00 98.1 79 19 153/69 98 Room Air 01/25/25 12:00 98.1 82 19 126/76 98 LABS: Laboratory: Test 01/25/25 14:54 01/25/25 05:45 01/24/25 12:11 Range/Units Whole Blood Glucose 169 #H 70-110 MG/DL White Blood Count 9.1 4.8-10.8 K/uL Red Blood Count 4.39 L 4.50-6.20 MIL/uL Hemoglobin 12.3 L 14.0-18.0 g/dL Hematocrit 35.6 L 42-54 % Mean Corpuscular Volume 81.1 79-99 fL Mean Corpuscular Hemoglobin 28.0 27.0-33.0 pg Mean Corpuscular Hemoglobin Concent 34.6 32.0-36.0 g/dL Red Cell Distribution Width 15.0 11.0-15.5 % Platelet Count 242 130-400 K/uL Mean Platelet Volume 9.5 7.5-10.5 fL Nucleated Red Blood Cells 0.0 0.0-0.19 % Sodium Level 141 136-145 mmol/L Potassium Level 3.5 3.5-5.1 mmol/L Chloride Level 108 101-111 mmol/L Carbon Dioxide Level 29 21-32 mmol/L Blood Urea Nitrogen 8 7-18 mg/dL Creatinine 0.7 0.5-1.3 mg/dL Glomerular Filtration Rate Calc 120 >90 mL/min Random Glucose 144 H 70-105 mg/dL Total Calcium 8.0 L 8.5-10.1 mg/dL Magnesium Level 1.70 L 1.80-2.40 mg/dL Vancomycin Level Trough 19.6 # 10.0-20.0 UG/ML DIAGNOSTICS / RADIOLOGY: MRI positive for osteomyelitis of the distal phalanx of the great toe left foot ASSESSMENT: Diabetic foot ulcer with infection of the great toe left foot. Trauma secondary to fall two weeks ago left lower extremity. Diabetes Morbid obesity. Osteomyelitis great toe left foot Postop day 3. 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 Possible allergies to latex PLAN: Continue local wound care continue IV antibiotics. Dressing change daily. [place] drain was removed. Monitor progress of his rash at this time antibiotics changes has been done. Continue rest and elevation. Minimal ambulation. JUDE MCGRAW DPM Jan 25, 2025 17:40
[2025-01-26] VITALS (7 sets, daily range): BP systolic 122–147; BP diastolic 71–80; PULSE 76–84; RESP 18–20; TEMP 97.8–98.4; O2SAT 98–99
[2025-01-26 04:23] LABS: BASOPHILS # (AUTO) 0.01 K/uL (0.00-0.20); BASOPHILS % (AUTO) 0.1 % (0.0-5.0); EOSINOPHILS # (AUTO) 0.31 K/uL (0.00-0.70); EOSINOPHILS % (AUTO) 3.5 % (0.0-8.0); HEMATOCRIT 37.3 % (42-54); IMMATURE GRANULOCYTE ABSOLUTE 0.04 K/uL (0-1); LYMPHOCYTES # (AUTO) 1.4 K/uL (1.0-4.8); LYMPHOCYTES % (AUTO) 15.8 % (21.0-51.0); MEAN CORPUSCULAR HEMOGLOBIN 27.5 pg (27.0-33.0); MEAN CORPUSCULAR VOLUME 83.3 fL (79-99); MONOCYTES # (AUTO) 0.5 K/uL (0.1-1.0); MONOCYTES % (AUTO) 5.1 % (3.0-13.0); NEUTROPHILS # (AUTO) 6.6 K/uL (1.8-7.7); PLATELET COUNT (AUTO) 236 K/uL (130-400); RED BLOOD CELL COUNT(AUTO) 4.48 MIL/uL (4.50-6.20); RED CELL DISTRIBUTION WIDTH 14.9 % (11.0-15.5); WHITE BLOOD COUNT (AUTO) 8.7 K/uL (4.8-10.8)
[2025-01-26 04:27] LABS: CREATININE 0.8 mg/dL (0.5-1.3); MAGNESIUM 1.7 mg/dL (1.80-2.40); POTASSIUM 3.5 mmol/L (3.5-5.1)
[2025-01-26 10:27] LABS: ALDOSTERONE/RENIN RATIO <2.5; RENIN ACTIVITY 0.404
--- NOTE | 2025-01-26 11:02 | PN ---
[facility] PROGRESS NOTE Date of Service: Jan 26, 2025 Time of Service: 11:01 SUBJECTIVE: HPI This is a 39 year old male,morbidly obese with past medical history of diabetes and hypertension who was brought by EMS to the ED for complaints of left leg pain which started 2 weeks ago.Patient reports he fell at his driveway 2 weeks ago , landed on his left knee and did not seek medical attention and last Saturday he noticed his left leg has been swollen and has been wearing his shoes for too long he said and that his left big toe has been rubbing on his shoes and he also noticed he has been having difficulty walking because of pain on his left leg and left foot so he decided to come to the Ed for evaluation.Reportedly upon arrival to ER,staff took out his left foot from his shoes and it has a very offensive odor his left foot is red and big toe is gangrenous and left lower extremity has an ascending redness and swelling. Patient states that he is not very complaint with his medications and has not been on his medications. 01/15/25: Lying in bed with dad at bedside at the time of evaluation. Alert and oriented and in no obvious distress. Denies any chest pain, shortness of breath, palpitations, fever or chills. Vital signs T98.2, P 98, 22, BP 160/97, oxygen saturation 97 on room air. Labs WBC 14down from 17.3 yesterday, HB 14.8 HCT 42.2,Neutrophil 79.8, ESR 118, CRP 191.8, potassium 2.6 replace as per protocol, magnesium 2.1, lactic acid 1.7, hemoglobin A1c 10.8, glucose 250. X- ray of the left foot showed no acute displaced fracture or dislocation. There is soft tissue swelling. Evaluation of osteomyelitis is limited due to poor positioning. Degenerative changes seen. Venous Doppler was negative for DVT, blood cultures were ordered, still pending the results. Patient is currently on vancomycin 1 g and cefepime 1 g. Infectious disease consult has been placed, pending recommendations. Consult for podiatry has also been placed. Patient with gangrenous left great, ordered an arterial Doppler of the left lower extremities to assess circulation. Pending blood culture results. 01/16/25: Lying in bed at bedside at the time of evaluation. Alert and oriented and in no obvious distress. Denies any chest pain, shortness of breath, palpitations, fever or chills. Vital signs T97.9, P 89 R 20, BP 153/80, oxygen 99. Labs sodium 134,. potassium 2.3 Replace as per protocol, chloride 99, BUN 11, creatinine 0.9, glucose 290. Patient is currently on low-dose insulin sliding scale. Ordered insulin glargine 20 units HS. Blood cultures done yesterday showed no growth, wound cultures positive for Gram-negative rods. Patient is currently on Vancomycin and Cefepime. MRI of the foot showed finding s suggestive of osteomyelitis involving the 1st distal phalanx with adjacent cellulitis. Infectious Disease consult has been placed, pending the recommendations. Podiatry consult has also been placed, pending their recommendations as well. Arterial Doppler showed atherosclerotic disease otherwise normal triphasic arterial waveforms. 01/17/25 patient was seen and examined. Case discussed with the RN. He denies fever or chills. He has been treated for osteomyelitis of the 1st distal phalanx. Appreciate Infectious Disease recommendations. Podiatry help us well 01/18/2025: Lying in bed at bedside at the time of evaluation. Alert and oriented and in no obvious distress. Denies any chest pain, shortness of breath, palpitations, fever or chills. Vital signs T97.7, P 82 R 22, BP 138/70, oxygen 97. Labs sodium 137,. potassium 2.8 Replace as per protocol, chloride 99, BUN 8, creatinine 0.9, glucose 211. Wound cultures of the left great toe was positive for microbial infection: Citrobacter freundii, Enterobacter cloacae, Enterococcus fecalis, Staph aureus, Streptococcus Gp G. Continue with Vancomycin and Cefepime as ordered. Infectious disease is on the case. Physical therapy ordered for evaluation and management. Continue with wound care as ordered. 01/19/2025:Lying in bed at bedside at the time of evaluation. Alert and orie nted and in no obvious distress. Denies any chest pain, shortness of breath, palpitations, fever or chills. Vital signs T98.8, P 79 R 18, BP 126/64, oxygen 94. Labs were unremarkable except for potassium at 2.8. Patient has been hypokalemic but has refused IV potassium. Explained to him the reasons why IV is preferred when potassium is very low. Verbalized understanding. Patient was seen by the manager of planning yesterday who recommended amputation of the left great toe. The risks and benefits were explained but patient refused to have the procedure done at this time. 01/20/25: Lying in bed at bedside at the time of evaluation. Alert and oriented and in no obvious distress. Denies any chest pain, shortness of breath, palpitations, fever or chills. Vital signs T98.8, P 79 R 18, BP 126/64, oxygen 94. Vital signs T 99, P 82, R 19, BP 160/93, O2 sat 99%. Patient's BP continues to be elevated as well as potassium which remains low 2.7 despite adequate replacement. Plan is to work up other causes of hypokalemia . Ordered an Aldosterone-Renin ratio. If Aldosterone is elevated and renin is low, this would be suggestive of an Adrenal issue. Will then order a CT of the Adrenal gland to rule out either an adenoma or a hyperplasia and manage a ccordingly. Patient had a change of mind about amputation of the left great toe after explaining the risks involved. Patient is now scheduled for amputation of the left great toe tomorrow 01/21/[address] Banerjee. 01/21/25: Lying in bed at bedside at the time of evaluation. Alert and oriented and in no obvious distress. Denies any chest pain, shortness of breath, palpitations, fever or chills. Vital signs T97.3, P 78 R 18, BP 130/71, oxygen 100. Patients potassium remains at 2.9 today despite adequate replacement as per protocol. Had ordered Aldosterone and renin ration , pending the results. Nephrology consult also placed. Pending their recommendations. Patient was scheduled for an amputation of the left great toe, by Dr Banerjee today however the procedure was cancelled because patient had received a dose of Heparin at 4am this morning. Procedure rescheduled for tomorrow 01/22/25. 01/22/2025 Patient is seen and examined at the bedside. No acute events last night. He underwent amputation of the hallux left metatarsophalangeal joint level today. He mentions that the pain at the surgical site is mild and tolerable. He denies fever, chills, chest pain, shortness of breath, nausea, vomiting, palpitations. Vitals temperature 97.3, respiratory rate 16, pulse rate 78, blood pressure 133/71. Labs WBC 9.3, hemoglobin decreased from 13.1- 12.8, sodium 140, potassium decreased from 3.3-3.1, TSH high at 7.05. Urine random chloride 77, urine random sodium 36, urine random potassium 9, PT INR normal. Renal ultrasound revealed normal findings. 01/23/25 patient was seen and examined at the bedside. No acute events overnight reported per nursing. He is status post amputation of the hallux left meta tarsal phalangeal joint. He is doing well pain is tolerable. His labs and vitals are stable 01/24/25 patient was seen and examined at the bedside. No acute events overnight reported per nursing. He is status post amputation of the hallux left meta tarsal phalangeal joint/reports rash/erythematous maculopapular rash especially on leg/back/monitor /benadryl for itching/Consider allergic rash? 01/25/25 - patient is a 40-year-old male with a past medical history of obesity, type 2 diabetes, hypertension, and acute on chronic renal failure who is current ly status post left hallux, postop day 3. He reports postsurgical pain and has been able to ambulate to and from to the restroom by weight-bearing on the heel. No new complaints at this time. He denies fever, chills, drainage, or increased pain from surgical site. Patient continues on vancomycin, cefepime was discontinued due to rash. Wound is healing appropriately with no signs of infection or dehiscence. We will continue IV vancomycin and monitor trough levels and renal function daily. Continue local wound care with daily dressing changes. 01/26 - patient seen at bedside status post day 4 of left hallux amputation. wound is healing appropriately with no signs of infection or dehiscence. Dressings have been changed daily. [place] drain was removed. No new complaints at the time. Patient is able to ambulate by weight-bearing on he will. Left leg rash shows no signs of spreading but still erythematous and pruritic. We will order venous Doppler to rule out DVT. Patient remains on vancomycin. Continue local wound care with daily dressing changes. We will continue to monitor rash. REVIEW OF SYSTEMS CONSTITUTIONAL: Denies fevers, chills, or night sweats. No unintentional weight loss reported. NEUROLOGICAL: Denies headache, amaurosis fugax, motor weakness, sensory deficit, vertigo/spinning sensation, gait abnormalities, or tremors. ENT: No hearing loss, otalgia, otorrhea, rhinitis, rhinorrhea, hoarseness, or sore throat. CARDIOVASCULAR: Denies any exertional angina, dyspnea on exertion, orthopnea, paroxysmal nocturnal dyspnea, palpitations, life-threatening arrhythmias, claudication. PULMONARY: Denies any shortness of breath, cough, phlegm/sputum, hemoptysis, pleuritic chest pain. SLEEP: Denies morning headaches, daytime somnolence or napping. Denies difficulty falling asleep, staying asleep, waking from sleep. Denies knowledge of snoring. GASTROINTESTINAL: Denies any type of dysphagia to either liquids or solids. Denies nausea, vomiting, pyrosis, early satiety, abdominal pain, diarrhea, constipation, or changes in stool consistency or caliber. Denies coffee-ground emesis, hematemesis, hematochezia, or melanotic stools. GENITOURINARY: Denies frequency, urgency, nocturia, hematuria or incontinence (Storage/Irritative symptoms.) Low urinary stream, straining to void, urinary intermittency or hesitancy, splitting of the voiding stream, terminal dribbling. ENDOCRINOLOGIC: Denies polyuria, polydipsia, polyphagia or heat/cold intolerances. HEMATOLOGIC: Denies thrombophilia/previous clots, or coagulopathy/bleeding disorders. ONCOLOGIC: Denies personal history of malignancy. DERMATOLOGIC: Denies rashes or pruritus. Extremities: Left knee pain, redness and swelling of LLE, left great toe wound PSYCHIATRIC: Denies any suicidal or homicidal ideation. Denies hallucinations. PHYSICAL EXAM GENERAL APPEARANCE: The patient is awake, alert, and oriented, in no acute cardiopulmonary distress. NEUROLOGICAL: Cranial nerves II-XII grossly intact. Motor is 5/5 in bilateral upper and lower extremities proximal to distal. No sensory deficits. HEENT: Face is symmetric. Pupils are equal and reactive. Extraocular movements are intact. NECK: Supple. No JVD. No thyromegaly. No submental, submandibular, pre-/postauricular, occipital or supraclavicular lymphadenopathy. CHEST: Normal chest expansion. No Telemetry. LUNGS: Absence of any rales, rhonchi or any wheezing. CARDIOVASCULAR: Regular. S1 and S2 normal. No appreciable rubs, murmurs or gallops. ABDOMEN: Soft, nontender, and nondistended. There is no rebound, voluntary guarding, or rigidity. : Deferred. No Muller. EXTREMITIES: Improving Left lower extremity erythema and swelling. Wrapped left foot post amputation of the hallux left metatarsophalangeal joint level SKIN: No skin breakdown. Vital Signs (last 8hr) Date Time Temp Pulse Resp B/P (MAP) Pulse Ox O2 Delivery O2 Flow Rate FiO2 01/26/25 08:00 98.1 76 18 135/76 100 Room Air 01/26/25 03:47 98.4 79 19 122/76 99 Room Air 21 LABS: Laboratory: Test 01/26/25 05:07 01/26/25 03:54 01/24/25 12:11 Range/Units Whole Blood Glucose 125 H 70-110 MG/DL White Blood Count 8.7 4.8-10.8 K/uL Red Blood Count 4.48 L 4.50-6.20 MIL/uL Hemoglobin 12.3 L 14.0-18.0 g/dL Hematocrit 37.3 L 42-54 % Mean Corpuscular Volume 83.3 79-99 fL Mean Corpuscular Hemoglobin 27.5 27.0-33.0 pg Mean Corpuscular Hemoglobin Concent 33.0 32.0-36.0 g/dL Red Cell Distribution Width 14.9 11.0-15.5 % Platelet Count 236 130-400 K/uL Mean Platelet Volume 9.3 7.5-10.5 fL Immature Granulocyte % (Auto) 0.5 0-1 % Neutrophils (%) (Auto) 75.0 40.0-77.0 % Lymphocytes (%) (Auto) 15.8 L 21.0-51.0 % Monocytes (%) (Auto) 5.1 3.0-13.0 % Eosinophils (%) (Auto) 3.5 0.0-8.0 % Basophils (%) (Auto) 0.1 0.0-5.0 % Neutrophils # (Auto) 6.6 1.8-7.7 K/uL Lymphocytes # (Auto) 1.4 1.0-4.8 K/uL Monocytes # (Auto) 0.5 0.1-1.0 K/uL Eosinophils # (Auto) 0.31 0.00-0.70 K/uL Basophils # (Auto) 0.01 0.00-0.20 K/uL Absolute Immature Granulocyte (auto 0.04 0-1 K/uL Nucleated Red Blood Cells 0.0 0.0-0.19 % Sodium Level 140 136-145 mmol/L Potassium Level 3.5 3.5-5.1 mmol/L Chloride Level 106 101-111 mmol/L Carbon Dioxide Level 29 21-32 mmol/L Blood Urea Nitrogen 5 L 7-18 mg/dL Creatinine 0.8 0.5-1.3 mg/dL Glomerular Filtration Rate Calc 115 >90 mL/min Random Glucose 143 H 70-105 mg/dL Total Calcium 8.0 L 8.5-10.1 mg/dL Magnesium Level 1.70 L 1.80-2.40 mg/dL Vancomycin Level Trough 19.6 # 10.0-20.0 UG/ML Current Medications Medications (Trade) Dose Ordered Sig/Silverio Route PRN Reason Start Time Stop Time Status Last Admin Dose Admin Acetaminophen (TYLenol 325MG TAB) 650 mg Q4H PRN PO MILD PAIN (1-3) 01/14/25 22:30 02/13/25 22:29 01/15/25 12:15 650 MG Acetaminophen (TYLenol 325MG TAB) 650 mg Q6H PRN PO TEMPERATURE GREATER THAN 101.5 01/14/25 22:30 02/13/25 22:29 01/17/25 09:41 650 MG Acetaminophen/ Codeine Phosphate (TYLenol-coDEINE TAB) 2 tab Q4H PRN PO MODERATE PAIN (4-6) 01/15/25 14:00 02/14/25 13:59 01/25/25 21:27 2 TAB Amlodipine Besylate (NorvASC 5MG TAB) 5 mg DAILY PO 01/17/25 09:00 02/16/25 08:59 01/26/25 08:17 5 MG Cefepime HCl (MAXipime 1 GM vial) 1 gm Q8H IVPB 01/15/25 06:00 01/18/25 13:31 DC 01/18/25 13:00 1 GM Cefepime HCl (MAXipime 1 GM vial) 1 gm Q8H IVPB 01/18/25 16:00 01/25/25 14:43 DC 01/25/25 11:31 1 GM Dextrose (D50w) 50 ml AD PRN IV HYPOGLYCEMIA PROTOCOL 01/14/25 22:30 02/13/25 22:29 Diphenhydramine HCl (BENAdryl INJ) 12.5 mg Q6H PRN IV ITCHING 01/24/25 11:30 02/23/25 11:29 01/25/25 21:39 12.5 MG Famotidine (Pepcid 20mg Tab) 20 mg BID PO 01/15/25 09:00 02/14/25 08:59 01/26/25 08:17 20 MG Glucagon (Glucagon 1mg Kit) 1 mg AD PRN IM HYPOGLYCEMIA PROTOCOL 01/14/25 22:30 02/13/25 22:29 Heparin Sodium (Porcine) (HEParin 5,000 UNIT VIAL) 5,000 unit Q8H SQ 01/17/25 12:00 02/16/25 11:59 01/25/25 21:30 5,000 UNIT Hydralazine HCl (APRESOLine 20MG INJ) 10 mg Q6H PRN IV For:SBP above 160;DBP above 90 01/14/25 22:30 02/13/25 22:29 01/19/25 22:59 10 MG Insulin Glargine (LANtus 100 UNITS/ML 10 ML VIAL) 20 units HS SQ 01/16/25 21:00 02/15/25 20:59 01/25/25 21:31 20 UNITS Insulin Human Regular (humuLIN R 100 UNIT/ML 3ML) INSULIN SLIDING SCAL... ACHS SQ 01/15/25 07:30 02/14/25 07:29 01/25/25 21:30 4 UNIT Lactated Ringer's 1,000 ml @ 100 mls/hr Q10H IV 01/24/25 20:00 02/23/25 19:59 01/25/25 11:31 100 MLS/HR Magnesium Sulfate 50 ml @ 0 mls/hr PROTOCOL PRN IV OTHER [SEE ORDER COMMENTS] 01/14/25 22:30 02/13/25 22:29 01/26/25 08:17 20 MLS/HR Morphine Sulfate (morPHINE 2MG SYG) 2 mg Q4H PRN IV SEVERE PAIN (7-10) 01/14/25 22:30 01/20/25 01:29 DC Ondansetron HCl (zoFRAN 4MG INJ) 4 mg Q6H PRN IV NAUSEA/VOMITING 01/14/25 22:30 02/13/25 22:29 Potassium Chloride 100 ml @ 50 mls/hr AD PRN IV POTASSIUM PROTOCOL 01/21/25 07:30 01/21/25 07:07 DC Potassium Chloride 100 ml @ 100 mls/hr AD PRN IV POTASSIUM PROTOCOL 01/14/25 22:30 02/13/25 22:29 01/22/25 05:47 100 MLS/HR Potassium Chloride (K-Dur/Klor-Con 20meq) 20 meq AD PRN PO POTASSIUM PROTOCOL 01/14/25 22:30 02/13/25 22:29 01/25/25 12:50 20 MEQ Potassium Chloride (K-Dur/Klor-Con 20meq) 20 meq BID PO 01/21/25 21:00 02/20/25 20:59 01/26/25 08:17 20 MEQ Potassium Chloride (KCl 10% Elixir 20meq/15ml) 20 meq AD PRN PO POTASSIUM PROTOCOL 01/14/25 22:30 02/13/25 22:29 01/17/25 00:24 20 MEQ Simethicone (Mylicon) 80 mg PCHS PO 01/18/25 21:00 02/17/25 20:59 01/26/25 08:18 80 MG Sodium Chloride 1,000 ml @ 100 mls/hr Q10H IV 01/14/25 22:30 01/24/25 19:51 DC 01/24/25 13:16 100 MLS/HR Vancomycin HCl 250 ml @ 125 mls/hr ONCE IV 01/14/25 22:30 01/14/25 22:52 DC Vancomycin HCl 250 ml @ 125 mls/hr Q12H IV 01/15/25 00:00 01/24/25 02:59 DC 01/24/25 01:01 125 MLS/HR Vancomycin HCl 250 ml @ 125 mls/hr Q12H IV 01/24/25 14:00 02/14/25 13:59 01/26/25 02:52 125 MLS/HR Vancomycin HCl (Vancomycin Protocol) 1 each AD IV 01/14/25 23:00 01/28/25 22:59 DIAGNOSTICS / RADIOLOGY: [ ] ASSESSMENT: Osteomyelitis involving the left hallux, s/p amputation of the hallux left metatarsophalangeal joint level on 01/22/2025 Left leg cellulitis POA Left toe necrotic ulcer POA Hypokalemia POA Pseudohyponatremia secondary to hyperglycemia POA Hyperglycemia secondary to Uncontrolled diabetes POA Status post fall injury at home two weeks ago POA Hypertension POA Morbid obesity POA PLAN: Osteomyelitis involving the left hallux Left leg cellulitis POA * MRI of the left foot showed findings suggestive of osteomyelitis involving the 1st distal phalanx and adjacent cellulitis. *Continue on Vancomycin 1 g; discontinued Cefepime 1 g secondary rash *Infectious disease consult is appreciated and we will follow their recommendations *Underwent amputation of the hallux left metatarsophalangeal joint level on 01/22/2025 - Venous doppler to rule out DVT on left lower extremity Left Toe Necrotic ulcer *Underwent amputation of the hallux left metatarsophalangeal joint level on 01/22/2025 *Wound care team is on the case Hypokalemia POA * no signs of volume depletion * Replace electrolytes as needed per protocol * continue potassium 20 mEq p.o. b.i.d. as per nephrology consult recommendation Hyperglycemia secondary to Uncontrolled diabetes POA *Blood glucose 130. Currently on low-dose sliding scale AC &HS. *Continue Insulin Glargine 20 units subQ HS Hypertension *Continue with Amlodipine 5mg PO daily Morbid Obesity *Educated patient about the need to lose weight *Physical therapy ordered. Continue on Famotidine 20 mg p.o. bid for GI prophylaxis continue heparin SQ 5000 q.8h DVT prophylaxis Continue PRN medications for fever,pain,cough, nausea and vomiting Repeat labs in a.m. ATTESTATION BY PHYSICIAN I have seen and examined the patient. I reviewed the documentation, medical decision making, and treatment plan as noted by the resident provider above. I agree with the findings and plan of care. César Maynard MD, PRIYA N Jan 26, 2025 11:02
--- NOTE | 2025-01-26 11:04 | PN ---
NEPHROLOGY PROGRESS NOTE Date/Time Patient Seen: Jan 26, 2025 SUBJECTIVE: This is a 39 year old male,morbidly obese with past medical history of diabetes and hypertension who was brought by EMS to the ED for complaints of left leg pain He has been in the hospital for several days Pending left great toe amputation, rescheduled due to hypokalemia. We have been consulted for hypokalemia Renal function and electrolytes are stable Continues on potassium supplement He continues on antibiotics S/P Amputation of the hallux left metatarsophalangeal joint level. He was seen in the medical floor, in no acute distress REVIEW OF SYSTEMS: GENERAL: Negative for any nausea, vomiting, fevers, chills, or weight loss. NEUROLOGIC: Negative for any blurry vision, blind spots, double vision, facial asymmetry, dysphagia, dysarthria, hemiparesis, hemisensory deficits, vertigo, ataxia. HEENT: Negative for any head trauma, neck trauma, neck stiffness, photophobia, phonophobia, sinusitis, rhinitis. CARDIAC: Negative for any chest pain, dyspnea on exertion, paroxysmal nocturnal dyspnea, peripheral edema. PULMONARY: Negative for any shortness of breath, wheezing, COPD, or TB exposure. GASTROINTESTINAL: Negative for any abdominal pain, nausea, vomiting, bright red blood per rectum, melena. GENITOURINARY: Negative for any dysuria, hematuria, incontinence. INTEGUMENTARY: Negative for any rashes, cuts, insect bites. RHEUMATOLOGIC: Negative for any joint pains, photosensitive rashes, history of vasculitis or kidney problems. HEMATOLOGIC: Negative for any abnormal bruising, frequent infections or bleeding. Vital Signs (last 8hr) Date Time Temp Pulse Resp B/P (MAP) Pulse Ox O2 Delivery O2 Flow Rate FiO2 01/26/25 08:00 98.1 76 18 135/76 100 Room Air 01/26/25 03:47 98.4 79 19 122/76 99 Room Air 21 PHYSICAL EXAM: GENERAL: Alert and oriented x 3. No acute distress. Well-nourished. EYES: EOMI. Anicteric. HENT: Moist mucous membranes. No scleral icterus. No cervical lymphadenopathy. LUNGS: Clear to auscultation bilaterally. No accessory muscle use. CARDIOVASCULAR: Regular rate and rhythm. No murmur. No JVD. ABDOMEN: Soft, non-tender and non-distended. No palpable masses. EXTREMITIES: No edema. Non-tender. SKIN: No rashes or lesions. Warm. NEUROLOGIC: No focal neurological deficits. CN II-XII grossly intact, but not individually tested. PSYCHIATRIC: Cooperative. Appropriate mood and affect. Current Medications Medications (Trade) Dose Ordered Sig/Silverio Route Start Time Stop Time Status Last Admin Dose Admin Amlodipine Besylate (NorvASC 5MG TAB) 5 mg DAILY PO 01/17/25 09:00 02/16/25 08:59 01/25/25 11:30 5 MG Cefepime HCl (MAXipime 1 GM vial) 1 gm Q8H IVPB 01/15/25 06:00 01/18/25 13:31 DC 01/18/25 13:00 1 GM Cefepime HCl (MAXipime 1 GM vial) 1 gm Q8H IVPB 01/18/25 16:00 01/25/25 14:43 DC 01/25/25 11:31 1 GM Famotidine (Pepcid 20mg Tab) 20 mg BID PO 01/15/25 09:00 02/14/25 08:59 01/25/25 11:31 20 MG Heparin Sodium (Porcine) (HEParin 5,000 UNIT VIAL) 5,000 unit Q8H SQ 01/17/25 12:00 02/16/25 11:59 01/25/25 12:53 5,000 UNIT Insulin Glargine (LANtus 100 UNITS/ML 10 ML VIAL) 20 units HS SQ 01/16/25 21:00 02/15/25 20:59 01/24/25 21:12 20 UNITS Insulin Human Regular (humuLIN R 100 UNIT/ML 3ML) INSULIN SLIDING SCAL... ACHS SQ 01/15/25 07:30 02/14/25 07:29 01/24/25 21:13 6 UNIT Lactated Ringer's 1,000 ml @ 100 mls/hr Q10H IV 01/24/25 20:00 02/23/25 19:59 01/25/25 11:31 100 MLS/HR Potassium Chloride (K-Dur/Klor-Con 20meq) 20 meq BID PO 01/21/25 21:00 02/20/25 20:59 01/25/25 11:31 20 MEQ Simethicone (Mylicon) 80 mg PCHS PO 01/18/25 21:00 02/17/25 20:59 01/25/25 12:49 80 MG Sodium Chloride 1,000 ml @ 100 mls/hr Q10H IV 01/14/25 22:30 01/24/25 19:51 DC 01/24/25 13:16 100 MLS/HR Vancomycin HCl 250 ml @ 125 mls/hr ONCE IV 01/14/25 22:30 01/14/25 22:52 DC Vancomycin HCl 250 ml @ 125 mls/hr Q12H IV 01/15/25 00:00 01/24/25 02:59 DC 01/24/25 01:01 125 MLS/HR Vancomycin HCl 250 ml @ 125 mls/hr Q12H IV 01/24/25 14:00 02/14/25 13:59 01/25/25 14:05 125 MLS/HR Vancomycin HCl (Vancomycin Protocol) 1 each AD IV 01/14/25 23:00 01/28/25 22:59 LABORATORY: [ ] Hematology Labs: Test 01/26/25 03:54 Range/Units White Blood Count 8.7 4.8-10.8 K/uL Red Blood Count 4.48 L 4.50-6.20 MIL/uL Hemoglobin 12.3 L 14.0-18.0 g/dL Hematocrit 37.3 L 42-54 % Mean Corpuscular Volume 83.3 79-99 fL Mean Corpuscular Hemoglobin 27.5 27.0-33.0 pg Mean Corpuscular Hemoglobin Concent 33.0 32.0-36.0 g/dL Red Cell Distribution Width 14.9 11.0-15.5 % Platelet Count 236 130-400 K/uL Mean Platelet Volume 9.3 7.5-10.5 fL Immature Granulocyte % (Auto) 0.5 0-1 % Neutrophils (%) (Auto) 75.0 40.0-77.0 % Lymphocytes (%) (Auto) 15.8 L 21.0-51.0 % Monocytes (%) (Auto) 5.1 3.0-13.0 % Eosinophils (%) (Auto) 3.5 0.0-8.0 % Basophils (%) (Auto) 0.1 0.0-5.0 % Neutrophils # (Auto) 6.6 1.8-7.7 K/uL Lymphocytes # (Auto) 1.4 1.0-4.8 K/uL Monocytes # (Auto) 0.5 0.1-1.0 K/uL Eosinophils # (Auto) 0.31 0.00-0.70 K/uL Basophils # (Auto) 0.01 0.00-0.20 K/uL Absolute Immature Granulocyte (auto 0.04 0-1 K/uL Nucleated Red Blood Cells 0.0 0.0-0.19 % Chemistry Labs: Test 01/26/25 05:07 01/26/25 03:54 Range/Units Whole Blood Glucose 125 H 70-110 MG/DL Sodium Level 140 136-145 mmol/L Potassium Level 3.5 3.5-5.1 mmol/L Chloride Level 106 101-111 mmol/L Carbon Dioxide Level 29 21-32 mmol/L Blood Urea Nitrogen 5 L 7-18 mg/dL Creatinine 0.8 0.5-1.3 mg/dL Glomerular Filtration Rate Calc 115 >90 mL/min Random Glucose 143 H 70-105 mg/dL Total Calcium 8.0 L 8.5-10.1 mg/dL Magnesium Level 1.70 L 1.80-2.40 mg/dL DIAGNOSTICS / RADIOLOGY: REASON: PICC LINE PLACEMENT ORDERING PHYSICIAN: FERN LEONARDO MD PROCEDURE: CXR1VW - CHEST 1VW Exam Type: CHEST 1VW Clinical Information: PICC LINE PLACEMENT Comparison: None Findings: Right PICC line is noted with tip within the mid superior vena cava and there are no other interval changes. IMPRESSION: Right PICC line as noted. DICTATED BY: VIKTORIYA GONZALEZ MD DATE: 01/21/25 1007 REASON: LEFT FOOT WOUND ORDERING PHYSICIAN: FERN LEONARDO MD PROCEDURE: FT LT WO - MR FOOT LEFT WO MR FOOT LEFT WO HISTORY: Wound to great toe COMPARISON: None TECHNIQUE: MRI of the left foot was performed utilizing multiple pulse sequences in axial, coronal and sagittal planes. Patient was not given contrast through intravenous route. FINDINGS: Abnormal increased signal intensity is seen involving the first distal phalanx consistent with osteomyelitis. Adjacent cellulitis changes are seen. No signs of fracture or dislocation is seen. IMPRESSION: 1. Findings suggestive of osteomyelitis involving the first distal phalanx with adjacent cellulitis. DICTATED BY: DEEPALI KRISHNA MD DATE: 01/15/25 1717 REASON: gangrenous left great toe ORDERING PHYSICIAN: FERN LEONARDO MD PROCEDURE: ART U LE - US ARTERIAL UNILA LOW EXT DUPL US ARTERIAL UNILA LOW EXT DUPL HISTORY: Gangrene to left great toe COMPARISON: None TECHNIQUE: Left lower extremity arterial Doppler ultrasound study was performed. FINDINGS: Normal triphasic arterial waveforms are noted in the left common femoral, deep femoral, superficial femoral, popliteal, posterior tibial and dorsalis pedal arteries. On the left, the peak systolic velocity of the common femoral artery is 146 cm/s, the proximal femoral artery is 146 cm/s, the mid femoral artery is 128 cm/s, the distal femoral artery is 150 cm/s, the proximal popliteal artery is 99 cm/s, the distal popliteal artery is 38 cm/s, the anterior tibial artery is 105 cm/s, the posterior tibial artery artery is 73 cm/s,and the dorsalis pedal artery is 142 cm/s. IMPRESSION: 1. Atherosclerotic disease. 2. Otherwise normal triphasic arterial waveforms noted of the left lower extremity artery system. Low velocity with hyperemic flow is seen in the left posterior tibial artery. DICTATED BY: DEEPALI KRISHNA MD DATE: 01/15/251746 REASON: sepsis ORDERING PHYSICIAN: CASSIDY CHATMAN PROCEDURE: CXR1VW - CHEST 1VW CHEST 1VW HISTORY: Sepsis COMPARISON: 05/10/2011 FINDINGS: A frontal projection of the chest was obtained. No acute pulmonary infiltrates is seen. The heart is borderline enlarged. Degenerative changes are seen. Prominent interstitial markings are seen. No evidence of aortic calcification is seen. IMPRESSION: 1. No acute pulmonary infiltrate is seen. DICTATED BY: DEEPALI KRISHNA MD DATE: 01/14/252102 REASON: swelling redness ORDERING PHYSICIAN: CASSIDY CHATMAN PROCEDURE: VENOUS UNI - US VENOUS DOPPLER UNILATERAL US VENOUS DOPPLER UNILATERAL HISTORY: Swelling COMPARISON: None TECHNIQUE: Left lower extremity venous Doppler ultrasound study was performed. FINDINGS: The left common femoral, femoral, popliteal, and posterior tibial veins are visualized. Normal flow with augmentation and compressibilities are demonstrated. Left greater saphenous vein is patent. IMPRESSION: 1. No evidence of deep venous thrombosis is seen. DICTATED BY: DEEPALI KRISHNA MD DATE: 01/14/252108 REASON: pain ORDERING PHYSICIAN: CASSIDY CHATMAN PROCEDURE: KNEE 3V LT - KNEE 3VWS LT KNEE 3VWS LT HISTORY: Pain COMPARISON: None TECHNIQUE: 3 images of the left knee were obtained. FINDINGS: There is no acute displaced fracture or dislocation. IMPRESSION: 1. Findings as described above. DICTATED BY: DEEPALI KRISHNA MD DATE: 01/14/252105 REASON: pain ORDERING PHYSICIAN: CASSIDY CHATMAN PROCEDURE: FT 3VW LT - FOOT COMP 3+VWS LT FOOT COMP 3+VWS LT HISTORY: Pain COMPARISON: None TECHNIQUE: 3 images of the left foot were obtained. FINDINGS: There is no acute displaced fracture or dislocation. There is soft tissue swelling. Evaluation for osteomyelitis is limited radiographs. The study is limited due to poor positioning. Degenerative changes are seen. IMPRESSION: 1. Findings as described above. DICTATED BY: DEEPALI KRISHNA MD DATE: 01/14/252104 ASSESSMENT: Hypokalemia Osteomyelitis involving the 1st distal phalanx Left leg cellulitis Left toe necrotic ulcer Pseudo hyponatremia Diabetes mellitus type 2 Hypertension Obesity PLAN: Labs, diagnostic, radiologic exams reviewed and interpreted by myself and supervising physician. We have reviewed external records in detail Continue with potassium chloride 20 mEq p.o. b.i.d. Pending plasma renin activity and aldosterone Require close monitoring of renal function and electrolytes Order CBC, CMP, and electrolytes in am Continue with antibiotics BiPAP as necessary, for respiratory distress Monitor blood pressure adjust medication doses as needed Avoid hypotensive episodes May use Dilaudid 0.5 mg IV every 6 hours as needed for severe pain Monitor blood sugars Strict intake, output, and daily weight should be monitored Please renally adjust medications Avoid nephrotoxic and nonsteroidal drugs Avoid contrast if possible Will continue to monitor renal function, anemia, electrolytes Treatment plan discussed with patient Questions were answered We have discussed with the other team physicians in detail about the care plan We will continue to monitor the patient closely ATTESTATION BY PHYSICIAN I have seen and examined the patient. I reviewed the documentation, medical decision making, and treatment plan as noted by the mid-level provider above. I agree with the findings and plan of care. ROSEMARY CASAS MD, [facility] Jan 26, 2025 11:04
--- NOTE | 2025-01-26 11:11 | NUR ---
[facility] Follow-up: Patient re-assessed by wound healing team. See wound assessment. Assessment and recommendations provided to primary nurse. Education provided. Wound care done. Addendum: 01/27/25 at 1747 by CHRISTINA MCCLURE RN RN/ Amended: Links added.
--- NOTE | 2025-01-26 16:39 | HMCIMG ---
Exam Type: US VENOUS DOPPLER UNILATERAL Clinical Information: post-op LLE swelling edema and erythema Comparison: None Findings: The examination shows normal deep venous system. There is normal compressibility at all levels. There is no intraluminal clot. There is no occlusion. Adequate response is obtained on augmentation. Impression: No evidence of DVT.
--- NOTE | 2025-01-26 17:43 | PN ---
INFECTIOUS DISEASE PROGRESS NOTE Date of Service: Jan 26, 2025 SUBJECTIVE: This is a 40 year old male patient was seen and examined at bedside in room 426. Patient is s/p amputation of the left great toe on 01/22/2025. Continue with body rash mostly to his left lower extremity and is back. Patient is afebrile, temperature is 98.1. Will continue on vancomycin. PHYSICAL EXAM EYES: Anicteric. Pupils equal and reactive. HENT: No oral thrush seen, moist Oral mucosa. NECK: Supple, no JVD or thyromegaly. LUNGS: Good air entry. No rales, no rhonchi. CARDIOVASCULAR: S1, S2 regular. No murmur heard. ABDOMEN: Soft, non tender, bowel sounds present, no organomegaly. CENTRAL NERVOUS SYSTEM: Awake, alert, oriented x 3. SKIN: No rashes, no swelling. Left great toe diabetic ulcer, s/p amputation. New onset body rash. LYMPHATICS: No peripheral lymphadenopathy. MUSCULOSKELETAL: No joint swelling, erythema or tenderness. EXTREMITIES: No cyanosis or clubbing. Left lower extremity swelling and erythema. BACK: No deformity, no pressure ulcer. GENITOURINARY: No dysuria or hematuria. Vital Sign (Last 12 Hours) 01/26/25 01/26/25 01/26/25 08:00 08:00 12:00 Temp 98.1 98.1 Pulse 76 84 Resp 18 19 B/P (MAP) 135/76 122/76 Pulse Ox 100 98 98 O2 Delivery Room Air Room Air* Room Air O2 Flow Rate 0 FiO2 21 Intake & Output (last 24hrs) 01/25/25 01/25/25 01/26/25 14:59 22:59 06:59 Intake Total 900 ml 1950.0 ml Balance 900 ml 1950.0 ml LABS: Laboratory: Test 01/26/25 13:10 01/26/25 11:24 01/26/25 03:54 Range/Units Vancomycin Level Trough 13.4 # 10.0-20.0 UG/ML Whole Blood Glucose 168 H 70-110 MG/DL White Blood Count 8.7 4.8-10.8 K/uL Red Blood Count 4.48 L 4.50-6.20 MIL/uL Hemoglobin 12.3 L 14.0-18.0 g/dL Hematocrit 37.3 L 42-54 % Mean Corpuscular Volume 83.3 79-99 fL Mean Corpuscular Hemoglobin 27.5 27.0-33.0 pg Mean Corpuscular Hemoglobin Concent 33.0 32.0-36.0 g/dL Red Cell Distribution Width 14.9 11.0-15.5 % Platelet Count 236 130-400 K/uL Mean Platelet Volume 9.3 7.5-10.5 fL Immature Granulocyte % (Auto) 0.5 0-1 % Neutrophils (%) (Auto) 75.0 40.0-77.0 % Lymphocytes (%) (Auto) 15.8 L 21.0-51.0 % Monocytes (%) (Auto) 5.1 3.0-13.0 % Eosinophils (%) (Auto) 3.5 0.0-8.0 % Basophils (%) (Auto) 0.1 0.0-5.0 % Neutrophils # (Auto) 6.6 1.8-7.7 K/uL Lymphocytes # (Auto) 1.4 1.0-4.8 K/uL Monocytes # (Auto) 0.5 0.1-1.0 K/uL Eosinophils # (Auto) 0.31 0.00-0.70 K/uL Basophils # (Auto) 0.01 0.00-0.20 K/uL Absolute Immature Granulocyte (auto 0.04 0-1 K/uL Nucleated Red Blood Cells 0.0 0.0-0.19 % Sodium Level 140 136-145 mmol/L Potassium Level 3.5 3.5-5.1 mmol/L Chloride Level 106 101-111 mmol/L Carbon Dioxide Level 29 21-32 mmol/L Blood Urea Nitrogen 5 L 7-18 mg/dL Creatinine 0.8 0.5-1.3 mg/dL Glomerular Filtration Rate Calc 115 >90 mL/min Random Glucose 143 H 70-105 mg/dL Total Calcium 8.0 L 8.5-10.1 mg/dL Magnesium Level 1.70 L 1.80-2.40 mg/dL ASSESSMENT: Left great toe diabetic ulcer with osteomyelitis, s/p amputation on 01/22/2025. New onset body rash possible allergic reaction to cefepime. Polymicrobial infection. Infection with Methicillin-susceptible Staphylococcus aureus. Leukocytosis, resolved. Hypokalemia, resolving. Recent mechanical fall. Uncontrolled Diabetes mellitus, hemoglobin A1c 10.8. Morbid obesity. PLAN: Continue vancomycin per pharmacy protocol. Continue Hypokalemia protocol. Continue antidiabetics. Continue pain management. Continue wound care. This case was reviewed and discussed with my supervising physician and the above assessment and plan was formulated and agreed upon. ATTESTATION BY PHYSICIAN I have seen and examined the patient. I reviewed the documentation, medical decision making, and treatment plan as noted by the mid-level provider above. I agree with the findings and plan of care. MAY ESCOBEDO MD, [facility] Jan 26, 2025 17:43
[2025-01-27 04:00] VITALS: BP 148/79; PULSE 71; RESP 18; TEMP 97.9
--- NOTE | 2025-01-27 04:10 | NUR ---
Patient refused to let me administer his 0400 Heparin. I explained the risk benefits from not receiving the heparin. however he still refused
[2025-01-27 08:00] VITALS: BP 111/51; PULSE 78; RESP 22; TEMP 98.2; O2SAT 99
--- NOTE | 2025-01-27 08:39 | PN ---
[facility] PROGRESS NOTE Date of Service: Jan 27, 2025 Time of Service: 08:39 SUBJECTIVE: HPI This is a 39 year old male,morbidly obese with past medical history of diabetes and hypertension who was brought by EMS to the ED for complaints of left leg pain which started 2 weeks ago.Patient reports he fell at his driveway 2 weeks ago , landed on his left knee and did not seek medical attention and last Saturday he noticed his left leg has been swollen and has been wearing his shoes for too long he said and that his left big toe has been rubbing on his shoes and he also noticed he has been having difficulty walking because of pain on his left leg and left foot so he decided to come to the Ed for evaluation.Reportedly upon arrival to ER,staff took out his left foot from his shoes and it has a very offensive odor his left foot is red and big toe is gangrenous and left lower extremity has an ascending redness and swelling. Patient states that he is not very complaint with his medications and has not been on his medications. 01/15/25: Lying in bed with dad at bedside at the time of evaluation. Alert and oriented and in no obvious distress. Denies any chest pain, shortness of breath, palpitations, fever or chills. Vital signs T98.2, P 98, 22, BP 160/97, oxygen saturation 97 on room air. Labs WBC 14down from 17.3 yesterday, HB 14.8 HCT 42.2,Neutrophil 79.8, ESR 118, CRP 191.8, potassium 2.6 replace as per protocol, magnesium 2.1, lactic acid 1.7, hemoglobin A1c 10.8, glucose 250. X- ray of the left foot showed no acute displaced fracture or dislocation. There is soft tissue swelling. Evaluation of osteomyelitis is limited due to poor positioning. Degenerative changes seen. Venous Doppler was negative for DVT, blood cultures were ordered, still pending the results. Patient is currently on vancomycin 1 g and cefepime 1 g. Infectious disease consult has been placed, pending recommendations. Consult for podiatry has also been placed. Patient with gangrenous left great, ordered an arterial Doppler of the left lower extremities to assess circulation. Pending blood culture results. 01/16/25: Lying in bed at bedside at the time of evaluation. Alert and oriented and in no obvious distress. Denies any chest pain, shortness of breath, palpitations, fever or chills. Vital signs T97.9, P 89 R 20, BP 153/80, oxygen 99. Labs sodium 134,. potassium 2.3 Replace as per protocol, chloride 99, BUN 11, creatinine 0.9, glucose 290. Patient is currently on low-dose insulin sliding scale. Ordered insulin glargine 20 units HS. Blood cultures done yesterday showed no growth, wound cultures positive for Gram-negative rods. Patient is currently on Vancomycin and Cefepime. MRI of the foot showed finding s suggestive of osteomyelitis involving the 1st distal phalanx with adjacent cellulitis. Infectious Disease consult has been placed, pending the recommendations. Podiatry consult has also been placed, pending their recommendations as well. Arterial Doppler showed atherosclerotic disease otherwise normal triphasic arterial waveforms. 01/17/25 patient was seen and examined. Case discussed with the RN. He denies fever or chills. He has been treated for osteomyelitis of the 1st distal phalanx. Appreciate Infectious Disease recommendations. Podiatry help us well 01/18/2025: Lying in bed at bedside at the time of evaluation. Alert and oriented and in no obvious distress. Denies any chest pain, shortness of breath, palpitations, fever or chills. Vital signs T97.7, P 82 R 22, BP 138/70, oxygen 97. Labs sodium 137,. potassium 2.8 Replace as per protocol, chloride 99, BUN 8, creatinine 0.9, glucose 211. Wound cultures of the left great toe was positive for microbial infection: Citrobacter freundii, Enterobacter cloacae, Enterococcus fecalis, Staph aureus, Streptococcus Gp G. Continue with Vancomycin and Cefepime as ordered. Infectious disease is on the case. Physical therapy ordered for evaluation and management. Continue with wound care as ordered. 01/19/2025:Lying in bed at bedside at the time of evaluation. Alert and orie nted and in no obvious distress. Denies any chest pain, shortness of breath, palpitations, fever or chills. Vital signs T98.8, P 79 R 18, BP 126/64, oxygen 94. Labs were unremarkable except for potassium at 2.8. Patient has been hypokalemic but has refused IV potassium. Explained to him the reasons why IV is preferred when potassium is very low. Verbalized understanding. Patient was seen by the ballet soloist yesterday who recommended amputation of the left great toe. The risks and benefits were explained but patient refused to have the procedure done at this time. 01/20/25: Lying in bed at bedside at the time of evaluation. Alert and oriented and in no obvious distress. Denies any chest pain, shortness of breath, palpitations, fever or chills. Vital signs T98.8, P 79 R 18, BP 126/64, oxygen 94. Vital signs T 99, P 82, R 19, BP 160/93, O2 sat 99%. Patient's BP continues to be elevated as well as potassium which remains low 2.7 despite adequate replacement. Plan is to work up other causes of hypokalemia . Ordered an Aldosterone-Renin ratio. If Aldosterone is elevated and renin is low, this would be suggestive of an Adrenal issue. Will then order a CT of the Adrenal gland to rule out either an adenoma or a hyperplasia and manage a ccordingly. Patient had a change of mind about amputation of the left great toe after explaining the risks involved. Patient is now scheduled for amputation of the left great toe tomorrow 01/21/[address] Banerjee. 01/21/25: Lying in bed at bedside at the time of evaluation. Alert and oriented and in no obvious distress. Denies any chest pain, shortness of breath, palpitations, fever or chills. Vital signs T97.3, P 78 R 18, BP 130/71, oxygen 100. Patients potassium remains at 2.9 today despite adequate replacement as per protocol. Had ordered Aldosterone and renin ration , pending the results. Nephrology consult also placed. Pending their recommendations. Patient was scheduled for an amputation of the left great toe, by Dr Banerjee today however the procedure was cancelled because patient had received a dose of Heparin at 4am this morning. Procedure rescheduled for tomorrow 01/22/25. 01/22/2025 Patient is seen and examined at the bedside. No acute events last night. He underwent amputation of the hallux left metatarsophalangeal joint level today. He mentions that the pain at the surgical site is mild and tolerable. He denies fever, chills, chest pain, shortness of breath, nausea, vomiting, palpitations. Vitals temperature 97.3, respiratory rate 16, pulse rate 78, blood pressure 133/71. Labs WBC 9.3, hemoglobin decreased from 13.1- 12.8, sodium 140, potassium decreased from 3.3-3.1, TSH high at 7.05. Urine random chloride 77, urine random sodium 36, urine random potassium 9, PT INR normal. Renal ultrasound revealed normal findings. 01/23/25 patient was seen and examined at the bedside. No acute events overnight reported per nursing. He is status post amputation of the hallux left meta tarsal phalangeal joint. He is doing well pain is tolerable. His labs and vitals are stable 01/24/25 patient was seen and examined at the bedside. No acute events overnight reported per nursing. He is status post amputation of the hallux left meta tarsal phalangeal joint/reports rash/erythematous maculopapular rash especially on leg/back/monitor /benadryl for itching/Consider allergic rash? 01/25/25 - patient is a 40-year-old male with a past medical history of obesity, type 2 diabetes, hypertension, and acute on chronic renal failure who is current ly status post left hallux, postop day 3. He reports postsurgical pain and has been able to ambulate to and from to the restroom by weight-bearing on the heel. No new complaints at this time. He denies fever, chills, drainage, or increased pain from surgical site. Patient continues on vancomycin, cefepime was discontinued due to rash. Wound is healing appropriately with no signs of infection or dehiscence. We will continue IV vancomycin and monitor trough levels and renal function daily. Continue local wound care with daily dressing changes. 01/26 - patient seen at bedside status post day 4 of left hallux amputation. wound is healing appropriately with no signs of infection or dehiscence. Dressings have been changed daily. Elayne drain was removed. No new complaints at the time. Patient is able to ambulate by weight-bearing on his heel. Left leg rash shows no signs of spreading but still erythematous and pruritic. We will order venous Doppler to rule out DVT. Patient remains on vancomycin. Continue local wound care with daily dressing changes. We will continue to monitor rash. 01/27 - patient seen at bedside status post day 5 left toe amputation. wound is healing appropriately with no signs of infection or dehiscence. Dressings are changed daily. Patient ambulating with walker and bearing weight on heel. Left lower extremity rash shows no signs of spreading, but still erythematous and pruritic. Venous doppler shows no signs of DVT. Patient remains on Vancomycin. 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 LFTs within normal limits. Will consider starting antifungal medications. Labs: hypo kalemia - protocol in place; remaining labs within normal limits. Will continue to follow recommendations per Podiatry, wound care, and Infectious Disease. REVIEW OF SYSTEMS CONSTITUTIONAL: Denies fevers, chills, or night sweats. No unintentional weight loss reported. NEUROLOGICAL: Denies headache, amaurosis fugax, motor weakness, sensory deficit, vertigo/spinning sensation, gait abnormalities, or tremors. ENT: No hearing loss, otalgia, otorrhea, rhinitis, rhinorrhea, hoarseness, or sore throat. CARDIOVASCULAR: Denies any exertional angina, dyspnea on exertion, orthopnea, paroxysmal nocturnal dyspnea, palpitations, life-threatening arrhythmias, claudication. PULMONARY: Denies any shortness of breath, cough, phlegm/sputum, hemoptysis, pleuritic chest pain. SLEEP: Denies morning headaches, daytime somnolence or napping. Denies difficulty falling asleep, staying asleep, waking from sleep. Denies knowledge of snoring. GASTROINTESTINAL: Denies any type of dysphagia to either liquids or solids. Denies nausea, vomiting, pyrosis, early satiety, abdominal pain, diarrhea, constipation, or changes in stool consistency or caliber. Denies coffee-ground emesis, hematemesis, hematochezia, or melanotic stools. GENITOURINARY: Denies frequency, urgency, nocturia, hematuria or incontinence (Storage/Irritative symptoms.) Low urinary stream, straining to void, urinary intermittency or hesitancy, splitting of the voiding stream, terminal dribbling. ENDOCRINOLOGIC: Denies polyuria, polydipsia, polyphagia or heat/cold intoleran arlet. HEMATOLOGIC: Denies thrombophilia/previous clots, or coagulopathy/bleeding disorders. ONCOLOGIC: Denies personal history of malignancy. DERMATOLOGIC: rashes and pruritus diffuse, more pronounced on LLE Extremities: Left knee pain, redness and swelling of LLE, left great toe wound PSYCHIATRIC: Denies any suicidal or homicidal ideation. Denies hallucinations. PHYSICAL EXAM GENERAL APPEARANCE: The patient is awake, alert, and oriented, in no acute cardiopulmonary distress. NEUROLOGICAL: Cranial nerves II-XII grossly intact. Motor is 5/5 in bilateral upper and lower extremities proximal to distal. No sensory deficits. HEENT: Face is symmetric. Pupils are equal and reactive. Extraocular movements are intact. NECK: Supple. No JVD. No thyromegaly. No submental, submandibular, pre- /postauricular, occipital or supraclavicular lymphadenopathy. CHEST: Normal chest expansion. No Telemetry. LUNGS: Absence of any rales, rhonchi or any wheezing. CARDIOVASCULAR: Regular. S1 and S2 normal. No appreciable rubs, murmurs or gallops. ABDOMEN: Soft, nontender, and nondistended. There is no rebound, voluntary guarding, or rigidity. : Deferred. No Muller. EXTREMITIES: Improving Left lower extremity erythema and swelling. Wrapped left foot post amputation of the hallux left metatarsophalangeal joint level SKIN: erythematous and pruritic diffuse rash especially on LLE Vital Signs (last 8hr) Date Time Temp Pulse Resp B/P (MAP) Pulse Ox O2 Delivery O2 Flow Rate FiO2 01/27/25 04:00 97.9 71 18 148/79 100 Room Air 21 LABS: Laboratory: Test 01/27/25 05:17 01/26/25 13:10 01/26/25 03:54 Range/Units Whole Blood Glucose 128 H 70-110 MG/DL Vancomycin Level Trough 13.4 # 10.0-20.0 UG/ML White Blood Count 8.7 4.8-10.8 K/uL Red Blood Count 4.48 L 4.50-6.20 MIL/uL Hemoglobin 12.3 L 14.0-18.0 g/dL Hematocrit 37.3 L 42-54 % Mean Corpuscular Volume 83.3 79-99 fL Mean Corpuscular Hemoglobin 27.5 27.0-33.0 pg Mean Corpuscular Hemoglobin Concent 33.0 32.0-36.0 g/dL Red Cell Distribution Width 14.9 11.0-15.5 % Platelet Count 236 130-400 K/uL Mean Platelet Volume 9.3 7.5-10.5 fL Immature Granulocyte % (Auto) 0.5 0-1 % Neutrophils (%) (Auto) 75.0 40.0-77.0 % Lymphocytes (%) (Auto) 15.8 L 21.0-51.0 % Monocytes (%) (Auto) 5.1 3.0-13.0 % Eosinophils (%) (Auto) 3.5 0.0-8.0 % Basophils (%) (Auto) 0.1 0.0-5.0 % Neutrophils # (Auto) 6.6 1.8-7.7 K/uL Lymphocytes # (Auto) 1.4 1.0-4.8 K/uL Monocytes # (Auto) 0.5 0.1-1.0 K/uL Eosinophils # (Auto) 0.31 0.00-0.70 K/uL Basophils # (Auto) 0.01 0.00-0.20 K/uL Absolute Immature Granulocyte (auto 0.04 0-1 K/uL Nucleated Red Blood Cells 0.0 0.0-0.19 % Sodium Level 140 136-145 mmol/L Potassium Level 3.5 3.5-5.1 mmol/L Chloride Level 106 101-111 mmol/L Carbon Dioxide Level 29 21-32 mmol/L Blood Urea Nitrogen 5 L 7-18 mg/dL Creatinine 0.8 0.5-1.3 mg/dL Glomerular Filtration Rate Calc 115 >90 mL/min Random Glucose 143 H 70-105 mg/dL Total Calcium 8.0 L 8.5-10.1 mg/dL Magnesium Level 1.70 L 1.80-2.40 mg/dL Current Medications Medications (Trade) Dose Ordered Sig/Silverio Route PRN Reason Start Time Stop Time Status Last Admin Dose Admin Acetaminophen (TYLenol 325MG TAB) 650 mg Q4H PRN PO MILD PAIN (1-3) 01/14/25 22:30 02/13/25 22:29 01/15/25 12:15 650 MG Acetaminophen (TYLenol 325MG TAB) 650 mg Q6H PRN PO TEMPERATURE GREATER THAN 101.5 01/14/25 22:30 02/13/25 22:29 01/17/25 09:41 650 MG Acetaminophen/ Codeine Phosphate (TYLenol-coDEINE TAB) 2 tab Q4H PRN PO MODERATE PAIN (4-6) 01/15/25 14:00 02/14/25 13:59 01/25/25 21:27 2 TAB Amlodipine Besylate (NorvASC 5MG TAB) 5 mg DAILY PO 01/17/25 09:00 02/16/25 08:59 01/26/25 08:17 5 MG Cefepime HCl (MAXipime 1 GM vial) 1 gm Q8H IVPB 01/15/25 06:00 01/18/25 13:31 DC 01/18/25 13:00 1 GM Cefepime HCl (MAXipime 1 GM vial) 1 gm Q8H IVPB 01/18/25 16:00 01/25/25 14:43 DC 01/25/25 11:31 1 GM Dextrose (D50w) 50 ml AD PRN IV HYPOGLYCEMIA PROTOCOL 01/14/25 22:30 02/13/25 22:29 Diphenhydramine HCl (BENAdryl INJ) 12.5 mg Q6H PRN IV ITCHING 01/24/25 11:30 02/23/25 11:29 01/25/25 21:39 12.5 MG Famotidine (Pepcid 20mg Tab) 20 mg BID PO 01/15/25 09:00 02/14/25 08:59 01/26/25 21:58 20 MG Glucagon (Glucagon 1mg Kit) 1 mg AD PRN IM HYPOGLYCEMIA PROTOCOL 01/14/25 22:30 02/13/25 22:29 Heparin Sodium (Porcine) (HEParin 5,000 UNIT VIAL) 5,000 unit Q8H SQ 01/17/25 12:00 02/16/25 11:59 01/26/25 22:02 5,000 UNIT Hydralazine HCl (APRESOLine 20MG INJ) 10 mg Q6H PRN IV For:SBP above 160;DBP above 90 01/14/25 22:30 02/13/25 22:29 01/19/25 22:59 10 MG Insulin Glargine (LANtus 100 UNITS/ML 10 ML VIAL) 20 units HS SQ 01/16/25 21:00 02/15/25 20:59 01/26/25 22:04 20 UNITS Insulin Human Regular (humuLIN R 100 UNIT/ML 3ML) INSULIN SLIDING SCAL... ACHS SQ 01/15/25 07:30 02/14/25 07:29 01/26/25 22:03 6 UNIT Lactated Ringer's 1,000 ml @ 100 mls/hr Q10H IV 01/24/25 20:00 02/23/25 19:59 01/26/25 22:04 100 MLS/HR Magnesium Sulfate 50 ml @ 0 mls/hr PROTOCOL PRN IV OTHER [SEE ORDER COMMENTS] 01/14/25 22:30 02/13/25 22:01/26/25 08:17 20 MLS/HR Morphine Sulfate (morPHINE 2MG SYG) 2 mg Q4H PRN IV SEVERE PAIN (7-10) 01/14/25 22:30 01/20/25 01:29 DC Ondansetron HCl (zoFRAN 4MG INJ) 4 mg Q6H PRN IV NAUSEA/VOMITING 01/14/25 22:30 02/13/25 22:29 Potassium Chloride 100 ml @ 50 mls/hr AD PRN IV POTASSIUM PROTOCOL 01/21/25 07:30 01/21/25 07:07 DC Potassium Chloride 100 ml @ 100 mls/hr AD PRN IV POTASSIUM PROTOCOL 01/14/25 22:30 02/13/25 22:29 01/22/25 05:47 100 MLS/HR Potassium Chloride (K-Dur/Klor-Con 20meq) 20 meq AD PRN PO POTASSIUM PROTOCOL 01/14/25 22:30 02/13/25 22:29 01/25/25 12:50 20 MEQ Potassium Chloride (K-Dur/Klor-Con 20meq) 20 meq BID PO 01/21/25 21:00 02/20/25 20:59 01/26/25 21:59 20 MEQ Potassium Chloride (KCl 10% Elixir 20meq/15ml) 20 meq AD PRN PO POTASSIUM PROTOCOL 01/14/25 22:30 02/13/25 22:29 01/17/25 00:24 20 MEQ Simethicone (Mylicon) 80 mg PCHS PO 01/18/25 21:00 02/17/25 20:59 01/26/25 21:59 80 MG Sodium Chloride 1,000 ml @ 100 mls/hr Q10H IV 01/14/25 22:30 01/24/25 19:51 DC 01/24/25 13:16 100 MLS/HR Vancomycin HCl 250 ml @ 125 mls/hr ONCE IV 01/14/25 22:30 01/14/25 22:52 DC Vancomycin HCl 250 ml @ 125 mls/hr Q12H IV 01/15/25 00:00 01/24/25 02:59 DC 01/24/25 01:01 125 MLS/HR Vancomycin HCl 250 ml @ 125 mls/hr Q12H IV 01/24/25 14:00 02/14/25 13:59 01/27/25 01:31 125 MLS/HR Vancomycin HCl (Vancomycin Protocol) 1 each AD IV 01/14/25 23:00 01/28/25 22:59 DIAGNOSTICS / RADIOLOGY: [ ] ASSESSMENT: Osteomyelitis involving the left hallux, s/p amputation of the hallux left metatarsophalangeal joint level on 01/22/2025 Left leg cellulitis POA Left toe necrotic ulcer POA Hypokalemia POA Pseudohyponatremia secondary to hyperglycemia POA Hyperglycemia secondary to Uncontrolled diabetes POA Status post fall injury at home two weeks ago POA Hypertension POA Morbid obesity POA PLAN: Osteomyelitis involving the left hallux Left leg cellulitis POA * MRI of the left foot showed findings suggestive of osteomyelitis involving the 1st distal phalanx and adjacent cellulitis. *Continue on Vancomycin 1 g; discontinued Cefepime 1 g secondary rash *Infectious disease consult is appreciated and we will follow their recommendations *Underwent amputation of the hallux left metatarsophalangeal joint level on 01/22/2025 - Venous doppler to rule out DVT on left lower extremity Left Toe Necrotic ulcer *Underwent amputation of the hallux left metatarsophalangeal joint level on 01/22/2025 *Wound care team is on the case Hypokalemia POA * no signs of volume depletion * Replace electrolytes as needed per protocol * continue potassium 20 mEq p.o. b.i.d. as per nephrology consult recommendation Hyperglycemia secondary to Uncontrolled diabetes POA *Blood glucose 130. Currently on low-dose sliding scale AC &HS. *Continue Insulin Glargine 20 units subQ HS Hypertension *Continue with Amlodipine 5mg PO daily Morbid Obesity *Educated patient about the need to lose weight *Physical therapy ordered. AKANKSHA prep for possible markus intetrigo Continue on Famotidine 20 mg p.o. bid for GI prophylaxis continue heparin SQ 5000 q.8h DVT prophylaxis Continue PRN medications for fever,pain,cough, nausea and vomiting Repeat labs in a.m. ATTESTATION BY PHYSICIAN I have seen and examined the patient. I reviewed the documentation, medical decision making, and treatment plan as noted by the resident provider above. I agree with the findings and plan of care. César Maynard MD, PRIYA N Jan 27, 2025 08:39
[2025-01-27 09:34] LABS: BASOPHILS # (AUTO) 0.01 K/uL (0.00-0.20); BASOPHILS % (AUTO) 0.1 % (0.0-5.0); EOSINOPHILS # (AUTO) 0.33 K/uL (0.00-0.70); EOSINOPHILS % (AUTO) 3.6 % (0.0-8.0); HEMATOCRIT 36.9 % (42-54); IMMATURE GRANULOCYTE ABSOLUTE 0.03 K/uL (0-1); LYMPHOCYTES # (AUTO) 1.5 K/uL (1.0-4.8); LYMPHOCYTES % (AUTO) 16.7 % (21.0-51.0); MEAN CORPUSCULAR HEMOGLOBIN 28.1 pg (27.0-33.0); MEAN CORPUSCULAR HGB CONC 34.1 g/dL (32.0-36.0); MEAN CORPUSCULAR VOLUME 82.2 fL (79-99); MONOCYTES # (AUTO) 0.5 K/uL (0.1-1.0); MONOCYTES % (AUTO) 5.5 % (3.0-13.0); NEUTROPHILS # (AUTO) 6.8 K/uL (1.8-7.7); NEUTROPHILS % (AUTO) 73.8 % (40.0-77.0); PLATELET COUNT (AUTO) 247 K/uL (130-400); RED BLOOD CELL COUNT(AUTO) 4.49 MIL/uL (4.50-6.20); RED CELL DISTRIBUTION WIDTH 15.2 % (11.0-15.5); WHITE BLOOD COUNT (AUTO) 9.2 K/uL (4.8-10.8)
--- NOTE | 2025-01-27 09:41 | NUR ---
PATIENT ASSESSMENT Patient is status post amputation to left great toe performed by Dr. Banerjee. Orders for wound care daily. Stitches remain in place. Patient positive for sensation to left foot, denies pain at this time. Ambulates with walker with partial weight bearing, heel touch only. Continues on Vancomycin administered through Left Upper Arm double lumen PICC inserted on 01/26/2025. Left lower extremity rash continues erythematous and pruritic, no spreading noted. Venous Doppler study was negative. Rash has developed to bilateral arms, chest, and back. Physicians aware.
[2025-01-27 09:51] LABS: BILIRUBIN,TOTAL 0.5 mg/dL (0.2-1.0); CREATININE 0.6 mg/dL (0.5-1.3); POTASSIUM 3.2 mmol/L (3.5-5.1); TOTAL PROTEIN, SERUM 6.4 g/dL (6.0-8.3)
[2025-01-27 12:01] VITALS: BP 118/74; PULSE 84; RESP 22; TEMP 98.4
[2025-01-27 16:00] VITALS: BP 134/61; PULSE 83; RESP 22; TEMP 98.1
--- NOTE | 2025-01-27 19:13 | PN ---
INFECTIOUS DISEASE PROGRESS NOTE Date of Service: Jan 27, 2025 SUBJECTIVE: This is a 40 year old male patient was seen and examined at bedside in room 426. Patient is s/p amputation of the left great toe on 01/22/2025. Observed some improvement on the body rash especially on the left lower extremity. Will continue on vancomycin. PHYSICAL EXAM EYES: Anicteric. Pupils equal and reactive. HENT: No oral thrush seen, moist Oral mucosa. NECK: Supple, no JVD or thyromegaly. LUNGS: Good air entry. No rales, no rhonchi. CARDIOVASCULAR: S1, S2 regular. No murmur heard. ABDOMEN: Soft, non tender, bowel sounds present, no organomegaly. CENTRAL NERVOUS SYSTEM: Awake, alert, oriented x 3. SKIN: No rashes, no swelling. Left great toe diabetic ulcer, s/p amputation. New onset body rash. LYMPHATICS: No peripheral lymphadenopathy. MUSCULOSKELETAL: No joint swelling, erythema or tenderness. EXTREMITIES: No cyanosis or clubbing. Left lower extremity swelling and erythema. BACK: No deformity, no pressure ulcer. GENITOURINARY: No dysuria or hematuria. Vital Sign (Last 12 Hours) 01/27/25 01/27/25 01/27/25 01/27/25 08:00 08:00 12:01 16:00 Temp 98.2 98.4 98.1 Pulse 78 84 83 Resp 22 22 22 B/P (MAP) 111/51 118/74 134/61 Pulse Ox 99 99 99 99 O2 Delivery Room Air Room Air* Room Air Room Air O2 Flow Rate 0 FiO2 21 21 21 21 Intake & Output (last 24hrs) 01/26/25 01/26/25 01/27/25 15:00 23:00 07:00 Intake Total 1700.0 ml Balance 1700.0 ml LABS: Laboratory: Test 01/27/25 16:48 01/27/25 09:23 01/26/25 13:10 01/26/25 03:54 Range/Units Whole Blood Glucose 198 #H 70-110 MG/DL Bedside Glucose Comment Notified Nurse White Blood Count 9.2 4.8-10.8 K/uL Red Blood Count 4.49 L 4.50-6.20 MIL/uL Hemoglobin 12.6 L 14.0-18.0 g/dL Hematocrit 36.9 L 42-54 % Mean Corpuscular Volume 82.2 79-99 fL Mean Corpuscular Hemoglobin 28.1 27.0-33.0 pg Mean Corpuscular Hemoglobin Concent 34.1 32.0-36.0 g/dL Red Cell Distribution Width 15.2 11.0-15.5 % Platelet Count 247 130-400 K/uL Mean Platelet Volume 9.3 7.5-10.5 fL Immature Granulocyte % (Auto) 0.3 0-1 % Neutrophils (%) (Auto) 73.8 40.0-77.0 % Lymphocytes (%) (Auto) 16.7 L 21.0-51.0 % Monocytes (%) (Auto) 5.5 3.0-13.0 % Eosinophils (%) (Auto) 3.6 0.0-8.0 % Basophils (%) (Auto) 0.1 0.0-5.0 % Neutrophils # (Auto) 6.8 1.8-7.7 K/uL Lymphocytes # (Auto) 1.5 1.0-4.8 K/uL Monocytes # (Auto) 0.5 0.1-1.0 K/uL Eosinophils # (Auto) 0.33 0.00-0.70 K/uL Basophils # (Auto) 0.01 0.00-0.20 K/uL Absolute Immature Granulocyte (auto 0.03 0-1 K/uL Nucleated Red Blood Cells 0.0 0.0-0.19 % Sodium Level 139 136-145 mmol/L Potassium Level 3.2 L 3.5-5.1 mmol/L Chloride Level 106 101-111 mmol/L Carbon Dioxide Level 30 21-32 mmol/L Blood Urea Nitrogen 3 L 7-18 mg/dL Creatinine 0.6 0.5-1.3 mg/dL Glomerular Filtration Rate Calc 126 >90 mL/min Random Glucose 124 H 70-105 mg/dL Total Calcium 8.1 L 8.5-10.1 mg/dL Total Bilirubin 0.5 0.2-1.0 mg/dL Aspartate Amino Transf (AST/SGOT) 14 10-37 U/L Alanine Aminotransferase (ALT/SGPT) 14 12-78 U/L Alkaline Phosphatase 52 50-136 U/L Total Protein 6.4 6.0-8.3 g/dL Albumin 2.0 L 3.5-5.0 g/dL Vancomycin Level Trough 13.4 # 10.0-20.0 UG/ML Magnesium Level 1.70 L 1.80-2.40 mg/dL ASSESSMENT: Left great toe diabetic ulcer with osteomyelitis, s/p amputation on 01/22/2025. New onset body rash possible allergic reaction to cefepime. Polymicrobial infection. Infection with Methicillin-susceptible Staphylococcus aureus. Leukocytosis, resolved. Hypokalemia, resolving. Recent mechanical fall. Uncontrolled Diabetes mellitus, hemoglobin A1c 10.8. Morbid obesity. PLAN: Continue vancomycin per pharmacy protocol. Continue Hypokalemia protocol. Continue antidiabetics. Continue pain management. Continue wound care. This case was reviewed and discussed with my supervising physician and the above assessment and plan was formulated and agreed upon. ATTESTATION BY PHYSICIAN I have seen and examined the patient. I reviewed the documentation, medical decision making, and treatment plan as noted by the mid-level provider above. I agree with the findings and plan of care. MAY ESCOBEDO MD, [facility]IRTA L [facility] Jan 27, 2025 19:13
--- NOTE | 2025-01-27 19:53 | PN ---
PROGRESS NOTE Date of Service: Jan 27, 2025 Time of Service: 19:52 SUBJECTIVE: This 39 years old male was seen for follow status post amputation of the hallux Elay[place] drain in place dressing dry and intact. Postoperative day 4. Continue follow up of rash on lower extremity and back. REVIEW OF SYSTEMS CONSTITUTIONAL: Denies fever, chills, or fatigue. Morbid obesity HEAD/FACE: No signs of trauma. EENT: Denies eye pain, blurred vision, double vision, or light sensitivity. RESPIRATORY: Denies shortness of breath, cough, wheezing CARDIOVASCULAR: Denies chest pain, palpitation, syncope GASTROINTESTINAL/ABDOMINAL: Denies abdominal pain, constipation, diarrhea, nausea or vomiting GENITOURINARY: Denies dysuria or hematuria. MUSCULOSKELETAL: Denies joint pain, tenderness secondary to trauma to the left lower extremity but no fractures or dislocations or x-ray examination. INTEGUMENTARY: Left foot wound status post amputation of hallux left. [place] drain in place. Sutures in place. Lower extremity rash and back rash. NEUROLOGICAL/PSYCH: Denies anxiety, depression, heat or cold intolerance. PHYSICAL EXAM EYES: Anicteric. Pupils equal and reactive. HENT: No oral thrush seen, moist Oral mucosa NECK: Supple, no JVD or thyromegaly. LUNGS: Good air entry. No rales, no rhonchi. CARDIOVASCULAR: S1, S2 regular. No murmur heard. ABDOMEN: Soft, non tender, bowel sounds present, no organomegaly CENTRAL NERVOUS SYSTEM: Awake, alert, oriented x 3. No focal deficits. SKIN: Wound left foot status post hallux amputation Elayne drain in place sutures in place lower extremity rash and back rash on the left lower extremity. Sutures in place Elayne removed. LYMPHATICS: No peripheral lymphadenopathy MUSCULOSKELETAL: No joint swelling, erythema or tenderness. EXTREMITIES: Left lower extremity hematomas secondary to the fall and edema on bilateral lower extremity lipedema BACK: No deformity, no pressure ulcer. GENITOURINARY: No dysuria or hematuria Vital Signs (last 8hr) Date Time Temp Pulse Resp B/P (MAP) Pulse Ox O2 Delivery O2 Flow Rate FiO2 01/27/25 16:00 98.1 83 22 134/61 99 Room Air 21 01/27/25 12:01 98.4 84 22 118/74 99 Room Air 21 LABS: Laboratory: Test 01/27/25 19:44 01/27/25 16:48 01/27/25 09:23 01/26/25 13:10 Range/Units Whole Blood Glucose 215 H 70-110 MG/DL Bedside Glucose Comment Notified Nurse White Blood Count 9.2 4.8-10.8 K/uL Red Blood Count 4.49 L 4.50-6.20 MIL/uL Hemoglobin 12.6 L 14.0-18.0 g/dL Hematocrit 36.9 L 42-54 % Mean Corpuscular Volume 82.2 79-99 fL Mean Corpuscular Hemoglobin 28.1 27.0-33.0 pg Mean Corpuscular Hemoglobin Concent 34.1 32.0-36.0 g/dL Red Cell Distribution Width 15.2 11.0-15.5 % Platelet Count 247 130-400 K/uL Mean Platelet Volume 9.3 7.5-10.5 fL Immature Granulocyte % (Auto) 0.3 0-1 % Neutrophils (%) (Auto) 73.8 40.0-77.0 % Lymphocytes (%) (Auto) 16.7 L 21.0-51.0 % Monocytes (%) (Auto) 5.5 3.0-13.0 % Eosinophils (%) (Auto) 3.6 0.0-8.0 % Basophils (%) (Auto) 0.1 0.0-5.0 % Neutrophils # (Auto) 6.8 1.8-7.7 K/uL Lymphocytes # (Auto) 1.5 1.0-4.8 K/uL Monocytes # (Auto) 0.5 0.1-1.0 K/uL Eosinophils # (Auto) 0.33 0.00-0.70 K/uL Basophils # (Auto) 0.01 0.00-0.20 K/uL Absolute Immature Granulocyte (auto 0.03 0-1 K/uL Nucleated Red Blood Cells 0.0 0.0-0.19 % Sodium Level 139 136-145 mmol/L Potassium Level 3.2 L 3.5-5.1 mmol/L Chloride Level 106 101-111 mmol/L Carbon Dioxide Level 30 21-32 mmol/L Blood Urea Nitrogen 3 L 7-18 mg/dL Creatinine 0.6 0.5-1.3 mg/dL Glomerular Filtration Rate Calc 126 >90 mL/min Random Glucose 124 H 70-105 mg/dL Total Calcium 8.1 L 8.5-10.1 mg/dL Total Bilirubin 0.5 0.2-1.0 mg/dL Aspartate Amino Transf (AST/SGOT) 14 10-37 U/L Alanine Aminotransferase (ALT/SGPT) 14 12-78 U/L Alkaline Phosphatase 52 50-136 U/L Total Protein 6.4 6.0-8.3 g/dL Albumin 2.0 L 3.5-5.0 g/dL Vancomycin Level Trough 13.4 # 10.0-20.0 UG/ML Test 01/26/25 03:54 Range/Units Magnesium Level 1.70 L 1.80-2.40 mg/dL DIAGNOSTICS / RADIOLOGY: MRI positive for osteomyelitis of the distal phalanx of the great toe left foot ASSESSMENT: Diabetic foot ulcer with infection of the great toe left foot. Trauma secondary to fall two weeks ago left lower extremity. Diabetes Morbid obesity. Osteomyelitis great toe left foot Postop day 3. 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 Possible allergies to latex PLAN: Continue local wound care continue IV antibiotics. Dressing change daily. [place]ay[place] drain was removed. Monitor progress of his rash at this time antibiotics changes has been done. Continue rest and elevation. Minimal ambulation. JUDE MCGRAW DPM Jan 27, 2025 19:53
[2025-01-27 19:56] VITALS: O2SAT 97
[2025-01-27 20:36] VITALS: BP 122/55; PULSE 91; RESP 19; TEMP 98
[2025-01-27] MEDS: NYSTatin 15 GM POWDER TP SCH (21:38)
[2025-01-27] MEDS: CLOTRIMAZOLE 30 GM CREAM.GM. TP SCH (21:38)
[2025-01-28] VITALS (8 sets, daily range): BP systolic 112–153; BP diastolic 63–74; PULSE 79–88; RESP 19–22; TEMP 97.5–98.7; O2SAT 95–100
--- NOTE | 2025-01-28 01:57 | PN ---
SUBJECTIVE: This patient has hypokalemia, anemia, and obesity. Multiple other comorbidities. No fever, chills, or rigors. Amputation of the toe has been done. All the other systems unchanged. No other associated findings. No other aggravating or relieving factors. The patient is obese. PHYSICAL EXAMINATION: VITAL SIGNS: Blood pressure is 134/61, pulse 83, respiratory rate is 21. HEENT: Head is atraumatic, normocephalic. Pupils are round and reactive. Sclerae are anicteric. Conjunctivae not pale. Oral mucosa is not dry. NECK: Supple. No masses or bruits. Thyroid is palpable. Neck has no bruits. CHEST: Shows diminished at both bases, prolonged expiration, percussion note being resonant in all areas. LABORATORY DATA: We have reviewed the labs. Hemoglobin is low up to 12.6. Sugars were elevated. The patient has a low potassium of 3.2. PROBLEMS: Hypokalemia with multiple other comorbidities, low albumin. PLAN: Magnesium replacement, potassium replacement. Continued followup on sugars, electrolytes. We will be suggesting to avoid loop diuretics for now. Potassium-sparing diuretics can be used if needed. Continued followup on electrolytes and renal function. We will be following up closely on all these issues. The patient has renin activity at 0.4 and aldosterone at ____ less than 1 does not suggest hyperaldosteronism. For now, continue monitoring. The patient was seen several times today. TID: [id number] RECEIPT: [id number]
[2025-01-28] MEDS: ALTEplase 2MG VIAL 2 MG/VIAL VIAL IVCATH SCH (05:45)
[2025-01-28 07:15] LABS: ALBUMIN 2.2 g/dL (3.5-5.0); BILIRUBIN,TOTAL 0.7 mg/dL (0.2-1.0); CREATININE 0.8 mg/dL (0.5-1.3); MAGNESIUM 1.7 mg/dL (1.80-2.40); POTASSIUM 3.6 mmol/L (3.5-5.1); TOTAL PROTEIN, SERUM 6.9 g/dL (6.0-8.3)
--- NOTE | 2025-01-28 09:01 | PN ---
[facility] PROGRESS NOTE Date of Service: Jan 28, 2025 Time of Service: 09:01 SUBJECTIVE: HPI This is a 39 year old male,morbidly obese with past medical history of diabetes and hypertension who was brought by EMS to the ED for complaints of left leg pain which started 2 weeks ago.Patient reports he fell at his driveway 2 weeks ago , landed on his left knee and did not seek medical attention and last Saturday he noticed his left leg has been swollen and has been wearing his shoes for too long he said and that his left big toe has been rubbing on his shoes and he also noticed he has been having difficulty walking because of pain on his left leg and left foot so he decided to come to the Ed for evaluation.Reportedly upon arrival to ER,staff took out his left foot from his shoes and it has a very offensive odor his left foot is red and big toe is gangrenous and left lower extremity has an ascending redness and swelling. Patient states that he is not very complaint with his medications and has not been on his medications. 01/15/25: Lying in bed with dad at bedside at the time of evaluation. Alert and oriented and in no obvious distress. Denies any chest pain, shortness of breath, palpitations, fever or chills. Vital signs T98.2, P 98, 22, BP 160/97, oxygen saturation 97 on room air. Labs WBC 14down from 17.3 yesterday, HB 14.8 HCT 42.2,Neutrophil 79.8, ESR 118, CRP 191.8, potassium 2.6 replace as per protocol, magnesium 2.1, lactic acid 1.7, hemoglobin A1c 10.8, glucose 250. X- ray of the left foot showed no acute displaced fracture or dislocation. There is soft tissue swelling. Evaluation of osteomyelitis is limited due to poor positioning. Degenerative changes seen. Venous Doppler was negative for DVT, blood cultures were ordered, still pending the results. Patient is currently on vancomycin 1 g and cefepime 1 g. Infectious disease consult has been placed, pending recommendations. Consult for podiatry has also been placed. Patient with gangrenous left great, ordered an arterial Doppler of the left lower extremities to assess circulation. Pending blood culture results. 01/16/25: Lying in bed at bedside at the time of evaluation. Alert and oriented and in no obvious distress. Denies any chest pain, shortness of breath, palpitations, fever or chills. Vital signs T97.9, P 89 R 20, BP 153/80, oxygen 99. Labs sodium 134,. potassium 2.3 Replace as per protocol, chloride 99, BUN 11, creatinine 0.9, glucose 290. Patient is currently on low-dose insulin sliding scale. Ordered insulin glargine 20 units HS. Blood cultures done yesterday showed no growth, wound cultures positive for Gram-negative rods. Patient is currently on Vancomycin and Cefepime. MRI of the foot showed finding s suggestive of osteomyelitis involving the 1st distal phalanx with adjacent cellulitis. Infectious Disease consult has been placed, pending the recommendations. Podiatry consult has also been placed, pending their recommendations as well. Arterial Doppler showed atherosclerotic disease otherwise normal triphasic arterial waveforms. 01/17/25 patient was seen and examined. Case discussed with the RN. He denies fever or chills. He has been treated for osteomyelitis of the 1st distal phalanx. Appreciate Infectious Disease recommendations. Podiatry help us well 01/18/2025: Lying in bed at bedside at the time of evaluation. Alert and oriented and in no obvious distress. Denies any chest pain, shortness of breath, palpitations, fever or chills. Vital signs T97.7, P 82 R 22, BP 138/70, oxygen 97. Labs sodium 137,. potassium 2.8 Replace as per protocol, chloride 99, BUN 8, creatinine 0.9, glucose 211. Wound cultures of the left great toe was positive for microbial infection: Citrobacter freundii, Enterobacter cloacae, Enterococcus fecalis, Staph aureus, Streptococcus Gp G. Continue with Vancomycin and Cefepime as ordered. Infectious disease is on the case. Physical therapy ordered for evaluation and management. Continue with wound care as ordered. 01/19/2025:Lying in bed at bedside at the time of evaluation. Alert and orie nted and in no obvious distress. Denies any chest pain, shortness of breath, palpitations, fever or chills. Vital signs T98.8, P 79 R 18, BP 126/64, oxygen 94. Labs were unremarkable except for potassium at 2.8. Patient has been hypokalemic but has refused IV potassium. Explained to him the reasons why IV is preferred when potassium is very low. Verbalized understanding. Patient was seen by the encephalographer yesterday who recommended amputation of the left great toe. The risks and benefits were explained but patient refused to have the procedure done at this time. 01/20/25: Lying in bed at bedside at the time of evaluation. Alert and oriented and in no obvious distress. Denies any chest pain, shortness of breath, palpitations, fever or chills. Vital signs T98.8, P 79 R 18, BP 126/64, oxygen 94. Vital signs T 99, P 82, R 19, BP 160/93, O2 sat 99%. Patient's BP continues to be elevated as well as potassium which remains low 2.7 despite adequate replacement. Plan is to work up other causes of hypokalemia . Ordered an Aldosterone-Renin ratio. If Aldosterone is elevated and renin is low, this would be suggestive of an Adrenal issue. Will then order a CT of the Adrenal gland to rule out either an adenoma or a hyperplasia and manage a ccordingly. Patient had a change of mind about amputation of the left great toe after explaining the risks involved. Patient is now scheduled for amputation of the left great toe tomorrow 01/21/[address] Banerjee. 01/21/25: Lying in bed at bedside at the time of evaluation. Alert and oriented and in no obvious distress. Denies any chest pain, shortness of breath, palpitations, fever or chills. Vital signs T97.3, P 78 R 18, BP 130/71, oxygen 100. Patients potassium remains at 2.9 today despite adequate replacement as per protocol. Had ordered Aldosterone and renin ration , pending the results. Nephrology consult also placed. Pending their recommendations. Patient was scheduled for an amputation of the left great toe, by Dr Banerjee today however the procedure was cancelled because patient had received a dose of Heparin at 4am this morning. Procedure rescheduled for tomorrow 01/22/25. 01/22/2025 Patient is seen and examined at the bedside. No acute events last night. He underwent amputation of the hallux left metatarsophalangeal joint level today. He mentions that the pain at the surgical site is mild and tolerable. He denies fever, chills, chest pain, shortness of breath, nausea, vomiting, palpitations. Vitals temperature 97.3, respiratory rate 16, pulse rate 78, blood pressure 133/71. Labs WBC 9.3, hemoglobin decreased from 13.1- 12.8, sodium 140, potassium decreased from 3.3-3.1, TSH high at 7.05. Urine random chloride 77, urine random sodium 36, urine random potassium 9, PT INR normal. Renal ultrasound revealed normal findings. 01/23/25 patient was seen and examined at the bedside. No acute events overnight reported per nursing. He is status post amputation of the hallux left meta tarsal phalangeal joint. He is doing well pain is tolerable. His labs and vitals are stable 01/24/25 patient was seen and examined at the bedside. No acute events overnight reported per nursing. He is status post amputation of the hallux left meta tarsal phalangeal joint/reports rash/erythematous maculopapular rash especially on leg/back/monitor /benadryl for itching/Consider allergic rash? 01/25/25 - patient is a 40-year-old male with a past medical history of obesity, type 2 diabetes, hypertension, and acute on chronic renal failure who is current ly status post left hallux, postop day 3. He reports postsurgical pain and has been able to ambulate to and from to the restroom by weight-bearing on the heel. No new complaints at this time. He denies fever, chills, drainage, or increased pain from surgical site. Patient continues on vancomycin, cefepime was discontinued due to rash. Wound is healing appropriately with no signs of infection or dehiscence. We will continue IV vancomycin and monitor trough levels and renal function daily. Continue local wound care with daily dressing changes. 01/26 - patient seen at bedside status post day 4 of left hallux amputation. wound is healing appropriately with no signs of infection or dehiscence. Dressings have been changed daily. Elayne drain was removed. No new complaints at the time. Patient is able to ambulate by weight-bearing on his heel. Left leg rash shows no signs of spreading but still erythematous and pruritic. We will order venous Doppler to rule out DVT. Patient remains on vancomycin. Continue local wound care with daily dressing changes. We will continue to monitor rash. 01/27 - patient seen at bedside status post day 5 left toe amputation. wound is healing appropriately with no signs of infection or dehiscence. Dressings are changed daily. Patient ambulating with walker and bearing weight on heel. Left lower extremity rash shows no signs of spreading, but still erythematous and pruritic. Venous doppler shows no signs of DVT. Patient remains on Vancomycin. 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 LFTs within normal limits. Will consider starting antifungal medications. Labs: hypo kalemia - protocol in place; remaining labs within normal limits. Will continue to follow recommendations per Podiatry, wound care, and Infectious Disease. 01/28 - Patient seen at bedside status post left toe amputation day 6. Wound is healing appropriately with no signs of infection or dehiscence. Dressing changes daily. Patient ambulating with walker and bearing weight on heel. Left lower extremity rash shows no signs of spreading. Patient remains on vancomycin. Patient on topical clotrimazole and nystatin powder for markus intertrigo. Nephrology on consult for hypokalemia. Case management for plans to discharge. Will continue to follow recommendations per Podiatry, Wound Care, and Infectious Disease. REVIEW OF SYSTEMS CONSTITUTIONAL: Denies fevers, chills, or night sweats. No unintentional weight loss reported. NEUROLOGICAL: Denies headache, amaurosis fugax, motor weakness, sensory deficit, vertigo/spinning sensation, gait abnormalities, or tremors. ENT: No hearing loss, otalgia, otorrhea, rhinitis, rhinorrhea, hoarseness, or sore throat. CARDIOVASCULAR: Denies any exertional angina, dyspnea on exertion, orthopnea, paroxysmal nocturnal dyspnea, palpitations, life-threatening arrhythmias, claudication. PULMONARY: Denies any shortness of breath, cough, phlegm/sputum, hemoptysis, pleuritic chest pain. SLEEP: Denies morning headaches, daytime somnolence or napping. Denies difficulty falling asleep, staying asleep, waking from sleep. Denies knowledge of snoring. GASTROINTESTINAL: Denies any type of dysphagia to either liquids or solids. Denies nausea, vomiting, pyrosis, early satiety, abdominal pain, diarrhea, constipation, or changes in stool consistency or caliber. Denies coffee-ground emesis, hematemesis, hematochezia, or melanotic stools. GENITOURINARY: Denies frequency, urgency, nocturia, hematuria or incontinence (Storage/Irritative symptoms.) Low urinary stream, straining to void, urinary intermittency or hesitancy, splitting of the voiding stream, terminal dribbling. ENDOCRINOLOGIC: Denies polyuria, polydipsia, polyphagia or heat/cold intolerances. HEMATOLOGIC: Denies thrombophilia/previous clots, or coagulopathy/bleeding disorders. ONCOLOGIC: Denies personal history of malignancy. DERMATOLOGIC: rashes and pruritus diffuse, more pronounced on LLE Extremities: Left knee pain, redness and swelling of LLE, left great toe wound PSYCHIATRIC: Denies any suicidal or homicidal ideation. Denies hallucinations. PHYSICAL EXAM GENERAL APPEARANCE: The patient is awake, alert, and oriented, in no acute cardiopulmonary distress. NEUROLOGICAL: Cranial nerves II-XII grossly intact. Motor is 5/5 in bilateral upper and lower extremities proximal to distal. No sensory deficits. HEENT: Face is symmetric. Pupils are equal and reactive. Extraocular movements are intact. NECK: Supple. No JVD. No thyromegaly. No submental, submandibular, pre-/po stauricular, occipital or supraclavicular lymphadenopathy. CHEST: Normal chest expansion. No Telemetry. LUNGS: Absence of any rales, rhonchi or any wheezing. CARDIOVASCULAR: Regular. S1 and S2 normal. No appreciable rubs, murmurs or gallops. ABDOMEN: Soft, nontender, and nondistended. There is no rebound, voluntary guarding, or rigidity. : Deferred. No Muller. EXTREMITIES: Improving Left lower extremity erythema and swelling. Wrapped left foot post amputation of the hallux left metatarsophalangeal joint level SKIN: erythematous and pruritic diffuse rash especially on LLE Vital Signs (last 8hr) Date Time Temp Pulse Resp B/P (MAP) Pulse Ox O2 Delivery O2 Flow Rate FiO2 01/28/25 07:45 98.8 79 22 125/68 100 Room Air 21 01/28/25 03:59 98.2 86 19 153/74 100 Room Air 21 LABS: Laboratory: Test 01/28/25 06:40 01/28/25 05:12 01/27/25 16:48 01/27/25 09:23 Range/Units Sodium Level 137 136-145 mmol/L Potassium Level 3.6 3.5-5.1 mmol/L Chloride Level 103 101-111 mmol/L Carbon Dioxide Level 30 21-32 mmol/L Blood Urea Nitrogen 7 7-18 mg/dL Creatinine 0.8 0.5-1.3 mg/dL Glomerular Filtration Rate Calc 115 >90 mL/min Random Glucose 139 H 70-105 mg/dL Total Calcium 8.2 L 8.5-10.1 mg/dL Magnesium Level 1.70 L 1.80-2.40 mg/dL Total Bilirubin 0.7 # 0.2-1.0 mg/dL Aspartate Amino Transf (AST/SGOT) 18 10-37 U/L Alanine Aminotransferase (ALT/SGPT) 17 # 12-78 U/L Alkaline Phosphatase 53 50-136 U/L Total Protein 6.9 6.0-8.3 g/dL Albumin 2.2 L 3.5-5.0 g/dL Whole Blood Glucose 142 H 70-110 MG/DL Bedside Glucose Comment Notified Nurse White Blood Count 9.2 4.8-10.8 K/uL Red Blood Count 4.49 L 4.50-6.20 MIL/uL Hemoglobin 12.6 L 14.0-18.0 g/dL Hematocrit 36.9 L 42-54 % Mean Corpuscular Volume 82.2 79-99 fL Mean Corpuscular Hemoglobin 28.1 27.0-33.0 pg Mean Corpuscular Hemoglobin Concent 34.1 32.0-36.0 g/dL Red Cell Distribution Width 15.2 11.0-15.5 % Platelet Count 247 130-400 K/uL Mean Platelet Volume 9.3 7.5-10.5 fL Immature Granulocyte % (Auto) 0.3 0-1 % Neutrophils (%) (Auto) 73.8 40.0-77.0 % Lymphocytes (%) (Auto) 16.7 L 21.0-51.0 % Monocytes (%) (Auto) 5.5 3.0-13.0 % Eosinophils (%) (Auto) 3.6 0.0-8.0 % Basophils (%) (Auto) 0.1 0.0-5.0 % Neutrophils # (Auto) 6.8 1.8-7.7 K/uL Lymphocytes # (Auto) 1.5 1.0-4.8 K/uL Monocytes # (Auto) 0.5 0.1-1.0 K/uL Eosinophils # (Auto) 0.33 0.00-0.70 K/uL Basophils # (Auto) 0.01 0.00-0.20 K/uL Absolute Immature Granulocyte (auto 0.03 0-1 K/uL Nucleated Red Blood Cells 0.0 0.0-0.19 % Test 01/26/25 13:10 Range/Units Vancomycin Level Trough 13.4 # 10.0-20.0 UG/ML Current Medications Medications (Trade) Dose Ordered Sig/Silverio Route PRN Reason Start Time Stop Time Status Last Admin Dose Admin Acetaminophen (TYLenol 325MG TAB) 650 mg Q4H PRN PO MILD PAIN (1-3) 01/14/25 22:30 02/13/25 22:29 01/15/25 12:15 650 MG Acetaminophen (TYLenol 325MG TAB) 650 mg Q6H PRN PO TEMPERATURE GREATER THAN 101.5 01/14/25 22:30 02/13/25 22:29 01/17/25 09:41 650 MG Acetaminophen/ Codeine Phosphate (TYLenol-coDEINE TAB) 2 tab Q4H PRN PO MODERATE PAIN (4-6) 01/15/25 14:00 02/14/25 13:59 01/25/25 21:27 2 TAB Alteplase, Recombinant (CathFLO 2MG VIAL) 4 mg ONCE IVCATH 01/28/25 05:30 01/28/25 07:07 DC 01/28/25 05:45 2 MG Amlodipine Besylate (NorvASC 5MG TAB) 5 mg DAILY PO 01/17/25 09:00 02/16/25 08:59 01/28/25 08:52 5 MG Cefepime HCl (MAXipime 1 GM vial) 1 gm Q8H IVPB 01/15/25 06:00 01/18/25 13:31 DC 01/18/25 13:00 1 GM Cefepime HCl (MAXipime 1 GM vial) 1 gm Q8H IVPB 01/18/25 16:00 01/25/25 14:43 DC 01/25/25 11:31 1 GM Clotrimazole (Lotrimin) 1 APPL BID TP 01/27/25 21:00 02/26/25 20:59 01/28/25 08:54 1 GM Dextrose (D50w) 50 ml AD PRN IV HYPOGLYCEMIA PROTOCOL 01/14/25 22:30 02/13/25 22:29 Diphenhydramine HCl (BENAdryl INJ) 12.5 mg Q6H PRN IV ITCHING 01/24/25 11:30 02/23/25 11:29 01/27/25 21:33 12.5 MG Famotidine (Pepcid 20mg Tab) 20 mg BID PO 01/15/25 09:00 02/14/25 08:59 01/28/25 08:53 20 MG Glucagon (Glucagon 1mg Kit) 1 mg AD PRN IM HYPOGLYCEMIA PROTOCOL 01/14/25 22:30 02/13/25 22:29 Heparin Sodium (Porcine) (HEParin 5,000 UNIT VIAL) 5,000 unit Q8H SQ 01/17/25 12:00 02/16/25 11:59 01/27/25 13:15 5,000 UNIT Hydralazine HCl (APRESOLine 20MG INJ) 10 mg Q6H PRN IV For:SBP above 160;DBP above 90 01/14/25 22:30 02/13/25 22:29 01/19/25 22:59 10 MG Insulin Glargine (LANtus 100 UNITS/ML 10 ML VIAL) 20 units HS SQ 01/16/25 21:00 02/15/25 20:59 01/27/25 21:55 20 UNITS Insulin Human Regular (humuLIN R 100 UNIT/ML 3ML) INSULIN SLIDING SCAL... ACHS SQ 01/15/25 07:30 02/14/25 07:29 01/27/25 21:55 6 UNIT Lactated Ringer's 1,000 ml @ 100 mls/hr Q10H IV 01/24/25 20:00 02/23/25 19:59 01/27/25 09:19 100 MLS/HR Magnesium Sulfate 50 ml @ 0 mls/hr PROTOCOL PRN IV OTHER [SEE ORDER COMMENTS] 01/14/25 22:30 02/13/25 22:29 01/26/25 08:17 20 MLS/HR Morphine Sulfate (morPHINE 2MG SYG) 2 mg Q4H PRN IV SEVERE PAIN (7-10) 01/14/25 22:30 01/20/25 01:29 DC Nystatin (NystOP 15 GM POWDER) 1 APPLICATION BID TP 01/27/25 21:00 02/26/25 20:59 01/28/25 08:54 1 APPL Ondansetron HCl (zoFRAN 4MG INJ) 4 mg Q6H PRN IV NAUSEA/VOMITING 01/14/25 22:30 02/13/25 22:29 Potassium Chloride 100 ml @ 50 mls/hr AD PRN IV POTASSIUM PROTOCOL 01/21/25 07:30 01/21/25 07:07 DC Potassium Chloride 100 ml @ 100 mls/hr AD PRN IV POTASSIUM PROTOCOL 01/14/25 22:30 02/13/25 22:29 01/22/25 05:47 100 MLS/HR Potassium Chloride (K-Dur/Klor-Con 20meq) 20 meq AD PRN PO POTASSIUM PROTOCOL 01/14/25 22:30 02/13/25 22:29 01/27/25 21:37 20 MEQ Potassium Chloride (K-Dur/Klor-Con 20meq) 20 meq BID PO 01/21/25 21:00 02/20/25 20:59 01/28/25 08:53 20 MEQ Potassium Chloride (KCl 10% Elixir 20meq/15ml) 20 meq AD PRN PO POTASSIUM PROTOCOL 01/14/25 22:30 02/13/25 22:29 01/17/25 00:24 20 MEQ Simethicone (Mylicon) 80 mg PCHS PO 01/18/25 21:00 02/17/25 20:59 01/28/25 08:52 80 MG Sodium Chloride 1,000 ml @ 100 mls/hr Q10H IV 01/14/25 22:30 01/24/25 19:51 DC 01/24/25 13:16 100 MLS/HR Vancomycin HCl 250 ml @ 125 mls/hr ONCE IV 01/14/25 22:30 01/14/25 22:52 DC Vancomycin HCl 250 ml @ 125 mls/hr Q12H IV 01/15/25 00:00 01/24/25 02:59 DC 01/24/25 01:01 125 MLS/HR Vancomycin HCl 250 ml @ 125 mls/hr Q12H IV 01/24/25 14:00 02/14/25 13:59 01/28/25 03:11 125 MLS/HR Vancomycin HCl (Vancomycin Protocol) 1 each AD IV 01/14/25 23:00 01/28/25 22:59 DIAGNOSTICS / RADIOLOGY: [ ] ASSESSMENT: Osteomyelitis involving the left hallux, s/p amputation of the hallux left metatarsophalangeal joint level on 01/22/2025 Left leg cellulitis POA Left toe necrotic ulcer POA Hypokalemia POA Pseudohyponatremia secondary to hyperglycemia POA Hyperglycemia secondary to Uncontrolled diabetes POA Status post fall injury at home two weeks ago POA Hypertension POA Morbid obesity POA PLAN: Osteomyelitis involving the left hallux Left leg cellulitis POA * MRI of the left foot showed findings suggestive of osteomyelitis involving the 1st distal phalanx and adjacent cellulitis. *Continue on Vancomycin 1 g; discontinued Cefepime 1 g secondary rash *Infectious disease consult is appreciated and we will follow their recommendations *Underwent amputation of the hallux left metatarsophalangeal joint level on 01/22/2025 - Venous doppler to rule out DVT on left lower extremity Left Toe Necrotic ulcer *Underwent amputation of the hallux left metatarsophalangeal joint level on 01/22/2025 *Wound care team is on the case Hypokalemia POA * no signs of volume depletion * Replace electrolytes as needed per protocol * continue potassium 20 mEq p.o. b.i.d. as per nephrology consult recommendation Hyperglycemia secondary to Uncontrolled diabetes POA *Blood glucose 130. Currently on low-dose sliding scale AC &HS. *Continue Insulin Glargine 20 units subQ HS Hypertension *Continue with Amlodipine 5mg PO daily Morbid Obesity *Educated patient about the need to lose weight *Physical therapy ordered. Case Management Continue on Famotidine 20 mg p.o. bid for GI prophylaxis continue heparin SQ 5000 q.8h DVT prophylaxis Continue PRN medications for fever,pain,cough, nausea and vomiting Repeat labs in a.m. ATTESTATION BY PHYSICIAN I have seen and examined the patient. I reviewed the documentation, medical decision making, and treatment plan as noted by the resident provider above. I agree with the findings and plan of care. César Maynard MD, PRIYA N Jan 28, 2025 09:01
--- NOTE | 2025-01-28 12:11 | PN ---
INFECTIOUS DISEASE PROGRESS NOTE Date of Service: Jan 28, 2025 SUBJECTIVE: This is a 40 year old male patient whose body rash is improving. The left lower extremity still warm and with erythema but had some improvement. No issues reported in regards to the left great toe amputation. Sutures intact. Will continue on vancomycin. PHYSICAL EXAM EYES: Anicteric. Pupils equal and reactive. HENT: No oral thrush seen, moist Oral mucosa. NECK: Supple, no JVD or thyromegaly. LUNGS: Good air entry. No rales, no rhonchi. CARDIOVASCULAR: S1, S2 regular. No murmur heard. ABDOMEN: Soft, non tender, bowel sounds present, no organomegaly. CENTRAL NERVOUS SYSTEM: Awake, alert, oriented x 3. SKIN: No rashes, no swelling. Left great toe diabetic ulcer, s/p amputation. New onset body rash. LYMPHATICS: No peripheral lymphadenopathy. MUSCULOSKELETAL: No joint swelling, erythema or tenderness. EXTREMITIES: No cyanosis or clubbing. Left lower extremity swelling and erythema. BACK: No deformity, no pressure ulcer. GENITOURINARY: No dysuria or hematuria. Vital Sign (Last 12 Hours) 01/28/25 01/28/25 01/28/25 01/28/25 00:13 03:59 07:45 08:00 Temp 98.1 98.2 98.8 Pulse 86 86 79 Resp 19 19 22 B/P (MAP) 112/69 153/74 125/68 Pulse Ox 99 100 100 100 O2 Delivery Room Air Room Air Room Air Room Air* O2 Flow Rate 0 FiO2 21 21 21 21 Intake & Output (last 24hrs) 01/27/25 01/27/25 01/28/25 15:00 23:00 07:00 Intake Total 600 ml 360 ml Balance 600 ml 360 ml LABS: Laboratory: Test 01/28/25 11:25 01/28/25 06:40 01/27/25 09:23 01/26/25 13:10 Range/Units Whole Blood Glucose 163 H 70-110 MG/DL Bedside Glucose Comment Notified Nurse Sodium Level 137 136-145 mmol/L Potassium Level 3.6 3.5-5.1 mmol/L Chloride Level 103 101-111 mmol/L Carbon Dioxide Level 30 21-32 mmol/L Blood Urea Nitrogen 7 7-18 mg/dL Creatinine 0.8 0.5-1.3 mg/dL Glomerular Filtration Rate Calc 115 >90 mL/min Random Glucose 139 H 70-105 mg/dL Total Calcium 8.2 L 8.5-10.1 mg/dL Magnesium Level 1.70 L 1.80-2.40 mg/dL Total Bilirubin 0.7 # 0.2-1.0 mg/dL Aspartate Amino Transf (AST/SGOT) 18 10-37 U/L Alanine Aminotransferase (ALT/SGPT) 17 # 12-78 U/L Alkaline Phosphatase 53 50-136 U/L Total Protein 6.9 6.0-8.3 g/dL Albumin 2.2 L 3.5-5.0 g/dL White Blood Count 9.2 4.8-10.8 K/uL Red Blood Count 4.49 L 4.50-6.20 MIL/uL Hemoglobin 12.6 L 14.0-18.0 g/dL Hematocrit 36.9 L 42-54 % Mean Corpuscular Volume 82.2 79-99 fL Mean Corpuscular Hemoglobin 28.1 27.0-33.0 pg Mean Corpuscular Hemoglobin Concent 34.1 32.0-36.0 g/dL Red Cell Distribution Width 15.2 11.0-15.5 % Platelet Count 247 130-400 K/uL Mean Platelet Volume 9.3 7.5-10.5 fL Immature Granulocyte % (Auto) 0.3 0-1 % Neutrophils (%) (Auto) 73.8 40.0-77.0 % Lymphocytes (%) (Auto) 16.7 L 21.0-51.0 % Monocytes (%) (Auto) 5.5 3.0-13.0 % Eosinophils (%) (Auto) 3.6 0.0-8.0 % Basophils (%) (Auto) 0.1 0.0-5.0 % Neutrophils # (Auto) 6.8 1.8-7.7 K/uL Lymphocytes # (Auto) 1.5 1.0-4.8 K/uL Monocytes # (Auto) 0.5 0.1-1.0 K/uL Eosinophils # (Auto) 0.33 0.00-0.70 K/uL Basophils # (Auto) 0.01 0.00-0.20 K/uL Absolute Immature Granulocyte (auto 0.03 0-1 K/uL Nucleated Red Blood Cells 0.0 0.0-0.19 % Vancomycin Level Trough 13.4 # 10.0-20.0 UG/ML ASSESSMENT: Left great toe diabetic ulcer with osteomyelitis, s/p amputation on 01/22/2025. New onset body rash possible allergic reaction to cefepime. Polymicrobial infection. Infection with Methicillin-susceptible Staphylococcus aureus. Leukocytosis, resolved. Hypokalemia, resolving. Recent mechanical fall. Uncontrolled Diabetes mellitus, hemoglobin A1c 10.8. Morbid obesity. PLAN: Continue vancomycin per pharmacy protocol. Continue antidiabetics. Continue pain management. Continue wound care. Continue monitoring electrolytes. This case was reviewed and discussed with my supervising physician and the above assessment and plan was formulated and agreed upon. ATTESTATION BY PHYSICIAN I have seen and examined the patient. I reviewed the documentation, medical decision making, and treatment plan as noted by the mid-level provider above. I agree with the findings and plan of care. MAY ESCOBEDO MD, [facility] Jan 28, 2025 12:11
--- NOTE | 2025-01-28 13:10 | PN ---
NEPHROLOGY PROGRESS NOTE Date/Time Patient Seen: Jan 28, 2025 SUBJECTIVE: This is a 39 year old male,morbidly obese with past medical history of diabetes and hypertension who was brought by EMS to the ED for complaints of left leg pain He has been in the hospital for several days Pending left great toe amputation, rescheduled due to hypokalemia. 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 He was seen in the medical floor, in no acute distress REVIEW OF SYSTEMS: GENERAL: Negative for any nausea, vomiting, fevers, chills, or weight loss. NEUROLOGIC: Negative for any blurry vision, blind spots, double vision, facial asymmetry, dysphagia, dysarthria, hemiparesis, hemisensory deficits, vertigo, ataxia. HEENT: Negative for any head trauma, neck trauma, neck stiffness, photophobia, phonophobia, sinusitis, rhinitis. CARDIAC: Negative for any chest pain, dyspnea on exertion, paroxysmal nocturnal dyspnea, peripheral edema. PULMONARY: Negative for any shortness of breath, wheezing, COPD, or TB exposure. GASTROINTESTINAL: Negative for any abdominal pain, nausea, vomiting, bright red blood per rectum, melena. GENITOURINARY: Negative for any dysuria, hematuria, incontinence. INTEGUMENTARY: Negative for any rashes, cuts, insect bites. RHEUMATOLOGIC: Negative for any joint pains, photosensitive rashes, history of vasculitis or kidney problems. HEMATOLOGIC: Negative for any abnormal bruising, frequent infections or bleeding. Vital Signs (last 8hr) Date Time Temp Pulse Resp B/P (MAP) Pulse Ox O2 Delivery O2 Flow Rate FiO2 01/28/25 12:00 98.4 87 22 116/67 99 Room Air 21 01/28/25 08:00 100 Room Air* 0 21 01/28/25 07:45 98.8 79 22 125/68 100 Room Air 21 PHYSICAL EXAM: GENERAL: Alert and oriented x 3. No acute distress. Well-nourished. EYES: EOMI. Anicteric. HENT: Moist mucous membranes. No scleral icterus. No cervical lymphadenopathy. LUNGS: Clear to auscultation bilaterally. No accessory muscle use. CARDIOVASCULAR: Regular rate and rhythm. No murmur. No JVD. ABDOMEN: Soft, non-tender and non-distended. No palpable masses. EXTREMITIES: No edema. Non-tender. SKIN: No rashes or lesions. Warm. NEUROLOGIC: No focal neurological deficits. CN II-XII grossly intact, but not individually tested. PSYCHIATRIC: Cooperative. Appropriate mood and affect. Current Medications Medications (Trade) Dose Ordered Sig/Silverio Route Start Time Stop Time Status Last Admin Dose Admin Amlodipine Besylate (NorvASC 5MG TAB) 5 mg DAILY PO 01/17/25 09:00 02/16/25 08:59 01/25/25 11:30 5 MG Cefepime HCl (MAXipime 1 GM vial) 1 gm Q8H IVPB 01/15/25 06:00 01/18/25 13:31 DC 01/18/25 13:00 1 GM Cefepime HCl (MAXipime 1 GM vial) 1 gm Q8H IVPB 01/18/25 16:00 01/25/25 14:43 DC 01/25/25 11:31 1 GM Famotidine (Pepcid 20mg Tab) 20 mg BID PO 01/15/25 09:00 02/14/25 08:59 01/25/25 11:31 20 MG Heparin Sodium (Porcine) (HEParin 5,000 UNIT VIAL) 5,000 unit Q8H SQ 01/17/25 12:00 02/16/25 11:59 01/25/25 12:53 5,000 UNIT Insulin Glargine (LANtus 100 UNITS/ML 10 ML VIAL) 20 units HS SQ 01/16/25 21:00 02/15/25 20:59 01/24/25 21:12 20 UNITS Insulin Human Regular (humuLIN R 100 UNIT/ML 3ML) INSULIN SLIDING SCAL... ACHS SQ 01/15/25 07:30 02/14/25 07:29 01/24/25 21:13 6 UNIT Lactated Ringer's 1,000 ml @ 100 mls/hr Q10H IV 01/24/25 20:00 02/23/25 19:59 01/25/25 11:31 100 MLS/HR Potassium Chloride (K-Dur/Klor-Con 20meq) 20 meq BID PO 01/21/25 21:00 02/20/25 20:59 01/25/25 11:31 20 MEQ Simethicone (Mylicon) 80 mg PCHS PO 01/18/25 21:00 02/17/25 20:59 01/25/25 12:49 80 MG Sodium Chloride 1,000 ml @ 100 mls/hr Q10H IV 01/14/25 22:30 01/24/25 19:51 DC 01/24/25 13:16 100 MLS/HR Vancomycin HCl 250 ml @ 125 mls/hr ONCE IV 01/14/25 22:30 01/14/25 22:52 DC Vancomycin HCl 250 ml @ 125 mls/hr Q12H IV 01/15/25 00:00 01/24/25 02:59 DC 01/24/25 01:01 125 MLS/HR Vancomycin HCl 250 ml @ 125 mls/hr Q12H IV 01/24/25 14:00 02/14/25 13:59 01/25/25 14:05 125 MLS/HR Vancomycin HCl (Vancomycin Protocol) 1 each AD IV 01/14/25 23:00 01/28/25 22:59 LABORATORY: [ ] Hematology Labs: Test 01/27/25 09:23 Range/Units White Blood Count 9.2 4.8-10.8 K/uL Red Blood Count 4.49 L 4.50-6.20 MIL/uL Hemoglobin 12.6 L 14.0-18.0 g/dL Hematocrit 36.9 L 42-54 % Mean Corpuscular Volume 82.2 79-99 fL Mean Corpuscular Hemoglobin 28.1 27.0-33.0 pg Mean Corpuscular Hemoglobin Concent 34.1 32.0-36.0 g/dL Red Cell Distribution Width 15.2 11.0-15.5 % Platelet Count 247 130-400 K/uL Mean Platelet Volume 9.3 7.5-10.5 fL Immature Granulocyte % (Auto) 0.3 0-1 % Neutrophils (%) (Auto) 73.8 40.0-77.0 % Lymphocytes (%) (Auto) 16.7 L 21.0-51.0 % Monocytes (%) (Auto) 5.5 3.0-13.0 % Eosinophils (%) (Auto) 3.6 0.0-8.0 % Basophils (%) (Auto) 0.1 0.0-5.0 % Neutrophils # (Auto) 6.8 1.8-7.7 K/uL Lymphocytes # (Auto) 1.5 1.0-4.8 K/uL Monocytes # (Auto) 0.5 0.1-1.0 K/uL Eosinophils # (Auto) 0.33 0.00-0.70 K/uL Basophils # (Auto) 0.01 0.00-0.20 K/uL Absolute Immature Granulocyte (auto 0.03 0-1 K/uL Nucleated Red Blood Cells 0.0 0.0-0.19 % Chemistry Labs: Test 01/28/25 11:25 01/28/25 06:40 Range/Units Whole Blood Glucose 163 H 70-110 MG/DL Bedside Glucose Comment Notified Nurse Sodium Level 137 136-145 mmol/L Potassium Level 3.6 3.5-5.1 mmol/L Chloride Level 103 101-111 mmol/L Carbon Dioxide Level 30 21-32 mmol/L Blood Urea Nitrogen 7 7-18 mg/dL Creatinine 0.8 0.5-1.3 mg/dL Glomerular Filtration Rate Calc 115 >90 mL/min Random Glucose 139 H 70-105 mg/dL Total Calcium 8.2 L 8.5-10.1 mg/dL Magnesium Level 1.70 L 1.80-2.40 mg/dL Total Bilirubin 0.7 # 0.2-1.0 mg/dL Aspartate Amino Transf (AST/SGOT) 18 10-37 U/L Alanine Aminotransferase (ALT/SGPT) 17 # 12-78 U/L Alkaline Phosphatase 53 50-136 U/L Total Protein 6.9 6.0-8.3 g/dL Albumin 2.2 L 3.5-5.0 g/dL DIAGNOSTICS / RADIOLOGY: REASON: post-op LLE swelling edema and erythema ORDERING PHYSICIAN: ANA KATZ PROCEDURE: VENOUS UNI - US VENOUS DOPPLER UNILATERAL Exam Type: US VENOUS DOPPLER UNILATERAL Clinical Information: post-op LLE swelling edema and erythema Comparison: None Findings: The examination shows normal deep venous system. There is normal compressibility at all levels. There is no intraluminal clot. There is no occlusion. Adequate response is obtained on augmentation. Impression: No evidence of DVT. DICTATED BY: VIKTORIYA GONZALEZ MD DATE: 01/26/25 799 REASON: NEPHRO CALCINOSIS ORDERING PHYSICIAN: ROSEMARY CASAS MD PROCEDURE: RENAL - US RENAL SONOGRAM Exam Type: US RENAL SONOGRAM Clinical Information: NEPHRO CALCINOSIS Comparison: None Findings: Examination shows normal renal size and echogenicity bilaterally. Preserved cortical thickness and corticomedullary junction region is seen. No hydronephrosis or calculi are seen. No renal masses are seen. There is no evidence of perinephric fluid on either side. No evidence of significant ureteral dilatation is seen. The urinary bladder is normal. No bladder masses, stones, or wall thickening is seen. IMPRESSION: Normal renal anatomy bilaterally. DICTATED BY: VIKTORIYA GONZALEZ MD DATE: 01/21/25 1517 REASON: PICC LINE PLACEMENT ORDERING PHYSICIAN: FERN LEONARDO MD PROCEDURE: CXR1VW - CHEST 1VW Exam Type: CHEST 1VW Clinical Information: PICC LINE PLACEMENT Comparison: None Findings: Right PICC line is noted with tip within the mid superior vena cava and there are no other interval changes. IMPRESSION: Right PICC line as noted. DICTATED BY: VIKTORIYA GONZALEZ MD DATE: 01/21/25 1007 REASON: LEFT FOOT WOUND ORDERING PHYSICIAN: FERN LEONARDO MD PROCEDURE: FT LT WO - MR FOOT LEFT WO MR FOOT LEFT WO HISTORY: Wound to great toe COMPARISON: None TECHNIQUE: MRI of the left foot was performed utilizing multiple pulse sequences in axial, coronal and sagittal planes. Patient was not given contrast through intravenous route. FINDINGS: Abnormal increased signal intensity is seen involving the first distal phalanx consistent with osteomyelitis. Adjacent cellulitis changes are seen. No signs of fracture or dislocation is seen. IMPRESSION: 1. Findings suggestive of osteomyelitis involving the first distal phalanx with adjacent cellulitis. DICTATED BY: DEEPALI KRISHNA MD DATE: 01/15/25 1717 REASON: gangrenous left great toe ORDERING PHYSICIAN: FERN LEONARDO MD PROCEDURE: ART U LE - US ARTERIAL UNILA LOW EXT DUPL US ARTERIAL UNILA LOW EXT DUPL HISTORY: Gangrene to left great toe COMPARISON: None TECHNIQUE: Left lower extremity arterial Doppler ultrasound study was performed. FINDINGS: Normal triphasic arterial waveforms are noted in the left common femoral, deep femoral, superficial femoral, popliteal, posterior tibial and dorsalis pedal arteries. On the left, the peak systolic velocity of the common femoral artery is 146 cm/s, the proximal femoral artery is 146 cm/s, the mid femoral artery is 128 cm/s, the distal femoral artery is 150 cm/s, the proximal popliteal artery is 99 cm/s, the distal popliteal artery is 38 cm/s, the anterior tibial artery is 105 cm/s, the posterior tibial artery artery is 73 cm/s,and the dorsalis pedal artery is 142 cm/s. IMPRESSION: 1. Atherosclerotic disease. 2. Otherwise normal triphasic arterial waveforms noted of the left lower extremity artery system. Low velocity with hyperemic flow is seen in the left posterior tibial artery. DICTATED BY: DEEPALI KRISHNA MD DATE: 01/15/251746 REASON: sepsis ORDERING PHYSICIAN: CASSIDY CHATMAN PROCEDURE: CXR1VW - CHEST 1VW CHEST 1VW HISTORY: Sepsis COMPARISON: 05/10/2011 FINDINGS: A frontal projection of the chest was obtained. No acute pulmonary infiltrates is seen. The heart is borderline enlarged. Degenerative changes are seen. Prominent interstitial markings are seen. No evidence of aortic calcification is seen. IMPRESSION: 1. No acute pulmonary infiltrate is seen. DICTATED BY: DEEPALI KRISHNA MD DATE: 01/14/252102 REASON: swelling redness ORDERING PHYSICIAN: CASSIDY CHATMAN FITTING ROOM ASSOCIATE PROCEDURE: VENOUS UNI - US VENOUS DOPPLER UNILATERAL US VENOUS DOPPLER UNILATERAL HISTORY: Swelling COMPARISON: None TECHNIQUE: Left lower extremity venous Doppler ultrasound study was performed. FINDINGS: The left common femoral, femoral, popliteal, and posterior tibial veins are visualized. Normal flow with augmentation and compressibilities are demonstrated. Left greater saphenous vein is patent. IMPRESSION: 1. No evidence of deep venous thrombosis is seen. DICTATED BY: DEEPALI KRISHNA MD DATE: 01/14/252108 REASON: pain ORDERING PHYSICIAN: CASSIDY CHATMAN FITTING ROOM ASSOCIATE PROCEDURE: KNEE 3V LT - KNEE 3VWS LT KNEE 3VWS LT HISTORY: Pain COMPARISON: None TECHNIQUE: 3 images of the left knee were obtained. FINDINGS: There is no acute displaced fracture or dislocation. IMPRESSION: 1. Findings as described above. DICTATED BY: DEEPALI KRISHNA MD DATE: 01/14/252105 REASON: pain ORDERING PHYSICIAN: CASSIDY CHATMAN FITTING ROOM ASSOCIATE PROCEDURE: FT 3VW LT - FOOT COMP 3+VWS LT FOOT COMP 3+VWS LT HISTORY: Pain COMPARISON: None TECHNIQUE: 3 images of the left foot were obtained. FINDINGS: There is no acute displaced fracture or dislocation. There is soft tissue swelling. Evaluation for osteomyelitis is limited radiographs. The study is limited due to poor positioning. Degenerative changes are seen. IMPRESSION: 1. Findings as described above. DICTATED BY: DEEPALI KRISHNA MD DATE: 01/14/252104 ASSESSMENT: Hypokalemia Osteomyelitis involving the 1st distal phalanx Left leg cellulitis Left toe necrotic ulcer Pseudo hyponatremia Diabetes mellitus type 2 Hypertension Obesity PLAN: Labs, diagnostic, radiologic exams reviewed and interpreted by myself and supervising physician. We have reviewed external records in detail Suggest to avoid loop diuretics for now Potassium sparing diuretics can be used, if needed. Pending plasma renin activity and aldosterone Require close monitoring of renal function and electrolytes Order CBC, CMP, and electrolytes in am Continue with antibiotics BiPAP as necessary, for respiratory distress Monitor blood pressure adjust medication doses as needed Avoid hypotensive episodes May use Dilaudid 0.5 mg IV every 6 hours as needed for severe pain Monitor blood sugars Strict intake, output, and daily weight should be monitored Please renally adjust medications Avoid nephrotoxic and nonsteroidal drugs Avoid contrast if possible Will continue to monitor renal function, anemia, electrolytes Treatment plan discussed with patient Questions were answered We have discussed with the other team physicians in detail about the care plan We will continue to monitor the patient closely ATTESTATION BY PHYSICIAN I have seen and examined the patient. I reviewed the documentation, medical decision making, and treatment plan as noted by the mid-level provider above. I agree with the findings and plan of care. ROSEMARY CASAS MD, [facility] Jan 28, 2025 13:10
--- NOTE | 2025-01-28 15:50 | NUR ---
[facility] Follow-up: Patient re-assessed by wound healing team. Assessment and recommendations provided to primary nurse. Education provided. Wound care done. Addendum: 01/29/25 at 1310 by CHRISTINA MCCLURE RN RN/ Amended: Links added.
--- NOTE | 2025-01-28 17:28 | NUR ---
Nutrition consult per LOS >7 Reviewed labs, notes, and medications. PT s/p left great toe amputation day 6, on HH+ 60 gm cho, IV fluids, IV abx, insulin, A1C 10.8, BG 139(H), Mg 1.70(L), HDL (L), elevated CRP per chart review. 100%PO intake, wt via standing scale, last BM 01/27/25, mild pitting, well nourished, 1700 ml balance per nursing. Pt with PCM per BMI of 63.8. Per research low vitamin D may contribute to insulin resistance + vit. D deficiency may impair wound healing. Recommendations: -Provide HH + 60 gm cho + prostat jello tid w/ trays -Monitor PO intake -Monitor BM -If no BM >3 days consider stool softener -Monitor electrolytes -Replenish electrolytes per protocol -Monitor wts -Reweigh as able -Order Vit D, vit b-12 labs to rule out deficiencies -Provide b-complex QD -Recommend Pt to follow up with PCP -Monitor goals of care RD to follow + available for consult per protocol Addendum: 01/28/25 at [address] Amended: Links added.
[2025-01-29] VITALS: BP 119/59; PULSE 89; RESP 18; TEMP 98.1
[2025-01-29 04:00] VITALS: BP 110/60; PULSE 81; RESP 18; TEMP 97.9
[2025-01-29 06:21] LABS: BASOPHILS # (AUTO) 0.02 K/uL (0.00-0.20); BASOPHILS % (AUTO) 0.2 % (0.0-5.0); EOSINOPHILS # (AUTO) 0.51 K/uL (0.00-0.70); EOSINOPHILS % (AUTO) 5.4 % (0.0-8.0); HEMATOCRIT 39.5 % (42-54); IMMATURE GRANULOCYTE ABSOLUTE 0.04 K/uL (0-1); LYMPHOCYTES # (AUTO) 1.8 K/uL (1.0-4.8); LYMPHOCYTES % (AUTO) 18.9 % (21.0-51.0); MEAN CORPUSCULAR HEMOGLOBIN 27.9 pg (27.0-33.0); MEAN CORPUSCULAR HGB CONC 33.9 g/dL (32.0-36.0); MEAN CORPUSCULAR VOLUME 82.3 fL (79-99); MONOCYTES # (AUTO) 0.4 K/uL (0.1-1.0); MONOCYTES % (AUTO) 4.5 % (3.0-13.0); NEUTROPHILS # (AUTO) 6.7 K/uL (1.8-7.7); NEUTROPHILS % (AUTO) 70.6 % (40.0-77.0); PLATELET COUNT (AUTO) 277 K/uL (130-400); RED CELL DISTRIBUTION WIDTH 15.6 % (11.0-15.5); WHITE BLOOD COUNT (AUTO) 9.5 K/uL (4.8-10.8)
[2025-01-29 07:13] LABS: ALBUMIN 2.2 g/dL (3.5-5.0); BILIRUBIN,TOTAL 0.7 mg/dL (0.2-1.0); CREATININE 0.7 mg/dL (0.5-1.3); POTASSIUM 3.8 mmol/L (3.5-5.1)
[2025-01-29 08:00] VITALS: BP 118/56; PULSE 85; RESP 20; TEMP 98.8; O2SAT 99
--- NOTE | 2025-01-29 08:43 | PN ---
[facility] PROGRESS NOTE Date of Service: Jan 29, 2025 Time of Service: 08:43 SUBJECTIVE: HPI This is a 39 year old male,morbidly obese with past medical history of diabetes and hypertension who was brought by EMS to the ED for complaints of left leg pain which started 2 weeks ago.Patient reports he fell at his driveway 2 weeks ago , landed on his left knee and did not seek medical attention and last Saturday he noticed his left leg has been swollen and has been wearing his shoes for too long he said and that his left big toe has been rubbing on his shoes and he also noticed he has been having difficulty walking because of pain on his left leg and left foot so he decided to come to the Ed for evaluation.Reportedly upon arrival to ER,staff took out his left foot from his shoes and it has a very offensive odor his left foot is red and big toe is gangrenous and left lower extremity has an ascending redness and swelling. Patient states that he is not very complaint with his medications and has not been on his medications. 01/15/25: Lying in bed with dad at bedside at the time of evaluation. Alert and oriented and in no obvious distress. Denies any chest pain, shortness of breath, palpitations, fever or chills. Vital signs T98.2, P 98, 22, BP 160/97, oxygen saturation 97 on room air. Labs WBC 14down from 17.3 yesterday, HB 14.8 HCT 42.2,Neutrophil 79.8, ESR 118, CRP 191.8, potassium 2.6 replace as per protocol, magnesium 2.1, lactic acid 1.7, hemoglobin A1c 10.8, glucose 250. X- ray of the left foot showed no acute displaced fracture or dislocation. There is soft tissue swelling. Evaluation of osteomyelitis is limited due to poor positioning. Degenerative changes seen. Venous Doppler was negative for DVT, blood cultures were ordered, still pending the results. Patient is currently on vancomycin 1 g and cefepime 1 g. Infectious disease consult has been placed, pending recommendations. Consult for podiatry has also been placed. Patient with gangrenous left great, ordered an arterial Doppler of the left lower extremities to assess circulation. Pending blood culture results. 01/16/25: Lying in bed at bedside at the time of evaluation. Alert and oriented and in no obvious distress. Denies any chest pain, shortness of breath, palpitations, fever or chills. Vital signs T97.9, P 89 R 20, BP 153/80, oxygen 99. Labs sodium 134,. potassium 2.3 Replace as per protocol, chloride 99, BUN 11, creatinine 0.9, glucose 290. Patient is currently on low-dose insulin sliding scale. Ordered insulin glargine 20 units HS. Blood cultures done yesterday showed no growth, wound cultures positive for Gram-negative rods. Patient is currently on Vancomycin and Cefepime. MRI of the foot showed finding s suggestive of osteomyelitis involving the 1st distal phalanx with adjacent cellulitis. Infectious Disease consult has been placed, pending the recommendations. Podiatry consult has also been placed, pending their recommendations as well. Arterial Doppler showed atherosclerotic disease otherwise normal triphasic arterial waveforms. 01/17/25 patient was seen and examined. Case discussed with the RN. He denies fever or chills. He has been treated for osteomyelitis of the 1st distal phalanx. Appreciate Infectious Disease recommendations. Podiatry help us well 01/18/2025: Lying in bed at bedside at the time of evaluation. Alert and oriented and in no obvious distress. Denies any chest pain, shortness of breath, palpitations, fever or chills. Vital signs T97.7, P 82 R 22, BP 138/70, oxygen 97. Labs sodium 137,. potassium 2.8 Replace as per protocol, chloride 99, BUN 8, creatinine 0.9, glucose 211. Wound cultures of the left great toe was positive for microbial infection: Citrobacter freundii, Enterobacter cloacae, Enterococcus fecalis, Staph aureus, Streptococcus Gp G. Continue with Vancomycin and Cefepime as ordered. Infectious disease is on the case. Physical therapy ordered for evaluation and management. Continue with wound care as ordered. 01/19/2025:Lying in bed at bedside at the time of evaluation. Alert and orie nted and in no obvious distress. Denies any chest pain, shortness of breath, palpitations, fever or chills. Vital signs T98.8, P 79 R 18, BP 126/64, oxygen 94. Labs were unremarkable except for potassium at 2.8. Patient has been hypokalemic but has refused IV potassium. Explained to him the reasons why IV is preferred when potassium is very low. Verbalized understanding. Patient was seen by the patient admitting clerk yesterday who recommended amputation of the left great toe. The risks and benefits were explained but patient refused to have the procedure done at this time. 01/20/25: Lying in bed at bedside at the time of evaluation. Alert and oriented and in no obvious distress. Denies any chest pain, shortness of breath, palpitations, fever or chills. Vital signs T98.8, P 79 R 18, BP 126/64, oxygen 94. Vital signs T 99, P 82, R 19, BP 160/93, O2 sat 99%. Patient's BP continues to be elevated as well as potassium which remains low 2.7 despite adequate replacement. Plan is to work up other causes of hypokalemia . Ordered an Aldosterone-Renin ratio. If Aldosterone is elevated and renin is low, this would be suggestive of an Adrenal issue. Will then order a CT of the Adrenal gland to rule out either an adenoma or a hyperplasia and manage a ccordingly. Patient had a change of mind about amputation of the left great toe after explaining the risks involved. Patient is now scheduled for amputation of the left great toe tomorrow 01/21/[address] Banerjee. 01/21/25: Lying in bed at bedside at the time of evaluation. Alert and oriented and in no obvious distress. Denies any chest pain, shortness of breath, palpitations, fever or chills. Vital signs T97.3, P 78 R 18, BP 130/71, oxygen 100. Patients potassium remains at 2.9 today despite adequate replacement as per protocol. Had ordered Aldosterone and renin ration , pending the results. Nephrology consult also placed. Pending their recommendations. Patient was scheduled for an amputation of the left great toe, by Dr Banerjee today however the procedure was cancelled because patient had received a dose of Heparin at 4am this morning. Procedure rescheduled for tomorrow 01/22/25. 01/22/2025 Patient is seen and examined at the bedside. No acute events last night. He underwent amputation of the hallux left metatarsophalangeal joint level today. He mentions that the pain at the surgical site is mild and tolerable. He denies fever, chills, chest pain, shortness of breath, nausea, vomiting, palpitations. Vitals temperature 97.3, respiratory rate 16, pulse rate 78, blood pressure 133/71. Labs WBC 9.3, hemoglobin decreased from 13.1- 12.8, sodium 140, potassium decreased from 3.3-3.1, TSH high at 7.05. Urine random chloride 77, urine random sodium 36, urine random potassium 9, PT INR normal. Renal ultrasound revealed normal findings. 01/23/25 patient was seen and examined at the bedside. No acute events overnight reported per nursing. He is status post amputation of the hallux left meta tarsal phalangeal joint. He is doing well pain is tolerable. His labs and vitals are stable 01/24/25 patient was seen and examined at the bedside. No acute events overnight reported per nursing. He is status post amputation of the hallux left meta tarsal phalangeal joint/reports rash/erythematous maculopapular rash especially on leg/back/monitor /benadryl for itching/Consider allergic rash? 01/25/25 - patient is a 40-year-old male with a past medical history of obesity, type 2 diabetes, hypertension, and acute on chronic renal failure who is current ly status post left hallux, postop day 3. He reports postsurgical pain and has been able to ambulate to and from to the restroom by weight-bearing on the heel. No new complaints at this time. He denies fever, chills, drainage, or increased pain from surgical site. Patient continues on vancomycin, cefepime was discontinued due to rash. Wound is healing appropriately with no signs of infection or dehiscence. We will continue IV vancomycin and monitor trough levels and renal function daily. Continue local wound care with daily dressing changes. 01/26 - patient seen at bedside status post day 4 of left hallux amputation. wound is healing appropriately with no signs of infection or dehiscence. Dressings have been changed daily. Elayne drain was removed. No new complaints at the time. Patient is able to ambulate by weight-bearing on his heel. Left leg rash shows no signs of spreading but still erythematous and pruritic. We will order venous Doppler to rule out DVT. Patient remains on vancomycin. Continue local wound care with daily dressing changes. We will continue to monitor rash. 01/27 - patient seen at bedside status post day 5 left toe amputation. wound is healing appropriately with no signs of infection or dehiscence. Dressings are changed daily. Patient ambulating with walker and bearing weight on heel. Left lower extremity rash shows no signs of spreading, but still erythematous and pruritic. Venous doppler shows no signs of DVT. Patient remains on Vancomycin. 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 LFTs within normal limits. Will consider starting antifungal medications. Labs: hypo kalemia - protocol in place; remaining labs within normal limits. Will continue to follow recommendations per Podiatry, wound care, and Infectious Disease. 01/28 - Patient seen at bedside status post left toe amputation day 6. Wound is healing appropriately with no signs of infection or dehiscence. Dressing changes daily. Patient ambulating with walker and bearing weight on heel. Left lower extremity rash shows no signs of spreading. Patient remains on vancomycin. Patient on topical clotrimazole and nystatin powder for markus intertrigo. Nephrology on consult for hypokalemia. Case management for plans to discharge. Will continue to follow recommendations per Podiatry, Wound Care, and Infectious Disease. 01/29 - Patient seen at bedside status post left toe amputation day 7. Wound healing appropriately with no signs of infection. Dressing changes daily. Patient is ambulating with walker and bearing weight on heel. Diffuse rash on back, torso, and lower extremity showing signs of improvement. Patient continues on vancomycin. Patient on clotrimazole and nystatin powder for markus intertrigo. Plans for discharge pending ID, nephrology, and podiatry recommendations. REVIEW OF SYSTEMS CONSTITUTIONAL: Denies fevers, chills, or night sweats. No unintentional weight loss reported. NEUROLOGICAL: Denies headache, amaurosis fugax, motor weakness, sensory deficit, vertigo/spinning sensation, gait abnormalities, or tremors. ENT: No hearing loss, otalgia, otorrhea, rhinitis, rhinorrhea, hoarseness, or sore throat. CARDIOVASCULAR: Denies any exertional angina, dyspnea on exertion, orthopnea, paroxysmal nocturnal dyspnea, palpitations, life-threatening arrhythmias, claudication. PULMONARY: Denies any shortness of breath, cough, phlegm/sputum, hemoptysis, p leuritic chest pain. SLEEP: Denies morning headaches, daytime somnolence or napping. Denies difficulty falling asleep, staying asleep, waking from sleep. Denies knowledge of snoring. GASTROINTESTINAL: Denies any type of dysphagia to either liquids or solids. Denies nausea, vomiting, pyrosis, early satiety, abdominal pain, diarrhea, constipation, or changes in stool consistency or caliber. Denies coffee-ground emesis, hematemesis, hematochezia, or melanotic stools. GENITOURINARY: Denies frequency, urgency, nocturia, hematuria or incontinence (Storage/Irritative symptoms.) Low urinary stream, straining to void, urinary intermittency or hesitancy, splitting of the voiding stream, terminal dribbling. ENDOCRINOLOGIC: Denies polyuria, polydipsia, polyphagia or heat/cold intoler ances. HEMATOLOGIC: Denies thrombophilia/previous clots, or coagulopathy/bleeding disorders. ONCOLOGIC: Denies personal history of malignancy. DERMATOLOGIC: rashes and pruritus diffuse, more pronounced on LLE Extremities: Left knee pain, redness and swelling of LLE, left great toe wound PSYCHIATRIC: Denies any suicidal or homicidal ideation. Denies hallucinations. PHYSICAL EXAM GENERAL APPEARANCE: The patient is awake, alert, and oriented, in no acute cardiopulmonary distress. NEUROLOGICAL: Cranial nerves II-XII grossly intact. Motor is 5/5 in bilateral upper and lower extremities proximal to distal. No sensory deficits. HEENT: Face is symmetric. Pupils are equal and reactive. Extraocular movements are intact. NECK: Supple. No JVD. No thyromegaly. No submental, submandibular, pre- /postauricular, occipital or supraclavicular lymphadenopathy. CHEST: Normal chest expansion. No Telemetry. LUNGS: Absence of any rales, rhonchi or any wheezing. CARDIOVASCULAR: Regular. S1 and S2 normal. No appreciable rubs, murmurs or gallops. ABDOMEN: Soft, nontender, and nondistended. There is no rebound, voluntary guarding, or rigidity. : Deferred. No Muller. EXTREMITIES: Improving Left lower extremity erythema and swelling. Wrapped left foot post amputation of the hallux left metatarsophalangeal joint level SKIN: erythematous and pruritic diffuse rash especially on LLE Vital Signs (last 8hr) Date Time Temp Pulse Resp B/P (MAP) Pulse Ox O2 Delivery O2 Flow Rate FiO2 01/29/25 04:00 97.9 81 18 110/60 99 Room Air LABS: Laboratory: Test 01/29/25 06:10 01/29/25 05:23 01/28/25 15:49 Range/Units White Blood Count 9.5 4.8-10.8 K/uL Red Blood Count 4.80 4.50-6.20 MIL/uL Hemoglobin 13.4 L 14.0-18.0 g/dL Hematocrit 39.5 L 42-54 % Mean Corpuscular Volume 82.3 79-99 fL Mean Corpuscular Hemoglobin 27.9 27.0-33.0 pg Mean Corpuscular Hemoglobin Concent 33.9 32.0-36.0 g/dL Red Cell Distribution Width 15.6 H 11.0-15.5 % Platelet Count 277 130-400 K/uL Mean Platelet Volume 9.4 7.5-10.5 fL Immature Granulocyte % (Auto) 0.4 0-1 % Neutrophils (%) (Auto) 70.6 40.0-77.0 % Lymphocytes (%) (Auto) 18.9 L 21.0-51.0 % Monocytes (%) (Auto) 4.5 3.0-13.0 % Eosinophils (%) (Auto) 5.4 0.0-8.0 % Basophils (%) (Auto) 0.2 0.0-5.0 % Neutrophils # (Auto) 6.7 1.8-7.7 K/uL Lymphocytes # (Auto) 1.8 1.0-4.8 K/uL Monocytes # (Auto) 0.4 0.1-1.0 K/uL Eosinophils # (Auto) 0.51 0.00-0.70 K/uL Basophils # (Auto) 0.02 0.00-0.20 K/uL Absolute Immature Granulocyte (auto 0.04 0-1 K/uL Nucleated Red Blood Cells 0.0 0.0-0.19 % Sodium Level 139 136-145 mmol/L Potassium Level 3.8 3.5-5.1 mmol/L Chloride Level 105 101-111 mmol/L Carbon Dioxide Level 29 21-32 mmol/L Blood Urea Nitrogen 5 L 7-18 mg/dL Creatinine 0.7 0.5-1.3 mg/dL Glomerular Filtration Rate Calc 120 >90 mL/min Random Glucose 164 H 70-105 mg/dL Total Calcium 8.4 L 8.5-10.1 mg/dL Magnesium Level 2.00 1.80-2.40 mg/dL Total Bilirubin 0.7 0.2-1.0 mg/dL Aspartate Amino Transf (AST/SGOT) 15 10-37 U/L Alanine Aminotransferase (ALT/SGPT) 20 12-78 U/L Alkaline Phosphatase 56 50-136 U/L Total Protein 7.0 6.0-8.3 g/dL Albumin 2.2 L 3.5-5.0 g/dL Vitamin B12 Level 270 193-986 pg/mL Whole Blood Glucose 138 H 70-110 MG/DL Bedside Glucose Comment Notified Nurse Current Medications Medications (Trade) Dose Ordered Sig/Silverio Route PRN Reason Start Time Stop Time Status Last Admin Dose Admin Acetaminophen (TYLenol 325MG TAB) 650 mg Q4H PRN PO MILD PAIN (1-3) 01/14/25 22:30 02/13/25 22:29 01/15/25 12:15 650 MG Acetaminophen (TYLenol 325MG TAB) 650 mg Q6H PRN PO TEMPERATURE GREATER THAN 101.5 01/14/25 22:30 02/13/25 22:29 01/17/25 09:41 650 MG Acetaminophen/ Codeine Phosphate (TYLenol-coDEINE TAB) 2 tab Q4H PRN PO MODERATE PAIN (4-6) 01/15/25 14:00 02/14/25 13:59 01/25/25 21:27 2 TAB Alteplase, Recombinant (CathFLO 2MG VIAL) 4 mg ONCE IVCATH 01/28/25 05:30 01/28/25 07:07 DC 01/28/25 05:45 2 MG Amlodipine Besylate (NorvASC 5MG TAB) 5 mg DAILY PO 01/17/25 09:00 02/16/25 08:59 01/28/25 08:52 5 MG Cefepime HCl (MAXipime 1 GM vial) 1 gm Q8H IVPB 01/15/25 06:00 01/18/25 13:31 DC 01/18/25 13:00 1 GM Cefepime HCl (MAXipime 1 GM vial) 1 gm Q8H IVPB 01/18/25 16:00 01/25/25 14:43 DC 01/25/25 11:31 1 GM Clotrimazole (Lotrimin) 1 APPL BID TP 01/27/25 21:00 02/26/25 20:59 01/28/25 22:56 1 GM Dextrose (D50w) 50 ml AD PRN IV HYPOGLYCEMIA PROTOCOL 01/14/25 22:30 02/13/25 22:29 Diphenhydramine HCl (BENAdryl INJ) 12.5 mg Q6H PRN IV ITCHING 01/24/25 11:30 02/23/25 11:29 01/28/25 22:01 12.5 MG Famotidine (Pepcid 20mg Tab) 20 mg BID PO 01/15/25 09:00 02/14/25 08:59 01/28/25 21:56 20 MG Glucagon (Glucagon 1mg Kit) 1 mg AD PRN IM HYPOGLYCEMIA PROTOCOL 01/14/25 22:30 02/13/25 22:29 Heparin Sodium (Porcine) (HEParin 5,000 UNIT VIAL) 5,000 unit Q8H SQ 01/17/25 12:00 02/16/25 11:59 01/29/25 04:19 5,000 UNIT Hydralazine HCl (APRESOLine 20MG INJ) 10 mg Q6H PRN IV For:SBP above 160;DBP above 90 01/14/25 22:30 02/13/25 22:29 01/19/25 22:59 10 MG Insulin Glargine (LANtus 100 UNITS/ML 10 ML VIAL) 20 units HS SQ 01/16/25 21:00 02/15/25 20:59 01/28/25 22:50 20 UNITS Insulin Human Regular (humuLIN R 100 UNIT/ML 3ML) INSULIN SLIDING SCAL... ACHS SQ 01/15/25 07:30 02/14/25 07:29 01/28/25 22:55 4 UNIT Lactated Ringer's 1,000 ml @ 100 mls/hr Q10H IV 01/24/25 20:00 02/23/25 19:59 01/29/25 04:10 100 MLS/HR Magnesium Sulfate 50 ml @ 0 mls/hr PROTOCOL PRN IV OTHER [SEE ORDER COMMENTS] 01/14/25 22:30 02/13/25 22:29 01/28/25 22:06 0 MLS/HR Morphine Sulfate (morPHINE 2MG SYG) 2 mg Q4H PRN IV SEVERE PAIN (7-10) 01/14/25 22:30 01/20/25 01:29 DC Nystatin (NystOP 15 GM POWDER) 1 APPLICATION BID TP 01/27/25 21:00 02/26/25 20:59 01/28/25 22:56 1 APPL Ondansetron HCl (zoFRAN 4MG INJ) 4 mg Q6H PRN IV NAUSEA/VOMITING 01/14/25 22:30 02/13/25 22:29 Potassium Chloride 100 ml @ 50 mls/hr AD PRN IV POTASSIUM PROTOCOL 01/21/25 07:30 01/21/25 07:07 DC Potassium Chloride 100 ml @ 100 mls/hr AD PRN IV POTASSIUM PROTOCOL 01/14/25 22:30 02/13/25 22:29 01/22/25 05:47 100 MLS/HR Potassium Chloride (K-Dur/Klor-Con 20meq) 20 meq AD PRN PO POTASSIUM PROTOCOL 01/14/25 22:30 02/13/25 22:29 01/28/25 21:55 20 MEQ Potassium Chloride (K-Dur/Klor-Con 20meq) 20 meq BID PO 01/21/25 21:00 02/20/25 20:59 01/28/25 21:54 20 MEQ Potassium Chloride (KCl 10% Elixir 20meq/15ml) 20 meq AD PRN PO POTASSIUM PROTOCOL 01/14/25 22:30 02/13/25 22:29 01/17/25 00:24 20 MEQ Simethicone (Mylicon) 80 mg PCHS PO 01/18/25 21:00 02/17/25 20:59 01/28/25 21:56 80 MG Sodium Chloride 1,000 ml @ 100 mls/hr Q10H IV 01/14/25 22:30 01/24/25 19:51 DC 01/24/25 13:16 100 MLS/HR Vancomycin HCl 250 ml @ 125 mls/hr ONCE IV 01/14/25 22:30 01/14/25 22:52 DC Vancomycin HCl 250 ml @ 125 mls/hr Q12H IV 01/15/25 00:00 01/24/25 02:59 DC 01/24/25 01:01 125 MLS/HR Vancomycin HCl 250 ml @ 125 mls/hr Q12H IV 01/24/25 14:00 02/14/25 13:59 01/29/25 04:10 125 MLS/HR Vancomycin HCl (Vancomycin Protocol) 1 each AD IV 01/14/25 23:00 01/28/25 22:59 DC DIAGNOSTICS / RADIOLOGY: [ ] ASSESSMENT: Osteomyelitis involving the left hallux, s/p amputation of the hallux left metatarsophalangeal joint level on 01/22/2025 Left leg cellulitis POA Left toe necrotic ulcer POA Hypokalemia POA Pseudohyponatremia secondary to hyperglycemia POA Hyperglycemia secondary to Uncontrolled diabetes POA Status post fall injury at home two weeks ago POA Hypertension POA Morbid obesity POA Markus intretrigo PLAN: Osteomyelitis involving the left hallux Left leg cellulitis POA * MRI of the left foot showed findings suggestive of osteomyelitis involving the 1st distal phalanx and adjacent cellulitis. *Continue on Vancomycin 1 g; discontinued Cefepime 1 g secondary rash *Infectious disease consult is appreciated and we will follow their recommendations *Underwent amputation of the hallux left metatarsophalangeal joint level on 01/22/2025 - Venous doppler to rule out DVT on left lower extremity Left Toe Necrotic ulcer *Underwent amputation of the hallux left metatarsophalangeal joint level on 01/22/2025 *Wound care team is on the case Hypokalemia POA * no signs of volume depletion * Replace electrolytes as needed per protocol * continue potassium 20 mEq p.o. b.i.d. as per nephrology consult recommendation Hyperglycemia secondary to Uncontrolled diabetes POA *Blood glucose 130. Currently on low-dose sliding scale AC &HS. *Continue Insulin Glargine 20 units subQ HS Hypertension *Continue with Amlodipine 5mg PO daily Morbid Obesity *Educated patient about the need to lose weight *Physical therapy ordered. Case Management Continue on Famotidine 20 mg p.o. bid for GI prophylaxis continue heparin SQ 5000 q.8h DVT prophylaxis Continue PRN medications for fever,pain,cough, nausea and vomiting Repeat labs in a.m. ATTESTATION BY PHYSICIAN I have seen and examined the patient. I reviewed the documentation, medical decision making, and treatment plan as noted by the resident provider above. I agree with the findings and plan of care. César Maynard MD, PRIYA N Jan 29, 2025 08:43
[2025-01-29 12:04] VITALS: BP 139/81; PULSE 101; RESP 22; TEMP 98.7
--- NOTE | 2025-01-29 13:35 | PN ---
NEPHROLOGY PROGRESS NOTE Date/Time Patient Seen: Jan 29, 2025 SUBJECTIVE: This is a 39 year old male,morbidly obese with past medical history of diabetes and hypertension who was brought by EMS to the ED for complaints of left leg pain He has been in the hospital for several days Pending left great toe amputation, rescheduled due to hypokalemia. 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 He was seen in the medical floor, in no acute distress REVIEW OF SYSTEMS: GENERAL: Negative for any nausea, vomiting, fevers, chills, or weight loss. NEUROLOGIC: Negative for any blurry vision, blind spots, double vision, facial asymmetry, dysphagia, dysarthria, hemiparesis, hemisensory deficits, vertigo, ataxia. HEENT: Negative for any head trauma, neck trauma, neck stiffness, photophobia, phonophobia, sinusitis, rhinitis. CARDIAC: Negative for any chest pain, dyspnea on exertion, paroxysmal nocturnal dyspnea, peripheral edema. PULMONARY: Negative for any shortness of breath, wheezing, COPD, or TB exposure. GASTROINTESTINAL: Negative for any abdominal pain, nausea, vomiting, bright red blood per rectum, melena. GENITOURINARY: Negative for any dysuria, hematuria, incontinence. INTEGUMENTARY: Negative for any rashes, cuts, insect bites. RHEUMATOLOGIC: Negative for any joint pains, photosensitive rashes, history of vasculitis or kidney problems. HEMATOLOGIC: Negative for any abnormal bruising, frequent infections or bleeding. Vital Signs (last 8hr) Date Time Temp Pulse Resp B/P (MAP) Pulse Ox O2 Delivery O2 Flow Rate FiO2 01/29/25 12:04 98.8 101 22 139/81 99 Room Air 21 01/29/25 08:00 98.8 85 20 118/56 98 Room Air 21 PHYSICAL EXAM: GENERAL: Alert and oriented x 3. No acute distress. Well-nourished. EYES: EOMI. Anicteric. HENT: Moist mucous membranes. No scleral icterus. No cervical lymphadenopathy. LUNGS: Clear to auscultation bilaterally. No accessory muscle use. CARDIOVASCULAR: Regular rate and rhythm. No murmur. No JVD. ABDOMEN: Soft, non-tender and non-distended. No palpable masses. EXTREMITIES: No edema. Non-tender. SKIN: No rashes or lesions. Warm. NEUROLOGIC: No focal neurological deficits. CN II-XII grossly intact, but not individually tested. PSYCHIATRIC: Cooperative. Appropriate mood and affect. Current Medications Medications (Trade) Dose Ordered Sig/Silverio Route Start Time Stop Time Status Last Admin Dose Admin Amlodipine Besylate (NorvASC 5MG TAB) 5 mg DAILY PO 01/17/25 09:00 02/16/25 08:59 01/25/25 11:30 5 MG Cefepime HCl (MAXipime 1 GM vial) 1 gm Q8H IVPB 01/15/25 06:00 01/18/25 13:31 DC 01/18/25 13:00 1 GM Cefepime HCl (MAXipime 1 GM vial) 1 gm Q8H IVPB 01/18/25 16:00 01/25/25 14:43 DC 01/25/25 11:31 1 GM Famotidine (Pepcid 20mg Tab) 20 mg BID PO 01/15/25 09:00 02/14/25 08:59 01/25/25 11:31 20 MG Heparin Sodium (Porcine) (HEParin 5,000 UNIT VIAL) 5,000 unit Q8H SQ 01/17/25 12:00 02/16/25 11:59 01/25/25 12:53 5,000 UNIT Insulin Glargine (LANtus 100 UNITS/ML 10 ML VIAL) 20 units HS SQ 01/16/25 21:00 02/15/25 20:59 01/24/25 21:12 20 UNITS Insulin Human Regular (humuLIN R 100 UNIT/ML 3ML) INSULIN SLIDING SCAL... ACHS SQ 01/15/25 07:30 02/14/25 07:29 01/24/25 21:13 6 UNIT Lactated Ringer's 1,000 ml @ 100 mls/hr Q10H IV 01/24/25 20:00 02/23/25 19:59 01/25/25 11:31 100 MLS/HR Potassium Chloride (K-Dur/Klor-Con 20meq) 20 meq BID PO 01/21/25 21:00 02/20/25 20:59 01/25/25 11:31 20 MEQ Simethicone (Mylicon) 80 mg PCHS PO 01/18/25 21:00 02/17/25 20:59 01/25/25 12:49 80 MG Sodium Chloride 1,000 ml @ 100 mls/hr Q10H IV 01/14/25 22:30 01/24/25 19:51 DC 01/24/25 13:16 100 MLS/HR Vancomycin HCl 250 ml @ 125 mls/hr ONCE IV 01/14/25 22:30 01/14/25 22:52 DC Vancomycin HCl 250 ml @ 125 mls/hr Q12H IV 01/15/25 00:00 01/24/25 02:59 DC 01/24/25 01:01 125 MLS/HR Vancomycin HCl 250 ml @ 125 mls/hr Q12H IV 01/24/25 14:00 02/14/25 13:59 01/25/25 14:05 125 MLS/HR Vancomycin HCl (Vancomycin Protocol) 1 each AD IV 01/14/25 23:00 01/28/25 22:59 LABORATORY: [ ] Hematology Labs: Test 01/29/25 06:10 Range/Units White Blood Count 9.5 4.8-10.8 K/uL Red Blood Count 4.80 4.50-6.20 MIL/uL Hemoglobin 13.4 L 14.0-18.0 g/dL Hematocrit 39.5 L 42-54 % Mean Corpuscular Volume 82.3 79-99 fL Mean Corpuscular Hemoglobin 27.9 27.0-33.0 pg Mean Corpuscular Hemoglobin Concent 33.9 32.0-36.0 g/dL Red Cell Distribution Width 15.6 H 11.0-15.5 % Platelet Count 277 130-400 K/uL Mean Platelet Volume 9.4 7.5-10.5 fL Immature Granulocyte % (Auto) 0.4 0-1 % Neutrophils (%) (Auto) 70.6 40.0-77.0 % Lymphocytes (%) (Auto) 18.9 L 21.0-51.0 % Monocytes (%) (Auto) 4.5 3.0-13.0 % Eosinophils (%) (Auto) 5.4 0.0-8.0 % Basophils (%) (Auto) 0.2 0.0-5.0 % Neutrophils # (Auto) 6.7 1.8-7.7 K/uL Lymphocytes # (Auto) 1.8 1.0-4.8 K/uL Monocytes # (Auto) 0.4 0.1-1.0 K/uL Eosinophils # (Auto) 0.51 0.00-0.70 K/uL Basophils # (Auto) 0.02 0.00-0.20 K/uL Absolute Immature Granulocyte (auto 0.04 0-1 K/uL Nucleated Red Blood Cells 0.0 0.0-0.19 % Chemistry Labs: Test 01/29/25 10:59 01/29/25 06:10 Range/Units Whole Blood Glucose 149 H 70-110 MG/DL Bedside Glucose Comment Notified Nurse Sodium Level 139 136-145 mmol/L Potassium Level 3.8 3.5-5.1 mmol/L Chloride Level 105 101-111 mmol/L Carbon Dioxide Level 29 21-32 mmol/L Blood Urea Nitrogen 5 L 7-18 mg/dL Creatinine 0.7 0.5-1.3 mg/dL Glomerular Filtration Rate Calc 120 >90 mL/min Random Glucose 164 H 70-105 mg/dL Total Calcium 8.4 L 8.5-10.1 mg/dL Magnesium Level 2.00 1.80-2.40 mg/dL Total Bilirubin 0.7 0.2-1.0 mg/dL Aspartate Amino Transf (AST/SGOT) 15 10-37 U/L Alanine Aminotransferase (ALT/SGPT) 20 12-78 U/L Alkaline Phosphatase 56 50-136 U/L Total Protein 7.0 6.0-8.3 g/dL Albumin 2.2 L 3.5-5.0 g/dL Vitamin B12 Level 270 193-986 pg/mL DIAGNOSTICS / RADIOLOGY: REASON: post-op LLE swelling edema and erythema ORDERING PHYSICIAN: ANA KATZ PROCEDURE: VENOUS UNI - US VENOUS DOPPLER UNILATERAL Exam Type: US VENOUS DOPPLER UNILATERAL Clinical Information: post-op LLE swelling edema and erythema Comparison: None Findings: The examination shows normal deep venous system. There is normal compressibility at all levels. There is no intraluminal clot. There is no occlusion. Adequate response is obtained on augmentation. Impression: No evidence of DVT. DICTATED BY: VIKTORIYA GONZALEZ MD DATE: 01/26/25 5869 REASON: NEPHRO CALCINOSIS ORDERING PHYSICIAN: ROSEMARY CASAS MD PROCEDURE: RENAL - US RENAL SONOGRAM Exam Type: US RENAL SONOGRAM Clinical Information: NEPHRO CALCINOSIS Comparison: None Findings: Examination shows normal renal size and echogenicity bilaterally. Preserved cortical thickness and corticomedullary junction region is seen. No hydronephrosis or calculi are seen. No renal masses are seen. There is no evidence of perinephric fluid on either side. No evidence of significant ureteral dilatation is seen. The urinary bladder is normal. No bladder masses, stones, or wall thickening is seen. IMPRESSION: Normal renal anatomy bilaterally. DICTATED BY: VIKTORIYA GONZALEZ MD DATE: 01/21/25 1517 REASON: PICC LINE PLACEMENT ORDERING PHYSICIAN: FERN LEONARDO MD PROCEDURE: CXR1VW - CHEST 1VW Exam Type: CHEST 1VW Clinical Information: PICC LINE PLACEMENT Comparison: None Findings: Right PICC line is noted with tip within the mid superior vena cava and there are no other interval changes. IMPRESSION: Right PICC line as noted. DICTATED BY: VIKTORIYA GONZALEZ MD DATE: 01/21/25 1007 REASON: LEFT FOOT WOUND ORDERING PHYSICIAN: FERN LEONARDO MD PROCEDURE: FT LT WO - MR FOOT LEFT WO MR FOOT LEFT WO HISTORY: Wound to great toe COMPARISON: None TECHNIQUE: MRI of the left foot was performed utilizing multiple pulse sequences in axial, coronal and sagittal planes. Patient was not given contrast through intravenous route. FINDINGS: Abnormal increased signal intensity is seen involving the first distal phalanx consistent with osteomyelitis. Adjacent cellulitis changes are seen. No signs of fracture or dislocation is seen. IMPRESSION: 1. Findings suggestive of osteomyelitis involving the first distal phalanx with adjacent cellulitis. DICTATED BY: DEEPALI KRISHNA MD DATE: 01/15/25 1717 REASON: gangrenous left great toe ORDERING PHYSICIAN: FERN LEONARDO MD PROCEDURE: ART U LE - US ARTERIAL UNILA LOW EXT DUPL US ARTERIAL UNILA LOW EXT DUPL HISTORY: Gangrene to left great toe COMPARISON: None TECHNIQUE: Left lower extremity arterial Doppler ultrasound study was performed. FINDINGS: Normal triphasic arterial waveforms are noted in the left common femoral, deep femoral, superficial femoral, popliteal, posterior tibial and dorsalis pedal arteries. On the left, the peak systolic velocity of the common femoral artery is 146 cm/s, the proximal femoral artery is 146 cm/s, the mid femoral artery is 128 cm/s, the distal femoral artery is 150 cm/s, the proximal popliteal artery is 99 cm/s, the distal popliteal artery is 38 cm/s, the anterior tibial artery is 105 cm/s, the posterior tibial artery artery is 73 cm/s,and the dorsalis pedal artery is 142 cm/s. IMPRESSION: 1. Atherosclerotic disease. 2. Otherwise normal triphasic arterial waveforms noted of the left lower extremity artery system. Low velocity with hyperemic flow is seen in the left posterior tibial artery. DICTATED BY: DEEPALI KRISHNA MD DATE: 01/15/251746 REASON: sepsis ORDERING PHYSICIAN: CASSIDY CHATMAN PROCEDURE: CXR1VW - CHEST 1VW CHEST 1VW HISTORY: Sepsis COMPARISON: 05/10/2011 FINDINGS: A frontal projection of the chest was obtained. No acute pulmonary infiltrates is seen. The heart is borderline enlarged. Degenerative changes are seen. Prominent interstitial markings are seen. No evidence of aortic calcification is seen. IMPRESSION: 1. No acute pulmonary infiltrate is seen. DICTATED BY: DEEPALI KRISHNA MD DATE: 01/14/252102 REASON: swelling redness ORDERING PHYSICIAN: CASSIDY CHATMAN [employer]OTECTION CONSULTANT PROCEDURE: VENOUS UNI - US VENOUS DOPPLER UNILATERAL US VENOUS DOPPLER UNILATERAL HISTORY: Swelling COMPARISON: None TECHNIQUE: Left lower extremity venous Doppler ultrasound study was performed. FINDINGS: The left common femoral, femoral, popliteal, and posterior tibial veins are visualized. Normal flow with augmentation and compressibilities are demonstrated. Left greater saphenous vein is patent. IMPRESSION: 1. No evidence of deep venous thrombosis is seen. DICTATED BY: DEEPALI KRISHNA MD DATE: 01/14/252108 REASON: pain ORDERING PHYSICIAN: CASSIDY CHATMAN [facility] PROCEDURE: KNEE 3V LT - KNEE 3VWS LT KNEE 3VWS LT HISTORY: Pain COMPARISON: None TECHNIQUE: 3 images of the left knee were obtained. FINDINGS: There is no acute displaced fracture or dislocation. IMPRESSION: 1. Findings as described above. DICTATED BY: DEEPALI KRISHNA MD DATE: 01/14/252105 REASON: pain ORDERING PHYSICIAN: CASSIDY CHATMAN PROTECTION CONSULTANT PROCEDURE: FT 3VW LT - FOOT COMP 3+VWS LT FOOT COMP 3+VWS LT HISTORY: Pain COMPARISON: None TECHNIQUE: 3 images of the left foot were obtained. FINDINGS: There is no acute displaced fracture or dislocation. There is soft tissue swelling. Evaluation for osteomyelitis is limited radiographs. The study is limited due to poor positioning. Degenerative changes are seen. IMPRESSION: 1. Findings as described above. DICTATED BY: DEEPALI KRISHNA MD DATE: 01/14/252104 ASSESSMENT: Hypokalemia Osteomyelitis involving the 1st distal phalanx Left leg cellulitis Left toe necrotic ulcer Pseudo hyponatremia Diabetes mellitus type 2 Hypertension Obesity PLAN: Labs, diagnostic, radiologic exams reviewed and interpreted by myself and supervising physician. We have reviewed external records in detail Suggest to avoid loop diuretics for now Potassium sparing diuretics can be used, if needed. Require close monitoring of renal function and electrolytes Order CBC, CMP, and electrolytes in am Continue with antibiotics BiPAP as necessary, for respiratory distress Monitor blood pressure adjust medication doses as needed Avoid hypotensive episodes May use Dilaudid 0.5 mg IV every 6 hours as needed for severe pain Monitor blood sugars Strict intake, output, and daily weight should be monitored Please renally adjust medications Avoid nephrotoxic and nonsteroidal drugs Avoid contrast if possible Will continue to monitor renal function, anemia, electrolytes Treatment plan discussed with patient Questions were answered We have discussed with the other team physicians in detail about the care plan We will continue to monitor the patient closely ATTESTATION BY PHYSICIAN I have seen and examined the patient. I reviewed the documentation, medical decision making, and treatment plan as noted by the mid-level provider above. I agree with the findings and plan of care. ROSEMARY CASAS MD, [facility] Jan 29, 2025 13:35
[2025-01-29] MEDS ORDERED: COMPOUND IV REFRIGERATED 1 EACH IVSOLN MISC PRN (14:30)
[2025-01-29] MEDS ORDERED: VANCOMYCIN PROTOCOL PER PHARMACY IV SCH (15:30)
[2025-01-29 16:00] VITALS: BP 107/51; PULSE 94; RESP 22; TEMP 98.8
[2025-01-29 20:00] VITALS: BP 119/63; PULSE 87; RESP 20; TEMP 98; O2SAT 99
[2025-01-30 00:05] VITALS: BP 109/59; PULSE 87; RESP 20; TEMP 98.1
[2025-01-30 04:00] VITALS: BP 129/54; PULSE 80; RESP 18; TEMP 98.5
[2025-01-30 04:23] LABS: BASOPHILS # (AUTO) 0.01 K/uL (0.00-0.20); BASOPHILS % (AUTO) 0.1 % (0.0-5.0); EOSINOPHILS # (AUTO) 0.62 K/uL (0.00-0.70); HEMATOCRIT 36.4 % (42-54); IMMATURE GRANULOCYTE ABSOLUTE 0.02 K/uL (0-1); LYMPHOCYTES # (AUTO) 1.5 K/uL (1.0-4.8); MEAN CORPUSCULAR HEMOGLOBIN 27.9 pg (27.0-33.0); MEAN CORPUSCULAR VOLUME 84.7 fL (79-99); MONOCYTES # (AUTO) 0.5 K/uL (0.1-1.0); MONOCYTES % (AUTO) 5.4 % (3.0-13.0); NEUTROPHILS # (AUTO) 6.2 K/uL (1.8-7.7); NEUTROPHILS % (AUTO) 70.3 % (40.0-77.0); PLATELET COUNT (AUTO) 241 K/uL (130-400); RED CELL DISTRIBUTION WIDTH 15.7 % (11.0-15.5); WHITE BLOOD COUNT (AUTO) 8.8 K/uL (4.8-10.8)
[2025-01-30 04:39] LABS: BILIRUBIN,TOTAL 0.7 mg/dL (0.2-1.0); CREATININE 0.7 mg/dL (0.5-1.3); POTASSIUM 3.4 mmol/L (3.5-5.1); TOTAL PROTEIN, SERUM 6.3 g/dL (6.0-8.3)
--- NOTE | 2025-01-30 06:37 | NUR ---
PATIENT REFUSED TO BE WEIGHED THIS AM. WOULD LIKE TO BE WEIGHED DURING THE DAY
[2025-01-30 08:00] VITALS: BP 139/76; PULSE 89; RESP 18; TEMP 98.3; O2SAT 94
[2025-01-30] MEDS: fluCONazole 100 MG TAB PO SCH (10:17)
[2025-01-30 12:00] VITALS: BP 144/80; PULSE 90; RESP 18; TEMP 97.3
--- NOTE | 2025-01-30 13:28 | PN ---
NEPHROLOGY PROGRESS NOTE Date/Time Patient Seen: Jan 30, 2025 SUBJECTIVE: This is a 39 year old male,morbidly obese with past medical history of diabetes and hypertension who was brought by EMS to the ED for complaints of left leg pain He has been in the hospital for several days Pending left great toe amputation, rescheduled due to hypokalemia. We have been consulted for hypokalemia Renal function and electrolytes are stable Continues on potassium supplement and potassium protocol. He continues on antibiotics Plasma renin activity/aldosterone were noted intravenous adjust hyperaldosteronism S/P Amputation of the hallux left metatarsophalangeal joint level. He was seen in the medical floor, in no acute distress REVIEW OF SYSTEMS: GENERAL: Negative for any nausea, vomiting, fevers, chills, or weight loss. NEUROLOGIC: Negative for any blurry vision, blind spots, double vision, facial asymmetry, dysphagia, dysarthria, hemiparesis, hemisensory deficits, vertigo, ataxia. HEENT: Negative for any head trauma, neck trauma, neck stiffness, photophobia, phonophobia, sinusitis, rhinitis. CARDIAC: Negative for any chest pain, dyspnea on exertion, paroxysmal nocturnal dyspnea, peripheral edema. PULMONARY: Negative for any shortness of breath, wheezing, COPD, or TB exposure. GASTROINTESTINAL: Negative for any abdominal pain, nausea, vomiting, bright red blood per rectum, melena. GENITOURINARY: Negative for any dysuria, hematuria, incontinence. INTEGUMENTARY: Negative for any rashes, cuts, insect bites. RHEUMATOLOGIC: Negative for any joint pains, photosensitive rashes, history of vasculitis or kidney problems. HEMATOLOGIC: Negative for any abnormal bruising, frequent infections or bleeding. Vital Signs (last 8hr) Date Time Temp Pulse Resp B/P (MAP) Pulse Ox O2 Delivery O2 Flow Rate FiO2 01/29/25 12:04 98.8 101 22 139/81 99 Room Air 21 01/29/25 08:00 98.8 85 20 118/56 98 Room Air 21 PHYSICAL EXAM: GENERAL: Alert and oriented x 3. No acute distress. Well-nourished. EYES: EOMI. Anicteric. HENT: Moist mucous membranes. No scleral icterus. No cervical lymphadenopathy. LUNGS: Clear to auscultation bilaterally. No accessory muscle use. CARDIOVASCULAR: Regular rate and rhythm. No murmur. No JVD. ABDOMEN: Soft, non-tender and non-distended. No palpable masses. EXTREMITIES: No edema. Non-tender. SKIN: No rashes or lesions. Warm. NEUROLOGIC: No focal neurological deficits. CN II-XII grossly intact, but not individually tested. PSYCHIATRIC: Cooperative. Appropriate mood and affect. Current Medications Medications (Trade) Dose Ordered Sig/Silverio Route Start Time Stop Time Status Last Admin Dose Admin Amlodipine Besylate (NorvASC 5MG TAB) 5 mg DAILY PO 01/17/25 09:00 02/16/25 08:59 01/25/25 11:30 5 MG Cefepime HCl (MAXipime 1 GM vial) 1 gm Q8H IVPB 01/15/25 06:00 01/18/25 13:31 DC 01/18/25 13:00 1 GM Cefepime HCl (MAXipime 1 GM vial) 1 gm Q8H IVPB 01/18/25 16:00 01/25/25 14:43 DC 01/25/25 11:31 1 GM Famotidine (Pepcid 20mg Tab) 20 mg BID PO 01/15/25 09:00 02/14/25 08:59 01/25/25 11:31 20 MG Heparin Sodium (Porcine) (HEParin 5,000 UNIT VIAL) 5,000 unit Q8H SQ 01/17/25 12:00 02/16/25 11:59 01/25/25 12:53 5,000 UNIT Insulin Glargine (LANtus 100 UNITS/ML 10 ML VIAL) 20 units HS SQ 01/16/25 21:00 02/15/25 20:59 01/24/25 21:12 20 UNITS Insulin Human Regular (humuLIN R 100 UNIT/ML 3ML) INSULIN SLIDING SCAL... ACHS SQ 01/15/25 07:30 02/14/25 07:29 01/24/25 21:13 6 UNIT Lactated Ringer's 1,000 ml @ 100 mls/hr Q10H IV 01/24/25 20:00 02/23/25 19:59 01/25/25 11:31 100 MLS/HR Potassium Chloride (K-Dur/Klor-Con 20meq) 20 meq BID PO 01/21/25 21:00 02/20/25 20:59 01/25/25 11:31 20 MEQ Simethicone (Mylicon) 80 mg PCHS PO 01/18/25 21:00 02/17/25 20:59 01/25/25 12:49 80 MG Sodium Chloride 1,000 ml @ 100 mls/hr Q10H IV 01/14/25 22:30 01/24/25 19:51 DC 01/24/25 13:16 100 MLS/HR Vancomycin HCl 250 ml @ 125 mls/hr ONCE IV 01/14/25 22:30 01/14/25 22:52 DC Vancomycin HCl 250 ml @ 125 mls/hr Q12H IV 01/15/25 00:00 01/24/25 02:59 DC 01/24/25 01:01 125 MLS/HR Vancomycin HCl 250 ml @ 125 mls/hr Q12H IV 01/24/25 14:00 02/14/25 13:59 01/25/25 14:05 125 MLS/HR Vancomycin HCl (Vancomycin Protocol) 1 each AD IV 01/14/25 23:00 01/28/25 22:59 LABORATORY: [ ] Hematology Labs: Test 01/30/25 04:05 Range/Units White Blood Count 8.8 4.8-10.8 K/uL Red Blood Count 4.30 L 4.50-6.20 MIL/uL Hemoglobin 12.0 L 14.0-18.0 g/dL Hematocrit 36.4 L 42-54 % Mean Corpuscular Volume 84.7 79-99 fL Mean Corpuscular Hemoglobin 27.9 27.0-33.0 pg Mean Corpuscular Hemoglobin Concent 33.0 32.0-36.0 g/dL Red Cell Distribution Width 15.7 H 11.0-15.5 % Platelet Count 241 130-400 K/uL Mean Platelet Volume 9.2 7.5-10.5 fL Immature Granulocyte % (Auto) 0.2 0-1 % Neutrophils (%) (Auto) 70.3 40.0-77.0 % Lymphocytes (%) (Auto) 17.0 L 21.0-51.0 % Monocytes (%) (Auto) 5.4 3.0-13.0 % Eosinophils (%) (Auto) 7.0 0.0-8.0 % Basophils (%) (Auto) 0.1 0.0-5.0 % Neutrophils # (Auto) 6.2 1.8-7.7 K/uL Lymphocytes # (Auto) 1.5 1.0-4.8 K/uL Monocytes # (Auto) 0.5 0.1-1.0 K/uL Eosinophils # (Auto) 0.62 0.00-0.70 K/uL Basophils # (Auto) 0.01 0.00-0.20 K/uL Absolute Immature Granulocyte (auto 0.02 0-1 K/uL Nucleated Red Blood Cells 0.0 0.0-0.19 % Chemistry Labs: Test 01/30/25 11:54 01/30/25 04:05 01/29/25 15:59 01/29/25 06:10 Range/Units Whole Blood Glucose 149 #H 70-110 MG/DL Sodium Level 140 136-145 mmol/L Potassium Level 3.4 L 3.5-5.1 mmol/L Chloride Level 106 101-111 mmol/L Carbon Dioxide Level 29 21-32 mmol/L Blood Urea Nitrogen 4 L 7-18 mg/dL Creatinine 0.7 0.5-1.3 mg/dL Glomerular Filtration Rate Calc 120 >90 mL/min Random Glucose 107 H 70-105 mg/dL Total Calcium 8.0 L 8.5-10.1 mg/dL Total Bilirubin 0.7 0.2-1.0 mg/dL Aspartate Amino Transf (AST/SGOT) 14 10-37 U/L Alanine Aminotransferase (ALT/SGPT) 18 12-78 U/L Alkaline Phosphatase 49 L 50-136 U/L Total Protein 6.3 6.0-8.3 g/dL Albumin 2.0 L 3.5-5.0 g/dL Bedside Glucose Comment Notified Nurse Magnesium Level 2.00 1.80-2.40 mg/dL Vitamin B12 Level 270 193-986 pg/mL DIAGNOSTICS / RADIOLOGY: REASON: post-op LLE swelling edema and erythema ORDERING PHYSICIAN: ANA KATZ PROCEDURE: VENOUS UNI - US VENOUS DOPPLER UNILATERAL Exam Type: US VENOUS DOPPLER UNILATERAL Clinical Information: post-op LLE swelling edema and erythema Comparison: None Findings: The examination shows normal deep venous system. There is normal compressibility at all levels. There is no intraluminal clot. There is no occlusion. Adequate response is obtained on augmentation. Impression: No evidence of DVT. DICTATED BY: VIKTORIYA GONZALEZ MD DATE: 01/26/25 1636 REASON: NEPHRO CALCINOSIS ORDERING PHYSICIAN: ROSEMARY CASAS MD PROCEDURE: RENAL - US RENAL SONOGRAM Exam Type: US RENAL SONOGRAM Clinical Information: NEPHRO CALCINOSIS Comparison: None Findings: Examination shows normal renal size and echogenicity bilaterally. Preserved cortical thickness and corticomedullary junction region is seen. No hydronephrosis or calculi are seen. No renal masses are seen. There is no evidence of perinephric fluid on either side. No evidence of significant ureteral dilatation is seen. The urinary bladder is normal. No bladder masses, stones, or wall thickening is seen. IMPRESSION: Normal renal anatomy bilaterally. DICTATED BY: VIKTORIYA GONZALEZ MD DATE: 01/21/25 1517 REASON: PICC LINE PLACEMENT ORDERING PHYSICIAN: FERN LEONARDO MD PROCEDURE: CXR1VW - CHEST 1VW Exam Type: CHEST 1VW Clinical Information: PICC LINE PLACEMENT Comparison: None Findings: Right PICC line is noted with tip within the mid superior vena cava and there are no other interval changes. IMPRESSION: Right PICC line as noted. DICTATED BY: VIKTORIYA GONZALEZ MD DATE: 01/21/25 1007 REASON: LEFT FOOT WOUND ORDERING PHYSICIAN: FERN LEONARDO MD PROCEDURE: FT LT WO - MR FOOT LEFT WO MR FOOT LEFT WO HISTORY: Wound to great toe COMPARISON: None TECHNIQUE: MRI of the left foot was performed utilizing multiple pulse sequences in axial, coronal and sagittal planes. Patient was not given contrast through intravenous route. FINDINGS: Abnormal increased signal intensity is seen involving the first distal phalanx consistent with osteomyelitis. Adjacent cellulitis changes are seen. No signs of fracture or dislocation is seen. IMPRESSION: 1. Findings suggestive of osteomyelitis involving the first distal phalanx with adjacent cellulitis. DICTATED BY: DEEPALI KRISHNA MD DATE: 01/15/25 1717 REASON: gangrenous left great toe ORDERING PHYSICIAN: FERN LEONARDO MD PROCEDURE: ART U LE - US ARTERIAL UNILA LOW EXT DUPL US ARTERIAL UNILA LOW EXT DUPL HISTORY: Gangrene to left great toe COMPARISON: None TECHNIQUE: Left lower extremity arterial Doppler ultrasound study was performed. FINDINGS: Normal triphasic arterial waveforms are noted in the left common femoral, deep femoral, superficial femoral, popliteal, posterior tibial and dorsalis pedal arteries. On the left, the peak systolic velocity of the common femoral artery is 146 cm/s, the proximal femoral artery is 146 cm/s, the mid femoral artery is 128 cm/s, the distal femoral artery is 150 cm/s, the proximal popliteal artery is 99 cm/s, the distal popliteal artery is 38 cm/s, the anterior tibial artery is 105 cm/s, the posterior tibial artery artery is 73 cm/s,and the dorsalis pedal artery is 142 cm/s. IMPRESSION: 1. Atherosclerotic disease. 2. Otherwise normal triphasic arterial waveforms noted of the left lower extremity artery system. Low velocity with hyperemic flow is seen in the left posterior tibial artery. DICTATED BY: DEEPALI KRISHNA MD DATE: 01/15/251746 REASON: sepsis ORDERING PHYSICIAN: CASSIDY CHATMAN PROCEDURE: CXR1VW - CHEST 1VW CHEST 1VW HISTORY: Sepsis COMPARISON: 05/10/2011 FINDINGS: A frontal projection of the chest was obtained. No acute pulmonary infiltrates is seen. The heart is borderline enlarged. Degenerative changes are seen. Prominent interstitial markings are seen. No evidence of aortic calcification is seen. IMPRESSION: 1. No acute pulmonary infiltrate is seen. DICTATED BY: DEEPALI KRISHNA MD DATE: 01/14/252102 REASON: swelling redness ORDERING PHYSICIAN: CASSIDY CHATMAN PROCEDURE: VENOUS UNI - US VENOUS DOPPLER UNILATERAL US VENOUS DOPPLER UNILATERAL HISTORY: Swelling COMPARISON: None TECHNIQUE: Left lower extremity venous Doppler ultrasound study was performed. FINDINGS: The left common femoral, femoral, popliteal, and posterior tibial veins are visualized. Normal flow with augmentation and compressibilities are demonstrated. Left greater saphenous vein is patent. IMPRESSION: 1. No evidence of deep venous thrombosis is seen. DICTATED BY: DEEPALI KRISHNA MD DATE: 01/14/252108 REASON: pain ORDERING PHYSICIAN: CASSIDY CHATMAN PROCEDURE: KNEE 3V LT - KNEE 3VWS LT KNEE 3VWS LT HISTORY: Pain COMPARISON: None TECHNIQUE: 3 images of the left knee were obtained. FINDINGS: There is no acute displaced fracture or dislocation. IMPRESSION: 1. Findings as described above. DICTATED BY: DEEPALI KRISHNA MD DATE: 01/14/252105 REASON: pain ORDERING PHYSICIAN: CASSIDY CHATMAN PROCEDURE: FT 3VW LT - FOOT COMP 3+VWS LT FOOT COMP 3+VWS LT HISTORY: Pain COMPARISON: None TECHNIQUE: 3 images of the left foot were obtained. FINDINGS: There is no acute displaced fracture or dislocation. There is soft tissue swelling. Evaluation for osteomyelitis is limited radiographs. The study is limited due to poor positioning. Degenerative changes are seen. IMPRESSION: 1. Findings as described above. DICTATED BY: DEEPALI KRISHNA MD DATE: 01/14/252104 ASSESSMENT: Hypokalemia Osteomyelitis involving the 1st distal phalanx Left leg cellulitis Left toe necrotic ulcer Pseudo hyponatremia Diabetes mellitus type 2 Hypertension Obesity PLAN: Labs, diagnostic, radiologic exams reviewed and interpreted by myself and supervising physician. We have reviewed external records in detail Potassium replacement has been ordered. Suggest to avoid loop diuretics for now Potassium sparing diuretics can be used, if needed. Require close monitoring of renal function and electrolytes Order CBC, CMP, and electrolytes in am Continue with antibiotics BiPAP as necessary, for respiratory distress Monitor blood pressure adjust medication doses as needed Avoid hypotensive episodes May use Dilaudid 0.5 mg IV every 6 hours as needed for severe pain Monitor blood sugars Strict intake, output, and daily weight should be monitored Please renally adjust medications Avoid nephrotoxic and nonsteroidal drugs Avoid contrast if possible Will continue to monitor renal function, anemia, electrolytes Treatment plan discussed with patient Questions were answered We have discussed with the other team physicians in detail about the care plan We will continue to monitor the patient closely ATTESTATION BY PHYSICIAN I have seen and examined the patient. I reviewed the documentation, medical decision making, and treatment plan as noted by the mid-level provider above. I agree with the findings and plan of care. ROSEMARY CASAS MD, [facility] Jan 30, 2025 13:28
[2025-01-30] MEDS ORDERED: AMOX-426 PO (13:31)
[2025-01-30] MEDS ORDERED: FLUC100T12 PO (13:34)
[2025-01-30] MEDS ORDERED: NYST15OI4 TP (13:35)
--- NOTE | 2025-01-30 13:51 | DS ---
Discharge Summary Hospital Course Summary: Patient Information: *Name:Ayaan Arriaga *Date of :87 *Admission Date:01/14/25 *Discharge Date: 01/30/25 Attending Physician: Dr César Maynard Admitting Diagnosis: Osteomyelitis, Left toe necrotic ulcer, LLE cellulitis, Hypokalemia Course in Hospital: This is a 39 year old male,morbidly obese with past medical history of diabetes and hypertension who was brought by EMS to the ED for c omplaints of left leg pain of 2 weeks duration. Patient reports he fell at his driveway 2 weeks ago , landed on his left knee and did not seek medical attention and last Saturday he noticed his left leg has been swollen and has been wearing his shoes for too long he said and that his left big toe has been rubbing on his shoes and he also noticed he has been having difficulty walking because of pain on his left leg and left foot so he decided to come to the Ed for evaluation. MRI of the foot showed findings suggestive of osteomyelitis involving the 1st distal phalanx with adjacent cellulitis. Infectious Disease consult was placed and patient was started on Vancomycin and Cefepime IV. Podiatry consult was also ordered. The need for an amputation of the infected toe was explained to the patient. He verbalized understanding and decided to undergo the procedure. Patient underwent amputation of the hallux left metatarsophalangeal joint level . He tolerated the procedure very well and in a few days patient began to ambulate around with physical therapy. Post procedure patient developed a rash on the left leg, torso and back. This was treated with Fluconazole 100mg bid and Nystatin 15g bid. Over the course of his hospitalization, his symptoms improved significantly. Spoke to the ID , stated that patient would not require IV antibiotics since he had an amputation. Decision was made to discharge patient with Augmentin , Fluconazole 100mg daily for 10 days and Nystatin 15g bid. He was also instructed to follow up with Dr Banerjee in 2-3 days for further evaluation and management. Procedures performed: Amputation of the left great toe. Medications on Discharge: Augmentin PO, Fluconazole 100mg PO daily, Nystatin 15gm bid Discharge Instructions: *Follow up with your primary care physician in 2 - 3 days after discharge. *Continue all medications as prescribed. Do not discontinue or change dosages without consulting your PCP. *Gradually resume normal activities as tolerated. *Continue a balanced diet . Reduce salt intake to help manage BP. *Seek immediate medical attention if you experience chest pain, SOB or severe headache. *Smoking cessation is strongly advised. Resources for quitting smoking are available upon request. Discharged to: Home Condition on Discharge: Stable Base Draw Operator(s): Podiatry (Dr Banerjee) Infectious Disease (Dr Bullard) Procedure(s): Amputation of the Left Great toe Assessment/Plan: ASSESSMENT: Osteomyelitis involving the left hallux, s/p amputation of the hallux left metatarsophalangeal joint level on 01/22/2025 Left leg cellulitis POA Left toe necrotic ulcer POA Hypokalemia POA Pseudohyponatremia secondary to hyperglycemia POA Hyperglycemia secondary to Uncontrolled diabetes POA Status post fall injury at home two weeks ago POA Hypertension POA Morbid obesity POA Karmen intretrigo PLAN: Osteomyelitis involving the left hallux Left leg cellulitis POA * MRI of the left foot showed findings suggestive of osteomyelitis involving the 1st distal phalanx and adjacent cellulitis. *Continue on Vancomycin 1 g; discontinued Cefepime 1 g secondary rash *Infectious disease consult is appreciated and we will follow their recommendations *Underwent amputation of the hallux left metatarsophalangeal joint level on 01/22/2025 - Venous doppler to rule out DVT on left lower extremity Left Toe Necrotic ulcer *Underwent amputation of the hallux left metatarsophalangeal joint level on 01/22/2025 *Wound care team is on the case Hypokalemia POA * no signs of volume depletion * Replace electrolytes as needed per protocol * continue potassium 20 mEq p.o. b.i.d. as per nephrology consult recommendation Hyperglycemia secondary to Uncontrolled diabetes POA *Blood glucose 130. Currently on low-dose sliding scale AC &HS. *Continue Insulin Glargine 20 units subQ HS Hypertension *Continue with Amlodipine 5mg PO daily Morbid Obesity *Educated patient about the need to lose weight *Physical therapy ordered. Case Management Continue on Famotidine 20 mg p.o. bid for GI prophylaxis continue heparin SQ 5000 q.8h DVT prophylaxis Continue PRN medications for fever,pain,cough, nausea and vomiting Repeat labs in a.m. Discharge Instructions: Discharge Instructions: *Follow-up with Dr. Banerjee in 2-3 days for further evaluation and management *Follow up with your primary care physician in 2 - 3 days after discharge. *Continue all medications as prescribed. Do not discontinue or change dosages without consulting your PCP. *Gradually resume normal activities as tolerated. *Continue a balanced diet . Reduce salt intake to help manage BP. *Seek immediate medical attention if you experience chest pain, SOB or severe headache. *Smoking cessation is strongly advised. Resources for quitting smoking are available upon request. Home Medications: No Active Prescriptions or Reported Meds Time spent arranging discharge: 31-60 minutes ATTESTATION BY PHYSICIAN I have seen and examined the patient. I reviewed the documentation, medical decision making, and treatment plan as noted by the resident provider above. I agree with the findings and plan of care. César Maynard MD OBI,FERN Rucker MD Jan 30, 2025 13:51
[2025-01-30] MEDS ORDERED: CLOT15CR23 TP (14:29)
[2025-01-30] MEDS ORDERED: METF-446 PO (14:29)
--- NOTE | 2025-01-30 16:30 | NUR ---
DISCUSSED DISCHARGE INSTRUCTIONS WITH PATIENT; MADE AWARE TO FOLLOW UP WITH DR. MCGRAW AND [facility] INSTRUCTED, TO CALL OFFICES ON WEEKDAY TO ARRANGE APPOINTMENT. DEMONSTRATED TO PATIENT ON ORDERED WOUND CARE, VERBALIZED UNDERSTANDING.
--- NOTE | 2025-01-30 17:47 | NUR ---
DC PLAN ADMIN GAVE 12 VISITS TO [facility]. LET NURSE KNOW TO GIVE NUMBER TO PATIENT AND TO TEACH ALSO WOUND CARE WITH EXTRA SUPPLIES. Addendum: 01/30/25 at 1748 by YUE NARAYAN RN CM Amended: Links added.
--- NOTE | 2025-01-30 18:36 | PN ---
INFECTIOUS DISEASE PROGRESS NOTE Date of Service: Jan 30, 2025 SUBJECTIVE: This is a 40 year old male patient who is afebrile this morning, temperature is 98.2. Patient has been on vancomycin IV. No antibiotics needed on discharge. Patient will need to follow up with Dr. Banerjee within 1 week. PHYSICAL EXAM EYES: Anicteric. Pupils equal and reactive. HENT: No oral thrush seen, moist Oral mucosa. NECK: Supple, no JVD or thyromegaly. LUNGS: Good air entry. No rales, no rhonchi. CARDIOVASCULAR: S1, S2 regular. No murmur heard. ABDOMEN: Soft, non tender, bowel sounds present, no organomegaly. CENTRAL NERVOUS SYSTEM: Awake, alert, oriented x 3. SKIN: No rashes, no swelling. Left great toe diabetic ulcer, s/p amputation. New onset body rash. LYMPHATICS: No peripheral lymphadenopathy. MUSCULOSKELETAL: No joint swelling, erythema or tenderness. EXTREMITIES: No cyanosis or clubbing. Left lower extremity swelling and erythema. BACK: No deformity, no pressure ulcer. GENITOURINARY: No dysuria or hematuria. Vital Sign (Last 12 Hours) 01/30/25 01/30/25 01/30/25 08:00 08:00 12:00 Temp 98.2 97.3 Pulse 89 90 Resp 18 18 B/P (MAP) 139/76 144/80 Pulse Ox 94 94 99 O2 Delivery Room Air Room Air* Room Air O2 Flow Rate 0 FiO2 21 Intake & Output (last 24hrs) 01/29/25 01/29/25 01/30/25 15:00 23:00 07:00 Intake Total 720 ml 240 ml Balance 720 ml 240 ml LABS: Laboratory: Test 01/30/25 11:54 01/30/25 04:05 01/29/25 15:59 01/29/25 12:52 Range/Units Whole Blood Glucose 149 #H 70-110 MG/DL White Blood Count 8.8 4.8-10.8 K/uL Red Blood Count 4.30 L 4.50-6.20 MIL/uL Hemoglobin 12.0 L 14.0-18.0 g/dL Hematocrit 36.4 L 42-54 % Mean Corpuscular Volume 84.7 79-99 fL Mean Corpuscular Hemoglobin 27.9 27.0-33.0 pg Mean Corpuscular Hemoglobin Concent 33.0 32.0-36.0 g/dL Red Cell Distribution Width 15.7 H 11.0-15.5 % Platelet Count 241 130-400 K/uL Mean Platelet Volume 9.2 7.5-10.5 fL Immature Granulocyte % (Auto) 0.2 0-1 % Neutrophils (%) (Auto) 70.3 40.0-77.0 % Lymphocytes (%) (Auto) 17.0 L 21.0-51.0 % Monocytes (%) (Auto) 5.4 3.0-13.0 % Eosinophils (%) (Auto) 7.0 0.0-8.0 % Basophils (%) (Auto) 0.1 0.0-5.0 % Neutrophils # (Auto) 6.2 1.8-7.7 K/uL Lymphocytes # (Auto) 1.5 1.0-4.8 K/uL Monocytes # (Auto) 0.5 0.1-1.0 K/uL Eosinophils # (Auto) 0.62 0.00-0.70 K/uL Basophils # (Auto) 0.01 0.00-0.20 K/uL Absolute Immature Granulocyte (auto 0.02 0-1 K/uL Nucleated Red Blood Cells 0.0 0.0-0.19 % Sodium Level 140 136-145 mmol/L Potassium Level 3.4 L 3.5-5.1 mmol/L Chloride Level 106 101-111 mmol/L Carbon Dioxide Level 29 21-32 mmol/L Blood Urea Nitrogen 4 L 7-18 mg/dL Creatinine 0.7 0.5-1.3 mg/dL Glomerular Filtration Rate Calc 120 >90 mL/min Random Glucose 107 H 70-105 mg/dL Total Calcium 8.0 L 8.5-10.1 mg/dL Total Bilirubin 0.7 0.2-1.0 mg/dL Aspartate Amino Transf (AST/SGOT) 14 10-37 U/L Alanine Aminotransferase (ALT/SGPT) 18 12-78 U/L Alkaline Phosphatase 49 L 50-136 U/L Total Protein 6.3 6.0-8.3 g/dL Albumin 2.0 L 3.5-5.0 g/dL Bedside Glucose Comment Notified Nurse Vancomycin Level Trough 16.4 # 10.0-20.0 UG/ML Test 6/13/25 06:10 Range/Units Magnesium Level 2.00 1.80-2.40 mg/dL Vitamin B12 Level 270 193-986 pg/mL ASSESSMENT: Left great toe diabetic ulcer with osteomyelitis, s/p amputation on 01/22/2025. New onset body rash possible allergic reaction to cefepime. Polymicrobial infection. Infection with Methicillin-susceptible Staphylococcus aureus. Leukocytosis, resolved. Hypokalemia, resolving. Recent mechanical fall. Uncontrolled Diabetes mellitus, hemoglobin A1c 10.8. Morbid obesity. PLAN: Patient was treated with vancomycin and cefepime. Patient is to follow up with Dr Banerjee within one week. No antibiotics needed on discharge. This case was reviewed and discussed with my supervising physician and the above assessment and plan was formulated and agreed upon. ATTESTATION BY PHYSICIAN I have seen and examined the patient. I reviewed the documentation, medical decision making, and treatment plan as noted by the mid-level provider above. I agree with the findings and plan of care. MAY ESCOBEDO MD, [facility] Jan 30, 2025 18:36
--- NOTE | 2025-02-01 15:25 | NUR ---
Transitional Phone Call Spoke to patient, states "feeling good." States taking medications as instructed; no questions or concerns with medications. [facility] has the follow up appointment with specification writer - Dr. Banerjee on 02/03/2025 and the follow up appointment with wound care - Dr. Membreno on 02/04/2025. States until now able to perform wound care with provided supplies. States it's been difficult to find a PCP; provided options like [facility] in [place] and [facility]; provided phone number. No further question or concerns at this time.
== END 2025-01-30 16:55 | disposition home or self-care (01) | DRG 854 ==
LOC: EDH 18:54 → EDHIP 18:55 → 4DH 01-15 00:15
PROVIDERS: ADMIT Internal Medicine Sleep Medicine; ATTEND Internal Medicine Sleep Medicine
PROC: 02HV33Z Insertion of Infusion Device into Superior Vena Cava, Percutaneous Approach (ICD-10-PCS; 2025-01-21)
PROC: 0Y6Q0Z0 Detachment at Left 1st Toe, Complete, Open Approach (ICD-10-PCS; principal; 2025-01-22 07:00)
DX: A41.9 Sepsis, unspecified organism (principal); E11.52 Type 2 diabetes mellitus with diabetic peripheral angiopathy with gangrene; L03.116 Cellulitis of left lower limb; M86.8X8 Other osteomyelitis, other site; N17.9 Acute kidney failure, unspecified; E87.1 Hypo-osmolality and hyponatremia; L97.528 Non-pressure chronic ulcer of other part of left foot with other specified severity; Z68.44 Body mass index [BMI] 60.0-69.9, adult; E11.65 Type 2 diabetes mellitus with hyperglycemia; E66.01 Morbid (severe) obesity due to excess calories; R26.2 Difficulty in walking, not elsewhere classified; E11.69 Type 2 diabetes mellitus with other specified complication; Z90.49 Acquired absence of other specified parts of digestive tract; E11.621 Type 2 diabetes mellitus with foot ulcer; E87.6 Hypokalemia; D64.9 Anemia, unspecified; E11.22 Type 2 diabetes mellitus with diabetic chronic kidney disease; E11.628 Type 2 diabetes mellitus with other skin complications; E78.00 Pure hypercholesterolemia, unspecified; I12.9 Hypertensive chronic kidney disease with stage 1 through stage 4 chronic kidney disease, or unspecified chronic kidney disease; N18.9 Chronic kidney disease, unspecified; E87.8 Other disorders of electrolyte and fluid balance, not elsewhere classified; E26.9 Hyperaldosteronism, unspecified; E83.59 Other disorders of calcium metabolism; W01.0XXA Fall on same level from slipping, tripping and stumbling without subsequent striking against object, initial encounter; Y92.009 Unspecified place in unspecified non-institutional (private) residence as the place of occurrence of the external cause; Z79.84 Long term (current) use of oral hypoglycemic drugs; Z59.71 Insufficient health insurance coverage
CPT/HCPCS: 36415; 36569; 71045; 73562; 73630; 73718; 76770; 80048; 80051; 80053; 80061; 80202; 81001; 82088; 82306; 82570; 82607; 82948; 83036; 83605; 83735; 83880; 83935; 84100; 84132; 84145; 84244; 84439; 84443; 84481; 84550; 85025; 85027; 85610; 85651; 85730; 86140; 87040; 87070; 87076; 87086; 87186; 87205; 88305; 88311; 93926; 93971; 96361; 96374; 96375; 99291; C1894; G0378; J0360; J0692; J1200; J1644; J1815; J2003; J2250; J2371; J2405; J2704; J2997; J3010; J3370; J3475; J3480; J7030; A4216; A4222; A4223; A4649; A4930; J0665; J3490

== ENCOUNTER → 2025-02-03 | Outpatient (CLI) | payer SELFPAY ==
[~2025-02-03] MED LIST: AMOX-426 PO; CLOT15CR23 TP; FLUC100T12 PO; METF-446 PO; NYST15OI4 TP
== END | disposition home or self-care (01) ==
LOC: WHH 08:09
PROVIDERS: ATTEND Podiatrist Foot & Ankle Surgery
DX: T87.89 Other complications of amputation stump (principal); T81.89XA Other complications of procedures, not elsewhere classified, initial encounter; L03.116 Cellulitis of left lower limb; E11.65 Type 2 diabetes mellitus with hyperglycemia; E11.40 Type 2 diabetes mellitus with diabetic neuropathy, unspecified; E11.52 Type 2 diabetes mellitus with diabetic peripheral angiopathy with gangrene; I96 Gangrene, not elsewhere classified; E11.69 Type 2 diabetes mellitus with other specified complication; M86.8X8 Other osteomyelitis, other site; E11.22 Type 2 diabetes mellitus with diabetic chronic kidney disease; I12.9 Hypertensive chronic kidney disease with stage 1 through stage 4 chronic kidney disease, or unspecified chronic kidney disease; N18.9 Chronic kidney disease, unspecified; E66.01 Morbid (severe) obesity due to excess calories; E83.59 Other disorders of calcium metabolism; E78.00 Pure hypercholesterolemia, unspecified; Z90.49 Acquired absence of other specified parts of digestive tract; Z79.899 Other long term (current) drug therapy; Z68.44 Body mass index [BMI] 60.0-69.9, adult; Y83.8 Other surgical procedures as the cause of abnormal reaction of the patient, or of later complication, without mention of misadventure at the time of the procedure; Y92.238 Other place in hospital as the place of occurrence of the external cause; Y83.5 Amputation of limb(s) as the cause of abnormal reaction of the patient, or of later complication, without mention of misadventure at the time of the procedure
CPT/HCPCS: 99215; A6250; A4450

== ENCOUNTER → 2025-02-17 | Outpatient (CLI) | payer SELFPAY | END | disposition home or self-care (01) | LOC: WHH 08:06 | PROVIDERS: ATTEND Podiatrist Foot & Ankle Surgery | DX: T87.89 Other complications of amputation stump (principal); T81.89XD Other complications of procedures, not elsewhere classified, subsequent encounter; L03.116 Cellulitis of left lower limb; E11.65 Type 2 diabetes mellitus with hyperglycemia; E11.40 Type 2 diabetes mellitus with diabetic neuropathy, unspecified; E11.52 Type 2 diabetes mellitus with diabetic peripheral angiopathy with gangrene; I96 Gangrene, not elsewhere classified; E11.69 Type 2 diabetes mellitus with other specified complication; M86.8X8 Other osteomyelitis, other site; E11.22 Type 2 diabetes mellitus with diabetic chronic kidney disease; I12.9 Hypertensive chronic kidney disease with stage 1 through stage 4 chronic kidney disease, or unspecified chronic kidney disease; N18.9 Chronic kidney disease, unspecified; E66.01 Morbid (severe) obesity due to excess calories; E83.59 Other disorders of calcium metabolism; E78.00 Pure hypercholesterolemia, unspecified; Z90.49 Acquired absence of other specified parts of digestive tract; Z79.899 Other long term (current) drug therapy; Z68.44 Body mass index [BMI] 60.0-69.9, adult; Y83.8 Other surgical procedures as the cause of abnormal reaction of the patient, or of later complication, without mention of misadventure at the time of the procedure; Y83.5 Amputation of limb(s) as the cause of abnormal reaction of the patient, or of later complication, without mention of misadventure at the time of the procedure | CPT/HCPCS: 99214 ==